=== PATIENT | female | born 1940 | race Caucasian/White ===

== ENCOUNTER 2018-05-18 08:51 | Observation (INO) | payer MEDICARE, BC ==
--- NOTE | 2018-05-17 07:40 | HP ---
CC: Dr. Torsten Modi * HISTORY AND PHYSICAL: DATE OF PLANNED ADMISSION AND SURGERY: 05/18/18 HISTORY OF PRESENT ILLNESS: Ms. Celeste is a 78-year-old white female who is admitted with a large bladder mass and right hydronephrosis, for cystoscopy, transurethral resection of bladder tumor and insertion of right ureteral stent. The patient's history started about 6 weeks ago when she noted several episodes of total gross painless hematuria. There was no associated flank pain and no voiding symptoms. There was no associated vaginal bleeding. She was evaluated by Dr. Modi who ordered a CT urogram. The study showed moderate right hydroureteronephrosis and a 4.5 cm mass in the right side of the bladder consistent with a bladder tumor. There were no parenchymal renal masses and no abnormal filling defects in either ureter or collecting system. There was no lymphadenopathy and no evidence of any metastatic disease. The tumor did not seem to be extending beyond the bladder wall. There was an incidental finding of a 1.5 cm cystic mass in the uncinate process of the pancreas, but no biliary dilatation or abnormalities. The patient was then evaluated in my office and I performed a cystoscopy which showed a large solid mass arising from the right bladder wall. The mass looked highly suspicious of high grade bladder tumor, was sessile, and bled easily to instrumentation. No other abnormalities were noted. Because of that finding, the patient admitted for the above procedure. PAST MEDICAL HISTORY AND SYSTEM REVIEW: The patient is a chronic smoker of 1 pack per day for about 46 years. She stopped 11 years ago. She denies any symptoms of COPD or shortness of breath. She does not use oxygen at night. She gives past history of coronary artery disease and had a coronary stent more than 10 years ago. She has done very well and seems to be stable cardiac-alberts without chest pain or shortness of breath. She has history of osteoporosis and was on treatment until 5 years ago. She had a tonsillectomy in childhood and open cholecystectomy in the early 80s and had bilateral cataract surgeries. She has type 2 diabetes with her H1c at 6 one year ago. She is on diet only for her diabetes. FULL TIME PARAMEDIC HISTORY: Negative for any vaginal bleeding. She is nulliparous. She has not had any pelvic surgeries. ALLERGIES: She reports being allergic to KEFLEX which apparently gives her rash , but has not used it in years. FAMILY HISTORY: Negative. PHYSICAL EXAMINATION GENERAL: Pleasant, moderately overweight white female, who looks her age. VITAL SIGNS: Blood pressure 120/70, pulse of 66, oxygen saturation 98% on room air. LUNGS: Clear. HEART: Regular and rhythmic. No murmurs. ABDOMEN: Soft. No masses, no tenderness, and no CVA tenderness. PELVIC EXAMINATION: Done at the time of the office cystoscopy showed no pelvic masses, however mass was felt in the Rt base of the bladder. IMPRESSION: A 5 cm tumor occupying the right base and lateral wall of the bladder, looks high grade by cystoscopy, causing right ureteral obstruction and moderate right hydroureteronephrosis. Past history of heavy smoking. Past history of coronory artery disease, stable. PLAN: Cystoscopy, transurethral resection of bladder tumor and placement of right ureteral stent. I discussed the above plans in detail with the patient and her . Some of the potential complications including excessive bleeding, bladder perforation , inability to place a ureteral stent possibly requiring right nephrostomy tube placement. I also discussed the fact that the patient will need additional treatment for her bladder tumor and that will depend on the grade and the stage of the tumor. All their questions were answered. [id number]/[facility] #: [id number] JUAN
[~2018-05-18 08:51] MED LIST: Buffered Lidocaine 1% SYRIN* 1 ML/SYRINGE INTRADERM ONE; Famotidine IV* 10 MG/ML 2 ML (20 mg) IV ONE; Lactated Ringers 1000 ML Bag* 1,000 ML IV SCH
[2018-05-18] MEDS ORDERED: Famotidine IV* 10 MG/ML 2 ML (20 mg) ONE (09:13)
[2018-05-18] MEDS ORDERED: Phenazopyridine TAB* 100 MG ONE (09:13)
[2018-05-18] MEDS ORDERED: Levofloxacin 750 MG IVPREMIX(* 750 MG/150 ML BAG ONE (09:13)
[2018-05-18] MEDS ORDERED: Midazolam* 1 MG/ML 5 ML VIAL (5 MG) ONE (10:56)
[2018-05-18] MEDS ORDERED: Ondansetron INJ* 2 MG/ML VIAL ONE (10:56)
[2018-05-18] MEDS ORDERED: Phenylephrine INJ* 10 MG/ML 1 ML VIAL (10 MG) ONE (10:56)
[2018-05-18] MEDS ORDERED: Lidocaine 2% PF * 5 ML VIAL ONE (10:56)
[2018-05-18] MEDS ORDERED: fentaNYL* 50 MCG/ML 2 ML VIAL (100 MCG VIAL) ONE ×3 (10:56→14:30)
[2018-05-18] MEDS ORDERED: Propofol* 10 MG/ML 20 ML BTL ONE (10:56)
[2018-05-18] MEDS ORDERED: Dexamethasone IV* 4 MG/ML 1 ML (4 MG) ONE (10:56)
[2018-05-18] MEDS ORDERED: Cisatracurium* 2 MG/ML MDV 5 ML ONE (11:28)
[2018-05-18] MEDS ORDERED: Fluorescein 10% INJ* 100 MG/ML AMP ONE (12:27)
[2018-05-18] MEDS ORDERED: Iohexol 180 (CONTRAST) 10 ML SDV IV ONE (13:00)
[2018-05-18] MEDS ORDERED: Neostigmine Methylsulfate* 1 MG/ML 10 ML VIAL (1 mg/ml) ONE (13:20)
[2018-05-18] MEDS ORDERED: Glycopyrrolate IV* 0.2 MG/ML 1 ML VIAL ONE (13:20)
[2018-05-18] MEDS ORDERED: Naloxone* 0.4 MG/ML 1 ML VIAL IV PRN (15:21)
[2018-05-18] MEDS ORDERED: Ondansetron INJ* 2 MG/ML VIAL IV PRN (15:21)
[2018-05-18] MEDS ORDERED: fentaNYL* 50 MCG/ML 2 ML VIAL (100 MCG VIAL) IV PRN (15:21)
[2018-05-18] MEDS ORDERED: Oxybutynin TAB* 5 MG PO PRN (16:24)
[2018-05-18] MEDS ORDERED: oxyCODONE/Acetamin 5/325 MG* TAB PO PRN (16:24)
[2018-05-18] MEDS ORDERED: Benzocaine/Menthol LOZ* 1 LOZENGE PO PRN (17:43)
[2018-05-18] MEDS ORDERED: Atorvastatin* 40 MG TAB PO SCH (18:00)
[2018-05-18] MEDS: [UNRECOGNIZED DRUG - OTHER] PO SCH (22:04)
[2018-05-18] MEDS: Calcium/Vitamin D TAB 250/125* TAB PO SCH (22:07)
[2018-05-18] MEDS: Lactated Ringers 1000 ML Bag* 1,000 ML IV SCH (23:22)
[2018-05-19] MEDS: Lactated Ringers 1000 ML Bag* 1,000 ML IV SCH (05:42)
[2018-05-19 05:45] LABS: INR 1.02 (0.77-1.02)
[2018-05-19 05:49] LABS: BUN/Creatinine Ratio 23.2 (8-20); Calcium 9.2 mg/dL (8.6-10.3); EGFR African American 50.3 (>60); EGFR Non-African American 41.6 (>60); Potassium 4.7 mmol/L (3.5-5.0)
[2018-05-19] MEDS: [UNRECOGNIZED DRUG - OTHER] PO SCH (08:32)
[2018-05-19] MEDS: Calcium/Vitamin D TAB 250/125* TAB PO SCH (08:37)
--- NOTE | 2018-05-19 08:49 | OP ---
CC: Dr. Torsten Modi * DATE OF OPERATION: 05/18/18 - ROOM #348 DATE OF : 42 SURGEON: Sigifredo Clifton MD ANESTHESIOLOGIST: Dr. Mp Aiken. ANESTHESIA: General. PRE-OP DIAGNOSES: 1. Large bladder tumor, right bladder wall. 2. Right hydronephrosis due to above. POST-OP DIAGNOSES: 1. Large bladder tumor, right bladder wall. 2. Right hydronephrosis due to above. OPERATIVE PROCEDURE: 1. Cystoscopy. 2. Transurethral resection of bladder tumor (5 cm). 3. Unsuccessful attempt at right ureteral catheterization. INDICATION FOR PROCEDURE: Mrs. Celeste is a 78-year-old white female who gives past history of chronic and heavy smoking and who 6 weeks ago started having episodes of gross painless hematuria. She was worked up by Dr. Modi, who obtained a CT urogram. The study showed a large solid mass occupying the whole right lateral wall and the right base of the bladder associated with mild-to- moderate right hydroureteronephrosis. Office cystoscopy confirmed the presence of a high-grade looking solid tumor occupying the right bladder wall. Because of the above history and finding, the patient was admitted for the above procedure. PATHOLOGY: At cystoscopy, the left ureteral orifice was normal. The right ureteral orifice could not be visualized. There was a large sessile solid tumor occupying the right base of the bladder and the whole right lateral wall extending just proximal to the level of the bladder neck. The tumor was vascular and bled easily on instrumentation. At resection, the tumor was solid and looked deeply invasive into the bladder wall. The right ureteral orifice could not be visualized even after resection of the right trigone. No efflux was seen in the area of the right ureteral orifice. DESCRIPTION OF PROCEDURE: After successful general anesthesia with muscle paralysis, the patient was placed in the lithotomy position and was prepped and draped for a cystoscopy. Cystoscopy was performed. The bladder was carefully inspected and the above findings were noted. The right ureteral orifice could not be visualized. The resectoscope was then introduced inside the bladder. The inflow and outflow of the irrigation fluid were adjusted to avoid over distention of the bladder. The bladder tumor was then resected starting at the level of the right trigone and proceeding anteriorly. The resection was carried deep into the bladder wall but there was no perforation. The tumor seems to be extending deep into the bladder wall and no attempt was made to fully resect it for fear of causing a large bladder perforation. The bleeders were electrocoagulated and controlled. The right ureteral orifice could still not be identified. The patient was given 0.5 cc of fluorescein. There was good efflux of fluorescein colored urine from the left ureteral orifice but none was noted from the area of the right orifice. In spite of prolonged attempt at identification of the Rt orifice, it was not successful. At the completion of the procedure, there was good hemostasis. There was no evidence of bladder perforation. There was residual tumor noted but it was not bleeding. The resectoscope was then removed and size 20-Yakut Ziegler catheter was passed inside the bladder and the balloon inflated with 10 cc of water. The patient tolerated the procedure well and left the operating room in good condition. The blood loss was estimated at about 50 cc. The specimen was bladder tumor. The plan is to watch the patient overnight for right flank pain, fever, and to check serum Creatinine, and obtain renal ultrasound in the morning. If the Cr is increased and the pre op hydronephrosis worse, the plan will be to place a right percutaneous nephrostomy tube. [id number]/[facility] #: [id number] [facility]ITALMike
[2018-05-19] MEDS ORDERED: Levofloxacin TAB* 500 MG PO ONE (09:00)
[2018-05-19] MEDS ORDERED: Ramipril CAP* 2.5 MG PO SCH (09:00)
[2018-05-19 12:07] VITALS: BP 126/51
--- NOTE | 2018-05-24 00:24 | DS ---
DISCHARGE SUMMARY: DATE OF ADMISSION: 05/18/18 DATE OF DISCHARGE: 05/19/18 FINAL DIAGNOSES: 1. 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 2. Moderate right hydronephrosis due to above. OPERATIONS: 1. Cystoscopy. 2. Transurethral resection of bladder tumor (right bladder wall). 3. Unsuccessful attempt at placement of a right ureteral stent. HISTORY: Mrs. Celeste is a 78-year-old white female who about 6 weeks prior to admission started havin g episodes of gross, painless hematuria. There was no associated flank pain and no voiding symptoms. She consulted Dr. Modi, her primary care physician, who ordered a CT urogram. The study showed moderate right hydroureteronephrosis and a 5 cm mass occupying the right wall of the bladder. The ap pearance on the CT was consistent with a high-grade invasive bladder tumor. The tumor did not seem t o be extending outside the bladder wall. There was no lymphadenopathy and no evidence of abdominal o r pelvic metastatic disease. There was, however, an incidental finding of 1.5 cm cystic mass in the uncinate process of the pancreas, but there was no biliary dilatation or abnormalities. The patient underwent a cystoscopy in my office, which confirmed the presence of a large solid mass i n the right bladder wall. PAST MEDICAL HISTORY AND SYSTEM REVIEW: The patient was a chronic smoker of 1 pack per day for 46 ye ars and she stopped 11 years ago. She denies any symptoms of COPD and denies any shortness of breath. She gives a history of coronary artery disease and had a coronary stent inserted about 10 years ago. She has done well and had no recurrent cardiac symptoms. She had no chest pain or shortness of nel th. The patient has history of osteoporosis. Surgical history relevant for tonsillectomy in childhood and an open cholecystectomy in her early 80s . She had bilateral cataract surgeries. She has type 2 diabetes, controlled on diet. Her A1c 1 year ago was 6. 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 She is nulliparous. She has not had any pelvic torre rgeries. ALLERGIES: She reports being allergic to KEFLEX, which gives her a rash. She has not used it in yea rs. FAMILY HISTORY: Negative. PHYSICAL EXAMINATION: Her physical examination on admission was normal with normal vital signs. Pel arvin examination done at the office during her cystoscopy showed a firm mass in the right base of the bladder, but there was no fixation. PREOPERATIVE LABORATORY WORK: Was within normal. COURSE IN HOSPITAL: The patient was admitted the morning of her surgery. Under general anesthesia, she underwent transurethral resection of the bladder tumor. The tumor was solid, non-papillary, sessi le, and seemed to be deeply invasive into the bladder wall. In spite of multiple attempts at identif acacia the right orifice and even after giving the patient IV fluorescein, the right orifice could not be visualized and a right ureteral stent could not be placed. Because of the concern about worsening right hydronephrosis, the patient was kept in the hospital for observation overnight. Her urine remained clear. She did not have any right flank pain or any feve r. Her serum creatinine the next morning was stable at 1.2. She also had a renal ultrasound, which showed stable moderate right hydronephrosis. The Ziegler catheter was removed and the patient was disc harged home on her preoperative medications. The final pathology confirmed a high-grade deeply muscle invasive transitional cell carcinoma. At the time of her discharge, the patient was pain-free, had normal vital signs, no flank pain. She was discharged home. The plan is to see the patient in the office next week and she will have a followup renal ultrasound to confirm that the hydronephrosis has not increased. She will also have a CT of the chest to rule o ut any pulmonary metastasis. After rechecking the pancreatic finding on the CT, the patient will be referred to [facility] for the treatment of her bladder tumor, which will most likely require a cystectomy with or with out neoadjuvant systemic chemotherapy. [id number]/[facility] #: [id number]
== END 2018-05-19 12:07 | disposition home or self-care (01) ==
LOC: OR 08:51 → SSU 15:41
PROVIDERS: ADMIT Urology; ATTEND Urology
DX: N32.9 Bladder disorder, unspecified (principal); N13.30 Unspecified hydronephrosis; F17.210 Nicotine dependence, cigarettes, uncomplicated; I25.10 Atherosclerotic heart disease of native coronary artery without angina pectoris; Z95.5 Presence of coronary angioplasty implant and graft; E11.9 Type 2 diabetes mellitus without complications
CPT/HCPCS: 36415; 74420; 76775; 80048; 85610; 85730; 88307; 96374; 96375; A9270-GY; G0378; J1100; J2250; J2405; J2704; J2710; J3010

== ENCOUNTER 2018-08-19 11:29 | Inpatient (IN) | payer MEDICARE, BC ==
--- NOTE | 2018-08-19 12:32 | ED ---
Adult Trauma - HPI Summary HPI Summary: This patient is a 78 year old F brought to ED via EMS with a chief complaint of mechanical fall at 1145 today. Patient also has low hemoglobin. Patient got up on walker and felt her knees buckle. She thought she hit her head on the cabinet. Per detention, she was at [facility] three weeks ago and received three transfusions. Patient had urostomy done on 07/26/18 and had black/ tarry stools after. The patient rates the pain 0/10 in severity. Symptoms aggravated by nothing. Symptoms alleviated by nothing. Patient reports weakness , pallor skin. Patient denies headache and fever. PMHx of DM, angina, CAD, bladder cancer. FHx of DM, cardiac disease, cancer. Patient drinks alcohol, does not use substances or drugs. - History of Current Complaint Chief Complaint: EDFall Stated Complaint: LOW HEMOGLOIN PER EMS ?: No Mechanism of Injury: Fall Onset/Duration: Started Hours Ago - 1145 today Current Severity: None Pain Intensity: 0 Pain Scale Used: 0-10 Numeric Aggravating Factor(s): Nothing Alleviating Factor(s): Nothing Associated Signs & Symptoms: Positive: Negative - Headache, Numbness/Weakness - Weakness. Negative: Fever - Additional Pertinent History Primary Care Physician: [id number] - Allergy/Home Medications Allergies/Adverse Reactions: Allergies Allergy/AdvReac Type Severity Reaction Status Date / Time cephalexin [From Keflex] Allergy Rash Verified 06/10/18 14:29 ciprofloxacin Allergy Swelling Verified 08/05/18 08:25 Home Medications: Home Medications Acetaminophen TAB* [Tylenol TAB*] 975 mg PO Q8HR PRN 08/19/18 [History Confirmed 08/19/18] Aspirin EC TAB* [Ecotrin EC Low Dose 81 MG*] 81 mg PO DAILY 08/19/18 [History Confirmed 08/19/18] Bisacodyl SUPP* [Dulcolax Supp*] [address] DAILY PRN 08/19/18 [History Confirmed 08/19/18] Docusate CAP* [Colace Cap*] 200 mg PO QAM 08/19/18 [History Confirmed 08/19/18] Enoxaparin(*) [Lovenox(*)] 40 mg SUBCUT DAILY 08/19/18 [History Confirmed ] Furosemide TAB* [Lasix TAB*] 60 mg PO DAILY 08/19/18 [History Confirmed 08/19/18 ] Glucosamine HCl 1,500 mg PO DAILY 08/19/18 [History Confirmed 08/19/18] Multivitamins/Minerals TAB* [Theragran/minerals TAB*] 1 tab PO DAILY 08/19/18 [ History Confirmed 08/19/18] Nitroglycerin TAB 0.4 MG* 0.4 mg SL Q5M PRN 08/19/18 [History Confirmed 08/19/18 ] Nystatin TOP POWDER* 1 applic TOPICAL DAILY PRN 08/19/18 [History Confirmed ] Phenyleph/Mineral Oil/Petrolat [Preparation H] [address] BID PRN 08/19/18 [ History Confirmed 08/19/18] Rosuvastatin (NF) [Crestor (NF)] 20 mg PO QPM 08/19/18 [History Confirmed ] Saccharomyces Boulardii [Probiotic] 250 mg PO BID 08/19/18 [History Confirmed ] Sodium Bicarbonate (ANTACID)* 650 mg PO TID 08/19/18 [History Confirmed 08/19/18 ] PMH/Surg Hx/FS Hx/Imm Hx Endocrine/Hematology History: Reports: Hx Diabetes - diet controlled Cardiovascular History: Reports: Hx Angina - history of, none recent, Hx Coronary Artery Disease - 1 cardiac stent 03/2007 Denies: Hx Hypertension, Hx Pacemaker/ICD, Other Cardiovascular Problems/ Disorders Respiratory History: Denies: Other Respiratory Problems/Disorders GI History: Reports: Other GI Disorders - Cholecystectomy 1979 History: Reports: Other Problems/Disorders - bladder tumor, right hydronephrosis Denies: Hx Dialysis, Hx Renal Disease - RIGHT URETER OBSTRUCTION ( DISTAL ) 2018 Musculoskeletal History: Reports: 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, Other Musculoskeletal History - Osteoporosis Sensory History: Reports: Hx Cataracts - Bilateral cataract extractions 2007, Hx Contacts or Glasses - Reading glasses Denies: Hx Hearing Aid Opthamlomology History: Reports: Hx Cataracts - Bilateral cataract extractions 2007, Hx Contacts or Glasses - Reading glasses Neurological History: Denies: Other Neuro Impairments/Disorders Psychiatric History: Denies: Hx Panic Disorder - Cancer History Cancer Type, Location and Year: BLADDER CA Hx Chemotherapy: No Hx Radiation Therapy: No - Surgical History Surgery Procedure, Year, and Place: 04/2018 CYSTOSCOPY W/ BIOPSY. CHOLECYSTECTOMY 1979. Tonsillectomy as a kid. Cardiac stent placement 2007. Bilateral Cataract Extractions 2007. Colonoscopy. Urostomy 07/26/18 Hx Anesthesia Reactions: No Infectious Disease History: No Infectious Disease History: Denies: Traveled Outside the [place] in Last 30 Days - Family History Known Family History: Positive: Cardiac Disease, Diabetes, Other - Alzheimers, cancer - Social History Alcohol Use: Weekly Alcohol Amount: 1 glass of beer or wine 4-5 times a week Hx Substance Use: No Substance Use Type: Reports: None Hx Tobacco Use: Yes Smoking Status (MU): Former Smoker Type: Cigarettes Amount Used/How Often: 1 PPD for 46 years Have You Smoked in the Last Year: No Review of Systems Negative: Fever Skin: Other - Pallor skin Positive: Weakness. 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 Dark stool, no gross blood. Triage Information Reviewed: Yes Vital Signs On Initial Exam: Initial Vitals Temp Pulse Resp BP Pulse Ox 98.4 F 87 20 98/46 92 08/19/18 11:43 08/19/18 11:43 08/19/18 11:43 08/19/18 11:43 08/19/18 11:43 Vital Signs Reviewed: Yes Diagnostics - Vital Signs Vital Signs Temp Pulse Resp BP Pulse Ox 08/19/18 11:43 98.4 F 87 20 98/46 92 - Laboratory Lab Statement: Any lab studies that have been ordered have been reviewed, and results considered in the medical decision making process. Re-Evaluation - Re-Evaluation First Eval Re-Evaluation Time: 12:33 Comment: Discussed results with patient. Patient will be admitted to [facility] with diagnosis of GI bleed, symptomatic anemia, and mechanical fall. Patient understands and agrees with this plan. Adult Trauma Course/Dx - Course Course Of Treatment: Patient with minor fall today due to chronic weakness. She had anemia resulting from recent surgery. Her hemoglobin on outpatient labs just prior to arrival is 5.6. She required blood transfusion. Stools are black and Hemoccult positive. GI consultation will be obtained. IV Protonix drip given. Patient stable through transfusion that occurred here in the ER. - Diagnoses Differential Diagnosis/HQI/PQRI: Positive: Other - GI bleed, head injury, abdominal injury, generalized weakness, Provider Diagnoses: Accident due to mechanical fall without injury, GI bleed, Symptomatic anemia - Physician Notifications Discussed Care Of Patient With: Carine Sanz Time Discussed With Above Provider: 13:35 Instructed by Provider To: Admit As Inpatient - Discussed patient case with Dr. Carine Sanz, hospitalist, who accepted the patient for admission. - Critical Care Time Critical Care Time: 30-74 min - 30 minutes. CCT is EXCLUSIVE of separately billable procedures. Discharge - Sign-Out/Discharge Documenting (check all that apply): Patient Departure - Admit Patient Received Moderate/Deep Sedation with Procedure: No - Discharge Plan Condition: Fair Disposition: ADMITTED TO [facility] - Billing Disposition and Condition Condition: FAIR Disposition: Admitted to [facility] - Attestation Statements Document Initiated by Scribe: Yes Documenting Scribe: Shaheen Snyder Provider For Whom Sarah is Documenting (Include Credential): Adeel Hopkins MD Scribe Attestation: Shaheen Rojas, scribed for Adeel Hopkins MD on 08/19/18 at 1855. Scribe Documentation Reviewed: Yes Provider Attestation: The documentation as recorded by the Shaheen gonzalez accurately reflects the service I personally performed and the decisions made by me, Adeel Hopkins MD Status of Scribe Document: Viewed
[2018-08-19 13:07] LABS: Activated Partial Thrombo Time 33.2 seconds (26.0-38.0); INR 1.29 (0.82-1.09)
[2018-08-19] MEDS ORDERED: Pantoprazole IV* 40 MG IV ONE (13:33)
[2018-08-19] MEDS ORDERED: Pantoprazole* 80 mg IN NS 80 MG/250 ML BAG IVPB ONE (13:33)
[2018-08-19] MEDS ORDERED: Acetaminophen TAB* 325 MG PO PRN (14:49)
[2018-08-19] MEDS ORDERED: NS 0.9% 500 ML* 500 ML IV ONE (16:53)
[2018-08-19] MEDS ORDERED: NS 0.9% 1000 ML** 1,000 ML IV ONE (16:54)
--- NOTE | 2018-08-19 17:29 | HP ---
HISTORY AND PHYSICAL: ADDENDUM: HISTORY OF PRESENT ILLNESS: We are currently obtaining records from [facility] [[email or web address] In interview with the patient, the patient reports that she has no recollection of upper endoscopy or lower endoscopy. Due to her profound anemia and weakness , we were asked to see and evaluate her for admission. PAST MEDICAL HISTORY: 1. History of coronary artery disease with stenting over 10 years ago. 2. History of diabetes. 3. Angina. 4. History of bladder cancer. 5. Osteoporosis. 6. Heart murmur. 7. Hypertension. 8. History of lower back pain. 9. Pancreatic cyst. 10. Chronic kidney disease. PAST SURGICAL HISTORY: 1. Cholecystectomy. 2. Tonsillectomy. 3. Urostomy and hysterectomy on 07/26/18. 4. Left nephrostomy tube placement in July of 2018. 5. Bladder removal due to cancer. HOME MEDICATIONS: Include: 1. Aspirin 81 mg p.o. daily. 2. Calcium carbonate 1 tab twice daily. 3. Colace 200 mg daily. 4. Lovenox 40 mg subcu daily. 5. Furosemide 60 mg p.o. daily. 6. Glucosamine 1 tablet b.i.d. 7. Multivitamin 1 tablet p.o. daily. 8. Rosuvastatin 20 mg p.o. daily. 9. Probiotic 1 tablet b.i.d. 10. Sodium bicarbonate 650 mg 2 tablets 3 times a day. 11. Acetaminophen 975 mg every 8 hours as needed for pain. 12. Nitroglycerin 0.4 mg sublingual as needed for chest pain. ALLERGIES: She has allergy to CIPRO and KEFLEX. FAMILY HISTORY: Father with history of an [place]. Mother with breast cancer, colon cancer. Sister with a brain tumor. Brother with Alzheimer's disease. SOCIAL HISTORY: The patient reports that she quit smoking approximately 11 years ago. Prior to that, she smoked up to a pack and a half a day for 46 years. She denies any drug use or alcohol use. She is . Surrogate decision maker in the event she is unable to make her own decisions is her . She is a DNR/DNI. REVIEW OF SYSTEMS: The patient denies any fever, unintended weight loss, chest pain, edema. Denies any cough, hemoptysis. She does report some exertional shortness of breath that has progressively become worse. Denies any nausea, vomiting, diarrhea. She does complain of some abdominal pressure. She denies any gross hematuria or dysuria. The patient has a urostomy and a left nephrostomy tube. She denies any focal weakness or sensory loss. Denies any visual complaints, dysphagia, arthralgias, or myalgias. She does report she has open lesions to her lower abdomen from recent surgery and an open sore on her coccyx. She does complain of generalized weakness. She denies any psychosis or anxiety. PHYSICAL EXAMINATION GENERAL: At this time, Ms. Celeste is a 78-year-old female. She is pale, appears weak, resting on the stretcher in the emergency room. VITAL SIGNS: Blood pressure 95/55, heart rate is 90, respirations are 20, O2 saturation 93%, temperature was 98.6. HEENT: Head is atraumatic, normocephalic. Eyes: EOMs are intact. Sclerae are pale. Oral mucosa is pale and dry. NECK: Supple. There is no C-spine tenderness. RESPIRATORY: Lung sounds are clear to auscultation bilaterally. No wheezes, rales, or rhonchi. CARDIAC: S1, S2. Regular rate and rhythm. ABDOMEN: Rounded. It is soft. She does have surgical colleen intact to her left lower abdomen with 2 open areas noted at the top and base of the surgical incision with packing in place with a small amount of drainage. She has a urostomy that is draining yellow urine to her left lower abdomen. She has a left nephrostomy tube that is also draining clear yellow urine into a gravity bag. EXTREMITIES: She is able to move all 4 extremities. She does have +1 to +2 pitting edema to bilateral lower legs. She has no calf tenderness. Pedal pulses are +2 bilaterally. There is no clubbing or cyanosis. Her nail beds are pale. NEUROLOGIC: She is awake, alert, oriented x3. Speech is clear. Thought process is intact. There are no gross focal deficits. SKIN: She has a surgical incision to her left lower abdomen that has packed dressing at the top and base of the incision with small to moderate amount of serious drainage. There is no surrounding redness at the surgical incision site. She also has a small open wound noted to her coccyx and left intergluteal fold that has a dressing intact. She has a dressing intact around her left nephrostomy tube that is clean and dry. DIAGNOSTIC STUDIES/LAB DATA: WBCs are 14.7, RBCs 2.09, hemoglobin 5.6, hematocrit is 18, platelet count is 303. INR is 1.29. Sodium 137, potassium is 3.3, chloride 97, carbon dioxide is 25, anion gap is 15, BUN was 49, creatinine 1.40, calcium is 7.6. ASTs are 92, ALTs are 112, alkaline phosphatase is 92. Total protein is 4.4, albumin is 2.0. Urine is currently pending. Chest x-ray is pending. ASSESSMENT AND PLAN: Ms. Celeste is a 78-year-old female who was recently diagnosed with bladder cancer, status post bladder removal with urostomy and total hysterectomy on 07/26/18 at [facility] [[email or web address]], who presented to the emergency room with profound anemia and heme-positive stools. She will be admitted inpatient for: 1. Profound anemia. I suspect her anemia could be related to gastrointestinal bleed. She does have black and tarry stools. She reports black and tarry stools since she had urostomy placed on 07/26/18. The patient does report progressively worsening weakness. She has been rehabbing at [facility] and today had a fall. I suspect her weakness is related to her profound anemia. Contributing to her anemia could also be the use of DVT prophylaxis Lovenox and aspirin 81 mg p.o. daily. I am going to hold her Lovenox and aspirin at this time. I will place her on SCDs. She will get 2 units of blood and we will repeat H and H q.6 hours and monitor for further signs of bleeding. She recently had an MRI of the abdomen that did not show any liver disease or liver lesions concerning for varices. I have consulted Dr. Mckenna from GI for further recommendations. We will continue her on a Protonix drip. She received 80 mg of Protonix in the emergency room and she will have a drip at 8 mg per hour. I will make her n.p.o. except for ice chips for now pending GI's consultation. 2. History of bladder cancer. The patient is status post bladder removal with urostomy and left nephrostomy tubes that are patent and draining clear light yellow urine. We will continue to monitor her urine output. 3. Chronic kidney disease. The patient does have an elevated BUN and creatinine. It appears to be improving from her previous admission. We will continue to monitor her BUN and creatinine, avoid nephrotoxic medications, and repeat a BMP tomorrow. 4. Hypokalemia. The patient does have a potassium level of 3.3. I will give her 40 mEq of potassium IV and repeat BMP in the AM. 5. Hypertension. The patient is not currently on any antihypertensive medications. 6. Hyperlipidemia. I will hold her rosuvastatin at this time due to her gastrointestinal bleed. 7. Diabetes. I will place her on lispro sliding scale with Accu-Cheks a.c. 8. Surgical wounds. She has healing surgical wounds noted to the top and base of the surgical incision. Colleen are intact, no surround erythema. small to moderate amount of serious drainage. We will continue dressings with saline wet -to-dry dressings to surgical wounds noted at the top and base of her surgical incision and continue to monitor for signs of infection. Patient is afebrile at this time and the wounds do not appear to be infected, I will hold off on antibiotics at this time. Should the patient develop a fever or changes in drainage, will start antibiotics. For her coccyx wound, I would place barrier cream daily and dressing changes as needed. 9. FEN: She will be n.p.o. except ice chips. 10. Code status: She is a DNR/DNI. 11. DVT prophylaxis: I will place her on SCDs. Chemical DVT prophylaxis is contraindicated at this time as the patient has a gastrointestinal bleed with an H and H of 5.6 and 16. TIME SPENT: Time spent on this admission was approximately 60 minutes, greater than half that time was spent at the bedside reviewing events leading thus far to her hospitalization, performing physical exam, and reviewing my plan of care. I have discussed this with my attending, Dr. Carine Sanz; she is in agreement with my plan. DAVID DARCI, EN[employer]EVEL [employer]URING ENGINEER [id number]/[facility] #: [id number] JUAN
--- NOTE | 2018-08-19 18:10 | HP ---
CONTINUATION ADDENDUM NOW INCLUDED ON THIS REPORT CC: Dr. Modi; Dr. Taylor, [facility] * HISTORY AND PHYSICAL: DATE OF ADMISSION: 08/19/18. PRIMARY CARE PROVIDER: Dr. Modi. PROVIDER: Brandi Shook NP. ATTENDING PROVIDER: Dr. Carine Sanz * (DICTATED BY BRANDI SHOOK NP) CHIEF COMPLAINT: 1. Weakness. 2. Fall. HISTORY OF PRESENT ILLNESS: Ms. Celeste is a 78-year-old female with past medical history significant for diabetes, angina, history of bladder cancer, status post bladder removal on 07/26/18 with total hysterectomy, who presented to the emergency room with complaints of weakness and fall this morning. The patient reports that she has been having black stools since she had her urostomy and nephrostomy tube placed on 07/26/18 at [facility]. The patient reports that she was in [facility] from 07/26/18 to 08/02/18, she was then discharged home. Approximately 3 days after her discharge home, she re- presented to the emergency room due to weakness and was found have pyelonephritis. She again was transferred to [facility], admitted, and recently discharged on 08/16/18 to [facility]. The patient reports that she has been at [facility]. She continues to feel weak and continued to have black stool. This morning, she felt weak in her knee buckled and she fell to the floor. She denied any injury. She had lab work done prior to her visit and she was found to have an H and H of 5.6 and 18. We are currently obtaining records from [facility]. In interview with the patient, the patient reports that she has no recollection of upper endoscopy or lower endoscopy. Due to her profound anemia and weakness, we were asked to see and evaluate her for admission. PAST MEDICAL HISTORY: 1. History of coronary artery disease with stenting over 10 years ago. 2. History of diabetes. 3. Angina. 4. History of bladder cancer. 5. Osteoporosis. 6. Heart murmur. 7. Hypertension. 8. History of lower back pain. 9. Pancreatic cyst. 10. Chronic kidney disease. PAST SURGICAL HISTORY: 1. Cholecystectomy. 2. Tonsillectomy. 3. Urostomy and hysterectomy on 07/26/18. 4. Left nephrostomy tube placement in July of 2018. 5. Bladder removal due to cancer. HOME MEDICATIONS: Include: 1. Aspirin 81 mg p.o. daily. 2. Calcium carbonate 1 tab twice daily. 3. Colace 200 mg daily. 4. Lovenox 40 mg subcu daily. 5. Furosemide 60 mg p.o. daily. 6. Glucosamine 1 tablet b.i.d. 7. Multivitamin 1 tablet p.o. daily. 8. Rosuvastatin 20 mg p.o. daily. 9. Probiotic 1 tablet b.i.d. 10. Sodium bicarbonate 650 mg 2 tablets 3 times a day. 11. Acetaminophen 975 mg every 8 hours as needed for pain. 12. Nitroglycerin 0.4 mg sublingual as needed for chest pain. ALLERGIES: She has allergy to CIPRO and KEFLEX. FAMILY HISTORY: Father with history of an [place]. Mother with breast cancer, colon cancer. Sister with a brain tumor. Brother with Alzheimer's disease. SOCIAL HISTORY: The patient reports that she quit smoking approximately 11 years ago. Prior to that, she smoked up to a pack and a half a day for 46 years. She denies any drug use or alcohol use. She is . Surrogate decision maker in the event she is unable to make her own decisions is her . She is a DNR/DNI. REVIEW OF SYSTEMS: The patient denies any fever, unintended weight loss, chest pain, edema. Denies any cough, hemoptysis. She does report some exertional shortness of breath that has progressively become worse. Denies any nausea, vomiting, diarrhea. She does complain of some abdominal pressure. She denies any gross hematuria or dysuria. The patient has a urostomy and a left nephrostomy tube. She denies any focal weakness or sensory loss. Denies any visual complaints, dysphagia, arthralgias, or myalgias. She does report she has open lesions to her lower abdomen from recent surgery and an open sore on her coccyx. She does complain of generalized weakness. She denies any psychosis or anxiety. PHYSICAL EXAMINATION GENERAL: At this time, Ms. Celeste is a 78-year-old female. She is pale, appears weak, resting on the stretcher in the emergency room. VITAL SIGNS: Blood pressure 95/55, heart rate is 90, respirations are 20, O2 saturation 93%, temperature was 98.6. HEENT: Head is atraumatic, normocephalic. Eyes: EOMs are intact. Sclerae are pale. Oral mucosa is pale and dry. NECK: Supple. There is no C-spine tenderness. RESPIRATORY: Lung sounds are clear to auscultation bilaterally. No wheezes, rales, or rhonchi. CARDIAC: S1, S2. Regular rate and rhythm. ABDOMEN: Rounded. It is soft. She does have surgical colleen intact to her left lower abdomen with 2 open areas noted at the top and base of the surgical incision with packing in place with a small amount of drainage. She has a urostomy that is draining yellow urine to her left lower abdomen. She has a left nephrostomy tube that is also draining clear yellow urine into a gravity bag. EXTREMITIES: She is able to move all 4 extremities. She does have +1 to +2 pitting edema to bilateral lower legs. She has no calf tenderness. Pedal pulses are +2 bilaterally. There is no clubbing or cyanosis. Her nail beds are pale. NEUROLOGIC: She is awake, alert, oriented x3. Speech is clear. Thought process is intact. There are no gross focal deficits. SKIN: She has a surgical incision to her left lower abdomen that has packed dressing at the top and base of the incision with small to moderate amount of serious drainage. There is no surrounding redness at the surgical incision site. She also has a small open wound noted to her coccyx and left intergluteal fold that has a dressing intact. She has a dressing intact around her left nephrostomy tube that is clean and dry. DIAGNOSTIC STUDIES/LAB DATA: WBCs are 14.7, RBCs 2.09, hemoglobin 5.6, hematocrit 18, platelet count 303. INR is 1.29. Sodium 137, potassium is 3.3, chloride 97, carbon dioxide is 25, anion gap is 15, BUN 49, creatinine 1.40, calcium is 7.6. ASTs are 92, ALTs are 112, alkaline phosphatase is 92. Total protein is 4.4, albumin is 2.0. Urine is currently pending. Chest x-ray is pending. ASSESSMENT AND PLAN: Ms. Celeste is a 78-year-old female who was recently diagnosed with bladder cancer, status post bladder removal with urostomy and total hysterectomy on 07/26/18 at [facility], who presented to the emergency room with profound anemia and heme-positive stools. She will be admitted inpatient for: 1. Profound anemia. I suspect her anemia could be related to gastrointestinal bleed. She does have black and tarry stools. She reports black and tarry stools since she had urostomy placed on 07/26/18. The patient does report progressively worsening weakness. She has been rehabbing at [facility] and today had a fall. I suspect her weakness is related to her profound anemia. Contributing to her anemia could also be the use of DVT prophylaxis Lovenox and aspirin 81 mg p.o. daily. I am going to hold her Lovenox and aspirin at this time. I will place her on SCDs. She will get 2 units of blood and we will repeat H and H q.6 hours and monitor for further signs of bleeding. She recently had an MRI of the abdomen that did not show any liver disease or liver lesions concerning for varices. I have consulted Dr. Mckenna from GI for further recommendations. We will continue her on a Protonix drip. She received 80 mg of Protonix in the emergency room and she will have a drip at 8 mg per hour. I will make her n.p.o. except for ice chips for now pending GI's consultation. 2. History of bladder cancer. The patient is status post bladder removal with urostomy and left nephrostomy tubes that are patent and draining clear light yellow urine. We will continue to monitor her urine output. 3. Chronic kidney disease. The patient does have an elevated BUN and creatinine. It appears to be improving from her previous admission. We will continue to monitor her BUN and creatinine, avoid nephrotoxic medications, and repeat a BMP tomorrow. 4. Hypokalemia. The patient does have a potassium level of 3.3. I will give her 40 mEq of potassium IV and repeat BMP in the AM. 5. Hypertension. The patient is not currently on any antihypertensive medications. her blood pressure is soft in the upper 90's.- suspect this is due to her anemia and give PRBC's. 6. Hyperlipidemia. I will hold her rosuvastatin at this time due to her gastrointestinal bleed. 7. Diabetes. I will place her on lispro sliding scale with Accu-Cheks a.c. 8. Surgical wounds. She has healing surgical wounds noted to the top and base of the surgical incision. Colleen are intact, no surround erythema. small to moderate amount of serious drainage. We will continue dressings with saline wet -to-dry dressings to surgical wounds noted at the top and base of her surgical incision and continue to monitor for signs of infection. Patient is afebrile at this time and the wounds do not appear to be infected, I will hold off on antibiotics at this time. Should the patient develop a fever or changes in drainage, will start antibiotics. For her coccyx wound, I would place barrier cream daily and dressing changes as needed. 9. FEN: She will be n.p.o. except ice chips. 10. Code status: She is a DNR/DNI. 11. DVT prophylaxis: I will place her on SCDs. Chemical DVT prophylaxis is contraindicated at this time as the patient has a gastrointestinal bleed with an H and H of 5.6 and 16. TIME SPENT: Time spent on this admission was approximately 60 minutes, greater than half that time was spent at the bedside reviewing events leading thus far to her hospitalization, performing physical exam, and reviewing my plan of care. I have discussed this with my attending, Dr. Carine Sanz; she is in agreement with my plan. BRANDI SHOOK, FREDDY [id number]/[facility] #: [id number]/[facility] #: [id number] JUAN
[2018-08-19 22:47] LABS: Hematocrit 23 % (35-47); Hemoglobin 7.3 g/dL (12.0-16.0)
[2018-08-19] MEDS: KCL 20 MEQ/100 ML IVPREMIX* 20 MEQ/100 ML BAG IV SCH (22:52)
--- NOTE | 2018-08-19 23:52 | CONS ---
GASTROENTEROLOGY CONSULT: DATE: CONSULTING PHYSICIAN: Carine Sanz / Brandi Shook NP REASON FOR CONSULTATION: Melena with presenting hemoglobin 5.6, BUN 49, creatinine 1.40 in a woman who has had extensive pelvic surgery, 07/26/18, at [facility] and spent 19 of the last 24 days there during two admissions. HISTORY: This 78-year-old woman presented in April with gross hematuria and was worked up here by Dr Clifton through May and eventually sent to [facility] where she elected to have extensive pelvic surgery, which included total cystectomy, hysterectomy, construction of an ileal conduit, and she went home after 7 days. After 3 days, she was seen back in the [facility] ER with leukocytosis and hyponatremia, was transferred back to [facility] for 11 more days. Per report, she received 2 or 3 pRBC transfusions, but had no formal GI workup while there. Her hemoglobin on 08/05/18, the day she was transferred back to [facility], was 7.0. She spent [address] [facility] the second time and was transferred to [facility]. She was there for 3 days when she became weak, fell, and was found to have a hemoglobin of 5.6. There have also been challenges treating left ureteral obstruction with a left nephrostomy tube placed, hyponatremia, balanced against poor p.o. intake and the need for furosemide and an enterococcal infection, which was treated with amoxicillin. She says her stools have been dark ever since the original surgery on 07/26/18. She has been receiving Lovenox and low-dose aspirin for surgical prophylaxis and also because she has a history of coronary stent placed in 2006. She has never had any overt GI bleeding and her family physician who has followed her for 25 or more years, has never had to treat her for any peptic condition or any chronic gastrointestinal condition to her knowledge. She has had colonoscopies on a screening basis in February 2007, which was normal and June 2013 showing mild sigmoid diverticulosis picking that interval because her mother had colon cancer and an ostomy. PAST MEDICAL HISTORY: 1. Morbid obesity. 2. Ex-smoker - quitting around 2006. 3. Cholecystectomy in 1979. 4. History of bladder cancer - see present illness. 5. Coronary artery disease - coronary stenting in 2006. 6. Diabetes. 7. Aortic stenosis. 8. Pancreatic cyst - seen on MRI here May 2018 during her original workup. She ended up having endoscopic ultrasound by Dr Ning Freedman, 07/15/18, with benign cyst fluid aspirated. SOCIAL HISTORY: She is and has lived in [place] all her life. 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 REVIEW OF SYSTEMS: No history of seizures, alcohol abuse, hepatitis, jaundice, hematologic problem, prior anemia, CVA, thromboembolic phenomena, pulmonary disease, fractures. She has never had an upper endoscopy per the records available to me. PHYSICAL EXAM: She is an elderly morbidly obese woman in bed with a left nephrostomy drainage system hooked up. That urine is clear. She is somewhat pale, sallow complected. She is anicteric. She has no adenopathy. Breath sounds are intact and symmetric, but she is weak. Heart sounds show a 2/6 somewhat harsh murmur. Her abdomen has multiple ecchymoses from apparent Lovenox shots and a midline scar that is open at one end about 3cm with a clean base and no drainage. It is thus difficult to palpate her abdomen without inducing some pain. She said she is hungry. Rectal is deferred. There is a right lower quadrant ileal conduit. Extremity showed 2+ edema and is symmetric. Neurologic is nonfocal. LABS: White count 14.7, hemoglobin 5.6 (pre-transfusion), platelets 303. Sodium 137, potassium 3.3, BUN 49, creatinine 1.40, albumin 2.0, alkaline phosphatase 192, ALT 112 (up from 62 two weeks ago and 42 four months ago). IMPRESSION: This 78-year-old woman, who has had a pelvic exenteration for bladder cancer now, also has a nephrostomy tube on the left. She presents with signs of gastrointestinal bleeding most likely above the level of the colon given the elevated BUN. She has never had gastrointestinal bleeding before. She certainly has risk factors with many years of cardioprotective baby aspirin. She has also had a recent small bowel anastomosis. The first step is to transfuse her to a stable level. She has not had overt hemodynamically threatening bleeding, but that is the necessary first step. After that upper endoscopy can be attempted as she is high risk for an ulcer. If that is not present bleeding may be coming from the ileal harvest site. It seems less likely there may be bleeding from the colon given minimal diverticulosis with 2 prior colonoscopies and the elevated BUN at this time. [id number]/[facility] #: [id number] JUAN
[2018-08-20] MEDS: KCL 20 MEQ/100 ML IVPREMIX* 20 MEQ/100 ML BAG IV SCH ×3 (01:34→13:17)
[2018-08-20] MEDS: NS 0.9% 1000 ML** 1,000 ML IV SCH ×3 (01:46→19:41)
[2018-08-20 03:16] LABS: ABS Basophils 0.1 10^3/ul (0-0.2); ABS Eosinophils 0.2 10^3/ul (0-0.6); ABS Monocytes 0.5 10^3/ul (0-0.8); ABS Neutrophils 7.1 10^3/ul (1.5-7.7); Eosinophil % 1.7 %; Hematocrit 23 % (35-47); Hemoglobin 7.3 g/dL (12.0-16.0); Lymphocyte % 11.6 %; Mean Corpuscular HGB Conc 32 g/dL (31-36); Mean Corpuscular Hemoglobin 28 pg (27-31); Mean Corpuscular Volume 88 fL (80-97); Mean Platelet Volume 7.9 fL (7.4-10.4); Platelet Count 161 10^3/uL (150-450); Red Cell Distribution Width 15 % (10.5-15); White Blood Count 8.9 10^3/uL (3.5-10.8)
[2018-08-20 05:58] LABS: Urine Appearance Cloudy; Urine Bacteria Absent (Absent); Urine Bilirubin Negative (Negative); Urine Blood 2+ (Negative); Urine Color Yellow; Urine Glucose Negative (Negative); Urine Ketones Negative (Negative); Urine Nitrite Negative (Negative); Urine Protein 1+(30 mg/dL) (Negative); Urine Red Blood Cell 2+(6-10/hpf) (Absent); Urine Specific Gravity 1.011 (1.010-1.030); Urine Squamous Epithelial Cell Present (Absent); Urine Urobilinogen Negative (Negative); Urine White Blood Cell 3+(>20/hpf) (Absent)
[2018-08-20 07:06] LABS: Hematocrit 23 % (35-47); Hemoglobin 7.4 g/dL (12.0-16.0)
[2018-08-20 07:23] LABS: Calcium 7.8 mg/dL (8.6-10.3); Potassium 3.2 mmol/L (3.5-5.0)
[2018-08-20] MEDS ORDERED: Aztreonam (*) 1 GM in NS 0.9% 50 ML* 50 ML IVPB SCH (08:30)
[2018-08-20 09:25] LABS: BUN/Creatinine Ratio 37.6 (8-20); EGFR African American 43.8 (>60); EGFR Non-African American 36.2 (>60)
[2018-08-20] MEDS ORDERED: Piperacillin/Tazobac ADVAN(*) 3.375 GM in NS 0.9% 100 ML* 100 ML IVPB ONE (09:38)
[2018-08-20] MEDS ORDERED: Zosyn per Pharmacy* NOTE FOLLOW UP SCH (10:00)
[2018-08-20] MEDS ORDERED: Midazolam* 1 MG/ML 10 ML VIAL (10 MG) ONE (11:15)
[2018-08-20] MEDS ORDERED: fentaNYL* 50 MCG/ML 2 ML VIAL (100 MCG VIAL) ONE (11:15)
[2018-08-20] MEDS ORDERED: Iron Sucrose* 200 MG in NS 0.9% 100 ML* 100 ML IVPB ONE (12:20)
--- NOTE | 2018-08-20 13:23 | PRO ---
DATE: 08/20/18 - ROOM #420 REFERRING PHYSICIAN: Torsten Modi MD * PROCEDURE: Upper gastrointestinal endoscopy through to distal duodenum and placement of 3 hemostatic clips on the edge of an ulcer with stigmata. INDICATION: This 78-year-old woman was admitted with hemoglobin in the 5 range and passing melena. See separate consultation. In brief, she has been hospitalized for most of the month of July after cystectomy and then left nephrostomy and had been 3 days at a rehab center when she fell and was found to have hemoglobin in the 5's and passing dark tarry stool. On admission, Lovenox and low-dose aspirin was discontinued. She has no history of prior acid dyspeptic disease or upper endoscopy, though she did have an endoscopic ultrasound at [facility] 07/14/18 investigating pancreatic cyst. Informed consent was obtained. ENDOSCOPIST: Dr. Mckenna. MEDICATIONS: Midazolam 1.5, fentanyl 25 in 2 doses. FINDINGS: She is a morbidly obese, pale, chronically ill-appearing woman, appearing tired, but in no acute distress. Her blood pressure has been 90 to 95 systolic. Throughout the 16 hours, she has been hospitalized. Overnight, her stool output was described as small and there was no evidence of GI bleeding in the bed at this time. Hemoglobin was 7.4 this morning. She was positioned left side down and moderate sedation induced. She tolerated these well. EGD: Larynx - tight cricopharyngeus. Esophagus - easily entered. The mucosa is normal in the upper and mid esophagus. In the lower esophagus, there is a question of some venous prominence 3 to 4 cm above the EG junction, which is slightly loose, but without any scars or erosions. Mucosa appears normal. Stomach - normal mucosa in the cardia, fundus, body, and antrum. Duodenum - the pylorus appears normal. The bulb has a swollen mildly erythematous change at the apex and there are 2 clean-base punched-out ulcers at the apex of the bulb and and then right at the sweep. Folds were thickened and appeared chronically inflamed. In the mid to distal second portion of the duodenum, there is an ulcer at 2 o' clock orientation with a red spot at its base. There is no active bleeding and no adherent clot, just a red spot. Peristalsis was very active. Placement of clips was done, though could not gather together opposing folds. There was no induced bleeding, though the therapeutic result is in question. As the procedure was terminated, there was no active bleeding. IMPRESSION: 1. Duodenal ulcers, apex of bulb and distal second portion with placement of clips. 2. Possible esophageal varices. [id number]/[facility] #: [id number] MTDD
[2018-08-20] MEDS: Pantoprazole* 80 mg IN NS 80 MG/250 ML BAG IVPB SCH (13:30)
[2018-08-20 14:17] LABS: Hematocrit 25 % (35-47); Hemoglobin 8.1 g/dL (12.0-16.0)
[2018-08-20] MEDS ORDERED: Phytonadione Oral Solution* 5 MG/25 ML UDC PO ONE (14:40)
[2018-08-20] MEDS ORDERED: Iodixanol* (CONTRAST) 320 MG/ML 100 ML SDV IV ONE (15:28)
[2018-08-20] MEDS: ZOSYN 3.375 GM Q8H per EXTENDED INFUSION IVPB SCH ×2 (17:57)
[2018-08-20 17:58] LABS: Rapid HIV 1 Nonreactive (Nonreactive)
[2018-08-20] MEDS ORDERED: Lactated Ringers 1000 ML Bag* 1,000 ML IV SCH (18:00)
--- NOTE | 2018-08-20 20:02 | PN ---
Subjective Date of Service: 08/20/18 Interval History: Patient is feeling well except for occasional dizziness on standing which passes quickly. Patient denies F/C, N/V, abdominal pain, diarrhea. Patient still had one melanotic stool last night. Family History: Unchanged from Admission Social History: Unchanged from Admission Past Medical History: Unchanged from Admission Objective Active Medications: Acetaminophen (Tylenol Tab*) 650 mg PO Q4H PRN PRN Reason: FEVER/PAIN Sodium Chloride (Ns 0.9% 1000 Ml) 1,000 mls @ 125 mls/hr IV PER RATE [facility] Last Admin: 08/20/18 19:41 Dose: 125 mls/hr Pantoprazole Sodium (Protonix Iv Bag*) 80 mg in 250 mls @ 25 mls/hr IVPB Q10H [facility] Last Admin: 08/20/18 13:30 Dose: 25 mls/hr Piperacillin Sod/Tazobactam (Sod 3.375 gm/ Sodium Chloride) 100 mls @ 25 mls/ hr IVPB Q8H [facility] Last Admin: 08/20/18 17:57 Dose: 25 mls/hr Lactated Ringer's (Lactated Ringers 1000 Ml Bag*) 1,000 mls @ 0 mls/hr IV WIDE OPEN [facility] Stop: 08/20/18 23:59 Pharmacy Consult (Zosyn Per Pharmacy*) 1 note FOLLOW UP .ZOSYN PER PHARMACY [facility] Vital Signs - 8 hr 08/20/18 08/20/18 08/20/18 13:10 17:06 17:07 Temperature 97.8 F 97.4 F Pulse Rate 74 79 Respiratory 15 20 Rate Blood Pressure 100/44 86/45 83/40 (mmHg) O2 Sat by Pulse 95 95 Oximetry 08/20/18 19:54 Temperature 97.9 F Pulse Rate 80 Respiratory 24 Rate Blood Pressure 108/44 (mmHg) O2 Sat by Pulse 92 Oximetry Oxygen Devices in Use Now: Nasal Cannula Appearance: Patient is a 78yo female who appears stated age and is sitting in the bed in NAD. Eyes: No Scleral Icterus, PERRLA Ears/Nose/Mouth/Throat: NL Teeth, Lips, Gums, Clear Oropharnyx, Mucous Membranes Moist Neck: NL Appearance and Movements; NL JVP, Trachea Midline, No Thyroid Enlargement, Masses Respiratory: Symmetrical Chest Expansion and Respiratory Effort, Clear to Auscultation Cardiovascular: NL Sounds; No Murmurs; No JVD, RRR, No Edema Abdominal: No Hepatosplenomegaly, - - Urostomy in place draining urine. Lymphatic: No Cervical Adenopathy Extremities: No Edema, No Clubbing, Cyanosis Skin: No Nodules or Sclerosis, - - Surgical incision with mariela and possible dehiscence on top and bottom. Neurological: Alert and Oriented x 3, NL Sensation, NL Muscle Strength and Tone , - - CN II-XII intact. Result Diagrams: 08/20/18 14:10 08/20/18 07:00 Microbiology and Other Data: Microbiology 08/20/18 10:35 Skin and Soft Tissue MRSA/MSSA (PCR - Final Abdomen Mrsa Negative S.aureus Negative Gram Stain - Final 08/19/18 20:58 Nasal Screen MRSA (PCR) - Final Nasal Mrsa Not Detected 08/19/18 12:20 Stool Occult Blood ([place]) - Final Stool Assess/Plan/Problems-Billing Assessment: Patient is a 78yo female with a PMH for DM II, Recent bladder cancer with Urostomy, CKD, here with GI bleed and symptomatic anemia for a duodenal ulcer which is no longer bleeding. - Patient Problems (1) GI bleed Current Visit: Yes Status: Acute Code(s): K92.2 - GASTROINTESTINAL HEMORRHAGE, UNSPECIFIED SNOMED Code(s): 76364430 Comment: - For several weeks now, hemoglobin on admission 5.8, now above 8.1 S/P 2u PRBC - Duodenal ulcer on EGD, appreciate GI Input - Continue protonix drip - Monitor H/H - Likely related to stress from surgery, no NSAIDs, Clotest pending. (2) History of urostomy Current Visit: Yes Status: Acute Code(s): Z98.890 - OTHER SPECIFIED POSTPROCEDURAL STATES SNOMED Code(s): 538429977 Comment: - Due to bladder cancer, Seems to be functioning appropriately. - Slight drainage from wound, Swab shows GPC, No MRSA, start zosyn for this and recent enterococcus UTI - No abscess or other signs of active infection. (3) CKD (chronic kidney disease) Current Visit: Yes Status: Acute Code(s): N18.9 - CHRONIC KIDNEY DISEASE, UNSPECIFIED SNOMED Code(s): 583359615 Comment: - At baseline, avoid nephrotoxins - Monitor with GI bleed and contrast (4) HTN (hypertension) Current Visit: Yes Status: Acute Code(s): I10 - ESSENTIAL (PRIMARY) HYPERTENSION SNOMED Code(s): 45338161 Comment: - Borderline Hypotensive, continue fluids - Hold Home meds (5) DM II (diabetes mellitus, type II), controlled Current Visit: Yes Status: Acute Code(s): E11.9 - TYPE 2 DIABETES MELLITUS WITHOUT COMPLICATIONS SNOMED Code(s): 84857796 Comment: - SSI, Well controllled with poor oral intake. (6) DVT prophylaxis Current Visit: Yes Status: Acute Code(s): Z29.9 - ENCOUNTER FOR PROPHYLACTIC MEASURES, UNSPECIFIED SNOMED Code(s): 294705521 Comment: - SCDs with active GI bleed. (7) DNR (do not resuscitate) Current Visit: Yes Status: Acute Status and Disposition: Inpatient for GI bleed.
[2018-08-20] MEDS ORDERED: Dextrose 50% Syringe 50 ML* 25 GM/50 ML SYRINGE IV PUSH PRN (20:05)
[2018-08-20] MEDS: Insulin LISPRO* 1 UNITS UNIT SUBCUT SCH (21:25)
[2018-08-21] MEDS: Pantoprazole* 80 mg IN NS 80 MG/250 ML BAG IVPB SCH ×2 (00:18→10:17)
[2018-08-21] MEDS: ZOSYN 3.375 GM Q8H per EXTENDED INFUSION IVPB SCH ×6 (01:40→18:02)
[2018-08-21] MEDS: NS 0.9% 1000 ML** 1,000 ML IV SCH ×3 (05:33→21:54)
[2018-08-21 06:30] LABS: ABS Basophils 0.1 10^3/ul (0-0.2); ABS Eosinophils 0.4 10^3/ul (0-0.6); ABS Lymphocytes 0.7 10^3/ul (1.0-4.8); ABS Monocytes 0.6 10^3/ul (0-0.8); ABS Neutrophils 10.8 10^3/ul (1.5-7.7); Eosinophil % 3.6 %; Hematocrit 23 % (35-47); Hemoglobin 7.4 g/dL (12.0-16.0); Lymphocyte % 5.9 %; Mean Corpuscular HGB Conc 33 g/dL (31-36); Mean Corpuscular Hemoglobin 29 pg (27-31); Mean Corpuscular Volume 88 fL (80-97); Platelet Count 226 10^3/uL (150-450); Red Blood Count 2.57 10^6 /uL (3.70-4.87); Red Cell Distribution Width 16 % (10.5-15); White Blood Count 12.6 10^3/uL (3.5-10.8)
[2018-08-21 06:36] LABS: INR 1.14 (0.82-1.09)
[2018-08-21 06:45] LABS: Albumin 2.1 g/dL (3.2-5.2); Albumin/Globulin Ratio 0.8 (1-3); BUN/Creatinine Ratio 32.8 (8-20); Calcium 7.7 mg/dL (8.6-10.3); EGFR African American 48.9 (>60); EGFR Non-African American 40.4 (>60); Globulin 2.7 g/dL (2-4); Magnesium 1.8 mg/dL (1.9-2.7); Potassium 2.9 mmol/L (3.5-5.0); Total Bilirubin 0.5 mg/dL (0.2-1.0); Total Protein 4.8 g/dL (6.4-8.9)
[2018-08-21] MEDS: Insulin LISPRO* 1 UNITS UNIT SUBCUT SCH ×4 (08:15→21:50)
[2018-08-21] MEDS ORDERED: Iron Sucrose* 200 MG in NS 0.9% 100 ML* 100 ML IVPB ONE (08:30)
[2018-08-21] MEDS: KCL 20 MEQ/100 ML IVPREMIX* 20 MEQ/100 ML BAG IV SCH ×3 (08:49→13:32)
[2018-08-21] MEDS: Docusate CAP* 100 MG PO SCH (08:55)
[2018-08-21] MEDS: Lactobacillus Acidophilus* 1 TAB PO SCH ×2 (08:55→21:58)
[2018-08-21] MEDS: Multivitamins/Minerals TAB PO SCH (08:55)
[2018-08-21 14:27] LABS: Hematocrit 22 % (35-47); Hemoglobin 7.3 g/dL (12.0-16.0)
--- NOTE | 2018-08-21 14:49 | PN ---
Subjective Date of Service: 08/21/18 Interval History: Patient is feeling tired but otherwise well today. Patient denies F/C, CP, abdominal pain, diarrhea. Patient has not had nay more BMs today. Patient denies any pain with eating. Patient states she only has pain at the incision site with movement. Patient denies dizziness on standing. Family History: Unchanged from Admission Social History: Unchanged from Admission Past Medical History: Unchanged from Admission Objective Active Medications: Acetaminophen (Tylenol Tab*) 650 mg PO Q4H PRN PRN Reason: FEVER/PAIN Atorvastatin Calcium (Lipitor*) 40 mg PO QPM [facility] Dextrose (D50w Syringe 50 Ml*) 12.5 gm IV PUSH .FOR FS < 60 - SS PRN PRN Reason: FS < 60 Docusate Sodium (Colace Cap*) 200 mg PO QAM [facility] Last Admin: 08/21/18 08:55 Dose: 200 mg Piperacillin Sod/Tazobactam (Sod 3.375 gm/ Sodium Chloride) 100 mls @ 25 mls/ hr IVPB Q8H [facility] Last Admin: 08/21/18 10:21 Dose: 25 mls/hr Sodium Chloride (Ns 0.9% 1000 Ml) 1,000 mls @ 50 mls/hr IV PER RATE [facility] Last Admin: 08/21/18 08:58 Dose: 50 mls/hr Insulin Human Lispro (Humalog*) 0 units SUBCUT ACHS [facility]; Protocol Last Admin: 08/21/18 13:28 Dose: Not Given Lactobacillus Rhamnosus (Lactobacillus Acidophilus*) 1 tab PO BID [facility] Last Admin: 08/21/18 08:55 Dose: 1 tab Multivitamins/Minerals (Theragran/Minerals Tab*) 1 tab PO DAILY [facility] Last Admin: 08/21/18 08:55 Dose: 1 tab Pantoprazole Sodium (Protonix Tab*) 40 mg PO BID [facility] Pharmacy Consult (Zosyn Per Pharmacy*) 1 note FOLLOW UP .ZOSYN PER PHARMACY [facility] Oxygen Devices in Use Now: Nasal Cannula Appearance: Patient is a 78yo female who appears stated age and is sitting in the bed in NAD. Eyes: No Scleral Icterus, PERRLA Ears/Nose/Mouth/Throat: NL Teeth, Lips, Gums, Clear Oropharnyx, Mucous Membranes Moist Neck: NL Appearance and Movements; NL JVP, Trachea Midline Respiratory: Symmetrical Chest Expansion and Respiratory Effort, Clear to Auscultation Cardiovascular: NL Sounds; No Murmurs; No JVD, RRR, No Edema Abdominal: NL Sounds; No Tenderness; No Distention, No Hepatosplenomegaly Lymphatic: No Cervical Adenopathy Extremities: No Clubbing, Cyanosis, - - 1+ B/L LE edema Skin: No Nodules or Sclerosis, - Neurological: Alert and Oriented x 3, NL Sensation, NL Muscle Strength and Tone , - - CN II-XII intact. Result Diagrams: 08/21/18 14:07 08/21/18 06:02 Microbiology and Other Data: Microbiology 08/20/18 10:35 Skin and Soft Tissue MRSA/MSSA (PCR - Final Abdomen Mrsa Negative S.aureus Negative Gram Stain - Final 08/19/18 20:58 Nasal Screen MRSA (PCR) - Final Nasal Mrsa Not Detected 08/19/18 12:20 Stool Occult Blood ([place]) - Final Stool Assess/Plan/Problems-Billing Assessment: Patient is a 78yo female with a PMH for DM II, Recent bladder cancer with Urostomy, CKD, here with GI bleed and symptomatic anemia for a duodenal ulcer which is no longer bleeding. - Patient Problems (1) GI bleed Current Visit: Yes Status: Acute Code(s): K92.2 - GASTROINTESTINAL HEMORRHAGE, UNSPECIFIED SNOMED Code(s): 51526398 Comment: - For several weeks now, hemoglobin on admission 5.8, now stable around 7.3 - Duodenal ulcer on EGD, appreciate GI Input - Transition to Oral PPI - Monitor H/H - Likely related to stress from surgery, no NSAIDs except ASA, Clotest pending. - Dose IV iron while inpatient per GI (2) History of urostomy Current Visit: Yes Status: Acute Code(s): Z98.890 - OTHER SPECIFIED POSTPROCEDURAL STATES SNOMED Code(s): 711877683 Comment: - Due to bladder cancer, Seems to be functioning appropriately. - Slight drainage from wound, Swab shows GPC, No MRSA, start zosyn for this and recent enterococcus UTI - No abscess or other signs of active infection. (3) UTI (urinary tract infection) Current Visit: Yes Status: Acute Comment: - Pseudomonas UTI in Urostomy, Awaiting Sensitivities, Continue Zosyn (4) CKD (chronic kidney disease) Current Visit: Yes Status: Acute Code(s): N18.9 - CHRONIC KIDNEY DISEASE, UNSPECIFIED SNOMED Code(s): 390429735 Comment: - At baseline, avoid nephrotoxins - Monitor with GI bleed and contrast (5) HTN (hypertension) Current Visit: Yes Status: Acute Code(s): I10 - ESSENTIAL (PRIMARY) HYPERTENSION SNOMED Code(s): 07922679 Comment: - Borderline Hypotensive, continue fluids - Hold Home meds (6) DM II (diabetes mellitus, type II), controlled Current Visit: Yes Status: Acute Code(s): E11.9 - TYPE 2 DIABETES MELLITUS WITHOUT COMPLICATIONS SNOMED Code(s): 96835457 Comment: - SSI, Well controllled with poor oral intake. (7) DVT prophylaxis Current Visit: Yes Status: Acute Code(s): Z29.9 - ENCOUNTER FOR PROPHYLACTIC MEASURES, UNSPECIFIED SNOMED Code(s): 022281249 Comment: - SCDs with active GI bleed. (8) DNR (do not resuscitate) Current Visit: Yes Status: Acute Status and Disposition: Inpatient for GI bleed.
[2018-08-21] MEDS: Pantoprazole TAB * 40 MG TAB PO SCH ×2 (15:29→21:58)
[2018-08-21] MEDS: Atorvastatin* 40 MG TAB PO SCH (18:02)
[2018-08-22] MEDS: ZOSYN 3.375 GM Q8H per EXTENDED INFUSION IVPB SCH ×4 (01:38→10:10)
--- NOTE | 2018-08-22 01:53 | PN ---
Progress Note - Progress Note Date of Service: 08/22/18 Note: Patient more confused this evening. Will check her AM labs now and include an ammonia level
[2018-08-22 02:20] LABS: ABS Basophils 0.1 10^3/ul (0-0.2); ABS Eosinophils 0.7 10^3/ul (0-0.6); ABS Lymphocytes 1.1 10^3/ul (1.0-4.8); ABS Monocytes 0.6 10^3/ul (0-0.8); ABS Neutrophils 11.5 10^3/ul (1.5-7.7); Eosinophil % 5.2 %; Hematocrit 24 % (35-47); Hemoglobin 7.6 g/dL (12.0-16.0); Lymphocyte % 8.1 %; Mean Corpuscular HGB Conc 33 g/dL (31-36); Mean Corpuscular Hemoglobin 28 pg (27-31); Mean Corpuscular Volume 87 fL (80-97); Mean Platelet Volume 7.9 fL (7.4-10.4); Nucleated Red Blood Cells % 0.1; Platelet Count 211 10^3/uL (150-450); Red Blood Count 2.71 10^6 /uL (3.70-4.87); Red Cell Distribution Width 16 % (10.5-15)
[2018-08-22 02:37] LABS: Albumin 2.1 g/dL (3.2-5.2); Albumin/Globulin Ratio 0.9 (1-3); BUN/Creatinine Ratio 28.1 (8-20); Calcium 7.4 mg/dL (8.6-10.3); EGFR African American 55.9 (>60); EGFR Non-African American 46.2 (>60); Globulin 2.4 g/dL (2-4); Magnesium 1.5 mg/dL (1.9-2.7); Potassium 3.3 mmol/L (3.5-5.0); Total Bilirubin 0.6 mg/dL (0.2-1.0); Total Protein 4.5 g/dL (6.4-8.9)
[2018-08-22] MEDS ORDERED: Lactulose* 15 ML UDC ONE (02:53)
[2018-08-22] MEDS: Lactulose* 15 ML UDC PO SCH ×2 (02:57→11:38)
[2018-08-22] MEDS ORDERED: Magnesium Sulfate IV* 3 GM in NS 0.9% 100 ML* 100 ML IVPB ONE (08:00)
[2018-08-22 08:04] LABS: BUN/Creatinine Ratio 26.3 (8-20); Calcium 7.6 mg/dL (8.6-10.3); EGFR African American 55.9 (>60); EGFR Non-African American 46.2 (>60); Potassium 3.1 mmol/L (3.5-5.0)
[2018-08-22] MEDS: Insulin LISPRO* 1 UNITS UNIT SUBCUT SCH ×4 (09:16→21:28)
[2018-08-22] MEDS: Docusate CAP* 100 MG PO SCH (10:28)
[2018-08-22] MEDS: Pantoprazole TAB * 40 MG TAB PO SCH ×2 (10:28→21:27)
[2018-08-22] MEDS: Lactobacillus Acidophilus* 1 TAB PO SCH ×2 (10:28→21:27)
[2018-08-22] MEDS: Multivitamins/Minerals TAB PO SCH (10:28)
[2018-08-22] MEDS: Sodium Bicarbonate (ANTACID)* 650 MG TAB PO SCH ×3 (10:28→21:27)
[2018-08-22 11:08] LABS: Hepatitis B Surface Antigen Nonreactive (Nonreactive)
[2018-08-22] MEDS: KCL 20 MEQ/100 ML IVPREMIX* 20 MEQ/100 ML BAG IV SCH ×3 (11:25→16:38)
[2018-08-22 11:34] LABS: Hepatitis C Antibody Nonreactive (Nonreactive)
[2018-08-22 11:47] LABS: Hepatitis B Surface Ab Not Immune (Immune)
[2018-08-22 12:20] LABS: Urine Creatinine Concentration 43.21 mg/dL
[2018-08-22 14:38] LABS: BUN/Creatinine Ratio 24.5 (8-20); Calcium 7.4 mg/dL (8.6-10.3); EGFR African American 58.3 (>60); EGFR Non-African American 48.2 (>60); Potassium 3.1 mmol/L (3.5-5.0)
--- NOTE | 2018-08-22 16:17 | PN ---
Subjective Date of Service: 08/22/18 Interval History: Patient is feeling like she has low energy today but denies CP, SOB, F/C, N/V, abdominal pain, diarrhea, palpitations, dizziness, or other pain. Family History: Unchanged from Admission Social History: Unchanged from Admission Past Medical History: Unchanged from Admission Objective Active Medications: Acetaminophen (Tylenol Tab*) 650 mg PO Q4H PRN PRN Reason: FEVER/PAIN Atorvastatin Calcium (Lipitor*) 40 mg PO QPM [facility] Last Admin: 08/21/18 18:02 Dose: 40 mg Dextrose (D50w Syringe 50 Ml*) 12.5 gm IV PUSH .FOR FS < 60 - SS PRN PRN Reason: FS < 60 Docusate Sodium (Colace Cap*) 200 mg PO QAM [facility] Last Admin: 08/22/18 10:28 Dose: 200 mg Piperacillin Sod/Tazobactam (Sod 3.375 gm/ Sodium Chloride) 100 mls @ 25 mls/ hr IVPB Q8H [facility] Last Admin: 08/22/18 10:10 Dose: 25 mls/hr Insulin Human Lispro (Humalog*) 0 units SUBCUT [facility]; Protocol Last Admin: 08/22/18 13:44 Dose: Not Given Lactobacillus Rhamnosus (Lactobacillus Acidophilus*) 1 tab PO BID [facility] Last Admin: 08/22/18 10:28 Dose: 1 tab Multivitamins/Minerals (Theragran/Minerals Tab*) 1 tab PO DAILY [facility] Last Admin: 08/22/18 10:28 Dose: 1 tab Pantoprazole Sodium (Protonix Tab*) 40 mg PO BID [facility] Last Admin: 08/22/18 10:28 Dose: 40 mg Pharmacy Consult (Zosyn Per Pharmacy*) 1 note FOLLOW UP .ZOSYN PER PHARMACY [facility] Sodium Bicarbonate (Sodium Bicarbonate (Antacid)*) 650 mg PO TID [facility] Last Admin: 08/22/18 14:24 Dose: 650 mg Vital Signs - 8 hr 08/22/18 08/22/18 08/22/18 11:10 13:10 13:35 Temperature 98 F 98.0 F 97.6 F Pulse Rate 79 73 72 Respiratory 20 20 20 Rate Blood Pressure 110/47 97/36 86/38 (mmHg) O2 Sat by Pulse 100 99 95 Oximetry Oxygen Devices in Use Now: None Appearance: Patient is a 78yo pale female who is sitting in the bed in [facility]. Eyes: No Scleral Icterus, PERRLA Ears/Nose/Mouth/Throat: NL Teeth, Lips, Gums, Clear Oropharnyx, Mucous Membranes Moist Neck: NL Appearance and Movements; NL JVP, Trachea Midline Respiratory: Symmetrical Chest Expansion and Respiratory Effort, Clear to Auscultation Cardiovascular: NL Sounds; No Murmurs; No JVD, RRR, - - 2+ B/L LE edema. Abdominal: NL Sounds; No Tenderness; No Distention, - - Midline abdominal incision with scant drainage and no outward signs of infection. Lymphatic: No Cervical Adenopathy Extremities: No Clubbing, Cyanosis Skin: No Nodules or Sclerosis Neurological: Alert and Oriented x 3, NL Sensation, NL Muscle Strength and Tone , - - CN II-XII intact. Result Diagrams: 08/22/18 02:05 08/22/18 14:07 Microbiology and Other Data: Microbiology 08/20/18 10:35 Skin and Soft Tissue MRSA/MSSA (PCR - Final Abdomen Mrsa Negative S.aureus Negative Gram Stain - Final 08/19/18 20:58 Nasal Screen MRSA (PCR) - Final Nasal Mrsa Not Detected 08/19/18 12:20 Stool Occult Blood ([place]) - Final Stool Assess/Plan/Problems-Billing Assessment: Patient is a 78yo female with a PMH for DM II, Recent bladder cancer with Urostomy, CKD, here with GI bleed and symptomatic anemia for a duodenal ulcer which is no longer bleeding. - Patient Problems (1) GI bleed Current Visit: Yes Status: Acute Code(s): K92.2 - GASTROINTESTINAL HEMORRHAGE, UNSPECIFIED SNOMED Code(s): 53295298 Comment: - For several weeks now, hemoglobin on admission 5.8, now stable around 7.3 - Duodenal ulcer on EGD, appreciate GI Input - Transition to Oral PPI - Monitor H/H, BP soft, Transfuse anotehr unit. - Likely related to stress from surgery, no NSAIDs except ASA, Clotest pending. - Dose IV iron while inpatient per GI (2) Hyponatremia Current Visit: Yes Status: Acute Code(s): E87.1 - HYPO-OSMOLALITY AND HYPONATREMIA SNOMED Code(s): 29272058 Comment: - Hyponatremia, urine studies consistent with SIADH - Drop of 15 points overnight, unclear why such a large drop. - Somewhat lethargic and altered overnight, improving - Hold fluids, treat BP, Restrict fluid intake and restart Bicarbonate - Recently treated similarly at [facility] for hyponatremia. - CT shows no signs of herniation. (3) History of urostomy Current Visit: Yes Status: Acute Code(s): Z98.890 - OTHER SPECIFIED POSTPROCEDURAL STATES SNOMED Code(s): 285299624 Comment: - Due to bladder cancer, Seems to be functioning appropriately based on CT scan. - Slight drainage from wound, culture shows Enterococcus and Pseudomonas, likely due to cross contamination from urine - No abscess or other signs of active infection. - Switch to Cefepime due to possible drug reaction causing elevated WBC count without other signs of obvious infection. (4) UTI (urinary tract infection) Current Visit: Yes Status: Acute Comment: - Pseudomonas UTI in Urostomy, Sensitive to usual antibiotics - Start Cefepime. (5) CKD (chronic kidney disease) Current Visit: Yes Status: Acute Code(s): N18.9 - CHRONIC KIDNEY DISEASE, UNSPECIFIED SNOMED Code(s): 875834843 Comment: - At baseline, avoid nephrotoxins - Monitor with GI bleed and contrast (6) HTN (hypertension) Current Visit: Yes Status: Acute Code(s): I10 - ESSENTIAL (PRIMARY) HYPERTENSION SNOMED Code(s): 74732656 Comment: - Hypotensive, Tranfuse - Hold Home meds (7) DM II (diabetes mellitus, type II), controlled Current Visit: Yes Status: Acute Code(s): E11.9 - TYPE 2 DIABETES MELLITUS WITHOUT COMPLICATIONS SNOMED Code(s): 90452117 Comment: - SSI, Well controllled with poor oral intake. (8) DVT prophylaxis Current Visit: Yes Status: Acute Code(s): Z29.9 - ENCOUNTER FOR PROPHYLACTIC MEASURES, UNSPECIFIED SNOMED Code(s): 690160820 Comment: - SCDs with active GI bleed. (9) DNR (do not resuscitate) Current Visit: Yes Status: Acute Status and Disposition: Inpatient for GI bleed.
[2018-08-22] MEDS: Atorvastatin* 40 MG TAB PO SCH (17:03)
[2018-08-22 18:34] LABS: Hematocrit 26 % (35-47); Hemoglobin 8.7 g/dL (12.0-16.0)
[2018-08-22] MEDS ORDERED: Cefepime 1 GM in Dextrose(*) 1 GM/50 ML BAG IV SCH (21:00)
--- NOTE | 2018-08-23 00:14 | PN ---
Hospitalist Progress Note Date of Service: 08/23/18 called for red rash to patient's torso and back and bilat upper arms. Rash is red flat, blanchable and ithcy. No hives or difficulty breathing. Suspect this could be related to antibiotics. patient received cefepime 3 hours prior to development of the rash. she was also noted to have WBC's that were trending up on zosyn. Will change back to zosyn, next dose at 9 am would recommend re evaluation of rash prior to next dose and consult to ID in needed.
[2018-08-23] MEDS ORDERED: Zosyn per Pharmacy* NOTE FOLLOW UP SCH (01:00)
[2018-08-23 01:15] LABS: Hematocrit 25 % (35-47); Hemoglobin 8.4 g/dL (12.0-16.0)
[2018-08-23 06:31] LABS: ABS Eosinophils 0.5 10^3/ul (0-0.6); ABS Lymphocytes 0.8 10^3/ul (1.0-4.8); ABS Monocytes 0.4 10^3/ul (0-0.8); ABS Neutrophils 9.3 10^3/ul (1.5-7.7); Eosinophil % 4.6 %; Hematocrit 28 % (35-47); Hemoglobin 9.1 g/dL (12.0-16.0); Lymphocyte % 7.6 %; Mean Corpuscular HGB Conc 33 g/dL (31-36); Mean Corpuscular Hemoglobin 29 pg (27-31); Mean Corpuscular Volume 87 fL (80-97); Nucleated Red Blood Cells % 0.1; Platelet Count 179 10^3/uL (150-450); Red Blood Count 3.18 10^6 /uL (3.70-4.87); Red Cell Distribution Width 16 % (10.5-15); White Blood Count 11.1 10^3/uL (3.5-10.8)
[2018-08-23 06:41] LABS: Albumin 2.1 g/dL (3.2-5.2); Albumin/Globulin Ratio 0.8 (1-3); BUN/Creatinine Ratio 21.7 (8-20); EGFR African American 55.4 (>60); EGFR Non-African American 45.8 (>60); Globulin 2.5 g/dL (2-4); Potassium 3.4 mmol/L (3.5-5.0); Total Bilirubin 0.6 mg/dL (0.2-1.0); Total Protein 4.6 g/dL (6.4-8.9)
[2018-08-23] MEDS: Insulin LISPRO* 1 UNITS UNIT SUBCUT SCH ×4 (07:42→21:05)
[2018-08-23] MEDS ORDERED: Piperacillin/Tazobac ADVAN(*) 3.375 GM in NS 0.9% 100 ML* 100 ML IVPB ONE (09:00)
[2018-08-23] MEDS: Docusate CAP* 100 MG PO SCH (09:07)
[2018-08-23] MEDS: KCL 20 MEQ/100 ML IVPREMIX* 20 MEQ/100 ML BAG IV SCH ×5 (09:30→20:33)
[2018-08-23] MEDS: Pantoprazole TAB * 40 MG TAB PO SCH ×2 (09:39→20:35)
[2018-08-23] MEDS: Lactobacillus Acidophilus* 1 TAB PO SCH ×2 (09:39→20:35)
[2018-08-23] MEDS: Sodium Bicarbonate (ANTACID)* 650 MG TAB PO SCH ×3 (09:39→20:35)
[2018-08-23] MEDS: Multivitamins/Minerals TAB PO SCH (09:39)
[2018-08-23] MEDS ORDERED: Furosemide IV* 10 MG/ML 2 ML VIAL (20 MG) IV SLOW PU ONE (09:59)
[2018-08-23] MEDS: Acetaminophen TAB* 325 MG PO PRN (11:06)
--- NOTE | 2018-08-23 13:21 | PN ---
Subjective Date of Service: 08/23/18 Interval History: Patient feels better today. Patient was able to walk to the bathroom without dizziness, patient had mild ANDRE. Patient denies F/C, N/V, abdominal pain, diarrhea, CP, or other pain. Patient had 3 melanotic stools overnight. Patient had a reaction to cefepime, but the rash she developed is greatly improved and is not bothering her very much at this point. Family History: Unchanged from Admission Social History: Unchanged from Admission Past Medical History: Unchanged from Admission Objective Active Medications: Acetaminophen (Tylenol Tab*) 975 mg PO Q8H PRN PRN Reason: FEVER/PAIN Last Admin: 08/23/18 11:06 Dose: 975 mg Atorvastatin Calcium (Lipitor*) 40 mg PO QPM [facility] Last Admin: 08/22/18 17:03 Dose: 40 mg Dextrose (D50w Syringe 50 Ml*) 12.5 gm IV PUSH .FOR FS < 60 - SS PRN PRN Reason: FS < 60 Docusate Sodium (Colace Cap*) 200 mg PO QAM [facility] Last Admin: 08/23/18 09:07 Dose: Not Given Heparin Sodium (Porcine) (Heparin Flush Picc/Ml/Cvc(*)) 1 - 3 ml FLUSH 0600, 1800 [facility]; Protocol Last Admin: 08/23/18 06:22 Dose: 3 ml Potassium Chloride (Potassium Chloride 20 Meq/100 Ml Ivpremix*) 20 meq in 100 mls @ 50 mls/hr IV Q2H [facility] Stop: 08/23/18 13:44 Last Admin: 08/23/18 12:27 Dose: 50 mls/hr Piperacillin Sod/Tazobactam (Sod 3.375 gm/ Sodium Chloride) 100 mls @ 25 mls/ hr IVPB Q8H [facility] Insulin Human Lispro (Humalog*) 0 units SUBCUT ACHS [facility]; Protocol Last Admin: 08/23/18 12:27 Dose: 1 units Lactobacillus Rhamnosus (Lactobacillus Acidophilus*) 1 tab PO BID [facility] Last Admin: 08/23/18 09:39 Dose: 1 tab Multivitamins/Minerals (Theragran/Minerals Tab*) 1 tab PO DAILY [facility] Last Admin: 08/23/18 09:39 Dose: 1 tab Pantoprazole Sodium (Protonix Tab*) 40 mg PO BID [facility] Last Admin: 08/23/18 09:39 Dose: 40 mg Pharmacy Consult (Zosyn Per Pharmacy*) 1 note FOLLOW UP .ZOSYN PER PHARMACY [facility] Sodium Bicarbonate (Sodium Bicarbonate (Antacid)*) 650 mg PO TID [facility] Last Admin: 08/23/18 09:39 Dose: 650 mg Oxygen Devices in Use Now: None Appearance: Patient is a 78yo female who appears stated age and is sitting in the bed in NAD. Improved Pallor. Eyes: No Scleral Icterus, PERRLA Ears/Nose/Mouth/Throat: NL Teeth, Lips, Gums, Clear Oropharnyx, Mucous Membranes Moist Neck: NL Appearance and Movements; NL JVP, Trachea Midline Respiratory: Symmetrical Chest Expansion and Respiratory Effort, Clear to Auscultation Cardiovascular: NL Sounds; No Murmurs; No JVD, RRR, - - 1+ Abdominal: NL Sounds; No Tenderness; No Distention, - - Midline incision, no signs of infection, small amount of drainage. Lymphatic: No Cervical Adenopathy Extremities: No Edema, No Clubbing, Cyanosis Skin: No Nodules or Sclerosis Neurological: Alert and Oriented x 3, NL Sensation, NL Muscle Strength and Tone , - - CN II-XII intact. Result Diagrams: 08/23/18 06:00 08/23/18 06:00 Microbiology and Other Data: Microbiology 08/20/18 10:35 Skin and Soft Tissue MRSA/MSSA (PCR - Final Abdomen Mrsa Negative S.aureus Negative Gram Stain - Final 08/19/18 20:58 Nasal Screen MRSA (PCR) - Final Nasal Mrsa Not Detected 08/19/18 12:20 Stool Occult Blood ([facility]) - Final Stool Assess/Plan/Problems-Billing Assessment: Patient is a 78yo female with a PMH for DM II, Recent bladder cancer with Urostomy, CKD, here with GI bleed and symptomatic anemia for a duodenal ulcer which is no longer bleeding. - Patient Problems (1) GI bleed Current Visit: Yes Status: Acute Code(s): K92.2 - GASTROINTESTINAL HEMORRHAGE, UNSPECIFIED SNOMED Code(s): 86815363 Comment: - For several weeks now patient has had melena, - hemoglobin on admission 5.8, now up to 9.1 after 3 units PRBC. - Duodenal ulcer on EGD, appreciate GI Input - Oral PPI BID - BP Improved after most recent transfusion. - Likely related to stress from surgery, no NSAIDs except ASA. - Given 2 doses of Iron, will not give more due to transfusions. (2) Hyponatremia Current Visit: Yes Status: Acute Code(s): E87.1 - HYPO-OSMOLALITY AND HYPONATREMIA SNOMED Code(s): 61833368 Comment: - Hyponatremia, urine studies consistent with SIADH - Drop of 15 points overnight, unclear why such a large drop. - Somewhat lethargic and altered overnight, improving - Hold fluids, treat BP, Restrict fluid intake and restart Bicarbonate - Recently treated similarly at [facility] for hyponatremia. - CT shows no signs of herniation. - Start Lasix as patient is fluid overloaded. (3) History of urostomy Current Visit: Yes Status: Acute Code(s): Z98.890 - OTHER SPECIFIED POSTPROCEDURAL STATES SNOMED Code(s): 191515178 Comment: - Due to bladder cancer, Seems to be functioning appropriately based on CT scan. - Slight drainage from wound, culture shows Enterococcus and Pseudomonas, likely due to cross contamination from urine - No abscess or other signs of active infection. - Resume Zosyn due to Cefepime Rash, Consult ID for duration and need for IV antibiotics due to Quinolone intolerance. (4) UTI (urinary tract infection) Current Visit: Yes Status: Acute Comment: - Pseudomonas UTI in Urostomy, Sensitive to usual antibiotics - Resume Zosyn due to rash - WBC count now declining. (5) CKD (chronic kidney disease) Current Visit: Yes Status: Acute Code(s): N18.9 - CHRONIC KIDNEY DISEASE, UNSPECIFIED SNOMED Code(s): 942485848 Comment: - At baseline, avoid nephrotoxins - Monitor with GI bleed and contrast (6) HTN (hypertension) Current Visit: Yes Status: Acute Code(s): I10 - ESSENTIAL (PRIMARY) HYPERTENSION SNOMED Code(s): 42403648 Comment: - Low BP - Resume low dose Lasix due to fluid overload. (7) DM II (diabetes mellitus, type II), controlled Current Visit: Yes Status: Acute Code(s): E11.9 - TYPE 2 DIABETES MELLITUS WITHOUT COMPLICATIONS SNOMED Code(s): 11887498 Comment: - SSI, Well controllled with poor oral intake. (8) DVT prophylaxis Current Visit: Yes Status: Acute Code(s): Z29.9 - ENCOUNTER FOR PROPHYLACTIC MEASURES, UNSPECIFIED SNOMED Code(s): 906446058 Comment: - SCDs with active GI bleed. (9) DNR (do not resuscitate) Current Visit: Yes Status: Acute Status and Disposition: Inpatient for GI bleed. Back to [facility] when medically stable.
--- NOTE | 2018-08-23 15:18 | CONS ---
CONSULTATION REPORT: DATE OF CONSULT: 08/23/18 REQUESTING PROVIDER: SANDIE Perez CONSULTING SERVICE: Infectious Disease. REASON FOR CONSULT: Urinary tract infection and wound infection. IMPRESSION: 1. Status post cystectomy in July 2018 at [facility] for bladder cancer, who has had an open wound at the upper and lower poles of the incision, which has been having wound packing. There is a slight cellulitis associated with it. When she came here, a wound culture grew Pseudomonas and Enterococcus that has been improving on Zosyn. 2. Diverting urostomy and a left nephrostomy tube. Urine culture is growing Pseudomonas and normal rebeca. Pseudomonas sensitive to Zosyn. 3. Bladder cancer, status post cystectomy. 4. Allergies to CIPROFLOXACIN, CEFEPIME, and CEPHALEXIN. 5. Coronary artery disease. 6. Diabetes. RECOMMENDATIONS: We will continue Zosyn while she is here. I think that will get her about 6 days of IV antibiotics, which is sufficient for both infections and then would need ongoing wound care for her surgical site open wound. HISTORY OF PRESENT ILLNESS: This is a 78-year-old woman, who had a cystectomy in early July at [facility]. The wound is open at the upper and lower poles of the incision, having wound packing at both spots. She has developed some redness around it. She had a diverting urostomy, which is in the right lower quadrant and seems to be working well draining urine. She also has a nephrostomy tube on the left. She has had no fevers, chills, or sweats. Her appetite is good. She came to the hospital because of weakness, found to have a hemoglobin of 7 and an EGD revealed a duodenal ulcer. PAST MEDICAL HISTORY: 1. Bladder cancer, treated with cystectomy, diverting urostomy and now with a left nephrostomy tube. 2. Coronary artery disease and PCI. 3. Diabetes. 4. Osteoporosis. 5. Hypertension. 6. Pancreatic cyst. 7. Chronic kidney disease. PAST SURGICAL HISTORY: 1. Status post tonsillectomy. 2. Status post cholecystectomy. MEDICATIONS: 1. Tylenol. 2. Lipitor. 3. Docusate. 4. Pantoprazole. 5. Zosyn 3.375 g IV every 8 hours. ALLERGIES: CIPRO, KEFLEX, and rash while on CEFEPIME here. FAMILY HISTORY: Mother had breast cancer and colon cancer. Father had MT. SOCIAL HISTORY: She is a past smoker and is . No travel. REVIEW OF SYSTEMS: All negative except as noted above to a 14-point review. PHYSICAL EXAM: Vital Signs: Temperature 36.6, heart rate 80, respiratory rate 20, blood pressure 99/48, oxygen saturation 100% on room air. In general, she is awake, not in distress. Neurologic: She is oriented x3. Follows all commands. HEENT: There is no conjunctival hemorrhage. Oropharynx without lesions. Neck is supple without mass. Heart is regular rate and rhythm without murmurs, rubs, or gallops. Lungs: Clear to auscultation bilaterally. Abdomen: Soft. There are bowel sounds present. There is a right lower quadrant ostomy with clear urine. There is a left nephrostomy tube, a Ziegler bag full of clear urine. Midline pelvic incision is intact in the middle aspect and then the proximal and distal poles are open with granulation tissue. No surrounding erythema. LABORATORY DATA: White blood cell count 11, hemoglobin 7, platelets 226,000. Creatinine 1.1. Urinalysis showed blood and leukocyte esterase. Please see impressions and recommendations outlined above, which I have discussed with SANDIE Perez. Thanks for asking me to see Ms. Celeste in consultation. [id number]/[facility] #: [id number] JUAN
[2018-08-23] MEDS: ZOSYN 3.375 GM Q8H per EXTENDED INFUSION IVPB SCH ×4 (15:27→21:32)
--- NOTE | 2018-08-23 16:58 | CONSULT ---
Subjective Date of Service: 08/23/18 Interval History: Ms. Celeste is a 78 yo male with PMH significant for bladder ca S/P cystectomy, diverting urostomy, and left nephrostomy; CAD; DM2; HTN; and CKD who presented to the ED for weakness and was found to have anemia. She presented to the hospital with multiple skin issues, including an open abdominal incision, excoriation surrounding the ostomy, and open area to the cleft. Patient seen and examined at bedside. Family History: Unchanged from Admission Social History: Unchanged from Admission Past Medical History: Unchanged from Admission Review of Systems - Measurements Intake and Output: Intake and Output Last 24 Hours 08/21/18 08/22/18 08/23/18 08/24/18 06:59 06:59 06:59 06:59 Intake Total 4337 5385 1600 Output Total 2050 2650 1999 Balance 2287 2735 -400 Weight 185 lb 185 lb Intake: IV Fluids 2739 895 NS (0.9%) 2739 780 Zosyn 115 IVPB 688 215 ABX - AZTREONAM 58 Iron 116 KCL 210 115 Zosyn 304 100 Medicated IV 380 195 GEN - Pantoprazole/ 380 195 Protonix Oral 530 4080 1600 Output: Ziegler 275 2000 Nephrostomy #1 1575 1600 Nephrostomy #2 625 Urostomy 200 300 Ileostomy 125 Other: Estimated Void Medium Date of Last Bowel 08/22/18 Movement # Bowel Movements 0 1 1 Estimated Stool Amount Medium # Voids 0 0 1 - Review of Systems Constitutional Symptoms: Negative: Fever, Other - Chills Dermatology: Positive: Other - Open ABD incision, irritation at the ostomy site , and open area to buttocks Objective Active Medications: Acetaminophen (Tylenol Tab*) 975 mg PO Q8H PRN Reason: FEVER/PAIN Atorvastatin Calcium (Lipitor*) 40 mg PO QPM [facility] Dextrose (D50w Syringe 50 Ml*) 12.5 gm IV PUSH .FOR FS < 60 - SS PRN Reason: FS < 60 Docusate Sodium (Colace Cap*) 200 mg PO QAM [facility] Heparin Sodium (Porcine) (Heparin Flush Picc/Ml/Cvc(*)) 1 - 3 ml FLUSH 0600, 1800 [facility]; Protocol Piperacillin Sod/Tazobactam (Sod 3.375 gm/ Sodium Chloride) 100 mls @ 25 mls/ hr IVPB Q8H [facility] Potassium Chloride (Potassium Chloride 20 Meq/100 Ml Ivpremix*) 20 meq in 100 mls @ 50 mls/hr IV Q2H [facility] Stop: 08/23/18 21:44 Insulin Human Lispro (Humalog*) 0 units SUBCUT ACHS [facility]; Protocol Lactobacillus Rhamnosus (Lactobacillus Acidophilus*) 1 tab PO BID [facility] Multivitamins/Minerals (Theragran/Minerals Tab*) 1 tab PO DAILY [facility] Pantoprazole Sodium (Protonix Tab*) 40 mg PO BID [facility] Pharmacy Consult (Zosyn Per Pharmacy*) 1 note FOLLOW UP .ZOSYN PER PHARMACY [facility] Sodium Bicarbonate (Sodium Bicarbonate (Antacid)*) 650 mg PO TID [facility] Oxygen Devices in Use Now: None Appearance: NAD, sitting up in bed Ears/Nose/Mouth/Throat: Mucous Membranes Moist Respiratory: Symmetrical Chest Expansion and Respiratory Effort Skin: - - See skin note below Neurological: Alert and Oriented x 3 Nutrition: Taking PO's Result Diagrams: 08/25/18 06:10 08/27/18 06:15 Microbiology and Other Data: Microbiology 08/20/18 10:35 Skin and Soft Tissue MRSA/MSSA (PCR - Final Abdomen Mrsa Negative S.aureus Negative Gram Stain - Final 08/19/18 20:58 Nasal Screen MRSA (PCR) - Final Nasal Mrsa Not Detected 08/19/18 12:20 Stool Occult Blood ([place]) - Final Stool Skin Deviation Note - Skin Deviation Findings Midline abdominal incision - There are open areas to the superior and inferior ends of the midline ABD incision. The superior opening, measures 3.5 cm x 2.6 cm x 1 cm. The wound base is pink granulation tissue. There is no drainage noted and the surrounding skin is intact. The inferior opening, measures 3 cm x 2.2 cm x 0.9 cm. The wound base is pink granulation tissue. There is no drainage noted, and the surrounding skin is intact. The mariela to the remaining midline incision are intact and the incision is well approximated. There is a small superficial open area to the left lower ABD, measuring 0.5mcm x 1.3 cm x 0.2 cm. The wound base is pink granulation tissue, no drainage noted , and the surrounding tissue is intact. Jacinda Cleft - There are 2 superficial open areas to the cleft. The upper area measures, 1.5 cm x 0.7 cm x 0.1 cm and the lower area measures, 0.5 cm x 0.5 cm x 0.1 cm. The wound bases are pink to red granulation tissue. The surrounding skin is intact. There is no drainage noted. There are also several small and superficial open areas near the anus. Assessment/Plan: Ms. Celeste is a 78 yo male with PMH significant for bladder ca S/P cystectomy, diverting urostomy, and left nephrostomy; CAD; DM2; HTN; and CKD who presented to the ED for weakness and was found to have anemia. 1. Open midline abdominal incision. Recommend applying a wet to dry dressing daily (wet to dry 2x2s, covered with dry gauze and tape) and change daily. 2. Small open area to the left lower abdomen. Recommend applying a dry dressing to the area and change daily. 3. Open areas to jacinda cleft and near anus. The proximal wound appears to be trauma from bathing, i.e. pulling on the skin. The distal wound appears to be a shearing injury. The area near the anus, appears to be from friction and stool incontinence. Recommend frequent incontinence care as the patient is having frequent loose stools in the setting of a GI bleed. Recommend applying barrier cream to the buttocks. Will add on a prealbumin level to evaluate nutritional status. 4. Urostomy. Change urostomy as needed. 5. Left nephrostomy. Recommend changing the dressing weekly (was being changed on Wednesdays at [facility]), apply a drain sponge followed by a tegaderm. 6. Diabetes Mellitus, type 2. No recent HgA1C seen in the EMR. Consider checking one. Maintain good glycemic control to allow for wound healing. 7. Diet. Consistent Carbohydrate. 8. Code Status. DNR. 9. Disposition. Inpatient, disposition per primary medicine team. TIME SPENT: Time spent on this wound consultation was 30 minutes with 20 minutes spent discussing past medical history; assessing, measuring, and photographing the wounds. Wound Problem/Plan Is Patient a Wound Clinic Patient: No Attending: Laurie Javier
[2018-08-23] MEDS: Atorvastatin* 40 MG TAB PO SCH (17:58)
[2018-08-23] MEDS: hydrOXYzine HCL TAB* 25 MG PO PRN (21:32)
[2018-08-24] MEDS: ZOSYN 3.375 GM Q8H per EXTENDED INFUSION IVPB SCH ×6 (05:57→21:45)
[2018-08-24 06:21] LABS: ABS Eosinophils 0.4 10^3/ul (0-0.6); ABS Lymphocytes 0.9 10^3/ul (1.0-4.8); ABS Monocytes 0.4 10^3/ul (0-0.8); ABS Neutrophils 7.2 10^3/ul (1.5-7.7); Eosinophil % 4.8 %; Hematocrit 25 % (35-47); Hemoglobin 8.3 g/dL (12.0-16.0); Mean Corpuscular HGB Conc 33 g/dL (31-36); Mean Corpuscular Hemoglobin 29 pg (27-31); Mean Corpuscular Volume 88 fL (80-97); Mean Platelet Volume 8.1 fL (7.4-10.4); Nucleated Red Blood Cells % 0.1; Platelet Count 183 10^3/uL (150-450); Red Blood Count 2.86 10^6 /uL (3.70-4.87); Red Cell Distribution Width 16 % (10.5-15); White Blood Count 8.9 10^3/uL (3.5-10.8)
[2018-08-24 06:32] LABS: BUN/Creatinine Ratio 19.5 (8-20); Calcium 8.1 mg/dL (8.6-10.3); EGFR African American 53.7 (>60); EGFR Non-African American 44.4 (>60); Potassium 3.8 mmol/L (3.5-5.0)
[2018-08-24] MEDS: Insulin LISPRO* 1 UNITS UNIT SUBCUT SCH ×4 (07:58→21:43)
[2018-08-24] MEDS: Docusate CAP* 100 MG PO SCH (09:18)
[2018-08-24] MEDS: Pantoprazole TAB * 40 MG TAB PO SCH ×2 (09:18→21:45)
[2018-08-24] MEDS: Lactobacillus Acidophilus* 1 TAB PO SCH ×2 (09:18→21:45)
[2018-08-24] MEDS: Sodium Bicarbonate (ANTACID)* 650 MG TAB PO SCH ×3 (09:18→21:45)
[2018-08-24] MEDS: Multivitamins/Minerals TAB PO SCH (09:19)
--- NOTE | 2018-08-24 11:18 | PN ---
Subjective Date of Service: 08/24/18 Interval History: Ms. Celeste is feeling poor this morning. She has had 4-5 loose, dark BMs this morning. This was confirmed by the hospital aide. She does have some cramping with BMs but no constant abdominal pain. Denies CP, SOB, N/V. She is discouraged that her health is so poor. No concerns from nursing except for aforementioned diarrhea. Tele: NSR in the 70s. Family History: Unchanged from Admission Social History: Unchanged from Admission Past Medical History: Unchanged from Admission Objective Active Medications: Acetaminophen (Tylenol Tab*) 975 mg PO Q8H PRN FEVER/PAIN Atorvastatin Calcium (Lipitor*) 40 mg PO QPM [facility] Dextrose (D50w Syringe 50 Ml*) 12.5 gm IV PUSH .FOR FS < 60 - SS PRN FS < 60 Heparin Sodium (Porcine) (Heparin Flush Picc/Ml/Cvc(*)) 1 - 3 ml FLUSH 0600, 1800 [facility]; Protocol Hydroxyzine HCl (Atarax Tab*) 25 mg PO Q6H PRN itch Piperacillin Sod/Tazobactam (Sod 3.375 gm/ Sodium Chloride) 100 mls @ 25 mls/ hr IVPB Q8H [facility] Insulin Human Lispro (Humalog*) 0 units SUBCUT ACHS [facility]; Protocol Lactobacillus Rhamnosus (Lactobacillus Acidophilus*) 1 tab PO BID [facility] Multivitamins/Minerals (Theragran/Minerals Tab*) 1 tab PO DAILY [facility] Pantoprazole Sodium (Protonix Tab*) 40 mg PO BID [facility] Sodium Bicarbonate (Sodium Bicarbonate (Antacid)*) 650 mg PO TID [facility] Oxygen Devices in Use Now: None Appearance: Elderly female sitting in bed in NAD Eyes: No Scleral Icterus Ears/Nose/Mouth/Throat: Mucous Membranes Moist Neck: NL Appearance and Movements; NL JVP, Trachea Midline Respiratory: Symmetrical Chest Expansion and Respiratory Effort, Clear to Auscultation Cardiovascular: NL Sounds; No Murmurs; No JVD, RRR Abdominal: NL Sounds; No Tenderness; No Distention Extremities: No Edema Neurological: Alert and Oriented x 3 Lines/Tubes/Other Access: Clean, Dry and Intact Peripheral IV, Clean, Dry and Intact Other Access - Urostomy, left nephrostomy Nutrition: Taking PO's Result Diagrams: 08/24/18 05:54 08/24/18 05:54 Assess/Plan/Problems-Billing Assessment: Ms. Celeste is a 78 yo F with PMH of DM II, recent bladder cancer with urostomy and left nephrostomy, CKD; who presented with GI bleed and symptomatic anemia for a duodenal ulcer which is no longer bleeding, complicated by multi-drug resistant UTI. - Patient Problems (1) UTI (urinary tract infection) Comment: - Urine culture growing Pseudomonas, sensitive to usual antibiotics - Developed rash with cefepime during this admission - Appreciate ID consult d/t multiple abx allergies; recommends total of 7 days of Zosyn; likely d/c on Wednesday after she has received a full 7 days of therapy - Continue Zosyn (day 08/26) (2) GI bleed Code(s): K92.2 - GASTROINTESTINAL HEMORRHAGE, UNSPECIFIED Comment: - Melena present for several weeks and continues at this time - Hemoglobin on admission 5.8, now up to 9.1 after 3 units PRBC - Appreciate GI consult; duodenal ulcer noted on EGD - Ulcer likely related to stress from surgery, no NSAIDs except ASA - Received 2 doses of iron, will not give more due to transfusions - Continue pantoprazole (3) History of urostomy Code(s): Z98.890 - OTHER SPECIFIED POSTPROCEDURAL STATES Comment: - Due to bladder cancer - Appears to be functioning appropriately based on CT scan - Slight drainage from wound, culture shows Enterococcus and Pseudomonas, likely due to cross contamination from urine; no abscess or other signs of active infection - Continue Zosyn (4) Hyponatremia Code(s): E87.1 - HYPO-OSMOLALITY AND HYPONATREMIA Comment: - Resolved (5) DM II (diabetes mellitus, type II), controlled Code(s): E11.9 - TYPE 2 DIABETES MELLITUS WITHOUT COMPLICATIONS Comment: - Moderately good control - Continue Lispro SS (6) CKD (chronic kidney disease) Code(s): N18.9 - CHRONIC KIDNEY DISEASE, UNSPECIFIED Comment: - Creatinine at baseline - Avoid nephrotoxins - Monitor with GI bleed and contrast (7) HTN (hypertension) Code(s): I10 - ESSENTIAL (PRIMARY) HYPERTENSION Comment: - Normotensive, SBP 100-120s - Hold furosemide (8) DVT prophylaxis Code(s): Z29.9 - ENCOUNTER FOR PROPHYLACTIC MEASURES, UNSPECIFIED Comment: - SCDs only (9) DNR (do not resuscitate) Comment: Status and Disposition: Inpatient for GI bleed and UTI. Back to [facility] when medically stable, likely Wednesday after completing course of abx. Attending: Sulma Palencia
[2018-08-24] MEDS: Atorvastatin* 40 MG TAB PO SCH (17:31)
[2018-08-24] MEDS ORDERED: NS 0.9% 100 ML* 100 ML ONE (21:25)
[2018-08-25] MEDS: ZOSYN 3.375 GM Q8H per EXTENDED INFUSION IVPB SCH ×6 (06:15→21:50)
[2018-08-25 06:55] LABS: ABS Eosinophils 0.6 10^3/ul (0-0.6); ABS Lymphocytes 1.2 10^3/ul (1.0-4.8); ABS Monocytes 0.4 10^3/ul (0-0.8); ABS Neutrophils 7.5 10^3/ul (1.5-7.7); Eosinophil % 6.2 %; Hematocrit 27 % (35-47); Hemoglobin 8.9 g/dL (12.0-16.0); Lymphocyte % 11.9 %; Mean Corpuscular HGB Conc 33 g/dL (31-36); Mean Corpuscular Hemoglobin 29 pg (27-31); Mean Corpuscular Volume 88 fL (80-97); Mean Platelet Volume 7.9 fL (7.4-10.4); Platelet Count 197 10^3/uL (150-450); Red Blood Count 3.06 10^6 /uL (3.70-4.87); Red Cell Distribution Width 17 % (10.5-15); White Blood Count 9.7 10^3/uL (3.5-10.8)
[2018-08-25 07:10] LABS: EGFR African American 57.7 (>60); EGFR Non-African American 47.7 (>60); Potassium 3.7 mmol/L (3.5-5.0)
[2018-08-25] MEDS: hydrOXYzine HCL TAB* 25 MG PO PRN (07:19)
[2018-08-25] MEDS: Insulin LISPRO* 1 UNITS UNIT SUBCUT SCH ×4 (08:08→21:45)
--- NOTE | 2018-08-25 09:13 | PN ---
Progress Note - Progress Note Date of Service: 08/25/18 SOAP: Subjective: CC: UTI and wound infection HPI: Ms. Celeste is a 78 yo male with PMH significant for bladder ca S/P cystectomy, diverting urostomy, and left nephrostomy; CAD; DM2; HTN; and CKD who presented to the ED for weakness and was found to have anemia. Denies fever, chills, shortness of breath. Her urostomy appliance has been staying in place since it was last changed on Wednesday. Has had a poor appetite, but that has improved this morning. Continues to have generalized weakness. Objective: Vital Signs - 8 hr 08/25/18 08/25/18 02:35 08:05 Temperature 98.3 F 98.1 F Pulse Rate 86 81 Respiratory 20 16 Rate Blood Pressure 109/51 110/70 (mmHg) O2 Sat by Pulse 98 100 Oximetry Physical Exam: General: NAD, sitting up in bed Neurological: Alert and Oriented HEENT: Moist MM, no thrush Cardiovascular: Heart rate regular Respiratory: Lung sounds clear bilateral Abdominal: Bowel sounds present; ABD soft, large and non tender. Urostomy to the right side of the abdomen. Skin: Diffuse flat erythemic rash to the torso. Excoriated groin. Proximal and distal ends of midline incision open with gauze dressing in place. There is no erythema surrounding the open incision. The remained or the midline abdominal incision is well approximated with mariela intact. Laboratory Results - last 24 hr 08/25/18 08/25/18 08/25/18 06:10 06:10 08:02 WBC 9.7 RBC 3.06 L Hgb 8.9 L Hct 27 L MCV 88 MCH 29 MCHC 33 RDW 17 H Plt Count 197 MPV 7.9 Neut % (Auto) 77.4 Lymph % (Auto) 11.9 [place] % (Auto) 4.0 Eos % (Auto) 6.2 Baso % (Auto) 0.5 Absolute Neuts (auto) 7.5 Absolute Lymphs (auto) 1.2 Absolute Monos (auto) 0.4 Absolute Eos (auto) 0.6 Absolute Basos (auto) 0.0 Absolute Nucleated RBC 0.0 Nucleated RBC % 0.0 Sodium 135 Potassium 3.7 Chloride 106 Carbon Dioxide 22 Anion Gap 7 BUN 20 Creatinine 1.11 H Est GFR ( Amer) 57.7 Est GFR (Non-Af Amer) 47.7 BUN/Creatinine Ratio 18.0 Glucose 96 POC Glucose (mg/dL) 107 H Calcium 8.0 L Microbiology 08/20/18 10:35 Skin and Soft Tissue MRSA/MSSA (PCR - Final Abdomen Mrsa Negative S.aureus Negative Gram Stain - Final Wound Culture - Final Pseudomonas Aeruginosa Enterococcus Faecalis Normal Rebeca 08/20/18 04:55 Urine Culture - Final Urine Pseudomonas Aeruginosa Normal Rebeca 08/19/18 20:58 Nasal Screen MRSA (PCR) - Final Nasal Mrsa Not Detected 08/19/18 12:20 Stool Occult Blood ([place]) - Final Stool Assessment: 1. Open wounds at the proximal and distal aspects of the midline incision with associated cellulitis. Wound culture with pseudomonas and enterococcus. 2. Diverting urostomy and left nephrostomy. Urine culture with pseudomonas and normal rebeca. 3. Ciprofloxacin, cefepime, and cephalexin allergies. Plan: Continue Zosyn while in the hospital and can discontinue at discharge, day 6.
[2018-08-25] MEDS: Multivitamins/Minerals TAB PO SCH (10:05)
[2018-08-25] MEDS: Pantoprazole TAB * 40 MG TAB PO SCH ×2 (10:05→21:35)
[2018-08-25] MEDS: Lactobacillus Acidophilus* 1 TAB PO SCH ×2 (10:05→21:35)
[2018-08-25] MEDS: Sodium Bicarbonate (ANTACID)* 650 MG TAB PO SCH ×3 (10:05→21:35)
[2018-08-25] MEDS: Acetaminophen TAB* 325 MG PO PRN (14:12)
--- NOTE | 2018-08-25 14:55 | PN ---
Subjective Date of Service: 08/25/18 Interval History: Pt is feeling tired today, she states she has been sleeping quite a bit mainly because she is bored and there is nothing else to do. She has no c/o pain. No c/ o SOB. She has had 2 BMs today. Family History: Unchanged from Admission Social History: Unchanged from Admission Past Medical History: Unchanged from Admission Objective Active Medications: Acetaminophen (Tylenol Tab*) 975 mg PO Q8H PRN PRN Reason: FEVER/PAIN Last Admin: 08/25/18 14:12 Dose: 975 mg Atorvastatin Calcium (Lipitor*) 40 mg PO QPM [facility] Last Admin: 08/24/18 17:31 Dose: 40 mg Dextrose (D50w Syringe 50 Ml*) 12.5 gm IV PUSH .FOR FS < 60 - SS PRN PRN Reason: FS < 60 Heparin Sodium (Porcine) (Heparin Flush Picc/Ml/Cvc(*)) 1 - 3 ml FLUSH 0600, 1800 [facility]; Protocol Last Admin: 08/25/18 06:12 Dose: 3 ml Hydroxyzine HCl (Atarax Tab*) 25 mg PO Q6H PRN PRN Reason: itch Last Admin: 08/25/18 07:19 Dose: 25 mg Piperacillin Sod/Tazobactam (Sod 3.375 gm/ Sodium Chloride) 100 mls @ 25 mls/ hr IVPB Q8H [facility] Last Admin: 08/25/18 14:07 Dose: 25 mls/hr Insulin Human Lispro (Humalog*) 0 units SUBCUT [facility]; Protocol Last Admin: 08/25/18 12:29 Dose: Not Given Lactobacillus Rhamnosus (Lactobacillus Acidophilus*) 1 tab PO BID [facility] Last Admin: 08/25/18 10:05 Dose: 1 tab Multivitamins/Minerals (Theragran/Minerals Tab*) 1 tab PO DAILY [facility] Last Admin: 08/25/18 10:05 Dose: 1 tab Pantoprazole Sodium (Protonix Tab*) 40 mg PO BID [facility] Last Admin: 08/25/18 10:05 Dose: 40 mg Pharmacy Consult (Zosyn Per Pharmacy*) 1 note FOLLOW UP .ZOSYN PER PHARMACY [facility] Sodium Bicarbonate (Sodium Bicarbonate (Antacid)*) 650 mg PO TID [facility] Last Admin: 08/25/18 14:07 Dose: 650 mg Vital Signs - 8 hr 08/25/18 08/25/18 08/25/18 08:00 08:05 11:30 Temperature 98.1 F 97.6 F Pulse Rate 81 80 Respiratory 14 16 16 Rate Blood Pressure 110/70 100/46 (mmHg) O2 Sat by Pulse 100 100 Oximetry Oxygen Devices in Use Now: None Appearance: Elderly female sitting up in bed, sleeping, awakens to voice, NAD Eyes: No Scleral Icterus Ears/Nose/Mouth/Throat: Mucous Membranes Moist Respiratory: Symmetrical Chest Expansion and Respiratory Effort, Clear to Auscultation - decreased breath sounds at the bases bilaterally Cardiovascular: NL Sounds; No Murmurs; No JVD, RRR, - - marked 3-4+ LE edema Abdominal: NL Sounds; No Tenderness; No Distention Extremities: No Clubbing, Cyanosis Skin: No Nodules or Sclerosis, - - diffuse erythematous mostly coalesced rash over trunk, upper thighs, arms; proximal and distal abdominal incision with ~ quarter sized wounds, packed with gauze Neurological: - - sleepy but once awake, A&Ox3 Result Diagrams: 08/25/18 06:10 08/25/18 06:10 Microbiology and Other Data: Microbiology 08/20/18 10:35 Skin and Soft Tissue MRSA/MSSA (PCR - Final Abdomen Mrsa Negative S.aureus Negative Gram Stain - Final 08/19/18 20:58 Nasal Screen MRSA (PCR) - Final Nasal Mrsa Not Detected 08/19/18 12:20 Stool Occult Blood ([place]) - Final Stool Assess/Plan/Problems-Billing Ms. Celeste is a 78 yo F with PMH of DM II, recent bladder cancer with urostomy and left nephrostomy, CKD; who presented with GI bleed and symptomatic anemia for a duodenal ulcer which is no longer bleeding, complicated by multi-drug resistant UTI. - Patient Problems (1) GI bleed Current Visit: Yes Status: Acute Code(s): K92.2 - GASTROINTESTINAL HEMORRHAGE, UNSPECIFIED SNOMED Code(s): 80160826 Comment: Pt with melena for several weeks. Found to have duodenal ulcer s/p EGD. Continue protonix She received 3 units PRBC. No NSAIDs but ASA ok. (2) UTI (urinary tract infection) Current Visit: Yes Status: Acute Comment: Urine culture growing pseudomonas , sensitive to usual antibiotics but pt with h/o allergy to cephalosporins and quinolones. Pt was on cefepime but developed drug rash which is still present. Changed to zosyn- last day of Abx therapy tomorrow. (3) History of urostomy Current Visit: Yes Status: Acute Code(s): Z98.890 - OTHER SPECIFIED POSTPROCEDURAL STATES SNOMED Code(s): 675591011 Comment: Placed secondary to bladder cancer. Pt has wounds at the proximal and distal ends of the incision. Culture shows enterococcus and pseudomonas likely related to contamination from urine. Continue zosyn- last day tomorrow. Will need to follow up with her surgeon in the near future. (4) DM II (diabetes mellitus, type II), controlled Current Visit: Yes Status: Acute Code(s): E11.9 - TYPE 2 DIABETES MELLITUS WITHOUT COMPLICATIONS SNOMED Code(s): 51805553 Comment: Sugars are under decent control on current regimen of sliding scale lispro. She is not on any hypoglycemics at baseline. (5) Hyponatremia Current Visit: Yes Status: Acute Code(s): E87.1 - HYPO-OSMOLALITY AND HYPONATREMIA SNOMED Code(s): 05087620 Comment: Resolved. Monitor Na while on lasix. (6) HTN (hypertension) Current Visit: Yes Status: Acute Code(s): I10 - ESSENTIAL (PRIMARY) HYPERTENSION SNOMED Code(s): 97605689 Comment: BP is normotensive to occasionally slightly low. Will be resuming lasix so will need to monitor BP closely. (7) CKD (chronic kidney disease) Current Visit: Yes Status: Acute Code(s): N18.9 - CHRONIC KIDNEY DISEASE, UNSPECIFIED SNOMED Code(s): 568532040 Comment: Creatinine is at baseline. Will conitnue to follow intermittently especially as I am going to give IV lasix due to marked anasarca. (8) DVT prophylaxis Current Visit: Yes Status: Acute Code(s): Z29.9 - ENCOUNTER FOR PROPHYLACTIC MEASURES, UNSPECIFIED SNOMED Code(s): 979020784 Comment: SCDs only secondary to GI bleed (9) DNR (do not resuscitate) Current Visit: Yes Status: Acute Comment: Status and Disposition: likely d/c tomorrow
[2018-08-25] MEDS ORDERED: Furosemide IV* 10 MG/ML VIAL (40 MG) IV ONE (15:09)
[2018-08-25] MEDS: Atorvastatin* 40 MG TAB PO SCH (18:08)
[2018-08-26] MEDS: ZOSYN 3.375 GM Q8H per EXTENDED INFUSION IVPB SCH ×6 (06:20→21:36)
[2018-08-26] MEDS: Insulin LISPRO* 1 UNITS UNIT SUBCUT SCH ×4 (07:49→20:50)
[2018-08-26] MEDS: Lactobacillus Acidophilus* 1 TAB PO SCH ×2 (08:10→20:24)
[2018-08-26] MEDS: Sodium Bicarbonate (ANTACID)* 650 MG TAB PO SCH ×3 (08:10→20:25)
[2018-08-26] MEDS: Multivitamins/Minerals TAB PO SCH (08:10)
[2018-08-26] MEDS: Pantoprazole TAB * 40 MG TAB PO SCH ×2 (08:10→20:25)
[2018-08-26] MEDS ORDERED: Furosemide IV* 100 MG in NS 0.9% 100 ML* 90 ML IV SCH (13:00)
--- NOTE | 2018-08-26 13:27 | PN ---
Subjective Date of Service: 08/26/18 Interval History: Pt is feeling ok. She denies any pain. She thinks the edema of the left arm is improved some but she otherwise remains markedly swollen all over. No SOB. Family History: Unchanged from Admission Social History: Unchanged from Admission Past Medical History: Unchanged from Admission Objective Active Medications: Acetaminophen (Tylenol Tab*) 975 mg PO Q8H PRN PRN Reason: FEVER/PAIN Last Admin: 08/25/18 14:12 Dose: 975 mg Atorvastatin Calcium (Lipitor*) 40 mg PO QPM [facility] Last Admin: 08/25/18 18:08 Dose: 40 mg Dextrose (D50w Syringe 50 Ml*) 12.5 gm IV PUSH .FOR FS < 60 - SS PRN PRN Reason: FS < 60 Heparin Sodium (Porcine) (Heparin Flush Picc/Ml/Cvc(*)) 1 - 3 ml FLUSH 0600, 1800 [facility]; Protocol Last Admin: 08/26/18 06:23 Dose: 2 ml Hydroxyzine HCl (Atarax Tab*) 25 mg PO Q6H PRN PRN Reason: itch Last Admin: 08/25/18 07:19 Dose: 25 mg Piperacillin Sod/Tazobactam (Sod 3.375 gm/ Sodium Chloride) 100 mls @ 25 mls/ hr IVPB Q8H [facility] Last Admin: 08/26/18 06:20 Dose: 25 mls/hr Furosemide 100 mg/ Sodium (Chloride) 100 mls @ 1 mls/hr IV Q24H [facility]; Protocol Insulin Human Lispro (Humalog*) 0 units SUBCUT ACHS [facility]; Protocol Last Admin: 08/26/18 12:29 Dose: 1 units Lactobacillus Rhamnosus (Lactobacillus Acidophilus*) 1 tab PO BID [facility] Last Admin: 08/26/18 08:10 Dose: 1 tab Multivitamins/Minerals (Theragran/Minerals Tab*) 1 tab PO DAILY [facility] Last Admin: 08/26/18 08:10 Dose: 1 tab Pantoprazole Sodium (Protonix Tab*) 40 mg PO BID [facility] Last Admin: 08/26/18 08:10 Dose: 40 mg Pharmacy Consult (Zosyn Per Pharmacy*) 1 note FOLLOW UP .ZOSYN PER PHARMACY [facility] Sodium Bicarbonate (Sodium Bicarbonate (Antacid)*) 650 mg PO TID [facility] Last Admin: 08/26/18 08:10 Dose: 650 mg Vital Signs - 8 hr 08/26/18 08/26/18 08/26/18 07:28 08:43 12:34 Temperature 98.9 F 98.7 F Pulse Rate 79 80 Respiratory 22 16 22 Rate Blood Pressure 109/53 104/49 (mmHg) O2 Sat by Pulse 99 100 Oximetry Oxygen Devices in Use Now: None Appearance: Elderly obese female sitting up in a recliner, NAD Eyes: No Scleral Icterus Ears/Nose/Mouth/Throat: Mucous Membranes Moist Respiratory: Symmetrical Chest Expansion and Respiratory Effort, Clear to Auscultation - decreased breath sounds on L compared to R Cardiovascular: NL Sounds; No Murmurs; No JVD, RRR, - - marked diffuse anasarca Abdominal: NL Sounds; No Tenderness; No Distention Extremities: No Clubbing, Cyanosis Skin: No Nodules or Sclerosis, - - abdominal wound not inspected today, continued erythematous rash Neurological: - - slepy but awakens to voice and then alert, oriented Result Diagrams: 08/25/18 06:10 08/25/18 06:10 Microbiology and Other Data: Microbiology 08/20/18 10:35 Skin and Soft Tissue MRSA/MSSA (PCR - Final Abdomen Mrsa Negative S.aureus Negative Gram Stain - Final 08/19/18 20:58 Nasal Screen MRSA (PCR) - Final Nasal Mrsa Not Detected 08/19/18 12:20 Stool Occult Blood ([place]) - Final Stool Assess/Plan/Problems-Billing Ms. Celeste is a 78 yo F with PMH of DM II, recent bladder cancer with urostomy and left nephrostomy, CKD; who presented with GI bleed and symptomatic anemia for a duodenal ulcer which is no longer bleeding, complicated by multi-drug resistant UTI. - Patient Problems (1) Anasarca Current Visit: Yes Status: Acute Code(s): R60.1 - GENERALIZED EDEMA SNOMED Code(s): 511875027 Comment: Likely secondary to fluid overload from fluid and blood recussitation this hospitalization. Will start lasix drip and monitor I/Os. Check echo. (2) GI bleed Current Visit: Yes Status: Acute Code(s): K92.2 - GASTROINTESTINAL HEMORRHAGE, UNSPECIFIED SNOMED Code(s): 24564425 Comment: Pt with melena for several weeks. Found to have duodenal ulcer s/p EGD. Continue protonix She received 3 units PRBC. No NSAIDs but ASA ok. Follow H /H intermittently. (3) UTI (urinary tract infection) Current Visit: Yes Status: Acute Comment: Urine culture growing pseudomonas - completed a full course of Abx therapy. (4) History of urostomy Current Visit: Yes Status: Acute Code(s): Z98.890 - OTHER SPECIFIED POSTPROCEDURAL STATES SNOMED Code(s): 827795460 Comment: Placed secondary to bladder cancer. Pt has wounds at the proximal and distal ends of the incision. Follow up with surgeon after d/c. (5) DM II (diabetes mellitus, type II), controlled Current Visit: Yes Status: Acute Code(s): E11.9 - TYPE 2 DIABETES MELLITUS WITHOUT COMPLICATIONS SNOMED Code(s): 62577250 Comment: Sugars are under decent control on current regimen of sliding scale lispro. She is not on any hypoglycemics at baseline. (6) Hyponatremia Current Visit: Yes Status: Acute Code(s): E87.1 - HYPO-OSMOLALITY AND HYPONATREMIA SNOMED Code(s): 26886062 Comment: Resolved. Monitor Na while on lasix. (7) HTN (hypertension) Current Visit: Yes Status: Acute Code(s): I10 - ESSENTIAL (PRIMARY) HYPERTENSION SNOMED Code(s): 38308683 Comment: BP is normotensive to occasionally slightly low. Continue to monitor while on lasix. (8) CKD (chronic kidney disease) Current Visit: Yes Status: Acute Code(s): N18.9 - CHRONIC KIDNEY DISEASE, UNSPECIFIED SNOMED Code(s): 445948249 Comment: Creatinine is at baseline. Will conitnue to follow intermittently while on lasix. (9) DVT prophylaxis Current Visit: Yes Status: Acute Code(s): Z29.9 - ENCOUNTER FOR PROPHYLACTIC MEASURES, UNSPECIFIED SNOMED Code(s): 685308699 Comment: SCDs only secondary to GI bleed (10) DNR (do not resuscitate) Current Visit: Yes Status: Acute Comment: Status and Disposition: likely d/c tomorrow
[2018-08-26] MEDS ORDERED: Furosemide IV* 10 MG/ML VIAL (40 MG) IV ONE (15:00)
[2018-08-26 15:52] LABS: BUN/Creatinine Ratio 17.7 (8-20); EGFR African American 56.5 (>60); EGFR Non-African American 46.7 (>60); Magnesium 1.9 mg/dL (1.9-2.7); Potassium 3.3 mmol/L (3.5-5.0)
[2018-08-26] MEDS ORDERED: Perflutren Lipid Microsphere* 3 ML VIAL ONE (15:54)
[2018-08-26] MEDS: Atorvastatin* 40 MG TAB PO SCH (17:22)
--- NOTE | 2018-08-26 18:07 | ECHO ---
*[facility]* [place] [address] Fax #: [phone] Transthoracic Echocardiogram Patient: Booker, Height: 62 in / Radha H 157.5 cm : 1940 Weight: 212.6 lb / Study Date: 08/26/2018 96.6 kg Age: 78 BP: 104 / 49 Gender: F BMI/BSA: 39 kg/m^2 / HR: 82 bpm 1.96 m^2 *[employer]: Laura Ely [facility] *Referring Physician: * Tory MaguireReading Physician: Finesse Nesbitt MD Indications: Congestive Heart Failure. History: Marco s/p bladder removal due to cancer (07/26/18). Coronary artery disease. Risk factors: Tobacco use in the past. Diabetes mellitus. Conclusions Summary: 1. Left ventricle: The cavity size is normal. Wall thickness is normal. Systolic function is vigorous. The estimated ejection fraction is 65-70%. Wall motion is normal; there are no regional wall motion abnormalities. 2. Right ventricle: The cavity size is normal. Wall thickness is normal. Systolic function is normal. 3. Left atrium: The atrium is normal in size. 4. Pulmonary arteries: Systolic pressure is within the normal range. 5. No significant valvular abnormalities noted. Recommendations: Compared to prior study from 05/2018, no clinically significant changes noted. Study data: Transthoracic echocardiogram. Procedure: Transthoracic echocardiography was performed. Image quality was adequate. The study was technically limited due to body habitus. Intravenous Definity , 3 mlswas administered. Complete 2D, spectral Doppler, and color flow Doppler. Patient status: Inpatient. Patient room number: 420-1. Rhythm: Normal sinus rhythm. Findings Left ventricle: The cavity size is normal. Wall thickness is normal. Systolic function is vigorous. The estimated ejection fraction is 65-70%. Wall motion is normal; there are no regional wall motion abnormalities. Left ventricular diastolic function parameters are normal for the patient's age. Right ventricle: Well visualized. The cavity size is normal. Wall thickness is normal. Systolic function is normal. Ventricular septum: Well visualized. Left atrium: Well visualized. The atrium is normal in size. Right atrium: Not well visualized. Atrial septum: Well visualized. Mitral valve: Well visualized. The annulus is mildly calcified. The leaflets are normal thickness. No echocardiographic evidence for prolapse. There is no evidence of stenosis. There is physiologic regurgitation. Aortic valve: Well visualized. The leaflets are mildly thickened and mildly calcified. There is no evidence of stenosis. There is no significant regurgitation. Tricuspid valve: Well visualized. The leaflets are normal thickness. There is no evidence of stenosis. There is mild regurgitation. Pulmonic valve: Poorly visualized. The leaflets are normal thickness. There is no evidence of stenosis. There is no significant regurgitation. Aorta: The aorta is not visualized. Pericardium: There is no pericardial effusion. No evidence of pleural fluid accumulation. Pulmonary arteries: Not well visualized. Systolic pressure is within the normal range. Systemic veins: Not well visualized. Pulmonary veins: Visualization of the pulmonary venous anatomy is incomplete, but a significant abnormality is unlikely. Measurements Left ventricle Value Ref Left atrium Value Ref HARSHAL, LAX (L) 3.6 cm 3.8 - ML dim, A4C 3.5 cm ------- 5.2 SI dim, A4C 4.6 cm ------- ESD, LAX (L) 1.9 cm 2.2 - Vol/bsa, ES, 1-p A4C 16 ml/m^2 11 - 40 3.5 Vol/bsa, ES, A/L 16 ml/m^2 16 - 34 FS, LAX (H) 48 % 27 - 45 PW, ED, LAX 0.7 cm 0.6 - Aortic valve Value Ref 0.9 Peak v, S 1.77 m/sec ------- FS (H) 48 % 27 - 45 VTI, S 32.8 cm ------- Mid-wall FS 19 % -------- Mean grad, S 5.0 mm Hg ------- PW, ED 0.7 cm 0.6 - Peak grad, S 13.0 mm Hg ------- 0.9 LVOT/AV, VTI ratio 0.76 ------- PW/ID, ED 0.19 -------- DAYSI, VTI 1.72 cm^2 ------- E', lat deepak, TDI (L) 9.7 cm/sec >=10.0 DAYSI, Vmax 1.35 cm^2 ------- E/e', lat deepak, TDI 9 -------- E', med deepak, TDI 8.3 cm/sec >=7.0 Mitral valve Value Ref E/e', med deepak, TDI 11 -------- Peak E 0.91 m/sec --- ---- E', avg, TDI 9.0 cm/sec -------- Peak A 1.23 m/sec --- ---- E/e', avg, TDI 10 <=14 Decel time 247 ms ------- Peak grad, D 3.3 mm Hg ------- LVOT Value Ref Peak E/A ratio 0.7 ------- Diam, S 1.70 cm -------- Area 2.3 cm^2 -------- Pulmonic valve Value Ref Peak consuelo, S 1.05 m/sec -------- Peak v, S 0.88 m/sec ------- VTI, S 24.9 cm -------- Peak grad, S 3.0 mm Hg ------- Mean grad, S 2 mm Hg -------- SV 57 ml -------- Tricuspid valve Value Ref SV/bsa 29 ml/m^2 -------- TR peak v 2.63 m/sec <=2.8 Peak RV-RA grad, S 28 mm Hg ------- Ventricular septum Value Ref Max TR consuelo 2.63 m/sec ------- IVS, ED 0.9 cm 0.6 - 0.9 Aortic root Value Ref Root diam 2.7 cm <4.1 Right ventricle Value Ref HARSHAL, LAX 2.4 cm -------- HARSHAL minor ax, A4C 3.1 cm 1.9 - mid 3.5 Legend: (L) and (H) jovan values outside specified reference range. Prepared and electronically signed by Finesse Keane MD 08/26/2018 18:07
[2018-08-26] MEDS: Acetaminophen TAB* 325 MG PO PRN (20:25)
[2018-08-27] MEDS: ZOSYN 3.375 GM Q8H per EXTENDED INFUSION IVPB SCH ×2 (05:51)
[2018-08-27 07:02] LABS: BUN/Creatinine Ratio 16.7 (8-20); Calcium 7.8 mg/dL (8.6-10.3); EGFR African American 55.9 (>60); EGFR Non-African American 46.2 (>60)
[2018-08-27] MEDS: Insulin LISPRO* 1 UNITS UNIT SUBCUT SCH ×2 (07:41→12:39)
[2018-08-27] MEDS: Multivitamins/Minerals TAB PO SCH (08:26)
[2018-08-27] MEDS: Pantoprazole TAB * 40 MG TAB PO SCH (08:26)
[2018-08-27] MEDS: Sodium Bicarbonate (ANTACID)* 650 MG TAB PO SCH (08:26)
[2018-08-27] MEDS: Lactobacillus Acidophilus* 1 TAB PO SCH (08:26)
--- NOTE | 2018-08-27 10:54 | PN ---
Progress Note - Progress Note Date of Service: 08/27/18 Note: Time spent on discharge including exam of patient, discussion with patient, nurse, CM, review of EMR and preparation of discharge docuements and attempt to telephone is 45 minutes.
--- NOTE | 2018-08-27 11:30 | PN ---
Progress Note - Progress Note Date of Service: 08/27/18 Note: Time spent on discharge including exam of pt, discussion with patient, sister, nurse, CM, review of EMR areli preparation of discharge documents is 40 minutes.
--- NOTE | 2018-08-27 12:15 | TRS ---
TRANSFER SUMMARY: DATE OF TRANSFER: 08/27/18 HISTORY: This 78-year-old woman presented with weakness and a fall. History is detailed in the admission note. She had profound anemia. She had black and tarry stools. Ever since the urostomy of 07/26/18, she had a wound infection as well. She was treated with piperacillin/tazobactam for wound infection. She had an ID consult. She has completed her antibiotic therapy and should do well with local wound care. She had three blood transfusions, packed cells here. She had endoscopy, which showed multiple duodenal ulcers. Due to her anasarca, I am stopping her sodium bicarbonate. She is on oral PPI twice a day, which she should be on for at least a month and then once a day, possibly indefinitely. I would recommend getting CBC and a BMP on 09/05/18, to make sure that she is thriving well. She will return to her usual dose of furosemide 60 mg daily for anasarca. She has 3+ edema in both legs and her right arm. All these findings appear to be chronic. Otherwise, she was quite stable. FINAL DIAGNOSES: 1. Gastrointestinal bleed due to duodenal ulcers. 2. Anasarca. 3. Urinary tract infections with pseudomonas. 4. Recent urostomy. 5. Diabetes. 6. Hyponatremia, resolved. 7. Hypertension. 8. Chronic kidney disease. DISCHARGE MEDICATIONS: 1. Pantoprazole 40 mg b.i.d. for 1 month and once daily. 2. Calcium carbonate and vitamin D3 one twice daily. 3. Nystatin topical powder daily p.r.n. 4. Nitroglycerin 0.4 mg sublingual every 5 minutes p.r.n. 5. Bisacodyl suppository 10 mg daily p.r.n. 6. Acetaminophen 975 mg every 8 hours p.r.n. 7. Probiotic 250 mg b.i.d. 8. Rosuvastatin 20 mg h.s. 9. Multivitamin with mineral daily. 10. Glucosamine 1500 mg daily. 11. Furosemide 60 mg daily. 12. Docusate 200 mg daily. 13. Aspirin 81 mg daily. 14. Preparation H ointment 1 b.i.d. I would recommend that the indication for her enoxaparin 40 mg daily be reviewed. If it is considered critical, it could probably be started in a few days to week depending on the urgency of need. DISPOSITION ON DISCHARGE: Discharged to [facility]. CONDITION ON DISCHARGE: Stable. [id number]/[facility] #: [id number] JUAN
[2018-08-27 12:28] VITALS: BP 107/48
== END 2018-08-27 13:15 | DRG 378 ==
LOC: ED 11:29 → MED 14:49
PROVIDERS: ADMIT Internal Medicine; ATTEND Internal Medicine
PROC: 0W3P8ZZ Control Bleeding in Gastrointestinal Tract, Via Natural or Artificial Opening Endoscopic (ICD-10-PCS; principal; 2018-08-19)
PROC: 30233N1 Transfusion of Nonautologous Red Blood Cells into Peripheral Vein, Percutaneous Approach (ICD-10-PCS; 2018-08-19)
DX: K26.4 Chronic or unspecified duodenal ulcer with hemorrhage (principal); N39.0 Urinary tract infection, site not specified; E22.2 Syndrome of inappropriate secretion of antidiuretic hormone; T81.49XA Infection following a procedure, other surgical site, initial encounter; Z68.41 Body mass index [BMI] 40.0-44.9, adult; D64.9 Anemia, unspecified; B96.5 Pseudomonas (aeruginosa) (mallei) (pseudomallei) as the cause of diseases classified elsewhere; Z66 Do not resuscitate; I12.9 Hypertensive chronic kidney disease with stage 1 through stage 4 chronic kidney disease, or unspecified chronic kidney disease; E11.22 Type 2 diabetes mellitus with diabetic chronic kidney disease; N18.9 Chronic kidney disease, unspecified; I25.10 Atherosclerotic heart disease of native coronary artery without angina pectoris; M81.0 Age-related osteoporosis without current pathological fracture; M17.0 Bilateral primary osteoarthritis of knee; E87.6 Hypokalemia; E78.5 Hyperlipidemia, unspecified; R41.0 Disorientation, unspecified; N99.521 Infection of incontinent external stoma of urinary tract; R21 Rash and other nonspecific skin eruption; B95.2 Enterococcus as the cause of diseases classified elsewhere; E87.70 Fluid overload, unspecified; E66.01 Morbid (severe) obesity due to excess calories; R13.10 Dysphagia, unspecified; Z96.0 Presence of urogenital implants; Z80.3 Family history of malignant neoplasm of breast; Z80.0 Family history of malignant neoplasm of digestive organs; Z82.0 Family history of epilepsy and other diseases of the nervous system; Z79.82 Long term (current) use of aspirin; Z84.89 Family history of other specified conditions; Y83.2 Surgical operation with anastomosis, bypass or graft as the cause of abnormal reaction of the patient, or of later complication, without mention of misadventure at the time of the procedure; Y92.9 Unspecified place or not applicable; Z85.51 Personal history of malignant neoplasm of bladder; Z83.3 Family history of diabetes mellitus; Z82.49 Family history of ischemic heart disease and other diseases of the circulatory system; Z72.89 Other problems related to lifestyle; Z88.1 Allergy status to other antibiotic agents; Z95.5 Presence of coronary angioplasty implant and graft; Z90.49 Acquired absence of other specified parts of digestive tract; Z98.42 Cataract extraction status, left eye; Z98.41 Cataract extraction status, right eye; Z87.891 Personal history of nicotine dependence; Z87.440 Personal history of urinary (tract) infections; Z90.710 Acquired absence of both cervix and uterus; Z90.6 Acquired absence of other parts of urinary tract
CPT/HCPCS: 36415; 70450; 71045; 71046; 74177; 80048; 80053; 81003; 81015; 82140; 82272; 82570; 83735; 83930; 83935; 84134; 84300; 85014; 85018; 85025; 85610; 85730; 86703; 86706; 86803; 86850; 86900; 86901; 86922; 87070; 87077; 87086; 87186; 87205; 87340; 87640; 87641; 93306; 99156; 99157; 99283; A9270-GY; C8929; J0692; J1756; J1940; J2250; J2543; J3010; J3475; J3480; P9040; Q9967

== ENCOUNTER 2018-09-14 16:23 | Inpatient (IN) | payer MEDICARE, BC ==
[2018-09-14 17:49] LABS: ABS Basophils 0.1 10^3/ul (0-0.2); ABS Eosinophils 1.2 10^3/ul (0-0.6); ABS Lymphocytes 1.3 10^3/ul (1.0-4.8); ABS Monocytes 0.5 10^3/ul (0-0.8); ABS Neutrophils 11.9 10^3/ul (1.5-7.7); Eosinophil % 7.7 %; Hematocrit 30 % (35-47); Hemoglobin 9.7 g/dL (12.0-16.0); Lymphocyte % 8.8 %; Mean Corpuscular HGB Conc 33 g/dL (31-36); Mean Corpuscular Hemoglobin 27 pg (27-31); Mean Corpuscular Volume 82 fL (80-97); Mean Platelet Volume 7.3 fL (7.4-10.4); Platelet Count 322 10^3/uL (150-450); Red Blood Count 3.63 10^6 /uL (3.70-4.87); Red Cell Distribution Width 19 % (10-15); White Blood Count 14.9 10^3/uL (3.5-10.8)
[2018-09-14 18:03] LABS: Albumin 2.9 g/dL (3.2-5.2); Albumin/Globulin Ratio 0.8 (1-3); BUN/Creatinine Ratio 23.8 (8-20); C Reactive Protein 150.33 mg/L (<8.01); EGFR African American 64.3 (>60); EGFR Non-African American 53.1 (>60); Globulin 3.8 g/dL (2-4); Total Bilirubin 0.4 mg/dL (0.2-1.0); Total Protein 6.7 g/dL (6.4-8.9)
[2018-09-14 18:10] LABS: Urine Appearance Cloudy; Urine Bacteria Absent (Absent); Urine Bilirubin Negative (Negative); Urine Blood 1+ (Negative); Urine Color Yellow; Urine Glucose Negative (Negative); Urine Ketones Negative (Negative); Urine Nitrite Negative (Negative); Urine Protein Negative (Negative); Urine Red Blood Cell 3+(>10/hpf) (Absent); Urine Specific Gravity 1.006 (1.010-1.030); Urine Squamous Epithelial Cell Present (Absent); Urine Urobilinogen Negative (Negative); Urine White Blood Cell 3+(>20/hpf) (Absent)
[2018-09-14] MEDS ORDERED: Piperacillin/Tazobac ADVAN(*) 3.375 GM in NS 0.9% 100 ML* 100 ML IVPB ONE (18:42)
[2018-09-14 18:47] LABS: Urine Appearance Turbid; Urine Bacteria 2+ (Absent); Urine Bilirubin Negative (Negative); Urine Blood 2+ (Negative); Urine Color Amber; Urine Glucose Negative (Negative); Urine Ketones Negative (Negative); Urine Nitrite Negative (Negative); Urine Protein 1+(30 mg/dL) (Negative); Urine Red Blood Cell 3+(>10/hpf) (Absent); Urine Specific Gravity 1.009 (1.010-1.030); Urine Squamous Epithelial Cell Present (Absent); Urine Urobilinogen Negative (Negative); Urine White Blood Cell 3+(>20/hpf) (Absent)
--- NOTE | 2018-09-14 18:58 | ED ---
GI/ HPI - HPI Summary HPI Summary: Pt is a 78 y/o F presenting to the ED brought in by EMS from [facility] for cloudy drainage of her left nephrostomy tube and a low grade temp (99.1, per [facility] staff). She states she had her bladder removed entirely on 07/26/18 d/t bladder CA, which is why she has the ileostomy bag to drain the urine in her RLQ. She then had an obstructed kidney of the left, and went to [facility], where a left nephrostomy was placed. She is at [facility] for rehab after this. The pt reports low back pain (not at nephrostomy site) and LE edema. She denies cough, nausea, vomiting, CP, and SOB. She has also had a cholecystectomy many years ago , and her R kidney is partially functional, and she has a L nephrostomy bag. She denies FHx kidney disease. Home Medications Medication Instructions Recorded Confirmed Type Calcium Carbonate/Vitamin D3 1 tab PO BID 05/17/18 09/14/18 History [Calcium 600 + Vit D Tablet] Acetaminophen TAB* [Tylenol TAB*] 975 mg PO Q8HR PRN 08/19/18 09/14/18 History Aspirin EC TAB* [Ecotrin EC Low 81 mg PO DAILY 08/19/18 09/14/18 History Dose 81 MG*] Bisacodyl SUPP* [Dulcolax Supp*] 10 mg IL DAILY PRN 08/19/18 09/14/18 History Docusate CAP* [Colace Cap*] 100 mg PO QAM 08/19/18 09/14/18 History Glucosamine HCl 1,500 mg PO DAILY 08/19/18 09/14/18 History Multivitamins/Minerals TAB* 1 tab PO DAILY 08/19/18 09/14/18 History [Theragran/minerals TAB*] Nitroglycerin TAB 0.4 MG* 0.4 mg SL Q5M PRN 08/19/18 09/14/18 History Nystatin TOP POWDER* 1 applic TOPICAL DAILY PRN 08/19/18 09/14/18 History Phenyleph/Mineral Oil/Petrolat 1 oin IL BID PRN 08/19/18 09/14/18 History [Preparation H Ointment] Rosuvastatin (NF) [Crestor (NF)] 20 mg PO QPM 08/19/18 09/14/18 History Torsemide TAB* [Demadex*] 20 mg PO DAILY 09/14/18 09/14/18 History - History of Current Complaint Chief Complaint: EDGeneral Time Seen by Provider: 09/14/18 17:06 Stated Complaint: BROWN/RED DRAINAGE FROM NEPHROSTOMY SITE PER EMS Hx Obtained From: Patient, Family/Horse Breaker - , EMS, Other: - [place] Onset/Duration: Started Hours Ago, Still Present Timing: Constant, Lasting Hours Severity: Mild Current Severity: Mild Pain Intensity: 0 Location of Pain: Other - low back pain (not at nephrostomy site) Pain Characteristics: Dull Associated Signs and Symptoms: Positive: Back Pain, Fever - "low grade", 99.1, Other: - LE edema. Negative: Nausea, Vomiting, Cough Aggravating Factor(s): Nothing Alleviating Factor(s): Nothing - Additional Pertinent History Primary Care Physician: [id number] - Allergy/Home Medications Allergies/Adverse Reactions: Allergies Allergy/AdvReac Type Severity Reaction Status Date / Time cefepime Allergy Rash Verified 09/14/18 16:28 cephalexin [From Keflex] Allergy Rash Verified 09/14/18 16:28 ciprofloxacin Allergy Swelling Verified 09/14/18 16:28 Home Medications: Home Medications Torsemide TAB* [Demadex*] 20 mg PO DAILY 09/14/18 [History Confirmed 09/14/18] PMH/Surg Hx/FS Hx/Imm Hx Previously Healthy: No Endocrine/Hematology History: Reports: Hx Diabetes - diet controlled Cardiovascular History: Reports: Hx Angina - history of, none recent, Hx Coronary Artery Disease - 1 cardiac stent 03/2007 Denies: Hx Hypertension, Hx Pacemaker/ICD, Other Cardiovascular Problems/ Disorders Respiratory History: Denies: Other Respiratory Problems/Disorders GI History: Reports: Other GI Disorders - Cholecystectomy 1979 History: Reports: Other Problems/Disorders - bladder tumor, s/p cystectomy , ileostomy, left nephrostomy Denies: Hx Dialysis, Hx Renal Disease - RIGHT URETER OBSTRUCTION ( DISTAL ) 2018 Musculoskeletal History: Reports: 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, Other Musculoskeletal History - Osteoporosis Sensory History: Reports: Hx Cataracts - Bilateral cataract extractions 2007, Hx Contacts or Glasses - Reading glasses Denies: Hx Hearing Aid Opthamlomology History: Reports: Hx Cataracts - Bilateral cataract extractions 2007, Hx Contacts or Glasses - Reading glasses Neurological History: Denies: Other Neuro Impairments/Disorders Psychiatric History: Denies: Hx Panic Disorder - Cancer History Cancer Type, Location and Year: BLADDER CA Hx Chemotherapy: No Hx Radiation Therapy: No - Surgical History Surgery Procedure, Year, and Place: cystectomy; 04/2018 CYSTOSCOPY W/ BIOPSY. CHOLECYSTECTOMY 1979. Tonsillectomy as a kid. Cardiac stent placement 2007. Bilateral Cataract Extractions 2007. Colonoscopy. Urostomy 07/26/18 Hx Anesthesia Reactions: No Infectious Disease History: No Infectious Disease History: Denies: Traveled Outside the [place] in Last 30 Days - Family History Known Family History: Positive: Cardiac Disease, Diabetes, Other - Alzheimer's, cancer Negative: Renal Disease - Social History Lives: At [facility] - [facility] for rehab; is with her in the ED Alcohol Use: None Alcohol Amount: 1 glass of beer or wine 4-5 times a week Hx Substance Use: No Substance Use Type: Reports: None Hx Tobacco Use: Yes Smoking Status (MU): Former Smoker Type: Cigarettes Amount Used/How Often: 1 PPD for 46 years Have You Smoked in the Last Year: No Review of Systems Positive: Fever - 99.1 Negative: Chest Pain Negative: Shortness Of Breath, Cough Negative: Vomiting, Nausea Positive: other - cloudy urine in nephrostomy, discolored urine in nephrostomy Positive: Myalgia - back pain, Edema - LE Skin: Negative Neurological: Negative Psychological: Normal All Other Systems Reviewed And Are Negative: Yes Physical Exam - Summary Physical Exam Summary: Appearance: Ill-appearing, no pain distress, well-nourished Skin: Warm, color reflects adequate perfusion, dry Head: Normal Head/Face inspection, atraumatic Eyes: Conjunctiva clear ENT: Normal inspection Neck: Supple, no nodes, no JVD Respiratory: Lungs clear, normal breath sounds, no respiratory distress Cardio: RRR, No murmur, pulses normal, brisk capillary refill Abdomen: Soft, nontender, ileostomy bag in RLQ with clear urine Bowel sounds: Present Musculoskeletal: Nephrostomy tube in L kidney with cloudy urine, nephrostomy site is dry with intact bandage, no rednees. +pitting edema in the bilateral LE Psychological: Normal Neuro: Alert, muscle tone normal, no focal deficit Triage Information Reviewed: Yes Vital Signs On Initial Exam: Initial Vitals Temp Pulse Resp BP Pulse Ox 98.7 F 83 16 117/56 97 09/14/18 16:26 09/14/18 16:26 09/14/18 16:26 09/14/18 16:26 09/14/18 16:26 Vital Signs Reviewed: Yes Diagnostics - Vital Signs Vital Signs Temp Pulse Resp BP Pulse Ox 09/14/18 18:41 83 103/65 96 09/14/18 18:11 81 110/50 97 09/14/18 18:00 82 98 09/14/18 17:41 83 113/55 98 09/14/18 17:12 88 117/67 96 09/14/18 17:00 86 97 09/14/18 16:41 86 101/52 98 09/14/18 16:36 86 96 09/14/18 16:26 98.7 F 83 16 117/56 97 - Laboratory Lab Results: Lab Results 09/14/18 09/14/18 09/14/18 Range/Units 17:39 17:39 17:39 WBC 14.9 H (3.5-10.8) 10^3/uL RBC 3.63 L (3.70-4.87) 10^6 /uL Hgb 9.7 L (12.0-16.0) g/dL Hct 30 L (35-47) % MCV 82 (80-97) fL MCH 27 (27-31) pg MCHC 33 (31-36) g/dL RDW 19 H (10-15) % Plt Count 322 (150-450) 10^3/uL MPV 7.3 L (7.4-10.4) fL Neut % (Auto) 79.7 % Lymph % (Auto) 8.8 % [place] % (Auto) 3.3 % Eos % (Auto) 7.7 % Baso % (Auto) 0.5 % Absolute Neuts (auto) 11.9 H (1.5-7.7) 10^3/ul Absolute Lymphs (auto) 1.3 (1.0-4.8) 10^3/ul Absolute Monos (auto) 0.5 (0-0.8) 10^3/ul Absolute Eos (auto) 1.2 H (0-0.6) 10^3/ul Absolute Basos (auto) 0.1 (0-0.2) 10^3/ul Absolute Nucleated RBC 0.0 10^3/ul Nucleated RBC % 0.0 Sodium 136 (135-145) mmol/L Potassium 3.0 L (3.5-5.0) mmol/L Chloride 97 L (101-111) mmol/L Carbon Dioxide 30 (22-32) mmol/L Anion Gap 9 (2-11) mmol/L BUN 24 (6-24) mg/dL Creatinine 1.01 H (0.51-0.95) mg/dL Est GFR ( Amer) 64.3 (>60) Est GFR (Non-Af Amer) 53.1 (>60) BUN/Creatinine Ratio 23.8 H (8-20) Glucose 151 H (70-100) mg/dL Lactic Acid 1.6 (0.5-2.0) mmol/L Calcium 9.0 (8.6-10.3) mg/dL Total Bilirubin 0.40 (0.2-1.0) mg/dL AST 32 (13-39) U/L ALT 35 (7-52) U/L Alkaline Phosphatase 178 H (34-104) U/L C-Reactive Protein 150.33 H (<8.01) mg/L Total Protein 6.7 (6.4-8.9) g/dL Albumin 2.9 L (3.2-5.2) g/dL Globulin 3.8 (2-4) g/dL Albumin/Globulin Ratio 0.8 L (1-3) Urine Color Urine Appearance Urine pH (5-9) Ur Specific [place] (1.010-1.030) Urine Protein (Negative) Urine Ketones (Negative) Urine Blood (Negative) Urine Nitrate (Negative) Urine Bilirubin (Negative) Urine Urobilinogen (Negative) Ur Leukocyte Esterase (Negative) Urine WBC (Auto) (Absent) Urine RBC (Auto) (Absent) Ur Squamous Epith Cells (Absent) Amorphous Crystals (Absent) Urine Bacteria (Absent) Hyaline Casts (Absent) Urine Glucose (Negative) 09/14/18 09/14/18 Range/Units 17:53 17:55 WBC (3.5-10.8) 10^3/uL RBC (3.70-4.87) 10^6 /uL Hgb (12.0-16.0) g/dL Hct (35-47) % MCV (80-97) fL MCH (27-31) pg MCHC (31-36) g/dL RDW (10-15) % Plt Count (150-450) 10^3/uL MPV (7.4-10.4) fL Neut % (Auto) % Lymph % (Auto) % [place] % (Auto) % Eos % (Auto) % Baso % (Auto) % Absolute Neuts (auto) (1.5-7.7) 10^3/ul Absolute Lymphs (auto) (1.0-4.8) 10^3/ul Absolute Monos (auto) (0-0.8) 10^3/ul Absolute Eos (auto) (0-0.6) 10^3/ul Absolute Basos (auto) (0-0.2) 10^3/ul Absolute Nucleated RBC 10^3/ul Nucleated RBC % Sodium (135-145) mmol/L Potassium (3.5-5.0) mmol/L Chloride (101-111) mmol/L Carbon Dioxide (22-32) mmol/L Anion Gap (2-11) mmol/L BUN (6-24) mg/dL Creatinine (0.51-0.95) mg/dL Est GFR ( Amer) (>60) Est GFR (Non-Af Amer) (>60) BUN/Creatinine Ratio (8-20) Glucose (70-100) mg/dL Lactic Acid (0.5-2.0) mmol/L Calcium (8.6-10.3) mg/dL Total Bilirubin (0.2-1.0) mg/dL AST (13-39) U/L ALT (7-52) U/L Alkaline Phosphatase (34-104) U/L C-Reactive Protein (<8.01) mg/L Total Protein (6.4-8.9) g/dL Albumin (3.2-5.2) g/dL Globulin (2-4) g/dL Albumin/Globulin Ratio (1-3) Urine Color Shellie Yellow Urine Appearance Turbid Cloudy Urine pH 8.0 7.0 (5-9) Ur Specific [place] 1.009 L 1.006 L (1.010-1.030) Urine Protein 1+(30 mg/dl) A Negative (Negative) Urine Ketones Negative Negative (Negative) Urine Blood 2+ A 1+ A (Negative) Urine Nitrate Negative Negative (Negative) Urine Bilirubin Negative Negative (Negative) Urine Urobilinogen Negative Negative (Negative) Ur Leukocyte Esterase 3+ A 3+ A (Negative) Urine WBC (Auto) 3+(>20/hpf) A 3+(>20/hpf) A (Absent) Urine RBC (Auto) 3+(>10/hpf) A 3+(>10/hpf) A (Absent) Ur Squamous Epith Cells Present A Present A (Absent) Amorphous Crystals Present A (Absent) Urine Bacteria 2+ A Absent (Absent) Hyaline Casts Present A (Absent) Urine Glucose Negative Negative (Negative) Result Diagrams: 09/14/18 17:39 09/14/18 17:39 Lab Statement: Any lab studies that have been ordered have been reviewed, and results considered in the medical decision making process. Re-Evaluation - Re-Evaluation 1st re-eval Re-Evaluation Time: 18:41 Change: Unchanged Comment: Verified allergies. cephalosporins were rash, long ago. Cipro was swelling of one hand. Pt denies allergy to penicillin. 2nd re-eval Re-Evaluation Time: 19:32 Change: Unchanged Comment: Nephrostomy drainage bag tubing has been changed, pt appears to be outputting urine. GIGU Course/Dx - Course Course Of Treatment: Pt is a 78 y/o F presenting to the ED brought in by EMS for a cloudy nephrostomy drainage and low grade fever. The pt reports back pain and LE edema. She denies cough, nausea, vomiting, CP, and SOB. She has also had a cholecystectomy many years ago, and her R kidney is partially functional and she has an ileostomy, and she has a L nephrostomy bag. She denies FHx kidney disease. 1846 - I spoke with Dr. Clifton about the pt's present condition who recommended the pt be admitted to [facility] under the hospitalist, as long as nephrostomy tube is in fact draining and functioning. Pts lab results show WBC of 14.9, RBC of 3.63, Hgb of 9.7, Hct of 30, RDW of 19. MPV of 7.3, absolute neuts of 11.9, and absolute eosinophils of 1.2. Her chemistry shows Potassium of 3.0, Chloride of 97, Creatinine of 1.01, BUN/Creatinine ratio of 23.8, Alkaline Phosphate of 178, CRP of 150.33, Albumin of 2.9, and Albumin/ Globulin ratio of 0.8. Her first urine shows 1+ protein, 2+ blood, 3+ leukocyte esterase, 3+ WBC, 3+ RBC, present squamous epithelial cells, present amorphous crystals, and 2+ urine bacteria. The second urine (nephrostomy sample) shows 1+ blood, 3+ leukocyte esterase, 3+ WBC, 3+ RBC, present squamous epithelial cells , and present hyaline casts. Pt was given zosyn 3.375gm IV. The pts dx include nephrostomy, ileostomy, bladder CA, and UTI. 2000: Dr. Newman accepts for admission. - Diagnoses Differential Diagnoses - Female: Cancer, Pyelonephritis, Urinary Tract Infection Provider Diagnoses: Ileostomy in place, Nephrostomy status, Bladder cancer, UTI (urinary tract infection) Discharge - Sign-Out/Discharge Documenting (check all that apply): Patient Departure - admit - Discharge Plan Condition: Stable Disposition: ADMITTED TO [facility] - Billing Disposition and Condition Condition: STABLE Disposition: Admitted to [facility] - Attestation Statements Document Initiated by Sarah: Yes Documenting Scribe: Sarah Reed Provider For Whom Sarah is Documenting (Include Credential): Dr. Ann Corrales MD. Scribe Attestation: ISarah, scribed for Dr. Ann Corrales MD. on 09/15/18 at 0049. Scribe Documentation Reviewed: Yes Provider Attestation: The documentation as recorded by the Sarah gonzalez accurately reflects the service I personally performed and the decisions made by me, Dr. Ann Corrales MD. Status of Scribe Document: Viewed Consult Consult: [id number] - I spoke with Dr. Clifton about the pt's present condition who recommended that the patient be admitted for further evaluation. As long as pt' s nephrostomy tube is functioning, pt does not need transfer.
[2018-09-14] MEDS: KCL 20 MEQ/100 ML IVPREMIX* 20 MEQ/100 ML BAG IV SCH (21:21)
[2018-09-14] MEDS ORDERED: Hemorrhoidal SUPP PR PRN (21:23)
[2018-09-14] MEDS ORDERED: Nystatin TOP POWDER* 15 GM BTL TOPICAL PRN (21:23)
[2018-09-14] MEDS ORDERED: Nitroglycerin TAB 0.4 MG* 0.4 MG TAB SL PRN (21:23)
[2018-09-14] MEDS ORDERED: Bisacodyl SUPP* 10 MG SUPP PR PRN (21:23)
[2018-09-14] MEDS ORDERED: Potassium Chlor TAB* 20 MEQ TAB.ER PO ONE (21:32)
[2018-09-14] MEDS ORDERED: Zosyn per Pharmacy* NOTE FOLLOW UP SCH (23:00)
[2018-09-15] MEDS: Enoxaparin(*) 40 MG/0.4 ML SYR SUBCUT SCH ×2 (00:01→20:46)
--- NOTE | 2018-09-15 00:07 | HP ---
CC: Dr. Torsten Modi; [facility] * HISTORY AND PHYSICAL: DATE OF ADMISSION: 09/14/18 PRIMARY CARE PROVIDER: Torsten Modi MD. UROLOGIST: [facility]. ATTENDING PHYSICIAN: Dr. Newman * (dictated by SANDIE Sosa). CHIEF COMPLAINT: The patient states "I don't know why I was sent here, [facility] sent me." Chief complaint per [facility] is fever 99.1, brown drainage with redness at nephrostomy site. HISTORY OF PRESENT ILLNESS: Ms. Celeste is a 78-year-old female with a past medical history of cystectomy with ileal conduit on 07/26/18 and left nephrostomy on 07/30/18 for bladder cancer at [facility], CKD, hyponatremia, hypertension, hyperlipidemia, who presented to the ER today from [facility] via [facility]. She states she is feeling well, although she is tired. She notes that her states her urine has been cloudy in her left nephrostomy bag. She also notes that she has had increased urine output despite fluid restriction. Other than that, she feels well. She denies fevers or chills. She denies abdominal pain, flank pain or back pain. She does note that her buttocks hurts, but attributes this to sitting/lying down for an extended period of time. She denies chest pain, shortness of breath, fever, chills or cough. She is positive for lower extremity edema, which is chronic and unchanged. She denies pain at the surgical incision site, the ileostomy site, and the nephrostomy site. In the ER, the patient received a full workup, which included vital signs revealing [id number] blood pressure, which is the patient's baseline. Temperature was within normal limits. Laboratory data reveals leukocytosis, chronic anemia, hypokalemia, elevated CRP. Urinalysis from ileostomy with 2+ blood, 3+ LE, 3+ wbc's, 3+ rbc's, 2+ urine bacteria. UA from nephrostomy with 1 + blood, 3+ LE, 3+ wbc's, 3+ rbc's and hyaline cast. Hospitalist team was asked to evaluate the patient for admission. PAST MEDICAL HISTORY: 1. Bladder cancer, post cystectomy with ileal conduit, left nephrostomy, July 2016. 2. Hypertension. 3. Hyperlipidemia. 4. Chronic kidney disease. 5. Coronary artery disease. 6. Diabetes mellitus, diet controlled. 7. Hyponatremia. 8. Obesity. PAST SURGICAL HISTORY: 1. Cystectomy with ileal conduit, 07/26/18. 2. Left nephrostomy, 07/30/18. 3. Bilateral cataracts. 4. Cholecystectomy. 5. Stent. 6. Cystoscopy. 7. Eye surgery. 8. Hysterectomy. 9. Tonsillectomy. HOME MEDICATIONS: 1. Acetaminophen 975 p.o. q.8 hours p.r.n. pain. 2. Aspirin 81 mg p.o. daily. 3. Dulcolax suppository 10 mg per rectum daily p.r.n. constipation. 4. Calcium carbonate/vitamin D3 one tab p.o. b.i.d. 5. Docusate cap 100 mg p.o. q.a.m. 6. Glucosamine HCl 1500 mg p.o. daily. 7. Multivitamin/minerals 1 tab p.o. daily. 8. Nitroglycerin tab 0.4 mg sublingual q.5 hours p.r.n. chest pain. 9. Nystatin topical powder 1 application topically daily p.r.n. 10. Preparation H ointment 1 application per rectum b.i.d. p.r.n. pain/ inflammation. 11. Rosuvastatin 20 mg p.o. q.p.m. 12. Torsemide tablet 20 mg p.o. daily. DRUG ALLERGIES: CEFEPIME, rash; CEPHALEXIN, rash; CIPROFLOXACIN, swelling. FAMILY HISTORY: Positive for diabetes mellitus, heart disease, cancer of colon and breast, Alzheimer's. Negative for CVA. SOCIAL HISTORY: The patient is a former smoker. She quit in 2007. Prior to that, she had a [id number] smoking history. She typically drinks 4 to 5 drinks per week, but has had none recently as she has been at a rehab in [facility]. 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 She is currently in subacute rehab at [facility], but lives in a home with her . In the event that she is unable to make her own decision, she has appointed her Jose Celeste to be her surrogate decision maker. REVIEW OF SYSTEMS: A 10-point review of systems was performed and all the pertinent positives and negatives are in the HPI, all other systems are negative. PHYSICAL EXAMINATION GENERAL: Ms. Celeste is a well-developed, well-nourished, obese, older white woman who is lying in bed with the head of bed and lower extremities elevated. She is slightly turned to her right. She is sleeping, but wakes easily. She is in no acute distress. She appears her stated age. VITAL SIGNS: Temperature 98.2, temporal; heart rate 82; respiratory rate 16; oxygen saturation 95% on room air; blood pressure 93/49. HEENT: PERRL. Extraocular movements intact. Hearing grossly intact. Oral mucous membranes are dry. Her pharynx is clear. There are no lesions. RESPIRATORY: Symmetrical chest expansion without the use of accessory muscles. Lungs are clear to auscultation without rhonchi, wheezes or rubs. CARDIOVASCULAR: Regular rate and rhythm with S1, S2 present. No murmurs, rubs , clicks, or gallops. There is no JVD. ABDOMEN: Bowel sounds noted in all quadrants. The abdomen is soft without tenderness to palpation. There is no hepatosplenomegaly. There is no CVA tenderness. There is a right anterior ileostomy that is intact and producing. Anterior surgical site just medial to the ileostomy is pink without erythema. There is a small amount of serosanguineous drainage on the dressing. Dressing is replaced. Left nephrostomy tube is in place. Site is nonerythematous without drainage. There is a clean, dry, intact dressing over the site. EXTREMITIES: Skin is warm and smooth bilaterally without clubbing or cyanosis. The patient has 2+ pitting edema to bilateral lower extremities. Radial and pedal pulses are palpable. NEURO: The patient is awake. She is alert and oriented x3. She is able to move all of her extremities. DIAGNOSTIC STUDIES AND LABORATORY DATA: Laboratory data: WBC 14.9, RBC 3.63, HGB 9.7, HCT 30, RDW 19, MCV 7.3, absolute neutrophils 11.9. Sodium 136, potassium 3.6, chloride 97, creatinine 1.01, BUN/creatinine 23.8, glucose 151, alkaline phosphatase 178. CRP 150.33. Albumin 2.9. Ileostomy UA: Specific gravity 1.001, 1+ protein, 2+ blood, 3+ LE, 3+ urine wbc's, 3+ rbc's, positive for amorphous crystals, 2+ urine bacteria. Nephrostomy: Specific gravity 1.006 , 1+ blood, 3+ LE, 3+ wbc's, 3+rbc's, hyaline cast present. ASSESSMENT AND PLAN: Ms. Celeste is a 78-year-old female with a past medical history of bladder cancer, status post cystectomy with ileal conduit, left nephrostomy, as well as other comorbidities, who presents to the ER today with sediment in nephrostomy bag and was found to have an elevated CRP, leukocytosis and likely urinary tract infection. The patient will be admitted observation for: 1. Urinary tract infection. The patient has elevated CRP, leukocytosis, urinalysis was abnormal as above. The patient was given 1 dose of Zosyn in the ER. This will be continued due to allergies to cephalosporins and Cipro. The patient has no signs of sepsis. 2. Hypokalemia. The patient's potassium was 3.0. 20 potassium IV x3 bags plus 20 potassium p.o. x1 has been ordered. 3. Hyponatremia. The patient has been on 1.5 L of fluid restriction. This will continue while she is in the hospital as this has improved her chronic hyponatremia. Continue to monitor need to add fluids or diuretics. 4. Hypertension. Continue torsemide. 5. Chronic kidney disease. Creatinine is within normal limits. We will continue to monitor. 6. Coronary artery disease. Continue rosuvastatin and aspirin. 7. Hyperlipidemia. Continue rosuvastatin. 8. Diabetes. The patient is placed on a heart-healthy ADA diet as she has diet - controlled diabetes. 9. DVT prophylaxis. According to the DVT Risk Assessment, the patient scores 3 and is high risk. She will be placed on Lovenox 40. TIME SPENT: Approximately 60 minutes was spent on this admission, greater than half that time was spent with the patient obtaining history, performing physical , and reviewing the plan of care. The case has been reviewed with my attending, Dr. Newman, who is in agreement with the plan of care. SANDIE PLASCENCIA [id number]/[facility] #: [id number] [facility] MEDICAL CENTERMike
[2018-09-15] MEDS: Potassium Chlor TAB* 20 MEQ TAB.ER PO SCH ×2 (01:43→06:17)
[2018-09-15] MEDS: Piperacillin/Tazobac ADVAN(*) 3.375 GM in NS 0.9% 100 ML* 100 ML IVPB SCH ×3 (01:46→16:28)
[2018-09-15] MEDS: KCL 20 MEQ/100 ML IVPREMIX* 20 MEQ/100 ML BAG IV SCH ×2 (01:56→02:12)
[2018-09-15] MEDS: diPHENhydraMINE PO* 50 MG PO PRN (04:08)
[2018-09-15 07:09] LABS: ABS Basophils 0.1 10^3/ul (0-0.2); ABS Eosinophils 1.4 10^3/ul (0-0.6); ABS Lymphocytes 1.1 10^3/ul (1.0-4.8); ABS Monocytes 0.4 10^3/ul (0-0.8); ABS Neutrophils 8.3 10^3/ul (1.5-7.7); Eosinophil % 12.7 %; Hematocrit 28 % (35-47); Hemoglobin 9.4 g/dL (12.0-16.0); Lymphocyte % 10.1 %; Mean Corpuscular HGB Conc 33 g/dL (31-36); Mean Corpuscular Hemoglobin 27 pg (27-31); Mean Corpuscular Volume 82 fL (80-97); Mean Platelet Volume 7.7 fL (7.4-10.4); Platelet Count 288 10^3/uL (150-450); Red Blood Count 3.48 10^6 /uL (3.70-4.87); Red Cell Distribution Width 18 % (10-15); White Blood Count 11.3 10^3/uL (3.5-10.8)
[2018-09-15 07:19] LABS: Anion Gap 8 mmol/L (2-11); BUN/Creatinine Ratio 23.1 (8-20); Blood Urea Nitrogen 21 mg/dL (6-24); CO2 Carbon Dioxide 29 mmol/L (22-32); Calcium 8.9 mg/dL (8.6-10.3); Chloride 102 mmol/L (101-111); EGFR African American 72.5 (>60); EGFR Non-African American 59.9 (>60); Glucose 107 mg/dL (70-100); Potassium 3.7 mmol/L (3.5-5.0); Sodium 139 mmol/L (135-145)
[2018-09-15] MEDS: NS 0.9% 1000 ML** 1,000 ML IV SCH ×2 (09:45→22:12)
[2018-09-15] MEDS: GLUCOSAMINE HCL 1500 MG PO SCH (09:46)
[2018-09-15] MEDS: Torsemide TAB 10 MG PO SCH (11:03)
[2018-09-15] MEDS: Aspirin EC TAB* 81 MG TAB.EC PO SCH (11:03)
[2018-09-15] MEDS: Docusate CAP* 100 MG PO SCH (11:04)
[2018-09-15] MEDS: Multivitamins/Minerals TAB PO SCH (11:04)
[2018-09-15] MEDS: Calcium/Vitamin D TAB 250/125* TAB PO SCH ×2 (11:04→20:45)
--- NOTE | 2018-09-15 15:25 | PN ---
Subjective Date of Service: 09/15/18 Interval History: Resting in bed with at bedside. Report she is "tired". Denies fever, chills, sob, cp, palpitations, nausea, vomiting, diarrhea. Objective Active Medications: Acetaminophen (Tylenol Tab*) 975 mg PO Q8HR PRN PRN Reason: PAIN - BACK Aspirin (Aspirin Ec Tab*) 81 mg PO DAILY [facility] Last Admin: 09/15/18 11:03 Dose: 81 mg Atorvastatin Calcium (Lipitor*) 40 mg PO QPM [facility] Bisacodyl (Dulcolax Supp*) 10 mg KS DAILY PRN PRN Reason: CONSTIPATION Calcium/Vitamin D (Oscal D Tab 250/125*) 1 tab PO BID [facility] Last Admin: 09/15/18 11:04 Dose: 1 tab Diphenhydramine HCl (Benadryl Po*) 50 mg PO Q6H PRN PRN Reason: PRURITIS Last Admin: 09/15/18 04:08 Dose: 50 mg Docusate Sodium (Colace Cap*) 100 mg PO QAM [facility] Last Admin: 09/15/18 11:04 Dose: 100 mg Enoxaparin Sodium (Lovenox(*)) 40 mg SUBCUT BEDTIME [facility] Last Admin: 09/15/18 00:01 Dose: 40 mg Hard Fat/Phenylephrine (Preparation H Supp*) 1 supp KS BID PRN PRN Reason: PAIN/INFLAMMATION Piperacillin Sod/Tazobactam (Sod 3.375 gm/ Sodium Chloride) 100 mls @ 25 mls/ hr IVPB Q8H [facility] Last Admin: 09/15/18 11:02 Dose: 25 mls/hr Sodium Chloride (Ns 0.9% 1000 Ml) 1,000 mls @ 100 mls/hr IV PER RATE [facility] Last Admin: 09/15/18 09:45 Dose: 100 mls/hr Multivitamins/Minerals (Theragran/Minerals Tab*) 1 tab PO DAILY [facility] Last Admin: 09/15/18 11:04 Dose: 1 tab Nitroglycerin (Nitroglycerin Tab 0.4 Mg*) 0.4 mg SL Q5M PRN PRN Reason: PAIN - CHEST Nf * (Glucosamine Hcl [Glucosamine Hcl ] 1,500 Mg) 1,500 mg PO DAILY [facility] Last Admin: 09/15/18 09:46 Dose: Not Given Nystatin (Nystatin Top Powder*) 1 applic TOPICAL DAILY PRN PRN Reason: PER PROTOCOL Pharmacy Consult (Zosyn Per Pharmacy*) 1 note FOLLOW UP .ZOSYN PER PHARMACY [facility] Torsemide (Torsemide) 20 mg PO DAILY [facility] Last Admin: 09/15/18 11:03 Dose: 20 mg Vital Signs - 8 hr 09/15/18 09/15/18 09/15/18 07:33 08:00 10:29 Temperature 98.3 F Pulse Rate 74 Respiratory 16 16 Rate Blood Pressure 89/45 88/48 (mmHg) O2 Sat by Pulse 97 Oximetry 09/15/18 09/15/18 09/15/18 11:22 11:56 11:57 Temperature 97.9 F Pulse Rate 80 Respiratory 26 20 Rate Blood Pressure 92/42 98/45 (mmHg) O2 Sat by Pulse 100 Oximetry Oxygen Devices in Use Now: None Appearance: Comfortable, NAD Eyes: No Scleral Icterus Ears/Nose/Mouth/Throat: Clear Oropharnyx, Mucous Membranes Moist Neck: NL Appearance and Movements; NL JVP Respiratory: Symmetrical Chest Expansion and Respiratory Effort, Clear to Auscultation Cardiovascular: NL Sounds; No Murmurs; No JVD, RRR, - - + 1 pitting edema bilateral LE Abdominal: NL Sounds; No Tenderness; No Distention Lymphatic: No Cervical Adenopathy Extremities: No Clubbing, Cyanosis Skin: - - Small quarter sized wound to below umbilicus above mariela that has granulated tissue, no drainage, and now surrounding redness. Scant redness and scant gillette thick discharge from nephrostomy site. Neurological: Alert and Oriented x 3, NL Muscle Strength and Tone Nutrition: Taking PO's Result Diagrams: 09/15/18 06:38 09/15/18 06:38 Additional Lab and Data: Laboratory Results - last 24 hr 09/14/18 09/14/18 09/14/18 17:39 17:39 17:39 WBC 14.9 H RBC 3.63 L Hgb 9.7 L Hct 30 L MCV 82 MCH 27 MCHC 33 RDW 19 H Plt Count 322 MPV 7.3 L Neut % (Auto) 79.7 Lymph % (Auto) 8.8 Webster % (Auto) 3.3 Eos % (Auto) 7.7 Baso % (Auto) 0.5 Absolute Neuts (auto) 11.9 H Absolute Lymphs (auto) 1.3 Absolute Monos (auto) 0.5 Absolute Eos (auto) 1.2 H Absolute Basos (auto) 0.1 Absolute Nucleated RBC 0.0 Nucleated RBC % 0.0 Sodium 136 Potassium 3.0 L Chloride 97 L Carbon Dioxide 30 Anion Gap 9 BUN 24 Creatinine 1.01 H Est GFR ( Amer) 64.3 Est GFR (Non-Af Amer) 53.1 BUN/Creatinine Ratio 23.8 H Glucose 151 H Lactic Acid 1.6 Calcium 9.0 Magnesium Total Bilirubin 0.40 AST 32 ALT 35 Alkaline Phosphatase 178 H C-Reactive Protein 150.33 H Total Protein 6.7 Albumin 2.9 L Globulin 3.8 Albumin/Globulin Ratio 0.8 L Urine Color Urine Appearance Urine pH Ur Specific [place] Urine Protein Urine Ketones Urine Blood Urine Nitrate Urine Bilirubin Urine Urobilinogen Ur Leukocyte Esterase Urine WBC (Auto) Urine RBC (Auto) Ur Squamous Epith Cells Amorphous Crystals Urine Bacteria Hyaline Casts Urine Glucose 09/14/18 09/14/18 09/15/18 17:53 17:55 06:38 WBC RBC Hgb Hct MCV MCH MCHC RDW Plt Count MPV Neut % (Auto) Lymph % (Auto) Webster % (Auto) Eos % (Auto) Baso % (Auto) Absolute Neuts (auto) Absolute Lymphs (auto) Absolute Monos (auto) Absolute Eos (auto) Absolute Basos (auto) Absolute Nucleated RBC Nucleated RBC % Sodium 139 Potassium 3.7 Chloride 102 Carbon Dioxide 29 Anion Gap 8 BUN 21 Creatinine 0.91 Est GFR ( Amer) 72.5 Est GFR (Non-Af Amer) 59.9 BUN/Creatinine Ratio 23.1 H Glucose 107 H Lactic Acid Calcium 8.9 Magnesium 2.0 Total Bilirubin AST ALT Alkaline Phosphatase C-Reactive Protein Total Protein Albumin Globulin Albumin/Globulin Ratio Urine Color Shellie Yellow Urine Appearance Turbid Cloudy Urine pH 8.0 7.0 Ur Specific [place] 1.009 L 1.006 L Urine Protein 1+(30 mg/dl) A Negative Urine Ketones Negative Negative Urine Blood 2+ A 1+ A Urine Nitrate Negative Negative Urine Bilirubin Negative Negative Urine Urobilinogen Negative Negative Ur Leukocyte Esterase 3+ A 3+ A Urine WBC (Auto) 3+(>20/hpf) A 3+(>20/hpf) A Urine RBC (Auto) 3+(>10/hpf) A 3+(>10/hpf) A Ur Squamous Epith Cells Present A Present A Amorphous Crystals Present A Urine Bacteria 2+ A Absent Hyaline Casts Present A Urine Glucose Negative Negative 09/15/18 06:38 WBC 11.3 H RBC 3.48 L Hgb 9.4 L Hct 28 L MCV 82 MCH 27 MCHC 33 RDW 18 H Plt Count 288 MPV 7.7 Neut % (Auto) 73.3 Lymph % (Auto) 10.1 Webster % (Auto) 3.2 Eos % (Auto) 12.7 Baso % (Auto) 0.7 Absolute Neuts (auto) 8.3 H Absolute Lymphs (auto) 1.1 Absolute Monos (auto) 0.4 Absolute Eos (auto) 1.4 H Absolute Basos (auto) 0.1 Absolute Nucleated RBC 0.0 Nucleated RBC % 0.0 Sodium Potassium Chloride Carbon Dioxide Anion Gap BUN Creatinine Est GFR ( Amer) Est GFR (Non-Af Amer) BUN/Creatinine Ratio Glucose Lactic Acid Calcium Magnesium Total Bilirubin AST ALT Alkaline Phosphatase C-Reactive Protein Total Protein Albumin Globulin Albumin/Globulin Ratio Urine Color Urine Appearance Urine pH Ur Specific [place] Urine Protein Urine Ketones Urine Blood Urine Nitrate Urine Bilirubin Urine Urobilinogen Ur Leukocyte Esterase Urine WBC (Auto) Urine RBC (Auto) Ur Squamous Epith Cells Amorphous Crystals Urine Bacteria Hyaline Casts Urine Glucose Microbiology and Other Data: . Assess/Plan/Problems-Billing Assessment: 78 yr old patient with pmh bladder cancer, htn, hld, ckd, cad, dm, hyponatremia who presented to the ED from [facility] with concerns of low grade fever and brown drainage and redness from nephrostomy site - Patient Problems (1) UTI (urinary tract infection) Comment: - Awaiting urine cultures. - Cont Zosyn - Leukocytosis improving. - Afebrile since admission (2) Nephrostomy complication Comment: - Gillette drainage and slight redness from nephrosomty site - RN to call [facility] regarding dressing changes - Cont Zosyn (3) Hypokalemia Comment: - 3.0 on admission. Received supplementation and now 3.7 (4) Hypotension Comment: - RN notified that patient was hypotensive this morning. Patient does run low, but she wa slower than normal. Therefore, IVF ordered. - Patient asymptomatic (5) Leukocytosis Comment: - Improving - Cont IVF and abx (6) Anemia Comment: - Chronic since July 2018. - Iron studies ordered - Asymptomatic. - Monitor H&H (7) CAD (coronary artery disease) Comment: - Cont lipitor, asa, toresmide (8) CKD (chronic kidney disease) Comment: - Creatinine wnl (9) DM II (diabetes mellitus, type II), controlled Comment: - Diet controlled at home. - Cont CC diet - Cont to monitor (10) DVT prophylaxis Comment: - Lovenox Attending: Cierra Irby
[2018-09-15] MEDS: Acetaminophen TAB* 325 MG PO PRN (15:57)
[2018-09-15 16:09] LABS: % Iron Saturation 11 % (15-55); Iron 26 ug/dL (50-212); Total Iron Binding Capacity 231 mcg/dL (250-450); Transferrin 165 mg/dL (203-362)
[2018-09-15] MEDS: Atorvastatin* 40 MG TAB PO SCH (16:28)
[2018-09-15 16:29] LABS: Ferritin 238.8 ng/mL (11-307)
[2018-09-15 16:33] LABS: Folate 13.76 ng/mL (>3.99)
[2018-09-15] MEDS ORDERED: oxyCODONE/Acetamin 5/325 MG* TAB PO ONE (19:50)
[2018-09-16] MEDS: Piperacillin/Tazobac ADVAN(*) 3.375 GM in NS 0.9% 100 ML* 100 ML IVPB SCH ×2 (00:34→09:33)
[2018-09-16 07:14] LABS: BUN/Creatinine Ratio 17.8 (8-20); Calcium 8.7 mg/dL (8.6-10.3); EGFR African American 53.7 (>60); EGFR Non-African American 44.4 (>60); Potassium 3.8 mmol/L (3.5-5.0)
[2018-09-16 08:37] LABS: Hematocrit 29 % (35-47); Hemoglobin 9.3 g/dL (12.0-16.0); Mean Corpuscular HGB Conc 32 g/dL (31-36); Mean Corpuscular Hemoglobin 27 pg (27-31); Mean Corpuscular Volume 83 fL (80-97); Mean Platelet Volume 7.6 fL (7.4-10.4); Platelet Count 298 10^3/uL (150-450); Red Blood Count 3.46 10^6 /uL (3.70-4.87); Red Cell Distribution Width 19 % (10-15); White Blood Count 13.5 10^3/uL (3.5-10.8)
[2018-09-16] MEDS: GLUCOSAMINE HCL 1500 MG PO SCH (08:40)
[2018-09-16 08:41] LABS: ABS Basophils 0.1 10^3/ul (0-0.2); ABS Eosinophils 2.6 10^3/ul (0-0.6); ABS Monocytes 0.4 10^3/ul (0-0.8); ABS Neutrophils 9.4 10^3/ul (1.5-7.7); Eosinophil % 19.2 %; Lymphocyte % 7.3 %
[2018-09-16] MEDS: Docusate CAP* 100 MG PO SCH (08:41)
[2018-09-16] MEDS: Multivitamins/Minerals TAB PO SCH (08:42)
[2018-09-16] MEDS: Aspirin EC TAB* 81 MG TAB.EC PO SCH (08:42)
[2018-09-16] MEDS: Calcium/Vitamin D TAB 250/125* TAB PO SCH ×2 (08:42→20:53)
[2018-09-16] MEDS: Torsemide TAB 10 MG PO SCH (08:59)
[2018-09-16] MEDS: NS 0.9% 1000 ML** 1,000 ML IV SCH (10:19)
[2018-09-16] MEDS: CHONDROITIN PO SCH (10:19)
[2018-09-16] MEDS: GLUCOSAMINE PO SCH (10:19)
[2018-09-16] MEDS: METHYLSULFONYLMETHANE PO SCH (10:19)
--- NOTE | 2018-09-16 16:11 | PN ---
Subjective Date of Service: 09/16/18 Interval History: Patient resting in bed on assessment. Reports she continues to feel tired, but this is baseline for her. She is happy that she was able to walk around the unit today with assistance. Denies fever, chills, abd pain, flank pain, cp, sob. Discussed nephrostomy tube changes and she reports she believes it was last changed before she left [facility] around August 16. She reports she has a follow up with her travel administrator at [facility] the first week of September. Patient was assessed while lying in bed on assessment. RN present for assessment of dressings and skin. Objective Active Medications: Acetaminophen (Tylenol Tab*) 975 mg PO Q8HR PRN PRN Reason: PAIN - BACK Last Admin: 09/15/18 15:57 Dose: 975 mg Aspirin (Aspirin Ec Tab*) 81 mg PO DAILY [facility] Last Admin: 09/16/18 08:42 Dose: 81 mg Atorvastatin Calcium (Lipitor*) 40 mg PO QPM [facility] Last Admin: 09/15/18 16:28 Dose: 40 mg Bisacodyl (Dulcolax Supp*) 10 mg OR DAILY PRN PRN Reason: CONSTIPATION Calcium/Vitamin D (Oscal D Tab 250/125*) 1 tab PO BID [facility] Last Admin: 09/16/18 08:42 Dose: 1 tab Diphenhydramine HCl (Benadryl Po*) 50 mg PO Q6H PRN PRN Reason: PRURITIS Last Admin: 09/15/18 04:08 Dose: 50 mg Docusate Sodium (Colace Cap*) 100 mg PO QAM [facility] Last Admin: 09/16/18 08:41 Dose: 100 mg Enoxaparin Sodium (Lovenox(*)) 40 mg SUBCUT BEDTIME [facility] Last Admin: 09/15/18 20:46 Dose: 40 mg Hard Fat/Phenylephrine (Preparation H Supp*) 1 supp OR BID PRN PRN Reason: PAIN/INFLAMMATION Piperacillin Sod/Tazobactam (Sod 3.375 gm/ Sodium Chloride) 100 mls @ 25 mls/ hr IVPB Q8H [facility] Last Admin: 09/16/18 09:33 Dose: 25 mls/hr Multivitamins/Minerals (Theragran/Minerals Tab*) 1 tab PO DAILY [facility] Last Admin: 09/16/18 08:42 Dose: 1 tab Nitroglycerin (Nitroglycerin Tab 0.4 Mg*) 0.4 mg SL Q5M PRN PRN Reason: PAIN - CHEST Pto:Glucosamine/Chondroitin/Msm 1, 500 Mg/1200mg/900mg 1 dose PO DAILY [facility] Last Admin: 09/16/18 10:19 Dose: 1 dose Nystatin (Nystatin Top Powder*) 1 applic TOPICAL DAILY PRN PRN Reason: PER PROTOCOL Pharmacy Consult (Zosyn Per Pharmacy*) 1 note FOLLOW UP .ZOSYN PER PHARMACY [facility] Torsemide (Torsemide) 20 mg PO DAILY [facility] Last Admin: 09/16/18 08:59 Dose: 20 mg Vital Signs - 8 hr 09/16/18 09/16/18 08:20 15:23 Temperature 98.0 F Pulse Rate 81 Respiratory 20 Rate Blood Pressure 94/50 100/58 (mmHg) O2 Sat by Pulse 98 Oximetry Oxygen Devices in Use Now: None Appearance: Comfortable, NAD Eyes: No Scleral Icterus Ears/Nose/Mouth/Throat: Clear Oropharnyx, Mucous Membranes Moist Neck: NL Appearance and Movements; NL JVP Respiratory: Symmetrical Chest Expansion and Respiratory Effort, Clear to Auscultation Cardiovascular: NL Sounds; No Murmurs; No JVD, RRR, - - Trace pitting edema Abdominal: NL Sounds; No Tenderness; No Distention, - - Urostomy leaking therefore will be changed Lymphatic: No Cervical Adenopathy Extremities: No Clubbing, Cyanosis Skin: - - Dressing to left flank around nephrostomy has scant drainage near nephrostomy insertion otherwise CDI. Dressing to lower abd has scant bloody drainage. Patient has reddened rash to torso. No hives, vesicles, or itching Neurological: Alert and Oriented x 3 Nutrition: Taking PO's Result Diagrams: 09/16/18 08:15 09/16/18 06:34 Additional Lab and Data: Laboratory Results - last 24 hr 09/15/18 09/16/18 09/16/18 06:38 06:34 08:15 WBC 13.5 H RBC 3.46 L Hgb 9.3 L Hct 29 L MCV 83 MCH 27 MCHC 32 RDW 19 H Plt Count 298 MPV 7.6 Neut % (Auto) 69.9 Lymph % (Auto) 7.3 Mower % (Auto) 3.1 Eos % (Auto) 19.2 Baso % (Auto) 0.5 Absolute Neuts (auto) 9.4 H Absolute Lymphs (auto) 1.0 Absolute Monos (auto) 0.4 Absolute Eos (auto) 2.6 H Absolute Basos (auto) 0.1 Absolute Nucleated RBC 0.0 Nucleated RBC % 0.0 Sodium 140 Potassium 3.8 Chloride 104 Carbon Dioxide 28 Anion Gap 8 BUN 21 Creatinine 1.18 H Est GFR ( Amer) 53.7 Est GFR (Non-Af Amer) 44.4 BUN/Creatinine Ratio 17.8 Glucose 129 H Calcium 8.7 Ferritin 238.8 Vitamin B12 706 Folate 13.76 Microbiology and Other Data: . Microbiology 09/14/18 17:55 Urine Culture - Final Urine Klebsiella Oxytoca Klebsiella Pneumoniae 09/15/18 16:00 Skin and Soft Tissue MRSA/MSSA (PCR - Final Back Mrsa Negative S.aureus Negative Gram Stain - Final 09/14/18 17:38 Aerobic Blood Culture - Preliminary Blood Venous No Growth Day 1 09/14/18 17:39 Blood Culture - Preliminary Blood Venous No Growth Day 1 Assess/Plan/Problems-Billing Assessment: 78 yr old patient with pmh bladder cancer, htn, hld, ckd, cad, dm, hyponatremia who presented to the ED from [facility] with concerns of low grade fever and brown drainage and redness from nephrostomy site - Patient Problems (1) UTI (urinary tract infection) Comment: - Urine cultures revealed Klebsiella Pneumoniae - Dr Odell consulting and given new developement of rash on torso he will be changing patient's antibiotics. He is also recommending IR change neph tube. Call placed to IR and Dr Blakely will be in Wednesday, therefore, change ordered for Wednesday. Finally, patient and reports they are not satisfied with [facility], therefore, will place call to local Urologist Wednesday for follow up. - Leukocytosis. - Afebrile since admission (2) Nephrostomy complication Comment: - Gillette drainage and slight redness from nephrosomty site - Tube to be changed Wednesday (3) Hypokalemia Comment: - Resolved (4) Hypotension Comment: - Patient asymptomatic - Per patient and she "runs low". - Continue to monitor (5) Leukocytosis Comment: - Stable. - Cont abx - Cont to monitor - No fever or tachycardia (6) Anemia Comment: - Chronic since July 2018. - Iron studies consistent with anemia of chronic disease - Asymptomatic. - Monitor H&H (7) CAD (coronary artery disease) Comment: - Cont lipitor, asa, toresmide (8) CKD (chronic kidney disease) Comment: - Hx of CKD - Creatinine at baseline - Normal creatinine value yesterday probably secondary to IVF hydration (9) DM II (diabetes mellitus, type II), controlled Comment: - Diet controlled at home. - Cont CC diet - Cont to monitor (10) DVT prophylaxis Comment: - Loveservand[facility] Attending: Cierra Irby
--- NOTE | 2018-09-16 16:57 | CONS ---
CONSULTATION REPORT: DATE OF CONSULT: 09/16/18 REQUESTING PHYSICIAN: Roseann Acosta NP CONSULTING SERVICE: Infectious Disease. REASON FOR CONSULTATION: Fever. IMPRESSION: 1. A few days of fever in the setting of a left-sided nephrostomy tube, which has had some surrounding erythema at the insertion site as well as some brownish discharge. Urine culture from the nephrostomy tube is growing Klebsiella oxytoca and pneumoniae. I suspect that explains her fever. She has an anterior abdominal wound from her cystectomy site which is healing up, not totally closed, but no cellulitis or purulent drainage. 2. Diffuse erythematous rash probably due to Zosyn. 3. History of allergy to KEFLEX, CEFEPIME, and CIPROFLOXACIN. 4. Recent cystectomy for bladder tumor as well as an ileal conduit and then left- sided nephrostomy tube while at [facility]. RECOMMENDATIONS: 1. Stop Zosyn, start aztreonam 1 g twice a day. The rash should improve after 3 to 4 days. 2[address] Clifton see her for help with guidance on how long she is going to need nephrostomy tubes and if she will have ongoing need for it, she should have that left when changed out here. HISTORY OF PRESENT ILLNESS: This is a 78-year-old woman with a left-sided nephrostomy tube, has been at [facility] and was sent here from there with fever , malaise and some discharge around the left-sided nephrostomy tube. Urine culture was taken with the results as above. She was started on Zosyn. Yesterday, she developed a rash on most of her trunk with some redness. Blood cultures taken on admission were negative. She has had an anterior lower abdominal wound, which has been getting smaller, which was the site of her surgery. It has not been draining or giving her much trouble. She has had no cough or trouble breathing. No abdominal pain or diarrhea. She does have some drainage of the urostomy. She initially had some redness around the nephrostomy and that is resolved apparently and then still having some brownish discharge around it. PAST MEDICAL HISTORY: 1. Bladder cancer, status post cystectomy and ileal conduit in July 2016 with subsequent left nephrostomy tube. 2. Hypertension. 3. Hyperlipidemia. 4. Chronic kidney disease. 5. Coronary artery disease. 6. Diabetes mellitus, diet controlled. 7. Hyponatremia. 8. Obesity. 9. Status post cholecystectomy. 10. Status post cataract repair bilateral. 11. Status post hysterectomy. 12. Status post tonsillectomy and adenoidectomy. MEDICATIONS: 1. Tylenol. 2. Aspirin. 3. Lipitor. 4. Calcium. 5. Zosyn. 6. Enoxaparin. 7. Nystatin topical powder. 8. Oxycodone. 9. Torsemide. ALLERGIES: CEFEPIME, CEPHALEXIN, and CIPRO all caused rash. FAMILY HISTORY: Diabetes and heart disease. SOCIAL HISTORY: She has been living at [facility]. She is . Nonsmoker. REVIEW OF SYSTEMS: All negative to a 12-point review except as noted above in the history of present illness. PHYSICAL EXAM: Vital Signs: Temperature 37, heart rate 80, respiratory rate 20 , blood pressure 100/58, oxygen saturation 98% on room air. In general, she is awake, tearful, not in distress. Neurologic: She is oriented x3, follows all commands. HEENT: There is no conjunctival hemorrhage. Oropharynx without lesions. Neck: Supple without masses. Heart is regular rate and rhythm without murmurs, rubs, or gallops. Lungs are clear to auscultation bilaterally. Abdomen: Soft, nontender, nondistended. There are bowel sounds present. There is a right- sided ostomy bag with clear urine. There is an anterior midline incision which is healed. There are mariela present. There is about 0.5 cm open area without any drainage or fluctuance. There is a left flank nephrostomy tube with surrounding small amount of purulent drainage and there is no erythema. Skin: There is diffuse blanching erythema on the trunk and arms and proximal legs. Musculoskeletal: There is no spine tenderness to palpation or joint synovitis. DIAGNOSTIC STUDIES/LAB DATA: White blood cell count 13, hemoglobin 9, platelets 298. Creatinine 1.1. Please see impressions and recommendations outlined above, which I discussed with Roseann Acosta NP. Thanks for asking me to see Ms. Celeste in consultation. [id number]/[facility] #: [id number] MTDD
[2018-09-16] MEDS: Aztreonam (*) 1 GM in NS 0.9% 50 ML* 50 ML IVPB SCH (18:13)
[2018-09-16] MEDS: Atorvastatin* 40 MG TAB PO SCH (18:13)
[2018-09-16] MEDS: Acetaminophen TAB* 325 MG PO PRN (18:21)
[2018-09-16] MEDS ORDERED: NS 0.9% 1000 ML** 1,000 ML IV ONE (19:39)
[2018-09-16] MEDS: Enoxaparin(*) 40 MG/0.4 ML SYR SUBCUT SCH (20:54)
[2018-09-17] MEDS ORDERED: NS 0.9% 1000 ML** 1,000 ML IV ONE (00:32)
[2018-09-17] MEDS ORDERED: NS 0.9% 1000 ML** 1,000 ML IV SCH (05:00)
[2018-09-17] MEDS: Aztreonam (*) 1 GM in NS 0.9% 50 ML* 50 ML IVPB SCH ×2 (06:26→17:48)
[2018-09-17 07:37] LABS: BUN/Creatinine Ratio 19.6 (8-20); Calcium 7.9 mg/dL (8.6-10.3); EGFR African American 67.4 (>60); EGFR Non-African American 55.7 (>60); Potassium 3.6 mmol/L (3.5-5.0)
[2018-09-17 07:39] LABS: Hematocrit 26 % (35-47); Hemoglobin 8.5 g/dL (12.0-16.0); Mean Corpuscular HGB Conc 33 g/dL (31-36); Mean Corpuscular Hemoglobin 27 pg (27-31); Mean Corpuscular Volume 83 fL (80-97); Mean Platelet Volume 7.5 fL (7.4-10.4); Platelet Count 298 10^3/uL (150-450); Red Blood Count 3.16 10^6 /uL (3.70-4.87); Red Cell Distribution Width 19 % (10-15); White Blood Count 12.1 10^3/uL (3.5-10.8)
[2018-09-17 07:41] LABS: ABS Basophils 0.1 10^3/ul (0-0.2); ABS Eosinophils 2.5 10^3/ul (0-0.6); ABS Lymphocytes 0.9 10^3/ul (1.0-4.8); ABS Monocytes 0.4 10^3/ul (0-0.8); ABS Neutrophils 8.2 10^3/ul (1.5-7.7); Eosinophil % 20.8 %; Lymphocyte % 7.7 %; Nucleated Red Blood Cells % 0.1
[2018-09-17] MEDS: Calcium/Vitamin D TAB 250/125* TAB PO SCH ×2 (07:50→20:14)
[2018-09-17] MEDS: Aspirin EC TAB* 81 MG TAB.EC PO SCH (07:50)
[2018-09-17] MEDS: Docusate CAP* 100 MG PO SCH (07:50)
[2018-09-17] MEDS: Multivitamins/Minerals TAB PO SCH (07:50)
[2018-09-17] MEDS: GLUCOSAMINE PO SCH (08:24)
[2018-09-17] MEDS: CHONDROITIN PO SCH (08:24)
[2018-09-17] MEDS: METHYLSULFONYLMETHANE PO SCH (08:24)
--- NOTE | 2018-09-17 15:04 | PN ---
Subjective Date of Service: 09/17/18 Interval History: Patient seen in ICU room 5 on 2 occasions. Reports she does not feel well as she is fatigued. at beside and expressed concern about patient being depressed due to recent medical problems. During this discussion patient became tearful and reported depression. Patient denies flank pain, abd pain, dizziness , lightheadedness, cp, sob, fever, chills. She reports pain in buttocks and attributes this to the bed. Objective Active Medications: Acetaminophen (Tylenol Tab*) 975 mg PO Q8HR PRN PRN Reason: PAIN - BACK Last Admin: 09/16/18 18:21 Dose: 975 mg Aspirin (Aspirin Ec Tab*) 81 mg PO DAILY [facility] Last Admin: 09/17/18 07:50 Dose: 81 mg Atorvastatin Calcium (Lipitor*) 40 mg PO QPM [facility] Last Admin: 09/16/18 18:13 Dose: 40 mg Bisacodyl (Dulcolax Supp*) 10 mg [place] DAILY PRN PRN Reason: CONSTIPATION Calcium/Vitamin D (Oscal D Tab 250/125*) 1 tab PO BID [facility] Last Admin: 09/17/18 07:50 Dose: 1 tab Diphenhydramine HCl (Benadryl Po*) 50 mg PO Q6H PRN PRN Reason: PRURITIS Last Admin: 09/15/18 04:08 Dose: 50 mg Docusate Sodium (Colace Cap*) 100 mg PO QAM [facility] Last Admin: 09/17/18 07:50 Dose: 100 mg Enoxaparin Sodium (Lovenox(*)) 40 mg SUBCUT BEDTIME [facility] Last Admin: 09/16/18 20:54 Dose: 40 mg Hard Fat/Phenylephrine (Preparation H Supp*) 1 supp RI BID PRN PRN Reason: PAIN/INFLAMMATION Aztreonam 1 gm/ Sodium (Chloride) 50 mls @ 100 mls/hr IVPB Q12H [facility] Last Admin: 09/17/18 06:26 Dose: 100 mls/hr Sodium Chloride (Ns 0.9% 1000 Ml) 1,000 mls @ 150 mls/hr IV PER RATE [facility] Multivitamins/Minerals (Theragran/Minerals Tab*) 1 tab PO DAILY [facility] Last Admin: 09/17/18 07:50 Dose: 1 tab Nitroglycerin (Nitroglycerin Tab 0.4 Mg*) 0.4 mg SL Q5M PRN PRN Reason: PAIN - CHEST Pto:Glucosamine/Chondroitin/Msm 1, 500 Mg/1200mg/900mg 1 dose PO DAILY [facility] Last Admin: 09/17/18 08:24 Dose: Not Given Nystatin (Nystatin Top Powder*) 1 applic TOPICAL DAILY PRN PRN Reason: PER PROTOCOL Vital Signs - 8 hr 09/17/18 09/17/18 09/17/18 07:10 07:16 07:30 Temperature Pulse Rate 76 75 Respiratory 28 19 22 Rate Blood Pressure 98/53 90/55 (mmHg) O2 Sat by Pulse 98 97 Oximetry 09/17/18 09/17/18 09/17/18 07:45 08:00 08:02 Temperature Pulse Rate 74 71 71 Respiratory 19 22 19 Rate Blood Pressure 95/66 88/47 (mmHg) O2 Sat by Pulse 97 98 100 Oximetry 09/17/18 09/17/18 09/17/18 08:09 08:12 08:15 Temperature 98.2 F Pulse Rate 73 Respiratory 21 21 Rate Blood Pressure 111/52 (mmHg) O2 Sat by Pulse 100 Oximetry 09/17/18 09/17/18 09/17/18 08:30 08:45 09:00 Temperature Pulse Rate 73 68 69 Respiratory 19 23 23 Rate Blood Pressure 105/51 89/42 81/49 (mmHg) O2 Sat by Pulse 100 100 99 Oximetry 09/17/18 09/17/18 09/17/18 09:30 10:00 10:47 Temperature Pulse Rate 70 77 Respiratory 22 26 20 Rate Blood Pressure 108/50 114/60 (mmHg) O2 Sat by Pulse 99 96 Oximetry 09/17/18 09/17/18 09/17/18 11:00 11:06 11:07 Temperature 98.5 F Pulse Rate 81 Respiratory 26 22 Rate Blood Pressure (mmHg) O2 Sat by Pulse 98 Oximetry 09/17/18 09/17/18 09/17/18 11:08 11:31 12:00 Temperature 97.6 F Pulse Rate 77 78 Respiratory 19 18 20 Rate Blood Pressure 99/46 90/49 (mmHg) O2 Sat by Pulse 99 100 Oximetry 09/17/18 09/17/18 09/17/18 12:05 12:30 13:00 Temperature Pulse Rate 74 68 74 Respiratory 22 26 18 Rate Blood Pressure 109/49 111/55 (mmHg) O2 Sat by Pulse 100 98 96 Oximetry 09/17/18 09/17/18 09/17/18 13:12 13:31 13:42 Temperature Pulse Rate 73 Respiratory 20 18 20 Rate Blood Pressure 103/51 (mmHg) O2 Sat by Pulse 93 Oximetry 09/17/18 09/17/18 09/17/18 13:50 14:00 14:31 Temperature Pulse Rate 72 78 72 Respiratory 20 23 23 Rate Blood Pressure 115/48 111/56 103/59 (mmHg) O2 Sat by Pulse 100 96 100 Oximetry Oxygen Devices in Use Now: None Appearance: Comfortable, NAD Eyes: No Scleral Icterus Ears/Nose/Mouth/Throat: Clear Oropharnyx, Mucous Membranes Moist Neck: NL Appearance and Movements; NL JVP Respiratory: Symmetrical Chest Expansion and Respiratory Effort, Clear to Auscultation Cardiovascular: NL Sounds; No Murmurs; No JVD, RRR, - - Bilateral +1 to +2 pitting edema. Abdominal: NL Sounds; No Tenderness; No Distention, - - Wound to mid abd approx juliane sized with granulated tissue. Colleen to mid abd at well approx previous incision. Lymphatic: No Cervical Adenopathy Extremities: No Clubbing, Cyanosis Skin: - - Erythematous rash to torso and bilateral LE Neurological: Alert and Oriented x 3 Nutrition: Taking PO's Result Diagrams: 09/17/18 07:14 09/17/18 07:14 Additional Lab and Data: Laboratory Results - last 24 hr 09/17/18 09/17/18 09/17/18 07:14 07:14 10:26 WBC 12.1 H RBC 3.16 L Hgb 8.5 L Hct 26 L MCV 83 MCH 27 MCHC 33 RDW 19 H Plt Count 298 MPV 7.5 Neut % (Auto) 67.6 Lymph % (Auto) 7.7 [place] % (Auto) 3.3 Eos % (Auto) 20.8 Baso % (Auto) 0.6 Absolute Neuts (auto) 8.2 H Absolute Lymphs (auto) 0.9 L Absolute Monos (auto) 0.4 Absolute Eos (auto) 2.5 H Absolute Basos (auto) 0.1 Absolute Nucleated RBC 0.0 Nucleated RBC % 0.1 Sodium 140 Potassium 3.6 Chloride 109 Carbon Dioxide 27 Anion Gap 4 BUN 19 Creatinine 0.97 H Est GFR ( Amer) 67.4 Est GFR (Non-Af Amer) 55.7 BUN/Creatinine Ratio 19.6 Glucose 115 H Lactic Acid 1.2 Calcium 7.9 L Magnesium 2.0 Microbiology and Other Data: Microbiology 09/17/18 11:00 Stool Stool Occult Blood ([place]) - Final 09/15/18 16:00 Back Skin and Soft Tissue MRSA/MSSA (PCR - Final Mrsa Negative S.aureus Negative 09/15/18 16:00 Back Gram Stain - Final 09/15/18 16:00 Back Wound Culture - Final Normal [place] 09/17/18 04:25 Nasal Nasal Screen MRSA (PCR) - Final Mrsa Not Detected 09/14/18 17:38 Blood Venous Aerobic Blood Culture - Preliminary No Growth Day 2 09/14/18 17:39 Blood Venous Blood Culture - Preliminary No Growth Day 2 09/14/18 17:55 Urine Urine Culture - Final Klebsiella Oxytoca Klebsiella Pneumoniae Assess/Plan/Problems-Billing Assessment: 78 yr old patient with pmh bladder cancer, htn, hld, ckd, cad, dm, hyponatremia who presented to the ED from [facility], [place] with concerns of low grade fever and brown drainage and redness from nephrostomy site - Patient Problems (1) UTI (urinary tract infection) Comment: - Cont Aztreonam - Urine cultures revealed Klebsiella Pneumoniae - Previously on Zosyn but stopped due to erythematous rash. - Dr Odell consulting - Leukocytosis. - Afebrile since admission (2) Nephrostomy complication Comment: - Discussed case with Dr Clifton who is familiar with patient. He reports some drainage and mild redness at site is common for nephrostomy. He reports he does not know how long patient will need to have nephrostomy as he did not do the surgery and he was informed about possible stricture from ureter to ileal conduit, therefore, may need to keep nephrostomy. Patient should follow up with Art[facility] Alejandro regarding this. - Dr Clifton reports tubes should be changed every 6 to 8 weeks and agrees with plan to change with IR on Wednesday. (3) Hypokalemia Comment: - Resolved (4) Hypotension Comment: - Due to hypotension overnight and low MAPs patient was transferred to ICU. - Patient asymptomatic. - Patient's reports she has low BP as baseline and often "fluctuates" - Received IVF hydration - BP normalizing - Resume Torsemide - Continue to monitor (5) Leukocytosis Comment: - Stable. - Cont abx - Cont to monitor - No fever or tachycardia (6) Depression Comment: - Discussed outpatient therapy - Discussed medical therapy and patient and are interested in starting SSRI - Consult placed for chaplian (7) H/O lymph node biopsy Comment: - Mention of suspicious lymph nodes and lymph node biopsy during surgery on July 26, but no mention of pathology results. - Records requested from pathology results. (8) Anemia Comment: - Chronic since July 2018. - Iron studies consistent with anemia of chronic disease - Asymptomatic. - Monitor H&H - Stool negative for blood (9) CAD (coronary artery disease) Comment: - Cont lipitor and asa - Holding toresmide given low BP (10) CKD (chronic kidney disease) Comment: - Hx of CKD - Creatinine at baseline (11) DM II (diabetes mellitus, type II), controlled Comment: - Diet controlled at home. - Cont CC diet - Cont to monitor (12) DVT prophylaxis Comment: - Lisa Attending: Cierra Irby
[2018-09-17] MEDS: Acetaminophen TAB* 325 MG PO PRN (15:21)
[2018-09-17] MEDS: Atorvastatin* 40 MG TAB PO SCH (17:47)
[2018-09-17] MEDS: Enoxaparin(*) 40 MG/0.4 ML SYR SUBCUT SCH (20:14)
[2018-09-18] MEDS: Aztreonam (*) 1 GM in NS 0.9% 50 ML* 50 ML IVPB SCH ×2 (05:26→18:00)
[2018-09-18 07:27] LABS: Hematocrit 27 % (35-47); Hemoglobin 8.9 g/dL (12.0-16.0); Mean Corpuscular HGB Conc 33 g/dL (31-36); Mean Corpuscular Hemoglobin 27 pg (27-31); Mean Corpuscular Volume 82 fL (80-97); Mean Platelet Volume 7.6 fL (7.4-10.4); Platelet Count 296 10^3/uL (150-450); Red Blood Count 3.24 10^6 /uL (3.70-4.87); Red Cell Distribution Width 19 % (10-15); White Blood Count 10.8 10^3/uL (3.5-10.8)
[2018-09-18 07:33] LABS: ABS Basophils 0.1 10^3/ul (0-0.2); ABS Eosinophils 2.3 10^3/ul (0-0.6); ABS Lymphocytes 1.1 10^3/ul (1.0-4.8); ABS Monocytes 0.3 10^3/ul (0-0.8); Eosinophil % 21.4 %; Lymphocyte % 9.8 %
[2018-09-18 07:49] LABS: BUN/Creatinine Ratio 23.9 (8-20); Calcium 8.1 mg/dL (8.6-10.3); EGFR African American 96.6 (>60); EGFR Non-African American 79.8 (>60); Potassium 3.5 mmol/L (3.5-5.0)
[2018-09-18] MEDS: Calcium/Vitamin D TAB 250/125* TAB PO SCH ×2 (08:45→22:19)
[2018-09-18] MEDS: Sertraline* 25 MG TAB PO SCH (08:45)
[2018-09-18] MEDS: Docusate CAP* 100 MG PO SCH (08:46)
[2018-09-18] MEDS: Multivitamins/Minerals TAB PO SCH (08:46)
[2018-09-18] MEDS: Torsemide TAB 10 MG PO SCH (08:46)
[2018-09-18] MEDS: Aspirin EC TAB* 81 MG TAB.EC PO SCH (08:46)
[2018-09-18] MEDS: GLUCOSAMINE PO SCH (08:47)
[2018-09-18] MEDS: CHONDROITIN PO SCH (08:47)
[2018-09-18] MEDS: METHYLSULFONYLMETHANE PO SCH (08:47)
--- NOTE | 2018-09-18 13:16 | PN ---
Subjective Date of Service: 09/18/18 Interval History: Patient is resting in bed on assessment. Reports she feels mildly improved today as she is less fatigued. Denies abd pain, sob, cp, fever, chills. Objective Active Medications: Acetaminophen (Tylenol Tab*) 975 mg PO Q8HR PRN PRN Reason: PAIN - BACK Last Admin: 09/17/18 15:21 Dose: 975 mg Aspirin (Aspirin Ec Tab*) 81 mg PO DAILY [facility] Last Admin: 09/18/18 08:46 Dose: 81 mg Atorvastatin Calcium (Lipitor*) 40 mg PO QPM [facility] Last Admin: 09/17/18 17:47 Dose: 40 mg Bisacodyl (Dulcolax Supp*) 10 mg [place] DAILY PRN PRN Reason: CONSTIPATION Calcium/Vitamin D (Oscal D Tab 250/125*) 1 tab PO BID [facility] Last Admin: 09/18/18 08:45 Dose: 1 tab Diphenhydramine HCl (Benadryl Po*) 50 mg PO Q6H PRN PRN Reason: PRURITIS Last Admin: 09/15/18 04:08 Dose: 50 mg Docusate Sodium (Colace Cap*) 100 mg PO QAM [facility] Last Admin: 09/18/18 08:46 Dose: 100 mg Enoxaparin Sodium (Lovenox(*)) 40 mg SUBCUT BEDTIME [facility] Last Admin: 09/17/18 20:14 Dose: 40 mg Hard Fat/Phenylephrine (Preparation H Supp*) 1 supp [place] BID PRN PRN Reason: PAIN/INFLAMMATION Aztreonam 1 gm/ Sodium (Chloride) 50 mls @ 100 mls/hr IVPB Q12H [facility] Last Admin: 09/18/18 05:26 Dose: 100 mls/hr Multivitamins/Minerals (Theragran/Minerals Tab*) 1 tab PO DAILY [facility] Last Admin: 09/18/18 08:46 Dose: 1 tab Nitroglycerin (Nitroglycerin Tab 0.4 Mg*) 0.4 mg SL Q5M PRN PRN Reason: PAIN - CHEST Pto:Glucosamine/Chondroitin/Msm 1, 500 Mg/1200mg/900mg 1 dose PO DAILY [facility] Last Admin: 09/18/18 08:47 Dose: Not Given Nystatin (Nystatin Top Powder*) 1 applic TOPICAL DAILY PRN PRN Reason: PER PROTOCOL Sertraline HCl (Zoloft*) 25 mg PO DAILY [facility] Last Admin: 09/18/18 08:45 Dose: 25 mg Torsemide (Torsemide) 20 mg PO DAILY [facility] Last Admin: 09/18/18 08:46 Dose: 20 mg Vital Signs - 8 hr 09/18/18 09/18/18 07:00 08:00 Temperature 97.9 F Pulse Rate 80 Respiratory 24 24 Rate Blood Pressure 102/50 (mmHg) O2 Sat by Pulse 100 Oximetry Oxygen Devices in Use Now: None Appearance: Comfortable, NAD Eyes: No Scleral Icterus Ears/Nose/Mouth/Throat: Clear Oropharnyx, Mucous Membranes Moist Neck: NL Appearance and Movements; NL JVP Respiratory: Symmetrical Chest Expansion and Respiratory Effort, - - Slight crackles at bases otherwise clear Cardiovascular: NL Sounds; No Murmurs; No JVD, - - Bilateral LE edema +2 pitting Abdominal: NL Sounds; No Tenderness; No Distention Lymphatic: No Cervical Adenopathy Extremities: No Clubbing, Cyanosis Skin: - - Abd wound above colleen is scabbed with no surrounging erythema. Colleen in place over well approx and healed abd incision. Dressing to left flank at neph tube site has scant drainage. Neurological: Alert and Oriented x 3, NL Muscle Strength and Tone Nutrition: Taking PO's Result Diagrams: 09/18/18 07:08 09/18/18 07:07 Additional Lab and Data: Laboratory Results - last 24 hr 09/18/18 09/18/18 07:07 07:08 WBC 10.8 RBC 3.24 L Hgb 8.9 L Hct 27 L MCV 82 MCH 27 MCHC 33 RDW 19 H Plt Count 296 MPV 7.6 Neut % (Auto) 65.2 Lymph % (Auto) 9.8 [place] % (Auto) 3.1 Eos % (Auto) 21.4 Baso % (Auto) 0.5 Absolute Neuts (auto) 7.0 Absolute Lymphs (auto) 1.1 Absolute Monos (auto) 0.3 Absolute Eos (auto) 2.3 H Absolute Basos (auto) 0.1 Absolute Nucleated RBC 0.0 Nucleated RBC % 0.0 Sodium 136 Potassium 3.5 Chloride 107 Carbon Dioxide 22 Anion Gap 7 BUN 17 Creatinine 0.71 Est GFR ( Amer) 96.6 Est GFR (Non-Af Amer) 79.8 BUN/Creatinine Ratio 23.9 H Glucose 117 H Calcium 8.1 L Microbiology and Other Data: Microbiology 09/17/18 11:00 Stool Stool Occult Blood ([facility]) - Final 09/15/18 16:00 Back Skin and Soft Tissue MRSA/MSSA (PCR - Final Mrsa Negative S.aureus Negative 09/15/18 16:00 Back Gram Stain - Final 09/15/18 16:00 Back Wound Culture - Final Normal [place] 09/17/18 04:25 Nasal Nasal Screen MRSA (PCR) - Final Mrsa Not Detected 09/14/18 17:38 Blood Venous Aerobic Blood Culture - Preliminary No Growth Day 2 09/14/18 17:39 Blood Venous Blood Culture - Preliminary No Growth Day 2 09/14/18 17:55 Urine Urine Culture - Final Klebsiella Oxytoca Klebsiella Pneumoniae Assess/Plan/Problems-Billing Assessment: 78 yr old patient with pmh bladder cancer, htn, hld, ckd, cad, dm, hyponatremia who presented to the ED from [facility] with concerns of low grade fever and brown drainage and redness from nephrostomy site - Patient Problems (1) Edema Comment: - Patient has +2 pitting edema to bilateral LE, slight crackles in lung bases, increase in weight, lower creatinine than her baseline; Concern for volume overload - In reviewing patient's hx she has required Lasix drips in the past due to volume overload - IV Lasix ordered. - Continue to monitor. (2) UTI (urinary tract infection) Comment: - Previously on Zosyn but stopped due to erythematous rash on torso and bilateral legs. Rash has improved on torso, but is still on bilateral LE - Dr Odell consulting and ordered Aztreonam - Urine cultures revealed Klebsiella Pneumoniae - Leukocytosis improving - Afebrile (3) Nephrostomy complication Comment: - Continue with plan for nephrostomy tube change Wednesday with IR - Discussed case with Dr Clifton who is familiar with patient. He reports some drainage and mild redness at site is common for nephrostomy. He reports he does not know how long patient will need to have nephrostomy as he did not do the surgery and he was informed about possible stricture from ureter to ileal conduit, therefore, may need to keep nephrostomy. Patient should follow up with [facility] Alej[facility] regarding this. - Dr Clifton reports tubes should be changed every 6 to 8 weeks and agrees with plan to change with IR on Wednesday. (4) Hypokalemia Comment: - Resolved (5) Hypotension Comment: - Resolved after night in ICU and received IVF - Patient's reports she has low BP as baseline and often "fluctuates" - Continue to monitor (6) Leukocytosis Comment: - Resolved. (7) Depression Comment: - Zoloft 25 mg started today. Plan for one week of Zoloft 25 mg than increase to 50 mg - Requested consult for chaplian (8) H/O lymph node biopsy Comment: - Awaiting records - Patient and were aware of biopsy completed, but report they were never updated regarding results - Records from [facility] mention suspicious lymph nodes and lymph node biopsy during surgery on July 26, but no mention of pathology results. - Records requested from pathology results. (9) Anemia Comment: - Slightly lower than baseline the past 2 days, but possible secondary to fluid volume overload - Chronic since July 2018. - Iron studies consistent with anemia of chronic disease - Asymptomatic. - Monitor H&H - Stool negative for blood (10) CAD (coronary artery disease) Comment: - Cont lipitor and asa - Continue toresmide (11) CKD (chronic kidney disease) Comment: - Hx of CKD - Creatinine at baseline (12) DM II (diabetes mellitus, type II), controlled Comment: - Diet controlled at home. - Cont CC diet - Cont to monitor (13) DVT prophylaxis Comment: - Lovenox Attending: Amee Casas
[2018-09-18] MEDS ORDERED: Furosemide IV* 10 MG/ML 2 ML VIAL (20 MG) IV ONE (13:20)
[2018-09-18] MEDS: Atorvastatin* 40 MG TAB PO SCH (18:01)
[2018-09-18] MEDS: Acetaminophen TAB* 325 MG PO PRN (22:18)
[2018-09-18] MEDS: Enoxaparin(*) 40 MG/0.4 ML SYR SUBCUT SCH (22:19)
[2018-09-19] MEDS: Aztreonam (*) 1 GM in NS 0.9% 50 ML* 50 ML IVPB SCH ×2 (05:53→18:21)
[2018-09-19] MEDS: Aspirin EC TAB* 81 MG TAB.EC PO SCH (11:31)
[2018-09-19] MEDS: Torsemide TAB 10 MG PO SCH (11:31)
[2018-09-19] MEDS: Calcium/Vitamin D TAB 250/125* TAB PO SCH ×2 (11:31→21:34)
[2018-09-19] MEDS: Multivitamins/Minerals TAB PO SCH (11:31)
[2018-09-19] MEDS: GLUCOSAMINE PO SCH (11:32)
[2018-09-19] MEDS: CHONDROITIN PO SCH (11:32)
[2018-09-19] MEDS: Sertraline* 25 MG TAB PO SCH (11:32)
[2018-09-19] MEDS: METHYLSULFONYLMETHANE PO SCH (11:32)
[2018-09-19] MEDS: Docusate CAP* 100 MG PO SCH (11:34)
[2018-09-19 12:32] LABS: Mean Platelet Volume 7.4 fL (7.4-10.4); Platelet Count 337 10^3/uL (150-450)
[2018-09-19 12:40] LABS: INR 1.05 (0.82-1.09)
[2018-09-19] MEDS ORDERED: fentaNYL* 50 MCG/ML 2 ML VIAL (100 MCG VIAL) ONE (13:30)
[2018-09-19] MEDS ORDERED: Naloxone* 0.4 MG/ML 1 ML VIAL ONE (13:31)
--- NOTE | 2018-09-19 16:19 | PN ---
Subjective Date of Service: 09/19/18 Interval History: Patient seen and examined. Pending nephrostomy tube change today. Denies fevers or chills. No abdominal or back pain, no SOB, no chest pain. No further complaints. Objective Active Medications: Acetaminophen (Tylenol Tab*) 975 mg PO Q8HR PRN PRN Reason: PAIN - BACK Last Admin: 09/18/18 22:18 Dose: 975 mg Aspirin (Aspirin Ec Tab*) 81 mg PO DAILY [facility] Last Admin: 09/19/18 11:31 Dose: 81 mg Atorvastatin Calcium (Lipitor*) 40 mg PO QPM [facility] Last Admin: 09/18/18 18:01 Dose: 40 mg Bisacodyl (Dulcolax Supp*) 10 mg [place] DAILY PRN PRN Reason: CONSTIPATION Calcium/Vitamin D (Oscal D Tab 250/125*) 1 tab PO BID [facility] Last Admin: 09/19/18 11:31 Dose: 1 tab Diphenhydramine HCl (Benadryl Po*) 50 mg PO Q6H PRN PRN Reason: PRURITIS Last Admin: 09/15/18 04:08 Dose: 50 mg Docusate Sodium (Colace Cap*) 100 mg PO QAM [facility] Last Admin: 09/19/18 11:34 Dose: 100 mg Enoxaparin Sodium (Lovenox(*)) 40 mg SUBCUT BEDTIME [facility] Last Admin: 09/18/18 22:19 Dose: 40 mg Hard Fat/Phenylephrine (Preparation H Supp*) 1 supp [place] BID PRN PRN Reason: PAIN/INFLAMMATION Aztreonam 1 gm/ Sodium (Chloride) 50 mls @ 100 mls/hr IVPB Q12H [facility] Last Admin: 09/19/18 05:53 Dose: 100 mls/hr Multivitamins/Minerals (Theragran/Minerals Tab*) 1 tab PO DAILY [facility] Last Admin: 09/19/18 11:31 Dose: 1 tab Nitroglycerin (Nitroglycerin Tab 0.4 Mg*) 0.4 mg SL Q5M PRN PRN Reason: PAIN - CHEST Pto:Glucosamine/Chondroitin/Msm 1, 500 Mg/1200mg/900mg 1 dose PO DAILY [facility] Last Admin: 09/19/18 11:32 Dose: Not Given Nystatin (Nystatin Top Powder*) 1 applic TOPICAL DAILY PRN PRN Reason: PER PROTOCOL Sertraline HCl (Zoloft*) 25 mg PO DAILY [facility] Last Admin: 09/19/18 11:32 Dose: 25 mg Torsemide (Torsemide) 20 mg PO DAILY [facility] Last Admin: 09/19/18 11:31 Dose: 20 mg Vital Signs - 8 hr 09/19/18 09/19/18 14:09 15:23 Temperature 98.1 F Pulse Rate 72 77 Respiratory 18 20 Rate Blood Pressure 105/51 112/51 (mmHg) O2 Sat by Pulse 100 98 Oximetry Oxygen Devices in Use Now: None Appearance: alert, NAD Eyes: No Scleral Icterus, PERRLA Ears/Nose/Mouth/Throat: NL Teeth, Lips, Gums, Mucous Membranes Moist Neck: NL Appearance and Movements; NL JVP, Trachea Midline Respiratory: Symmetrical Chest Expansion and Respiratory Effort, Clear to Auscultation Cardiovascular: NL Sounds; No Murmurs; No JVD, RRR Abdominal: NL Sounds; No Tenderness; No Distention Extremities: No Edema, No Clubbing, Cyanosis Skin: No Rash or Ulcers Neurological: Alert and Oriented x 3, NL Sensation Lines/Tubes/Other Access: Clean, Dry and Intact Other Access - left nephrostomy tube, brown drainage on dressing from insertion site Nutrition: Taking PO's Result Diagrams: 09/19/18 12:19 09/18/18 07:07 Additional Lab and Data: Laboratory Results - last 24 hr 09/18/18 09/18/18 07:07 07:08 WBC 10.8 RBC 3.24 L Hgb 8.9 L Hct 27 L MCV 82 MCH 27 MCHC 33 RDW 19 H Plt Count 296 MPV 7.6 Neut % (Auto) 65.2 Lymph % (Auto) 9.8 [place] % (Auto) 3.1 Eos % (Auto) 21.4 Baso % (Auto) 0.5 Absolute Neuts (auto) 7.0 Absolute Lymphs (auto) 1.1 Absolute Monos (auto) 0.3 Absolute Eos (auto) 2.3 H Absolute Basos (auto) 0.1 Absolute Nucleated RBC 0.0 Nucleated RBC % 0.0 Sodium 136 Potassium 3.5 Chloride 107 Carbon Dioxide 22 Anion Gap 7 BUN 17 Creatinine 0.71 Est GFR ( Amer) 96.6 Est GFR (Non-Af Amer) 79.8 BUN/Creatinine Ratio 23.9 H Glucose 117 H Calcium 8.1 L Microbiology and Other Data: Microbiology 09/17/18 11:00 Stool Stool Occult Blood ([place]) - Final 09/15/18 16:00 Back Skin and Soft Tissue MRSA/MSSA (PCR - Final Mrsa Negative S.aureus Negative 09/15/18 16:00 Back Gram Stain - Final 09/15/18 16:00 Back Wound Culture - Final Normal [place] 09/17/18 04:25 Nasal Nasal Screen MRSA (PCR) - Final Mrsa Not Detected 09/14/18 17:38 Blood Venous Aerobic Blood Culture - Preliminary No Growth Day 2 09/14/18 17:39 Blood Venous Blood Culture - Preliminary No Growth Day 2 09/14/18 17:55 Urine Urine Culture - Final Klebsiella Oxytoca Klebsiella Pneumoniae Assess/Plan/Problems-Billing Assessment: 78 yr old patient with pmh bladder cancer, htn, hld, ckd, cad, dm, hyponatremia who presented to the ED from [facility] with concerns of low grade fever and brown drainage and redness from nephrostomy site. - Patient Problems (1) UTI (urinary tract infection) Comment: - Previously on Zosyn but stopped due to erythematous rash on torso and bilateral legs. Rash has improved on torso, but is still on bilateral LE - Dr Odell consulting and ordered Aztreonam given multiple antibiotic allergies - Urine cultures revealed Klebsiella Pneumoniae - Leukocytosis resolved, no temps (2) Nephrostomy complication Code(s): N99.528 - OTHER COMP OF INCONTINENT EXTERNAL STOMA OF URINARY TRACT SNOMED Code(s): 15198094 Comment: - Nephrostomy tube change today with IR - Dr. Clifton familiar with this patient's case. He reports he does not know how long patient will need to have nephrostomy as he did not do the surgery and he was informed about possible stricture from ureter to ileal conduit, therefore , may need to keep nephrostomy. Patient should follow up with [facility] Dr Alejandro regarding this. - Dr Clifton reports tubes should be changed every 6 to 8 weeks (3) CAD (coronary artery disease) Code(s): I25.10 - ATHSCL HEART DISEASE OF [place] CORONARY ARTERY W/O ANG PCTRS SNOMED Code(s): 59270805 Comment: - Cont lipitor and asa - Continue toresmide (4) Depression Code(s): F32.9 - MAJOR DEPRESSIVE DISORDER, SINGLE EPISODE, UNSPECIFIED SNOMED Code(s): 19873538 Comment: - Zoloft 25 mg started 09/18, increase to 50 mg in 7 days - Requested consult for Conduit Installer (5) Hypotension Comment: - Resolved with IVF - Per , patient has labile hypotension, continue to monitor (6) CKD (chronic kidney disease) Code(s): N18.9 - CHRONIC KIDNEY DISEASE, UNSPECIFIED SNOMED Code(s): 912946813 Comment: - Hx of CKD - Creatinine at baseline (7) DVT prophylaxis Code(s): Z29.9 - ENCOUNTER FOR PROPHYLACTIC MEASURES, UNSPECIFIED SNOMED Code( s): 864628242 Comment: - Lovenox (8) DNR (do not resuscitate) Comment: Status and Disposition: Inpatient, discharge when medically optimized.
[2018-09-19] MEDS: Atorvastatin* 40 MG TAB PO SCH (18:21)
[2018-09-19] MEDS: diPHENhydraMINE PO* 50 MG PO PRN (21:34)
[2018-09-19] MEDS: Enoxaparin(*) 40 MG/0.4 ML SYR SUBCUT SCH (21:35)
[2018-09-20] MEDS: Aztreonam (*) 1 GM in NS 0.9% 50 ML* 50 ML IVPB SCH ×2 (07:01→17:54)
[2018-09-20] MEDS: Calamine LOTION* 120 ML TOPICAL SCH ×3 (07:52→14:57)
[2018-09-20] MEDS: Torsemide TAB 10 MG PO SCH (09:36)
[2018-09-20] MEDS: Sertraline* 25 MG TAB PO SCH (09:36)
[2018-09-20] MEDS: Calcium/Vitamin D TAB 250/125* TAB PO SCH ×2 (09:36→23:04)
[2018-09-20] MEDS: Aspirin EC TAB* 81 MG TAB.EC PO SCH (09:36)
[2018-09-20] MEDS: Docusate CAP* 100 MG PO SCH (09:36)
[2018-09-20] MEDS: Multivitamins/Minerals TAB PO SCH (09:36)
[2018-09-20] MEDS: GLUCOSAMINE PO SCH (09:37)
[2018-09-20] MEDS: METHYLSULFONYLMETHANE PO SCH (09:37)
[2018-09-20] MEDS: CHONDROITIN PO SCH (09:37)
[2018-09-20] MEDS: diPHENhydraMINE PO* 50 MG PO PRN (10:45)
--- NOTE | 2018-09-20 17:03 | PN ---
Subjective Date of Service: 09/20/18 Interval History: Patient seen and examined. Feeling well, OOB to chair, denies pain, no fevers or chills. Noted some pink tinged urine in soto bag today. Denies SOB, no chest pain. Complaint of itchy rash to upper extremities since rx to zosyn. Objective Active Medications: Acetaminophen (Tylenol Tab*) 975 mg PO Q8HR PRN PRN Reason: PAIN - BACK Last Admin: 09/18/18 22:18 Dose: 975 mg Aspirin (Aspirin Ec Tab*) 81 mg PO DAILY [facility] Last Admin: 09/20/18 09:36 Dose: 81 mg Atorvastatin Calcium (Lipitor*) 40 mg PO QPM [facility] Last Admin: 09/19/18 18:21 Dose: 40 mg Bisacodyl (Dulcolax Supp*) 10 mg [place] DAILY PRN PRN Reason: CONSTIPATION Calamine (Calamine Lotion*) 1 applic TOPICAL TID [facility] Last Admin: 09/20/18 14:57 Dose: 1 applic Calcium/Vitamin D (Oscal D Tab 250/125*) 1 tab PO BID [facility] Last Admin: 09/20/18 09:36 Dose: 1 tab Diphenhydramine HCl (Benadryl Po*) 50 mg PO Q6H PRN PRN Reason: PRURITIS Last Admin: 09/20/18 10:45 Dose: 50 mg Docusate Sodium (Colace Cap*) 100 mg PO QAM [facility] Last Admin: 09/20/18 09:36 Dose: 100 mg Enoxaparin Sodium (Lovenox(*)) 40 mg SUBCUT BEDTIME [facility] Last Admin: 09/19/18 21:35 Dose: 40 mg Hard Fat/Phenylephrine (Preparation H Supp*) 1 supp [place] BID PRN PRN Reason: PAIN/INFLAMMATION Aztreonam 1 gm/ Sodium (Chloride) 50 mls @ 100 mls/hr IVPB Q12H [facility] Last Admin: 09/20/18 07:01 Dose: 100 mls/hr Multivitamins/Minerals (Theragran/Minerals Tab*) 1 tab PO DAILY [facility] Last Admin: 09/20/18 09:36 Dose: 1 tab Nitroglycerin (Nitroglycerin Tab 0.4 Mg*) 0.4 mg SL Q5M PRN PRN Reason: PAIN - CHEST Pto:Glucosamine/Chondroitin/Msm 1, 500 Mg/1200mg/900mg 1 dose PO DAILY [facility] Last Admin: 09/20/18 09:37 Dose: 1 dose Nystatin (Nystatin Top Powder*) 1 applic TOPICAL DAILY PRN PRN Reason: PER PROTOCOL Sertraline HCl (Zoloft*) 25 mg PO DAILY [facility] Last Admin: 09/20/18 09:36 Dose: 25 mg Torsemide (Torsemide) 20 mg PO DAILY [facility] Last Admin: 09/20/18 09:36 Dose: 20 mg Vital Signs - 8 hr 09/20/18 09/20/18 09/20/18 10:45 11:00 13:30 Temperature 97.5 F Pulse Rate 76 Respiratory 18 16 18 Rate Blood Pressure 101/48 (mmHg) O2 Sat by Pulse 100 Oximetry 09/20/18 16:30 Temperature 98.0 F Pulse Rate 77 Respiratory 14 Rate Blood Pressure 102/48 (mmHg) O2 Sat by Pulse 99 Oximetry Oxygen Devices in Use Now: None Appearance: alert, NAD Eyes: PERRLA Ears/Nose/Mouth/Throat: Mucous Membranes Moist Neck: NL Appearance and Movements; NL JVP, Trachea Midline Respiratory: Symmetrical Chest Expansion and Respiratory Effort, Clear to Auscultation Cardiovascular: NL Sounds; No Murmurs; No JVD, RRR Abdominal: NL Sounds; No Tenderness; No Distention Extremities: No Edema, No Clubbing, Cyanosis Skin: - - rash bilat UE, erythema, pruritic Neurological: Alert and Oriented x 3, NL Sensation Nutrition: Taking PO's Result Diagrams: 09/19/18 12:19 09/18/18 07:07 Additional Lab and Data: Laboratory Results - last 24 hr 09/18/18 09/18/18 07:07 07:08 WBC 10.8 RBC 3.24 L Hgb 8.9 L Hct 27 L MCV 82 MCH 27 MCHC 33 RDW 19 H Plt Count 296 MPV 7.6 Neut % (Auto) 65.2 Lymph % (Auto) 9.8 [place] % (Auto) 3.1 Eos % (Auto) 21.4 Baso % (Auto) 0.5 Absolute Neuts (auto) 7.0 Absolute Lymphs (auto) 1.1 Absolute Monos (auto) 0.3 Absolute Eos (auto) 2.3 H Absolute Basos (auto) 0.1 Absolute Nucleated RBC 0.0 Nucleated RBC % 0.0 Sodium 136 Potassium 3.5 Chloride 107 Carbon Dioxide 22 Anion Gap 7 BUN 17 Creatinine 0.71 Est GFR ( Amer) 96.6 Est GFR (Non-Af Amer) 79.8 BUN/Creatinine Ratio 23.9 H Glucose 117 H Calcium 8.1 L Microbiology and Other Data: Microbiology 09/17/18 11:00 Stool Stool Occult Blood ([place]) - Final 09/15/18 16:00 Back Skin and Soft Tissue MRSA/MSSA (PCR - Final Mrsa Negative S.aureus Negative 09/15/18 16:00 Back Gram Stain - Final 09/15/18 16:00 Back Wound Culture - Final Normal [place] 09/17/18 04:25 Nasal Nasal Screen MRSA (PCR) - Final Mrsa Not Detected 09/14/18 17:38 Blood Venous Aerobic Blood Culture - Preliminary No Growth Day 2 09/14/18 17:39 Blood Venous Blood Culture - Preliminary No Growth Day 2 09/14/18 17:55 Urine Urine Culture - Final Klebsiella Oxytoca Klebsiella Pneumoniae Diagnostic Imaging: Patient Name: KARLI SANTANA Medical Record#: [id number] Ordering Physician: Roseann Acosta NP Acct.#: [id number] : 1940 Age: 78 Sex: F Location[facility] Exam Date: 09/17/18730 ADM Status: ADM IN Order Information: CT ABD/PEL W/O Accession Number: [id number] CPT: 07765 Indication: Infection, cystectomy. CT of the abdomen and pelvis was performed without oral or IV contrast administration. Comparison is made with previous exam dated August 20, 2018. Lung bases demonstrates left lower lobe atelectasis and moderate bilateral pleural effusions. Heart demonstrates no pericardial effusion. Liver is normal in size. No focal lesions are noted. Small amount of ascites is noted. Pancreas demonstrates no mass or pancreatic duct dilatation. The common duct is not dilated. The spleen demonstrates old granulomatous disease. Patient is status post cholecystectomy. Bilateral adrenal hyperplasia is noted. Left ureteral stent and left nephrostomy catheter is in place. The stent extends into the ileal conduit. The urinary bladder has been resected with a small focus of air at the base of the urinary bladder site. Fluid previously identified is decreased in size when compared to previous exam now measuring 5.3 x 1.7 cm. No hernias are noted. The colon is filled with stool. IMPRESSION: Moderate-sized bilateral pleural effusions. Left lower lobe atelectasis. Fluid collection in the pelvis appears to be smaller. Left nephrostomy tube and left ureteral stent appears in place. Small amount of free fluid is noted in the abdomen. Assess/Plan/Problems-Billing Assessment: 78 yr old patient with pmh bladder cancer, htn, hld, ckd, cad, dm, hyponatremia who presented to the ED from [facility] with concerns of low grade fever and brown drainage and redness from nephrostomy site. - Patient Problems (1) UTI (urinary tract infection) Comment: - Previously on Zosyn but stopped due to erythematous rash, continue calamine and benadryl PRN - Dr Odell consulting and ordered Aztreonam given multiple antibiotic allergies - Urine cultures revealed Klebsiella Pneumoniae - Afebrile - Topher transition to docxycycline for 10 days at discharge as per ID (2) Nephrostomy complication Code(s): N99.528 - OTHER COMP OF INCONTINENT EXTERNAL STOMA OF URINARY TRACT SNOMED Code(s): 10223850 Comment: - Nephrostomy tube change 09/19/18 with IR - Dr. Clifton familiar with this patient's case. He reports he does not know how long patient will need to have nephrostomy as he did not do the surgery and he was informed about possible stricture from ureter to ileal conduit, therefore , may need to keep nephrostomy. Patient should follow up with [facility] Dr Alejandro regarding this. - Dr Clifton reports tubes should be changed every 6 to 8 weeks (3) CAD (coronary artery disease) Code(s): I25.10 - ATHSCL HEART DISEASE OF [place] CORONARY ARTERY W/O ANG PCTRS SNOMED Code(s): 65694901 Comment: - Cont lipitor and asa - Continue toresmide (4) Depression Code(s): F32.9 - MAJOR DEPRESSIVE DISORDER, SINGLE EPISODE, UNSPECIFIED SNOMED Code(s): 32853202 Comment: - Zoloft 25 mg started 09/18, increase to 50 mg in 7 days - Requested consult for [employer] (5) Hypotension Comment: - Resolved with IVF - Per , patient has labile hypotension, continue to monitor (6) CKD (chronic kidney disease) Code(s): N18.9 - CHRONIC KIDNEY DISEASE, UNSPECIFIED SNOMED Code(s): 096654915 Comment: - Hx of CKD - Creatinine at baseline (7) DVT prophylaxis Code(s): Z29.9 - ENCOUNTER FOR PROPHYLACTIC MEASURES, UNSPECIFIED SNOMED Code( s): 071160652 Comment: - Lovenox (8) DNR (do not resuscitate) Comment: Status and Disposition: Inpatient, discharge when medically optimized, likely tomorrow.
[2018-09-20] MEDS: Atorvastatin* 40 MG TAB PO SCH (17:57)
[2018-09-20] MEDS: Enoxaparin(*) 40 MG/0.4 ML SYR SUBCUT SCH (23:04)
[2018-09-21] MEDS: Aztreonam (*) 1 GM in NS 0.9% 50 ML* 50 ML IVPB SCH ×2 (05:19→18:38)
[2018-09-21] MEDS: Calamine LOTION* 120 ML TOPICAL SCH ×5 (09:11→22:27)
[2018-09-21] MEDS: Calcium/Vitamin D TAB 250/125* TAB PO SCH ×2 (09:12→22:05)
[2018-09-21] MEDS: Torsemide TAB 10 MG PO SCH (09:13)
[2018-09-21] MEDS: Multivitamins/Minerals TAB PO SCH (09:13)
[2018-09-21] MEDS: Sertraline* 25 MG TAB PO SCH (09:13)
[2018-09-21] MEDS: Docusate CAP* 100 MG PO SCH (09:13)
[2018-09-21] MEDS: Aspirin EC TAB* 81 MG TAB.EC PO SCH (09:13)
[2018-09-21] MEDS: GLUCOSAMINE PO SCH (09:14)
[2018-09-21] MEDS: CHONDROITIN PO SCH (09:14)
[2018-09-21] MEDS: METHYLSULFONYLMETHANE PO SCH (09:14)
--- NOTE | 2018-09-21 09:47 | PN ---
Progress Note - Progress Note Date of Service: 09/21/18 SOAP: Subjective: CC: Fever HPI: Ms. Celeste is a 78 yo female with PMH significant for bladder cancer s/p cystectomy and ileal conduit, left nephrostomy tube placement, HTN, HLD, DM2, hyponatremia, and obesity; who presented to the hospital with complaints of fever. Denies fever, chills, shortness of breath, nausea, vomiting, diarrhea, or constipation. Denies any issues with her urostomy. She is requesting to have the mariela removed from her midline ABD incision, they have been in place since surgery on 07/26/18. Objective: Vital Signs - 8 hr 09/21/18 03:00 Temperature 98.0 F Pulse Rate 77 Respiratory 16 Rate Blood Pressure 96/42 (mmHg) O2 Sat by Pulse 99 Oximetry Physical Exam: General: NAD, sitting up on a chair Neurological: Alert and Oriented x4 HEENT: No thrush Cardiovascular: Heart rate regular Respiratory: Lung sounds clear Abdominal: Bowel sounds present; ABD soft, non tender and large Skin: Urostomy to the right side of the ABD. Nephrostomy to left flank. Fading erythematous rash to bilateral arms. Laboratory Last Values WBC 10.8 10^3/uL (3.5-10.8) 09/18/18 07:08 RBC 3.24 10^6 /uL (3.70-4.87) L 09/18/18 07:08 Hgb 8.9 g/dL (12.0-16.0) L 09/18/18 07:08 Hct 27 % (35-47) L 09/18/18 07:08 MCV 82 fL (80-97) 09/18/18 07:08 MCH 27 pg (27-31) 09/18/18 07:08 MCHC 33 g/dL (31-36) 09/18/18 07:08 RDW 19 % (10-15) H 09/18/18 07:08 Plt Count 337 10^3/uL (150-450) 09/19/18 12:19 MPV 7.4 fL (7.4-10.4) 09/19/18 12:19 Neut % (Auto) 65.2 % 09/18/18 07:08 Lymph % (Auto) 9.8 % 09/18/18 07:08 [place] % (Auto) 3.1 % 09/18/18 07:08 Eos % (Auto) 21.4 % 09/18/18 07:08 Baso % (Auto) 0.5 % 09/18/18 07:08 Absolute Neuts (auto) 7.0 10^3/ul (1.5-7.7) 09/18/18 07:08 Absolute Lymphs (auto) 1.1 10^3/ul (1.0-4.8) 09/18/18 07:08 Absolute Monos (auto) 0.3 10^3/ul (0-0.8) 09/18/18 07:08 Absolute Eos (auto) 2.3 10^3/ul (0-0.6) H 09/18/18 07:08 Absolute Basos (auto) 0.1 10^3/ul (0-0.2) 09/18/18 07:08 Absolute Nucleated RBC 0.0 10^3/ul 09/18/18 07:08 Nucleated RBC % 0.0 09/18/18 07:08 INR (Anticoag Therapy) 1.05 (0.82-1.09) 09/19/18 12:19 Sodium 136 mmol/L (135-145) 09/18/18 07:07 Potassium 3.5 mmol/L (3.5-5.0) 09/18/18 07:07 Chloride 107 mmol/L (101-111) 09/18/18 07:07 Carbon Dioxide 22 mmol/L (22-32) 09/18/18 07:07 Anion Gap 7 mmol/L (2-11) 09/18/18 07:07 BUN 17 mg/dL (6-24) 09/18/18 07:07 Creatinine 0.71 mg/dL (0.51-0.95) 09/18/18 07:07 Est GFR ( Amer) 96.6 (>60) 09/18/18 07:07 Est GFR (Non-Af Amer) 79.8 (>60) 09/18/18 07:07 BUN/Creatinine Ratio 23.9 (8-20) H 09/18/18 07:07 Glucose 117 mg/dL (70-100) H 09/18/18 07:07 Lactic Acid 1.2 mmol/L (0.5-2.0) 09/17/18 10:26 Calcium 8.1 mg/dL (8.6-10.3) L 09/18/18 07:07 Magnesium 2.0 mg/dL (1.9-2.7) 09/17/18 07:14 Iron 26 ug/dL (50-212) L 09/15/18 06:38 TIBC 231 mcg/dL (250-450) L 09/15/18 06:38 % Saturation 11 % (15-55) L 09/15/18 06:38 Unsat Iron Binding < 216 ug/dL 09/15/18 06:38 Transferrin 165 mg/dL (203-362) L 09/15/18 06:38 Ferritin 238.8 ng/mL (11-307) 09/15/18 06:38 Total Bilirubin 0.40 mg/dL (0.2-1.0) 09/14/18 17:39 AST 32 U/L (13-39) 09/14/18 17:39 ALT 35 U/L (7-52) 09/14/18 17:39 Alkaline Phosphatase 178 U/L (34-104) H 09/14/18 17:39 C-Reactive Protein 150.33 mg/L (<8.01) H 09/14/18 17:39 Total Protein 6.7 g/dL (6.4-8.9) 09/14/18 17:39 Albumin 2.9 g/dL (3.2-5.2) L 09/14/18 17:39 Globulin 3.8 g/dL (2-4) 09/14/18 17:39 Albumin/Globulin Ratio 0.8 (1-3) L 09/14/18 17:39 Vitamin B12 706 pg/mL (180-914) 09/15/18 06:38 Folate 13.76 ng/mL (>3.99) 09/15/18 06:38 Urine Color Yellow 09/14/18 17:55 Urine Appearance Cloudy 09/14/18 17:55 Urine pH 7.0 (5-9) 09/14/18 17:55 Ur Specific [place] 1.006 (1.010-1.030) L 09/14/18 17:55 Urine Protein Negative (Negative) 09/14/18 17:55 Urine Ketones Negative (Negative) 09/14/18 17:55 Urine Blood 1+ (Negative) A 09/14/18 17:55 Urine Nitrate Negative (Negative) 09/14/18 17:55 Urine Bilirubin Negative (Negative) 09/14/18 17:55 Urine Urobilinogen Negative (Negative) 09/14/18 17:55 Ur Leukocyte Esterase 3+ (Negative) A 09/14/18 17:55 Urine WBC (Auto) 3+(>20/hpf) (Absent) A 09/14/18 17:55 Urine RBC (Auto) 3+(>10/hpf) (Absent) A 09/14/18 17:55 Ur Squamous Epith Cells Present (Absent) A 09/14/18 17:55 Amorphous Crystals Present (Absent) A 09/14/18 17:53 Urine Bacteria Absent (Absent) 09/14/18 17:55 Hyaline Casts Present (Absent) A 09/14/18 17:55 Urine Glucose Negative (Negative) 09/14/18 17:55 Microbiology 09/14/18 17:38 Aerobic Blood Culture - Final Blood Venous No Growth Day 5 09/14/18 17:39 Blood Culture - Final Blood Venous No Growth Day 5 09/17/18 11:00 Stool Occult Blood ([place]) - Final Stool 09/15/18 16:00 Skin and Soft Tissue MRSA/MSSA (PCR - Final Back Mrsa Negative S.aureus Negative Gram Stain - Final Wound Culture - Final Normal [place] 09/17/18 04:25 Nasal Screen MRSA (PCR) - Final Nasal Mrsa Not Detected 09/14/18 17:55 Urine Culture - Final Urine Klebsiella Oxytoca Klebsiella Pneumoniae Assessment: 1. UTI. Urine culture with klebsiella oxytoca and klebsiella pneumoniae. Afebrile and no leukocytosis. Blood cultures with no growth on day 5. 2. Diffuse erythematous rash. Suspect secondary to Zosyn 3. KEFLEX, CEFEPIME, and CIPRO allergy 4. DM2. Plan: Continue Aztreonam 1 g IV BID while in the hospital. At discharge she can be transitioned to oral ABX, Bactrim DS for 10 days. She should followup with her Urologist in [place] after discharge.
--- NOTE | 2018-09-21 11:22 | PN ---
Subjective Date of Service: 09/21/18 Interval History: Pt c/o generalized weakness and poor appetite. and daughter present by the bedside and agree that this is not new. since her surgery in July pt had been back and forth between [facility] and [facility] Objective Active Medications: Acetaminophen (Tylenol Tab*) 975 mg PO Q8HR PRN PRN Reason: PAIN - BACK Last Admin: 09/18/18 22:18 Dose: 975 mg Aspirin (Aspirin Ec Tab*) 81 mg PO DAILY [facility] Last Admin: 09/21/18 09:13 Dose: 81 mg Atorvastatin Calcium (Lipitor*) 40 mg PO QPM [facility] Last Admin: 09/20/18 17:57 Dose: 40 mg Bisacodyl (Dulcolax Supp*) 10 mg [place] DAILY PRN PRN Reason: CONSTIPATION Calamine (Calamine Lotion*) 1 applic TOPICAL TID [facility] Last Admin: 09/21/18 09:24 Dose: Not Given Calcium/Vitamin D (Oscal D Tab 250/125*) 1 tab PO BID [facility] Last Admin: 09/21/18 09:12 Dose: 1 tab Diphenhydramine HCl (Benadryl Po*) 50 mg PO Q6H PRN PRN Reason: PRURITIS Last Admin: 09/20/18 10:45 Dose: 50 mg Docusate Sodium (Colace Cap*) 100 mg PO QAM [facility] Last Admin: 09/21/18 09:13 Dose: Not Given Enoxaparin Sodium (Lovenox(*)) 40 mg SUBCUT BEDTIME [facility] Last Admin: 09/20/18 23:04 Dose: 40 mg Hard Fat/Phenylephrine (Preparation H Supp*) 1 supp [place] BID PRN PRN Reason: PAIN/INFLAMMATION Aztreonam 1 gm/ Sodium (Chloride) 50 mls @ 100 mls/hr IVPB Q12H [facility] Last Admin: 09/21/18 05:19 Dose: 100 mls/hr Multivitamins/Minerals (Theragran/Minerals Tab*) 1 tab PO DAILY [facility] Last Admin: 09/21/18 09:13 Dose: 1 tab Nitroglycerin (Nitroglycerin Tab 0.4 Mg*) 0.4 mg SL Q5M PRN PRN Reason: PAIN - CHEST Pto:Glucosamine/Chondroitin/Msm 1, 500 Mg/1200mg/900mg 1 dose PO DAILY [facility] Last Admin: 09/21/18 09:14 Dose: 1 dose Nystatin (Nystatin Top Powder*) 1 applic TOPICAL DAILY PRN PRN Reason: PER PROTOCOL Sertraline HCl (Zoloft*) 25 mg PO DAILY [facility] Last Admin: 09/21/18 09:13 Dose: 25 mg Torsemide (Torsemide) 20 mg PO DAILY [facility] Last Admin: 09/21/18 09:13 Dose: 20 mg Oxygen Devices in Use Now: None Appearance: 78 yo f in NAD, AAOx3, poor historian Eyes: No Scleral Icterus, PERRLA Ears/Nose/Mouth/Throat: NL Teeth, Lips, Gums, Mucous Membranes Moist Neck: NL Appearance and Movements; NL JVP, Trachea Midline Respiratory: Symmetrical Chest Expansion and Respiratory Effort, Clear to Auscultation Cardiovascular: NL Sounds; No Murmurs; No JVD Abdominal: - - left nephrostomy tube with minimal skin drainage noted, no cellultitis.Urostomy on abd with macerated whte skin edges, no skin necrosis, no cellultis noted Lymphatic: No Cervical Adenopathy Extremities: No Clubbing, Cyanosis, - - +1 b/l LE's pitting edema Skin: No Nodules or Sclerosis, - - difffuse rash/raised erythema on b/l LE's - resolving Neurological: Alert and Oriented x 3, NL Muscle Strength and Tone Result Diagrams: 09/21/18 14:17 09/21/18 14:17 Additional Lab and Data: Laboratory Results - last 24 hr 09/18/18 09/18/18 07:07 07:08 WBC 10.8 RBC 3.24 L Hgb 8.9 L Hct 27 L MCV 82 MCH 27 MCHC 33 RDW 19 H Plt Count 296 MPV 7.6 Neut % (Auto) 65.2 Lymph % (Auto) 9.8 [place] % (Auto) 3.1 Eos % (Auto) 21.4 Baso % (Auto) 0.5 Absolute Neuts (auto) 7.0 Absolute Lymphs (auto) 1.1 Absolute Monos (auto) 0.3 Absolute Eos (auto) 2.3 H Absolute Basos (auto) 0.1 Absolute Nucleated RBC 0.0 Nucleated RBC % 0.0 Sodium 136 Potassium 3.5 Chloride 107 Carbon Dioxide 22 Anion Gap 7 BUN 17 Creatinine 0.71 Est GFR ( Amer) 96.6 Est GFR (Non-Af Amer) 79.8 BUN/Creatinine Ratio 23.9 H Glucose 117 H Calcium 8.1 L Microbiology and Other Data: Microbiology 09/17/18 11:00 Stool Stool Occult Blood ([place]) - Final 09/15/18 16:00 Back Skin and Soft Tissue MRSA/MSSA (PCR - Final Mrsa Negative S.aureus Negative 09/15/18 16:00 Back Gram Stain - Final 09/15/18 16:00 Back Wound Culture - Final Normal [place] 09/17/18 04:25 Nasal Nasal Screen MRSA (PCR) - Final Mrsa Not Detected 09/14/18 17:38 Blood Venous Aerobic Blood Culture - Preliminary No Growth Day 2 09/14/18 17:39 Blood Venous Blood Culture - Preliminary No Growth Day 2 09/14/18 17:55 Urine Urine Culture - Final Klebsiella Oxytoca Klebsiella Pneumoniae Diagnostic Imaging: Patient Name: KARLI SANTANA Medical Record#: [id number] Ordering Physician: Roseann Acosta CELLAR PUMPER Acct.#: [id number] : 1940 Age: 78 Sex: F Location[facility] Exam Date: 09/17/18730 ADM Status: ADM IN Order Information: CT ABD/PEL W/O Accession Number: [id number] CPT: 70678 Indication: Infection, cystectomy. CT of the abdomen and pelvis was performed without oral or IV contrast administration. Comparison is made with previous exam dated August 20, 2018. Lung bases demonstrates left lower lobe atelectasis and moderate bilateral pleural effusions. Heart demonstrates no pericardial effusion. Liver is normal in size. No focal lesions are noted. Small amount of ascites is noted. Pancreas demonstrates no mass or pancreatic duct dilatation. The common duct is not dilated. The spleen demonstrates old granulomatous disease. Patient is status post cholecystectomy. Bilateral adrenal hyperplasia is noted. Left ureteral stent and left nephrostomy catheter is in place. The stent extends into the ileal conduit. The urinary bladder has been resected with a small focus of air at the base of the urinary bladder site. Fluid previously identified is decreased in size when compared to previous exam now measuring 5.3 x 1.7 cm. No hernias are noted. The colon is filled with stool. IMPRESSION: Moderate-sized bilateral pleural effusions. Left lower lobe atelectasis. Fluid collection in the pelvis appears to be smaller. Left nephrostomy tube and left ureteral stent appears in place. Small amount of free fluid is noted in the abdomen. Assess/Plan/Problems-Billing Assessment: 78 yr old patient with pmh bladder cancer, htn, hld, ckd, cad, dm, hyponatremia who presented to the ED from [facility] with concerns of low grade fever and brown drainage and redness from nephrostomy site. - Patient Problems (1) UTI (urinary tract infection) Comment: - Previously on Zosyn but stopped due to erythematous rash, continue calamine and benadryl PRN - Dr Odell consulted and ordered Aztreonam given multiple antibiotic allergies - Urine cultures revealed Klebsiella Pneumoniae - Afebrile - Topher transition to docxycycline for 10 days at discharge as per ID (2) Nephrostomy complication Comment: - Nephrostomy tube changed 09/19/18 with IR - Dr. Clifton familiar with this patient's case. He reports he does not know how long patient will need to have nephrostomy as he did not do the surgery and he was informed about possible stricture from ureter to ileal conduit, therefore , may need to keep nephrostomy. Patient should follow up with [facility] Dr Alejandro regarding this. - Dr Clifton reports tubes should be changed every 6 to 8 weeks (3) CAD (coronary artery disease) Comment: - Cont lipitor and asa - Continue torsemide (4) Depression Comment: - Zoloft 25 mg started 09/18, increase to 50 mg in 7 days (5) CKD (chronic kidney disease) Comment: - Hx of CKD - Creatinine at baseline (6) History of urostomy Comment: Placed secondary to bladder cancer. stoma edges macerated and white. will change stoma appliance and may need to consult urology if needed (7) DVT prophylaxis Comment: - Lovenox Status and Disposition: Inpatient, discharge when medically optimized, likely tomorrow.
[2018-09-21 14:26] LABS: ABS Basophils 0.1 10^3/ul (0-0.2); ABS Eosinophils 1.2 10^3/ul (0-0.6); ABS Lymphocytes 1.6 10^3/ul (1.0-4.8); ABS Monocytes 0.4 10^3/ul (0-0.8); ABS Neutrophils 5.4 10^3/ul (1.5-7.7); Eosinophil % 14.1 %; Hematocrit 27 % (35-47); Hemoglobin 8.9 g/dL (12.0-16.0); Lymphocyte % 18.3 %; Mean Corpuscular HGB Conc 32 g/dL (31-36); Mean Corpuscular Hemoglobin 27 pg (27-31); Mean Corpuscular Volume 82 fL (80-97); Mean Platelet Volume 7.2 fL (7.4-10.4); Platelet Count 292 10^3/uL (150-450); Red Blood Count 3.32 10^6 /uL (3.70-4.87); Red Cell Distribution Width 19 % (10-15); White Blood Count 8.8 10^3/uL (3.5-10.8)
[2018-09-21 14:57] LABS: BUN/Creatinine Ratio 22.1 (8-20); Calcium 8.4 mg/dL (8.6-10.3); EGFR African American 77.4 (>60); Potassium 2.9 mmol/L (3.5-5.0)
[2018-09-21] MEDS: Atorvastatin* 40 MG TAB PO SCH (18:38)
[2018-09-21] MEDS: Enoxaparin(*) 40 MG/0.4 ML SYR SUBCUT SCH (22:27)
[2018-09-22 05:09] LABS: BUN/Creatinine Ratio 22.2 (8-20); Calcium 8.4 mg/dL (8.6-10.3); EGFR Non-African American 68.6 (>60); Potassium 2.9 mmol/L (3.5-5.0)
[2018-09-22] MEDS: Aztreonam (*) 1 GM in NS 0.9% 50 ML* 50 ML IVPB SCH (05:53)
[2018-09-22] MEDS ORDERED: Potassium Chlor TAB* 20 MEQ TAB.ER PO SCH (06:00)
[2018-09-22] MEDS: Multivitamins/Minerals TAB PO SCH (09:43)
[2018-09-22] MEDS: Calcium/Vitamin D TAB 250/125* TAB PO SCH (09:43)
[2018-09-22] MEDS: Aspirin EC TAB* 81 MG TAB.EC PO SCH (09:43)
[2018-09-22] MEDS: Sertraline* 25 MG TAB PO SCH (09:43)
[2018-09-22] MEDS: Docusate CAP* 100 MG PO SCH (09:44)
[2018-09-22] MEDS: GLUCOSAMINE PO SCH (09:44)
[2018-09-22] MEDS: CHONDROITIN PO SCH (09:44)
[2018-09-22] MEDS: Torsemide TAB 10 MG PO SCH (09:44)
[2018-09-22] MEDS: METHYLSULFONYLMETHANE PO SCH (09:44)
[2018-09-22] MEDS: Calamine LOTION* 120 ML TOPICAL SCH ×2 (09:46→13:56)
[2018-09-22 10:37] VITALS: BP 122/52
[2018-09-22] MEDS ORDERED: KCL 10 MEQ/50 ML IVPREMIX* 10 MEQ/50 ML BAG IV ONE (12:16)
[2018-09-22] MEDS ORDERED: Potassium Chlor TAB* 20 MEQ TAB.ER PO ONE (12:17)
[2018-09-22] MEDS ORDERED: DOXYcycline CAP(*) 100 MG PO SCH (13:00)
--- NOTE | 2018-09-22 14:06 | DS ---
CC: Dr. Modi; Dr. Titi Mcclure; Dr. Sigifredo Clifton; Dr. Blakely * DISCHARGE SUMMARY: DATE OF ADMISSION: 09/15/18 DATE OF DISCHARGE: 09/22/18 PRIMARY CARE PROVIDER: Dr. Modi. MY ATTENDING FOR TODAY: Dr. Amee Casas.* (DICTATED BY CHRISTOPHER HICKMAN NP) HOSPITAL COURSE: Please refer to admitting H and P on 09/15/18, but in short, Ms. Celeste is a 78-year-old female patient with a history of bladder cancer, hypertension, hyperlipidemia, CKD, coronary artery disease, diabetes mellitus, and hyponatremia, who presented to the emergency department from [facility] with a low-grade fever and some drainage and redness from her nephrostomy site. The patient was admitted for urinary tract infection and complications to her chronic nephrostomy. She was empirically started on Zosyn ; however, she does have a complicated allergy profile and she ultimately did have a rash reaction to Zosyn. The patient did not appear septic at admission. She did have some hypokalemia and hyponatremia, which were repleted. She was also noted to be quite depressed during this admission and was started on an SSRI. She was seen by Dr. Titi Mcclure of Infectious Disease given her allergy profile and new reaction to Zosyn. Her urine culture grew out Klebsiella oxytoca and Klebsiella pneumoniae. The patient was taken off Zosyn after her reaction, and she was placed instead on aztreonam 1 g q.12 hours. Ultrasound of the left kidney was performed on 09/16/18 and did not exhibit any hydronephrosis, although the tube did appear to have some drainage around the site and cloudy urine. She did not have hydronephrosis. She did have abdomen and pelvis CT on 09/17/18 which showed moderate size bilateral pleural effusions and also some bilateral adrenal hyperplasia. Her left ureteral stent and left nephrostomy catheter were in place. The stent was noted to extend into the ileal conduit. The urinary bladder shown as a postoperative state with a small focus of air at the base of the urinary bladder site. There was also fluid collection in the pelvis which noted to appear to be smaller and then a small amount of free fluid in the abdomen was also noted. Ultimately, Dr. Mcclure did reach out to Dr. Clifton, who is familiar with the patient's case and recommended that the patient's nephrostomy tube be changed every 6 to 8 weeks, so she was scheduled for tube change which she underwent on 09/19/[address] Blakely. She had an uncomplicated procedure and successful tube change. On postprocedure day 1, she did have some pink-tinged urine but ultimately cleared within a few hours and had no further complications. The patient continued to have a favorable response to aztreonam. Dr. Mcclure recommended that the patient be continued on doxycycline by mouth after discharge. According to her susceptibility report, she would have good coverage with doxycycline for the bacteria noted in her urine. On 09/22/18, the patient has been stable with no further events and she is medically cleared for discharge. REVIEW OF SYSTEMS: Upon review of systems today, she denies any fever, fatigue , or chills. No chest pains. No abdominal pains. No nausea, no vomiting. She has some baseline leg pains but no further constitutional complaints. PHYSICAL EXAM: Her physical exam reveals an elderly female in no acute distress. Her vital signs are blood pressure 122/52, heart rate 71, O2 saturation 96% on room air, respiratory rate of 20, temperature 97.9. HEENT: Atraumatic, normocephalic. PERRLA. Nonicteric sclerae. Oral mucosa is moist. Tongue is midline. Neck: Supple, nontender. No JVD noted. No carotid bruit auscultated. Cardiovascular: S1, S2 present. No murmurs, gallops, or rubs noted. Abdomen is soft, nontender, nondistended. Positive bowel sounds in all 4 quadrants. In her nephrostomy site, the tube dressing is clean, dry, and intact. Surrounding area with no erythema. Her urostomy site on her abdomen is clean. The dressing around the skin is also clean with no drainage and no erythema noted. Musculoskeletal: She has some bilateral edema of the lower extremities. +1 pitting. Skin: She has had ongoing rash since her reaction to Zosyn which is erythematous and mildly pruritic. Skin is otherwise warm, dry , and intact. The rash is localized primarily to the bilateral upper extremities. Neurologic: She is alert and oriented x3 with no focal deficits. Psychiatric: She is cooperative and appropriate. IMAGING/LAB DATA: WBCs 8.8, RBCs 3.32, hemoglobin 8.9, hematocrit 27, platelets 292. Sodium 139. Potassium 2.9, repleted. CO2 27, BUN 18, creatinine 0.81, GFR is 83. Glucose 103, calcium 8.4. Imaging: Renal ultrasound as noted above. No hydro. Abdomen and pelvis CT: As noted in hospital course above. DISCHARGE DIAGNOSES: 1. Urinary tract infection with Klebsiella oxytoca and Klebsiella pneumoniae. 2. Nephrostomy tube complication, now resolved. 3. History of coronary artery disease. 4. Depression. 5. Chronic kidney disease. 6. History of urostomy secondary to bladder cancer. 7. Hyponatremia. DISCHARGE MEDICATIONS: Include: 1. Dulcolax 10 mg p.o. daily as needed. 2. Preparation H Ointment daily as needed. 3. Nystatin topical daily as needed. 4. Nitro 0.4 mg sublingual as needed. 5. Tylenol 975 p.o. q.8 hours as needed. 6. Torsemide 20 mg p.o. daily. 7. Colace 100 mg in the morning as needed. 8. Calcium and vitamin D tablet supplement 1 tab p.o. b.i.d. 9. Crestor 20 mg in the evening. 10. Multivitamin with mineral 1 tab p.o. daily. 11. Glucosamine 1500 mg p.o. daily. 12. Aspirin 81 mg daily. New medications: 1. Sertraline 25 mg p.o. daily. 2. Potassium chloride 20 mEq p.o. daily. 3. Doxycycline 100 mg p.o. b.i.d. for 10 days. 4. Calamine lotion apply topical 3 times a day as needed. ACTIVITY: Progress activity as tolerated. DIET: Heart healthy as tolerated. FOLLOWUPS: The patient should follow up with Dr. Torsten Modi, her primary care provider, as needed or with [facility]'s attending physician as needed; Dr. Sigifredo Clifton of Urology within 1 month; either with Dr. Clifton or her previous surgical urologist for her nephrostomy tube changes every 6 to 8 weeks. Also she should follow up in 4 days to have her electrolytes rechecked and have her potassium level rechecked as her potassium has been repleted while here in the hospital, and she is on supplementation. This should be rechecked as an outpatient. DISPOSITION: The patient was discharged to [facility] in stable condition. All questions were answered. The patient and her state their understanding of their discharge instructions, medications, and followups. TIME SPENT: 40 minutes on discharge planning. CHRISTOPHER HICKMAN NP [id number]/CPS #: [id number] JUAN
[2018-09-22] MEDS ORDERED: Calcium/Vitamin D TAB 250/125* TAB PO SCH (18:00)
== END 2018-09-22 15:15 | DRG 699 ==
LOC: ED 16:23 → MED 21:19 → OBSVTOIN 09-15 10:21 → ICU 09-17 03:46 → MED 09-17 15:30
PROVIDERS: ADMIT Internal Medicine; ATTEND Internal Medicine
PROC: 0T25X0Z Change Drainage Device in Kidney, External Approach (ICD-10-PCS; principal; 2018-09-19)
DX: T83.512A Infection and inflammatory reaction due to nephrostomy catheter, initial encounter (principal); N39.0 Urinary tract infection, site not specified; E87.1 Hypo-osmolality and hyponatremia; J90 Pleural effusion, not elsewhere classified; E11.22 Type 2 diabetes mellitus with diabetic chronic kidney disease; I95.9 Hypotension, unspecified; E87.79 Other fluid overload; B96.1 Klebsiella pneumoniae [K. pneumoniae] as the cause of diseases classified elsewhere; E87.6 Hypokalemia; I12.9 Hypertensive chronic kidney disease with stage 1 through stage 4 chronic kidney disease, or unspecified chronic kidney disease; I25.10 Atherosclerotic heart disease of native coronary artery without angina pectoris; F32.9 Major depressive disorder, single episode, unspecified; N18.9 Chronic kidney disease, unspecified; Z66 Do not resuscitate; E66.9 Obesity, unspecified; D63.1 Anemia in chronic kidney disease; X58.XXXA Exposure to other specified factors, initial encounter; Z85.51 Personal history of malignant neoplasm of bladder; Y92.129 Unspecified place in nursing home as the place of occurrence of the external cause; Z93.2 Ileostomy status; Z93.6 Other artificial openings of urinary tract status; Z68.39 Body mass index [BMI] 39.0-39.9, adult; Z79.1 Long term (current) use of non-steroidal anti-inflammatories (NSAID); Z79.82 Long term (current) use of aspirin; Z79.899 Other long term (current) drug therapy; Z88.8 Allergy status to other drugs, medicaments and biological substances; Z83.3 Family history of diabetes mellitus; Z82.49 Family history of ischemic heart disease and other diseases of the circulatory system; Z80.52 Family history of malignant neoplasm of bladder; Z80.0 Family history of malignant neoplasm of digestive organs; Z87.891 Personal history of nicotine dependence
CPT/HCPCS: 36415; 50435; 74176; 76775; 80048; 80053; 81003; 81015; 82270; 82607; 82728; 82746; 83540; 83550; 83605; 83735; 85025; 85049; 85610; 86140; 87040; 87070; 87077; 87086; 87186; 87205; 87640; 87641; 93005; 99285; A9270-GY; C1769; C1874; G8978-GP-CK; G8979-GP-CI; G8987-GO-CJ; G8988-GO-CI; J1650; J1940; J2310; J2543; J3010; J3480; Q9967

== ENCOUNTER 2018-09-29 11:55 | Emergency (ER) | payer MEDICARE, BC ==
--- OUTSIDE RECORDS SUMMARY | 2018-09-29 12:23 | XMS REPORT | Continuity of Care Document ---
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 Onset: 05/31/2018 Coronary arteriosclerosis after percutaneous Joselyn Scales M.D. Onset: 2018 coronary angioplasty Aortic valve disorder Joselyn Scales M.D. Onset: 07/01/2018 Mitral valve disorder Joselyn Scales M.D. Onset: 07/01/2018 Family History Date Family Member(s) Observation Comments Father Cardiomyopathy Father due to Heart Disease () - 56 Years old Mother Colon Cancer Mother due to Cancer () Siblings 2 both Social History Type Date Description Comments Sex Unknown Marital Status Lives With Occupation Retired Tobacco Use Start: Unknown End: Former Cigarette Smoker Unknown Smoking Status Reviewed: 07/01/18 Former Cigarette Smoker ETOH Use Drinks Alcoholic Beverages Rarely Tobacco Use Start: Unknown End: Patient is a former 1 ppd for 46 years, Unknown smoker quit in 2007 Recreational Drug Use Never Used Drugs Exercise Type/Frequency Does not exercise Allergies, Adverse Reactions, Alerts Active Allergies Reaction Severity Comments Date Keflex 05/27/2018 Medications Active Medications SIG Qnty Indications Ordering Provider Date Nitroglycerin 1 sl q5mins x3 25tabs Joselyn Scales, 03/28/2007 0.4mg Tablets as needed for M.D. Sub chest pain Ramipril 1 by mouth Unknown 5mg Capsules every day Rosuvastatin Calcium 1 by mouth Unknown 20mg every day, pm Tablets Aspir-Low 1 by mouth Unknown 81mg Tablets DR every day ( on hold for now) Glucosamine 1500 1 by mouth Unknown Complex every day 1500Com Capsules Calcium + D3 2 by mouth a Unknown 600-200 day Tablets One Daily one tablet Unknown Multivitamin/Iron daily Tablets Medications Administered in Office Medication SIG Qnty Indications Ordering Provider Date Technetium TC 99M Rafael Sharp M.D., 06/28/2018 Tetrofosmin, Per Unit Dose FACC, FASNC Up To 40 Millicuries Injection Vital Signs Date Vital Result Comment 07/01/2018 8:43am Height 62 inches 5'2" Weight 190.00 lb with shoes Heart Rate 68 /min BP Systolic Sitting 110 mmHg Lue, regular cuff BP Diastolic Sitting 62 mmHg Lue, regular cuff BP Systolic Standing 105 mmHg Lue, regular cuff BP Diastolic Standing 58 mmHg Lue, regular cuff Respiratory Rate 16 /min BMI (Body Mass Index) 34.7 kg/m2 05/31/2018 8:38am Height 62 inches 5'2" Weight 190.12 lb Heart Rate 80 /min BP Systolic 132 mmHg Lue reg cuff BP Diastolic 62 mmHg Lue reg cuff BP Systolic Sitting 120 mmHg Rue reg cuff BP Diastolic Sitting 70 mmHg Rue reg cuff BP Systolic Standing 122 mmHg Lue reg cuff BP Diastolic Standing 60 mmHg Lue reg cuff Respiratory Rate 17 /min BMI (Body Mass Index) 34.8 kg/m2 Procedures Date Code Description Status 08/26/2018 86236 ECHO Transthorasic Realtime 2D W Doppler & Color Flow Completed Hosp 08/20/2018 17514 Endoscopy Upper GI Control Hemorrhage Completed 06/28/2018 89639 Stress Test Completed 06/28/2018 65840 Myocardial Perfusion Imaging Tomographic (Spect) Completed Multiple Studies 06/14/2018 81063 ECHO Transthoracic, Real-Time 2D With Doppler And Completed Color Flow 06/14/2018 61430 ECHO Transthoracic, Real-Time 2D With Doppler And Completed Color Flow 05/31/2018 43972 EKG Tracing & Interpretation Completed 02/17/2017 [id number] Diabetic Retinal Eye Exam Completed 02/05/2016 [id number] Bone Mineral Density Test Completed Encounters Type Date Location Provider Dx Diagnosis Office Visit 08/27/2018 [facility] Tomasz Hardy, K26.4 Chronic or 11:47a pnio Alves M.D. unspecified Hospitalists duodenal ulcer with hemorrhage R60.1 Generalized edema N39.0 Urinary tract infection, site not specified B96.5 Pseudomonas (mallei) causing diseases classd elswhr E87.1 Hypo-osmolality and hyponatremia I12.9 Hypertensive chronic kidney disease w stg 1-4/unsp chr kdny N18.9 Chronic kidney disease, unspecified E11.9 Type 2 diabetes mellitus without complications Office Visit 08/26/2018 [facility] K92.2 Gastrointestinal 11:47a pino Alves D.O. 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 K92.2 Gastrointestinal 11:46a Assocpino D.O. 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 hemorrhage, Hospitalists unspecified N39.0 Urinary tract infection, site not specified B96.5 Pseudomonas (mallei) causing diseases classd elswhr I12.9 Hypertensive chronic kidney disease w stg 1-4/unsp chr kdny N18.9 Chronic kidney disease, unspecified E11.9 Type 2 diabetes mellitus without complications Office Visit 08/23/2018 [facility] Titi Short T81.31xA Disruption of 12:30p For Infectious Sg Odell external Diseases operation (surgical) wound, NEC, init T81.41xA Infct fol a proc, superfic incisional surgical site, init L03.311 Cellulitis of abdominal wall N39.0 Urinary tract infection, site not specified B96.5 Pseudomonas (mallei) causing diseases classd elswhr E11.9 Type 2 diabetes mellitus without complications Office Visit 08/23/2018 [facility] Jose K92.2 Gastrointestinal 11:46a Assoc,pino [place], [place] hemorrhage, Hospitalists unspecified E87.1 Hypo-osmolality and hyponatremia N39.0 Urinary tract infection, site not specified B96.5 Pseudomonas (mallei) causing diseases classd elswhr I12.9 Hypertensive chronic kidney disease w stg 1-4/unsp chr kdny N18.9 Chronic kidney disease, unspecified E11.9 Type 2 diabetes mellitus without complications Office Visit 08/23/2018 [facility] [place] S31.000A Unsp opn wnd low 8:45a Center AT [facility], 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 back and pelv w/o [facility] penet retroperiton, init R23.8 Other skin changes E11.8 Type 2 diabetes mellitus with unspecified complications Z66 Do not resuscitate Office Visit 08/22/2018 [facility] Jose K92.2 Gastrointestinal 11:44a Assoc,pino Wood [place] hemorrhage, Hospitalists unspecified E87.1 Hypo-osmolality and hyponatremia B96.5 Pseudomonas (mallei) causing diseases classd elswhr N39.0 Urinary tract infection, site not specified I12.9 Hypertensive chronic kidney disease w stg 1-4/unsp chr kdny N18.9 Chronic kidney disease, unspecified E11.9 Type 2 diabetes mellitus without complications Office Visit 08/21/2018 [facility] Jose K92.2 Gastrointestinal 11:44a Assoc,pino Wood [place] hemorrhage, Hospitalists unspecified N39.0 Urinary tract infection, site not specified I12.9 Hypertensive chronic kidney disease w stg 1-4/unsp chr kdny N18.9 Chronic kidney disease, unspecified E11.9 Type 2 diabetes mellitus without complications Office Visit 08/20/2018 [facility] Jose K92.2 Gastrointestinal 11:43a Assocpino PA hemorrhage, Hospitalists unspecified N18.9 Chronic kidney disease, unspecified I12.9 Hypertensive chronic kidney disease w stg 1-4/unsp chr kdny E11.9 Type 2 diabetes mellitus without complications Office Visit 08/19/2018 [facility] Brandi D64.9 Anemia, 11:43a Assoc,pino Shook, FREDDY unspecified Hospitalists K92.1 Melena E87.6 Hypokalemia R53.1 Weakness W19.xxxA Unspecified fall, initial encounter Office 08/19/2018 [facility]astroenterology Ilan Hannah K92.2 Gastrointestinal Visit 7:00a MD Bala hemorrhage, unspecified Office 07/01/2018 [facility] Ca Alves Z01.810 Encounter for Visit 8:40a Supervisor Composing Room AT [facility] Loyda preprocedural Sg cardiovascular examination I25.10 Athscl heart disease of [place] coronary artery w/o ang pctrs I35.0 Nonrheumatic aortic (valve) stenosis R06.02 Shortness of breath I34.2 Nonrheumatic mitral (valve) stenosis R01.1 Cardiac murmur, unspecified C67.9 Malignant neoplasm of bladder, unspecified Office Visit 05/31/2018 [place] Joselyn Scales Z01.810 Encounter for 8:45a Cardiology Ca [place] preprocedural [facility] cardiovascular examination I25.10 Athscl heart disease of [place] coronary artery w/o ang pctrs E78.00 Pure hypercholesterolemia, unspecified E11.8 Type 2 diabetes mellitus with unspecified complications R01.1 Cardiac murmur, unspecified R94.30 Abnormal result of cardiovascular function study, [facility] Plan of Treatment 07/01/2018 - Joselyn Scales M.D.Z01.810 Encounter for preprocedural cardiovascular examinationComments:You are in good cardiac shape for your surgery based on your stress test and echo.I25.10 Atherosclerotic heart disease of [place] coronary artery withComments:Your stress test showed normal heart strength and no evidence of significant blockages.Follow up:3-6 months (post op if needed, if not then 6 months with ECG).I35.0 Nonrheumatic aortic (valve) stenosisComments:Your echo showed some aging of the aortic valve, it doesn't open fully.R06.02 Shortness of ixduqqZ58.2 Nonrheumatic mitral (valve) stenosisComments:Your echo shows the valve is not opening fully.This is mild, we will follow.R01.1 Cardiac murmur, unspecifiedComments:The sound you hear in your ears is I think from the carotid artery, I heard a possible blockage ( vs.tortuosity) in the vessel.We will get your study for this scheduled and send the results to your surgical MD's.Follow up:Please schedule carotid doppler ordered earlier ASAPC67.9 Malignant neoplasm of bladder, unspecified
[2018-09-29 13:20] LABS: ABS Basophils 0.1 10^3/ul (0-0.2); ABS Eosinophils 0.6 10^3/ul (0-0.6); ABS Lymphocytes 1.2 10^3/ul (1.0-4.8); ABS Monocytes 0.6 10^3/ul (0-0.8); ABS Neutrophils 7.3 10^3/ul (1.5-7.7); Eosinophil % 6.4 %; Hematocrit 28 % (35-47); Hemoglobin 9.3 g/dL (12.0-16.0); Lymphocyte % 12.7 %; Mean Corpuscular HGB Conc 33 g/dL (31-36); Mean Corpuscular Hemoglobin 27 pg (27-31); Mean Corpuscular Volume 82 fL (80-97); Mean Platelet Volume 7.5 fL (7.4-10.4); Platelet Count 235 10^3/uL (150-450); Red Blood Count 3.48 10^6 /uL (3.70-4.87); Red Cell Distribution Width 20 % (10-15); White Blood Count 9.8 10^3/uL (3.5-10.8)
[2018-09-29 13:34] LABS: Urine Appearance Cloudy; Urine Bacteria Absent (Absent); Urine Bilirubin Negative (Negative); Urine Blood 3+ (Negative); Urine Color Straw; Urine Glucose Negative (Negative); Urine Ketones Negative (Negative); Urine Nitrite Negative (Negative); Urine Protein Negative (Negative); Urine Red Blood Cell 3+(>10/hpf) (Absent); Urine Specific Gravity 1.005 (1.010-1.030); Urine Squamous Epithelial Cell Present (Absent); Urine Urobilinogen Negative (Negative); Urine White Blood Cell 3+(>20/hpf) (Absent)
[2018-09-29 13:37] LABS: Albumin 2.8 g/dL (3.2-5.2); Albumin/Globulin Ratio 0.8 (1-3); BUN/Creatinine Ratio 26.7 (8-20); C Reactive Protein 59.4 mg/L (<8.01); Calcium 9.6 mg/dL (8.6-10.3); EGFR African American 77.4 (>60); Globulin 3.4 g/dL (2-4); Magnesium 1.8 mg/dL (1.9-2.7); Potassium 3.7 mmol/L (3.5-5.0); Total Bilirubin 0.4 mg/dL (0.2-1.0); Total Protein 6.2 g/dL (6.4-8.9)
--- NOTE | 2018-09-29 14:21 | ED ---
Syncope/Near Syncope - HPI Summary HPI Summary: Pt. is a 78 y.o female who presents to the ER from [facility] for a syncopal episode that occurred yesterday. Pt. is at [facility] for rehab. Pt. with a history of bladder cancer with cystectomy with ileal conduit done at [facility]. Pt. has seen Dr. Clifton in the passed. Pt. states yesterday at PT she had a syncopal episode. Pt. denies any CP, SOB, abd. pain, V/D. Sxs are moderate in severity. Pt. admitted a few weeks ago for UTI. No current modifying factors. - History Of Current Complaint Chief Complaint: EDGeneral Time Seen by Provider: 09/29/18 12:57 Hx Obtained From: Patient - Allergies/Home Medications Allergies/Adverse Reactions: Allergies Allergy/AdvReac Type Severity Reaction Status Date / Time cefepime Allergy Rash Verified 09/29/18 12:07 cephalexin [From Keflex] Allergy Rash Verified 09/29/18 12:07 ciprofloxacin Allergy Swelling Verified 09/29/18 12:07 piperacillin [From Zosyn] Allergy Rash And Verified 09/29/18 12:07 Itching tazobactam [From Zosyn] Allergy Rash And Verified 09/29/18 12:07 Itching Home Medications: Home Medications Aspirin 81 mg CHEW TAB* [Aspirin Low Dose TAB*] 81 mg PO DAILY 09/29/18 [ History Confirmed 09/29/18] Calamine LOTION* 1 applic TOPICAL TID PRN 09/29/18 [History Confirmed 09/29/18] PMH/Surg Hx/FS Hx/Imm Hx Previously Healthy: Yes Endocrine/Hematology History: Reports: Hx Diabetes - diet controlled Cardiovascular History: Reports: Hx Angina - history of, none recent, Hx Coronary Artery Disease - 1 cardiac stent 03/2007 Denies: Hx Hypertension, Hx Pacemaker/ICD, Other Cardiovascular Problems/ Disorders Respiratory History: Denies: Other Respiratory Problems/Disorders GI History: Reports: Hx Gastrointestinal Bleed, Other GI Disorders - Cholecystectomy 1979 History: Reports: Other Problems/Disorders - bladder tumor, s/p cystectomy , ileostomy, left nephrostomy Denies: Hx Dialysis, Hx Renal Disease - RIGHT URETER OBSTRUCTION ( DISTAL ) 2018 Musculoskeletal History: Reports: 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, Other Musculoskeletal History - Osteoporosis Sensory History: Reports: Hx Cataracts - Bilateral cataract extractions 2007, Hx Contacts or Glasses - Reading glasses, Hx Hearing Problem - [place] Denies: Hx Hearing Aid Opthamlomology History: Reports: Hx Cataracts - Bilateral cataract extractions 2007, Hx Contacts or Glasses - Reading glasses Neurological History: Denies: Other Neuro Impairments/Disorders Psychiatric History: Denies: Hx Panic Disorder - Cancer History Cancer Type, Location and Year: BLADDER CA Hx Chemotherapy: No Hx Radiation Therapy: No - Surgical History Surgery Procedure, Year, and Place: cystectomy; 04/2018 CYSTOSCOPY W/ BIOPSY. CHOLECYSTECTOMY 1979. Tonsillectomy as a kid. Cardiac stent placement 2007. Bilateral Cataract Extractions 2007. Colonoscopy. Urostomy 07/26/18 Hx Anesthesia Reactions: No Infectious Disease History: No Infectious Disease History: Denies: Traveled Outside the [place] in Last 30 Days - Family History Known Family History: Positive: Cardiac Disease, Diabetes, Other - Alzheimer's, cancer Negative: Renal Disease - Social History Occupation: Retired Lives: Assisted Living Alcohol Use: None Alcohol Amount: 1 glass of beer or wine 4-5 times a week Hx Substance Use: No Substance Use Type: Reports: None Hx Tobacco Use: Yes Smoking Status (MU): Former Smoker Type: Cigarettes Amount Used/How Often: 1 PPD for 46 years Have You Smoked in the Last Year: No Review of Systems Constitutional: Negative Negative: Fever, Chills Eyes: Negative ENT: Negative Cardiovascular: Negative Negative: Palpitations, Chest Pain Respiratory: Negative Negative: Shortness Of Breath, Cough Gastrointestinal: Negative Negative: Abdominal Pain, Vomiting, Diarrhea Genitourinary: Negative Neurological: Negative All Other Systems Reviewed And Are Negative: Yes Physical Exam Triage Information Reviewed: Yes Vital Signs On Initial Exam: Initial Vitals Temp Pulse Resp BP Pulse Ox 98.8 F 73 22 104/57 97 09/29/18 11:59 09/29/18 11:59 09/29/18 11:59 09/29/18 11:59 09/29/18 11:59 Vital Signs Reviewed: Yes Appearance: Positive: Well-Appearing - Pt. lying in bed in NAD. Answers questions appropriately. Skin: Positive: Warm, Dry Head/Face: Positive: Normal Head/Face Inspection Eyes: Positive: Normal, EOMI, NATE Neck: Positive: Supple Respiratory/Lung Sounds: Positive: Clear to Auscultation, Breath Sounds Present Cardiovascular: Positive: Normal, RRR Abdomen Description: Positive: Nontender, Soft, Other: - ileostomy draining clear urine. Neurological: Positive: Normal, CN Intact II-III Psychiatric: Positive: Affect/Mood Appropriate Diagnostics - Vital Signs Vital Signs Temp Pulse Resp BP Pulse Ox 09/29/18 13:22 69 115/49 97 09/29/18 13:00 73 98 09/29/18 12:52 71 116/50 96 09/29/18 12:22 70 122/62 99 09/29/18 11:59 98.8 F 73 22 104/57 97 - Laboratory Lab Results: Lab Results 09/29/18 09/29/18 09/29/18 Range/Units 13:09 13:09 13:09 WBC 9.8 (3.5-10.8) 10^3/uL RBC 3.48 L (3.70-4.87) 10^6 /uL Hgb 9.3 L (12.0-16.0) g/dL Hct 28 L (35-47) % MCV 82 (80-97) fL MCH 27 (27-31) pg MCHC 33 (31-36) g/dL RDW 20 H (10-15) % Plt Count 235 (150-450) 10^3/uL MPV 7.5 (7.4-10.4) fL Neut % (Auto) 74.3 % Lymph % (Auto) 12.7 % [place] % (Auto) 5.8 % Eos % (Auto) 6.4 % Baso % (Auto) 0.8 % Absolute Neuts (auto) 7.3 (1.5-7.7) 10^3/ul Absolute Lymphs (auto) 1.2 (1.0-4.8) 10^3/ul Absolute Monos (auto) 0.6 (0-0.8) 10^3/ul Absolute Eos (auto) 0.6 (0-0.6) 10^3/ul Absolute Basos (auto) 0.1 (0-0.2) 10^3/ul Absolute Nucleated RBC 0.0 10^3/ul Nucleated RBC % 0.0 Sodium 137 (135-145) mmol/L Potassium 3.7 (3.5-5.0) mmol/L Chloride 102 (101-111) mmol/L Carbon Dioxide 28 (22-32) mmol/L Anion Gap 7 (2-11) mmol/L BUN 23 (6-24) mg/dL Creatinine 0.86 (0.51-0.95) mg/dL Est GFR ( Amer) 77.4 (>60) Est GFR (Non-Af Amer) 64.0 (>60) BUN/Creatinine Ratio 26.7 H (8-20) Glucose 109 H (70-100) mg/dL Lactic Acid 1.5 (0.5-2.0) mmol/L Calcium 9.6 (8.6-10.3) mg/dL Magnesium 1.8 L (1.9-2.7) mg/dL Total Bilirubin 0.40 (0.2-1.0) mg/dL AST 48 H (13-39) U/L ALT 38 (7-52) U/L Alkaline Phosphatase 147 H (34-104) U/L Troponin I 0.00 (<0.04) ng/mL C-Reactive Protein 59.40 H (<8.01) mg/L Total Protein 6.2 L (6.4-8.9) g/dL Albumin 2.8 L (3.2-5.2) g/dL Globulin 3.4 (2-4) g/dL Albumin/Globulin Ratio 0.8 L (1-3) Lipase 29 (11.0-82.0) U/L Urine Color Urine Appearance Urine pH (5-9) Ur Specific [place] (1.010-1.030) Urine Protein (Negative) Urine Ketones (Negative) Urine Blood (Negative) Urine Nitrate (Negative) Urine Bilirubin (Negative) Urine Urobilinogen (Negative) Ur Leukocyte Esterase (Negative) Urine WBC (Auto) (Absent) Urine RBC (Auto) (Absent) Ur Squamous Epith Cells (Absent) Urine Bacteria (Absent) Urine Glucose (Negative) 09/29/18 Range/Units 13:16 WBC (3.5-10.8) 10^3/uL RBC (3.70-4.87) 10^6 /uL Hgb (12.0-16.0) g/dL Hct (35-47) % MCV (80-97) fL MCH (27-31) pg MCHC (31-36) g/dL RDW (10-15) % Plt Count (150-450) 10^3/uL MPV (7.4-10.4) fL Neut % (Auto) % Lymph % (Auto) % [place] % (Auto) % Eos % (Auto) % Baso % (Auto) % Absolute Neuts (auto) (1.5-7.7) 10^3/ul Absolute Lymphs (auto) (1.0-4.8) 10^3/ul Absolute Monos (auto) (0-0.8) 10^3/ul Absolute Eos (auto) (0-0.6) 10^3/ul Absolute Basos (auto) (0-0.2) 10^3/ul Absolute Nucleated RBC 10^3/ul Nucleated RBC % Sodium (135-145) mmol/L Potassium (3.5-5.0) mmol/L Chloride (101-111) mmol/L Carbon Dioxide (22-32) mmol/L Anion Gap (2-11) mmol/L BUN (6-24) mg/dL Creatinine (0.51-0.95) mg/dL Est GFR ( Amer) (>60) Est GFR (Non-Af Amer) (>60) BUN/Creatinine Ratio (8-20) Glucose (70-100) mg/dL Lactic Acid (0.5-2.0) mmol/L Calcium (8.6-10.3) mg/dL Magnesium (1.9-2.7) mg/dL Total Bilirubin (0.2-1.0) mg/dL AST (13-39) U/L ALT (7-52) U/L Alkaline Phosphatase (34-104) U/L Troponin I (<0.04) ng/mL C-Reactive Protein (<8.01) mg/L Total Protein (6.4-8.9) g/dL Albumin (3.2-5.2) g/dL Globulin (2-4) g/dL Albumin/Globulin Ratio (1-3) Lipase (11.0-82.0) U/L Urine Color Straw Urine Appearance Cloudy Urine pH 8.0 (5-9) Ur Specific [place] 1.005 L (1.010-1.030) Urine Protein Negative (Negative) Urine Ketones Negative (Negative) Urine Blood 3+ A (Negative) Urine Nitrate Negative (Negative) Urine Bilirubin Negative (Negative) Urine Urobilinogen Negative (Negative) Ur Leukocyte Esterase 3+ A (Negative) Urine WBC (Auto) 3+(>20/hpf) A (Absent) Urine RBC (Auto) 3+(>10/hpf) A (Absent) Ur Squamous Epith Cells Present A (Absent) Urine Bacteria Absent (Absent) Urine Glucose Negative (Negative) Result Diagrams: 09/29/18 13:09 09/29/18 13:09 Lab Statement: Any lab studies that have been ordered have been reviewed, and results considered in the medical decision making process. Course/Dx Course Of Treatment: Pt. presenting for evaluation of syncopal episode that occurred yesterday. Pt. has no complaints today. BP mildly low, VS otherwise stable. ECG done at 1312 shows a sinus rhythm of 69 bpm, normal axis, no st elevation or depression. After I examined pt. nurse informed me that pt.'s nephrostomy tube has become dislodged. Small about of bleeding. Labs shows chronic anemia. Normal renal function. Normal WBC. CRP elevated. U/A is contaminated but does show WBC and bacteria, will send for culture. CXR shows chronic change per radiology. Orthostatic VS positive with a lying bp 112/54 to standing 70/47. Pt.'s bp similar during recent admission. Pt. give 500cc bolus. Case discussed with Dr. Blakely, IR, and he is able to replace nephrostomy tube tonight. Case and disposition discussed with Dr. Bailon who agrees with dc back to detention after IR. - Diagnoses Differential Diagnosis/HQI/PQRI: Positive: Hypoglycemia, Hypovolemia, Seizure, Vasovagal Episode Provider Diagnoses: Orthostatic hypertension, Syncope, Nephrostomy tube displaced Discharge - Sign-Out/Discharge Documenting (check all that apply): Patient Departure Patient Received Moderate/Deep Sedation with Procedure: No - Discharge Plan Condition: Improved Disposition: HOME Patient Education Materials: Syncope (ED) Referrals: Torsten Modi MD [Primary Care Provider] - Additional Instructions: Follow up with PCP in 1-2 days Increase fluids Change positions slowly Return to ER if symptoms change or worsen - Billing Disposition and Condition Condition: IMPROVED Disposition: Home
[2018-09-29] MEDS ORDERED: NS 0.9% 500 ML* 500 ML IV ONE (17:10)
[2018-09-29] MEDS ORDERED: AZTREONAM IVPB ONE ×2 (17:30)
[2018-09-29 18:37] LABS: Activated Partial Thrombo Time 32.5 seconds (26.0-38.0); INR 1.09 (0.82-1.09)
[2018-09-29] MEDS ORDERED: fentaNYL* 50 MCG/ML 2 ML VIAL (100 MCG VIAL) ONE (18:42)
[2018-09-29 20:06] VITALS: BP 115/55
--- NOTE | 2018-10-03 16:36 | PN ---
Progress Note - Progress Note Date of Service: 09/29/18 Note: Patient signed out to me by Javier HOOPER pending replacement of nephrostomy tube. Nephrostomy tube successfully replaced by Dr. Elaina WRIGHT. Patient observed for 1 hour post procedure . Patient stable during entire time and per family is back to baseline mental status. Patient discharged in stable condition back to [facility].
== END 2018-09-29 18:01 | disposition home or self-care (01) ==
LOC: ED 11:55
DX: R55 Syncope and collapse (principal); I10 Essential (primary) hypertension; T83.022A Displacement of nephrostomy catheter, initial encounter; E11.9 Type 2 diabetes mellitus without complications; I25.10 Atherosclerotic heart disease of native coronary artery without angina pectoris; Z88.1 Allergy status to other antibiotic agents; Z79.82 Long term (current) use of aspirin; Z87.891 Personal history of nicotine dependence
CPT/HCPCS: 36415; 50432; 71045; 80053; 81003; 81015; 83605; 83690; 83735; 84484; 85025; 85610; 85730; 86140; 87086; 93005; 96365; 96375; 99156; 99157; 99284; C1725; C1729; C1769; C1887; J3010; Q9967

== ENCOUNTER → 2018-10-19 | Emergency (ER) | payer MEDICARE ==
[~2018-10-19] MED LIST changes: -Buffered Lidocaine 1% SYRIN* 1 ML/SYRINGE INTRADERM ONE; -Famotidine IV* 10 MG/ML 2 ML (20 mg) IV ONE; +Iodixanol* (CONTRAST) 320 MG/ML 100 ML SDV IV ONE; -Lactated Ringers 1000 ML Bag* 1,000 ML IV SCH
[2018-10-19] MEDS: NS 0.9% 1000 ML** 2,000 ML IV ONE ×2 (11:52→11:53)
[2018-10-19 11:54] LABS: ABS Eosinophils 0.5 10^3/ul (0-0.6); ABS Lymphocytes 0.6 10^3/ul (1.0-4.8); ABS Monocytes 0.6 10^3/ul (0-0.8); ABS Neutrophils 7.6 10^3/ul (1.5-7.7); Eosinophil % 5.4 %; Hematocrit 30 % (35-47); Hemoglobin 9.9 g/dL (12.0-16.0); Lymphocyte % 6.8 %; Mean Corpuscular HGB Conc 33 g/dL (31-36); Mean Corpuscular Hemoglobin 26 pg (27-31); Mean Corpuscular Volume 78 fL (80-97); Platelet Count 248 10^3/uL (150-450); Red Blood Count 3.88 10^6 /uL (3.70-4.87); Red Cell Distribution Width 19 % (10-15); White Blood Count 9.3 10^3/uL (3.5-10.8)
[2018-10-19 12:06] LABS: INR 1.08 (0.82-1.09)
[2018-10-19 12:16] LABS: Albumin 3.1 g/dL (3.2-5.2); Albumin/Globulin Ratio 0.8 (1-3); BUN/Creatinine Ratio 19.6 (8-20); Calcium 9.2 mg/dL (8.6-10.3); EGFR African American 57.1 (>60); EGFR Non-African American 47.2 (>60); Globulin 3.7 g/dL (2-4); Total Bilirubin 0.5 mg/dL (0.2-1.0); Total Protein 6.8 g/dL (6.4-8.9)
--- NOTE | 2018-10-19 13:07 | ED ---
GI/ HPI - HPI Summary HPI Summary: The pt is a 78 yr old female arriving by ambulance to [facility] c/o hematuria and blood w/stool beginning 1 hour [employer]. She has had and ileostomy and nephrostomy and mentions that there is blood in both bags with leakage. She states that she feels so-so and is in no pain. She denies SOB, CP, nausea, vomiting, or abd pain. She states that she had consulted with Dr. Clifton, urology, but her surgery was performed at [facility] in July 2018. - History of Current Complaint Chief Complaint: EDUrogenitalProblems Stated Complaint: POSSIBLE GI BLEED Hx Obtained From: Patient Onset/Duration: Started Hours Ago, Still Present Timing: Constant, Lasting Hours Severity: Moderate Current Severity: Moderate Pain Intensity: 0 Associated Signs and Symptoms: Positive: Blood w/Stool, Hematuria, Other: - Negative - SOB, CP. Negative: Nausea, Vomiting, Abdominal Pain Aggravating Factor(s): Nothing Alleviating Factor(s): Nothing - Additional Pertinent History Primary Care Physician: CARMEN - Allergy/Home Medications Allergies/Adverse Reactions: Allergies Allergy/AdvReac Type Severity Reaction Status Date / Time cefepime Allergy Rash Verified 10/20/18 21:21 cephalexin [From Keflex] Allergy Rash Verified 10/20/18 21:21 ciprofloxacin Allergy Swelling Verified 10/20/18 21:21 piperacillin [From Zosyn] Allergy Rash And Verified 10/20/18 21:21 Itching tazobactam [From Zosyn] Allergy Rash And Verified 10/20/18 21:21 Itching PMH/Surg Hx/FS Hx/Imm Hx Endocrine/Hematology History: Reports: Hx Diabetes - diet controlled Cardiovascular History: Reports: Hx Angina - history of, none recent, Hx Coronary Artery Disease - 1 cardiac stent 03/2007 Denies: Hx Hypertension, Hx Pacemaker/ICD, Other Cardiovascular Problems/ Disorders Respiratory History: Denies: Other Respiratory Problems/Disorders GI History: Reports: Hx Gastrointestinal Bleed, Other GI Disorders - Cholecystectomy 1979 History: Reports: Other Problems/Disorders - bladder tumor, s/p cystectomy , ileostomy, left nephrostomy Denies: Hx Dialysis, Hx Renal Disease - RIGHT URETER OBSTRUCTION ( DISTAL ) 2018 Musculoskeletal History: Reports: 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, Other Musculoskeletal History - Osteoporosis Sensory History: Reports: Hx Cataracts - Bilateral cataract extractions 2007, Hx Contacts or Glasses - Reading glasses, Hx Hearing Problem - [place] Denies: Hx Hearing Aid Opthamlomology History: Reports: Hx Cataracts - Bilateral cataract extractions 2007, Hx Contacts or Glasses - Reading glasses Neurological History: Denies: Other Neuro Impairments/Disorders Psychiatric History: Denies: Hx Panic Disorder - Cancer History Cancer Type, Location and Year: BLADDER CA Hx Chemotherapy: No Hx Radiation Therapy: No - Surgical History Surgery Procedure, Year, and Place: cystectomy; 04/2018 CYSTOSCOPY W/ BIOPSY. CHOLECYSTECTOMY 1979. Tonsillectomy as a kid. Cardiac stent placement 2007. Bilateral Cataract Extractions 2007. Colonoscopy. Urostomy 07/26/18 Hx Anesthesia Reactions: No Infectious Disease History: No Infectious Disease History: Denies: Traveled Outside the [place] in Last 30 Days - Family History Known Family History: Positive: Cardiac Disease, Diabetes, Other - Alzheimer's, cancer Negative: Renal Disease - Social History Alcohol Use: None Alcohol Amount: 1 glass of beer or wine 4-5 times a week Hx Substance Use: No Substance Use Type: Reports: None Hx Tobacco Use: Yes Smoking Status (MU): Former Smoker Type: Cigarettes Amount Used/How Often: 1 PPD for 46 years Have You Smoked in the Last Year: No Review of Systems Negative: Chest Pain Negative: Shortness Of Breath Positive: Other - blood with stool. Negative: Abdominal Pain, Vomiting, Nausea Positive: hematuria All Other Systems Reviewed And Are Negative: Yes Physical Exam - Summary Physical Exam Summary: Appearance: elderly female, Well-appearing, Well-nourished, lying in bed comfortably Skin: Warm, dry, no obvious rash Eyes: sclera anicteric, no conjunctival pallor ENT: mucous membranes moist, pharynx appears normal Neck: Supple, nontender Respiratory: Clear to auscultation, no signs of respiratory distress Cardiovascular: Normal S1, S2. No murmurs. Normal distal pulses in tibial and radial bilaterally. Abdomen: Soft, nontender, normal active bowel sounds present, ileostomy draining urine from ileal conduit that is bloody with clots, nephrostomy tube draining blood and clots into the urine. Musculoskeletal: Normal, Strength/ROM Intact Neurological: A&Ox3, awake and alert, mentation is normal, speech is fluent and appropriate Psychiatric: affect is normal, does not appear anxious or depressed Triage Information Reviewed: Yes Vital Signs On Initial Exam: Initial Vitals Temp Pulse Resp BP Pulse Ox 98.3 F 75 18 120/55 100 10/19/18 11:28 10/19/18 11:28 10/19/18 11:28 10/19/18 11:28 10/19/18 11:28 Vital Signs Reviewed: Yes Diagnostics - Vital Signs Vital Signs Temp Pulse Resp BP Pulse Ox 10/19/18 11:28 98.3 F 75 18 120/55 100 - Laboratory Lab Results: Lab Results 10/19/18 10/19/18 10/19/18 Range/Units 11:40 11:40 11:40 WBC 9.3 (3.5-10.8) 10^3/uL RBC 3.88 (3.70-4.87) 10^6 /uL Hgb 9.9 L (12.0-16.0) g/dL Hct 30 L (35-47) % MCV 78 L (80-97) fL MCH 26 L (27-31) pg MCHC 33 (31-36) g/dL RDW 19 H (10-15) % Plt Count 248 (150-450) 10^3/uL MPV 8.0 (7.4-10.4) fL Neut % (Auto) 81.1 % Lymph % (Auto) 6.8 % [place] % (Auto) 6.3 % Eos % (Auto) 5.4 % Baso % (Auto) 0.4 % Absolute Neuts (auto) 7.6 (1.5-7.7) 10^3/ul Absolute Lymphs (auto) 0.6 L (1.0-4.8) 10^3/ul Absolute Monos (auto) 0.6 (0-0.8) 10^3/ul Absolute Eos (auto) 0.5 (0-0.6) 10^3/ul Absolute Basos (auto) 0.0 (0-0.2) 10^3/ul Absolute Nucleated RBC 0.0 10^3/ul Nucleated RBC % 0.0 INR (Anticoag Therapy) 1.08 (0.82-1.09) Sodium 135 (135-145) mmol/L Potassium 4.0 (3.5-5.0) mmol/L Chloride 103 (101-111) mmol/L Carbon Dioxide 25 (22-32) mmol/L Anion Gap 7 (2-11) mmol/L BUN 22 (6-24) mg/dL Creatinine 1.12 H (0.51-0.95) mg/dL Est GFR ( Amer) 57.1 (>60) Est GFR (Non-Af Amer) 47.2 (>60) BUN/Creatinine Ratio 19.6 (8-20) Glucose 244 H (70-100) mg/dL Calcium 9.2 (8.6-10.3) mg/dL Total Bilirubin 0.50 (0.2-1.0) mg/dL AST 51 H (13-39) U/L ALT 41 (7-52) U/L Alkaline Phosphatase 161 H (34-104) U/L Total Protein 6.8 (6.4-8.9) g/dL Albumin 3.1 L (3.2-5.2) g/dL Globulin 3.7 (2-4) g/dL Albumin/Globulin Ratio 0.8 L (1-3) Blood Type Antibody Screen 10/19/18 Range/Units 11:40 WBC (3.5-10.8) 10^3/uL RBC (3.70-4.87) 10^6 /uL Hgb (12.0-16.0) g/dL Hct (35-47) % MCV (80-97) fL MCH (27-31) pg MCHC (31-36) g/dL RDW (10-15) % Plt Count (150-450) 10^3/uL MPV (7.4-10.4) fL Neut % (Auto) % Lymph % (Auto) % [place] % (Auto) % Eos % (Auto) % Baso % (Auto) % Absolute Neuts (auto) (1.5-7.7) 10^3/ul Absolute Lymphs (auto) (1.0-4.8) 10^3/ul Absolute Monos (auto) (0-0.8) 10^3/ul Absolute Eos (auto) (0-0.6) 10^3/ul Absolute Basos (auto) (0-0.2) 10^3/ul Absolute Nucleated RBC 10^3/ul Nucleated RBC % INR (Anticoag Therapy) (0.82-1.09) Sodium (135-145) mmol/L Potassium (3.5-5.0) mmol/L Chloride (101-111) mmol/L Carbon Dioxide (22-32) mmol/L Anion Gap (2-11) mmol/L BUN (6-24) mg/dL Creatinine (0.51-0.95) mg/dL Est GFR ( Amer) (>60) Est GFR (Non-Af Amer) (>60) BUN/Creatinine Ratio (8-20) Glucose (70-100) mg/dL Calcium (8.6-10.3) mg/dL Total Bilirubin (0.2-1.0) mg/dL AST (13-39) U/L ALT (7-52) U/L Alkaline Phosphatase (34-104) U/L Total Protein (6.4-8.9) g/dL Albumin (3.2-5.2) g/dL Globulin (2-4) g/dL Albumin/Globulin Ratio (1-3) Blood Type O Positive Antibody Screen Negative Result Diagrams: 10/19/18 11:40 10/19/18 11:40 Lab Statement: Any lab studies that have been ordered have been reviewed, and results considered in the medical decision making process. - EKG 1138 Cardiac Rate: NL - 75 bpm EKG Rhythm: Sinus Rhythm Summary of EKG Findings: NSR at 75 BPM, P waves, QRS complex, and T waves are within normal limits, T waves and intervals are normal, no ischemic changes. This is a normal EKG. GIGU Course/Dx - Course Course Of Treatment: The pt is a 78 yr old female arriving by ambulance to [facility] c/o hematuria and blood w/stool beginning 1 hour [employer]. She has had and ileostomy and nephrostomy and mentions that there is blood in both bags with leakage. She states that she feels so-so and is in no pain. She denies SOB, CP , nausea, vomiting, or abd pain. She states that she had consulted with Dr. Clifton, urology, but her surgery was performed at [facility] in July 2018. Physical exam is only notable for ileostomy draining urine from ileal conduit that is bloody with clots, nephrostomy tube draining blood and clots into the urine. Test results normal except for Hgb @ 9.9, Hct @ 30, MCV @ 78, MCH @ 26, Absolute lymphs @ 0.6, Creatinine @ 1.12, Glucose @ 244, AST @ 51, Alkaline Phosphatase @ 161, Albumin @ 3.1, Albumin/Globulin @ 0.8, Ur Specific [place] @ 1.006, 2+ Urine Protein, Urine Nitrate Positive, 2+ Ur Leukocyte, 3+ Ur WBC, and 3+ Ur RBC. An EKG reveals NSR at 75 BPM, P waves, QRS complex, and T waves are within normal limits, T waves and intervals are normal, no ischemic changes. This is a normal EKG. In the ED course the pt was given 100 ml visipaque IV and 2000 mls fluids IV. I spoke with Dr. Clifton concerning the patient. He suggests speaking with the physician who performed the patient's surgery at [facility]. I spoke with Dr. Taylor, urology at [facility], at 1445, and he recommends that the patient be discharged as her symptoms are not urgent at this time. The pt was diagnosed with hematuria, discharged home, and instructed to follow up with PCP within 3 days. The pt is stable and agreeable with this plan. - Diagnoses Provider Diagnoses: Hematuria - Physician Notifications Discussed Care Of Patient With: Sigifredo Clifton - urology Time Discussed With Above Provider: 12:40 Instructed by Provider To: Other - I spoke with Dr. Clifton concerning the patient. He suggests speaking with the physician who performed the patient's surgery at [facility]. I spoke with Dr. Taylor, urology at [facility], at 1445, and he recommends that the patient be discharged as her symptoms are not urgent at this time. Discharge - Sign-Out/Discharge Documenting (check all that apply): Patient Departure - discharge Patient Received Moderate/Deep Sedation with Procedure: No - Discharge Plan Condition: Good Disposition: HOME Patient Education Materials: Hematuria (ED) Referrals: Torsten Modi MD [Medical Doctor] - 2 Days Additional Instructions: The hgb level is stable and the patient clinically is not showing signs of serious blood loss, and the urine is still flowing from both areas. I spoke with Dr. Taylor, the urologist in [place]. He did not think we need to admit Mrs. Celeste at this time, or transfer her there, but he will check with his clinic staff and arrange for her to have an outpatient appointment with him. In the interim I would recommend getting a repeat hgb level on Wednesday to make sure it is not dropping precipitously. - Billing Disposition and Condition Condition: GOOD Disposition: Home - Attestation Statements Document Initiated by Sarah: Yes Documenting Scribe: Red Tarango Provider For Whom Sarah is Documenting (Include Credential): Leonel Galvan MD Scribe Attestation: IRed, scribed for Leonel Galvan MD on 10/21/18 at 0437. Scribe Documentation Reviewed: Yes Provider Attestation: The documentation as recorded by the Red gonzalez accurately reflects the service I personally performed and the decisions made by me, Leonel Galvan MD Status of Scribe Document: Viewed
[2018-10-19 13:43] LABS: Urine Appearance Cloudy; Urine Bacteria Absent (Absent); Urine Bilirubin Negative (Negative); Urine Blood 2+ (Negative); Urine Glucose Negative (Negative); Urine Ketones Negative (Negative); Urine Nitrite Positive (Negative); Urine Protein 2+(100 mg/dL) (Negative); Urine Red Blood Cell 3+(>10/hpf) (Absent); Urine Specific Gravity 1.006 (1.010-1.030); Urine Urobilinogen Negative (Negative); Urine White Blood Cell 3+(>20/hpf) (Absent)
[2018-10-19 15:37] VITALS: BP 119/68
== END | disposition home or self-care (01) ==
LOC: ED 11:21
DX: R31.9 Hematuria, unspecified (principal); Z88.1 Allergy status to other antibiotic agents; Z88.8 Allergy status to other drugs, medicaments and biological substances; Z79.899 Other long term (current) drug therapy; E11.9 Type 2 diabetes mellitus without complications; I25.119 Atherosclerotic heart disease of native coronary artery with unspecified angina pectoris; K21.9 Gastro-esophageal reflux disease without esophagitis; Z87.891 Personal history of nicotine dependence; Z90.6 Acquired absence of other parts of urinary tract
CPT/HCPCS: 36415; 74178; 76377; 80053; 81003; 81015; 85025; 85610; 86850; 86900; 86901; 87077; 87086; 87186; 93005; 96360; 96361; 99284; Q9967

== ENCOUNTER 2018-10-20 20:59 | Inpatient (IN) | payer MEDICARE, BC ==
[2018-10-20] MEDS ORDERED: NS 0.9% 1000 ML** 2,000 ML IV ONE (21:16)
[2018-10-20] MEDS ORDERED: NS 0.9% 1000 ML** 1,000 ML IV.FLUID IV ONE (21:17)
[2018-10-20] MEDS ORDERED: Aztreonam (*) 2 GM in NS 0.9% 100 ML* 100 ML IVPB ONE (21:25)
[2018-10-20] MEDS ORDERED: Vancomycin(*) 1,500 MG in NS 0.9% 250 ML* 250 ML IVPB ONE (21:25)
--- NOTE | 2018-10-20 21:25 | ED ---
GI/ HPI - HPI Summary HPI Summary: This pt is a 78 y/o female presenting to [facility] via EMS from [facility] for blood in ileostomy and nephrostomy bags for a couple of weeks now. Pt was seen in the ED for the same and was discharged home after consulting with a urologist from [facility]. Today she presents for persistent bleeding. Denies chest pain , SOB, abd pain. Pt had Urostomy done at [facility] in July 2018. - History of Current Complaint Chief Complaint: EDBleedingDisorder Time Seen by Provider: 10/20/18 21:14 Stated Complaint: BLEEDING PER EMS Hx Obtained From: Patient Onset/Duration: Started Weeks Ago, Still Present Timing: Lasting Weeks Current Severity: Moderate Pain Intensity: 0 - denies pain Associated Signs and Symptoms: Positive: UTI Symptoms - Hematuria. Negative: Fever, Chest Pain Aggravating Factor(s): Nothing Alleviating Factor(s): Nothing - Additional Pertinent History Primary Care Physician: CARMEN - Allergy/Home Medications Allergies/Adverse Reactions: Allergies Allergy/AdvReac Type Severity Reaction Status Date / Time cefepime Allergy Rash Verified 10/20/18 21:21 cephalexin [From Keflex] Allergy Rash Verified 10/20/18 21:21 ciprofloxacin Allergy Swelling Verified 10/20/18 21:21 piperacillin [From Zosyn] Allergy Rash And Verified 10/20/18 21:21 Itching tazobactam [From Zosyn] Allergy Rash And Verified 10/20/18 21:21 Itching Home Medications: Home Medications Acetaminophen [Acetaminophen Extra Strength] 1,000 mg PO TID 10/20/18 [History Confirmed 10/20/18] Simvastatin 20 mg PO DAILY 10/20/18 [History Confirmed 10/20/18] traMADol TAB* [Ultram*] 50 mg PO Q12H PRN 10/20/18 [History Confirmed 10/20/18] PMH/Surg Hx/FS Hx/Imm Hx Endocrine/Hematology History: Reports: Hx Diabetes - diet controlled Cardiovascular History: Reports: Hx Angina - history of, none recent, Hx Coronary Artery Disease - 1 cardiac stent 03/2007 Denies: Hx Hypertension, Hx Pacemaker/ICD, Other Cardiovascular Problems/ Disorders Respiratory History: Denies: Other Respiratory Problems/Disorders GI History: Reports: Hx Gastrointestinal Bleed, Other GI Disorders - Cholecystectomy 1979 History: Reports: Other Problems/Disorders - bladder tumor, s/p cystectomy , ileostomy, left nephrostomy Denies: Hx Dialysis, Hx Renal Disease - RIGHT URETER OBSTRUCTION ( DISTAL ) 2018 Musculoskeletal History: Reports: 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, Other Musculoskeletal History - Osteoporosis Sensory History: Reports: Hx Cataracts - Bilateral cataract extractions 2007, Hx Contacts or Glasses - Reading glasses, Hx Hearing Problem - HUGHES Denies: Hx Hearing Aid Opthamlomology History: Reports: Hx Cataracts - Bilateral cataract extractions 2007, Hx Contacts or Glasses - Reading glasses Neurological History: Denies: Other Neuro Impairments/Disorders Psychiatric History: Denies: Hx Panic Disorder - Cancer History Cancer Type, Location and Year: BLADDER CA Hx Chemotherapy: No Hx Radiation Therapy: No - Surgical History Surgery Procedure, Year, and Place: cystectomy; 04/2018 CYSTOSCOPY W/ BIOPSY. CHOLECYSTECTOMY 1979. Tonsillectomy as a kid. Cardiac stent placement 2007. Bilateral Cataract Extractions 2007. Colonoscopy. Urostomy 07/26/18 Hx Anesthesia Reactions: No Infectious Disease History: Unable to Obtain/Confirm Infectious Disease History: Denies: Traveled Outside the [place] in Last 30 Days - Family History Known Family History: Positive: Cardiac Disease, Diabetes, Other - Alzheimer's, cancer Negative: Renal Disease - Social History Alcohol Use: None Alcohol Amount: 1 glass of beer or wine 4-5 times a week Hx Substance Use: No Substance Use Type: Reports: None Hx Tobacco Use: Yes Smoking Status (MU): Former Smoker Type: Cigarettes Amount Used/How Often: 1 PPD for 46 years Have You Smoked in the Last Year: No Review of Systems Negative: Fever Negative: Chest Pain Negative: Shortness Of Breath Negative: Abdominal Pain Positive: hematuria All Other Systems Reviewed And Are Negative: Yes Physical Exam - Summary Physical Exam Summary: Appearance: elderly female, Well-appearing, Well-nourished, lying in bed comfortably Skin: Warm, dry, no obvious rash Eyes: sclera anicteric, no conjunctival pallor ENT: mucous membranes moist, pharynx appears normal Neck: Supple, nontender Respiratory: Clear to auscultation, no signs of respiratory distress Cardiovascular: Normal S1, S2. No murmurs. Normal distal pulses in tibial and radial bilaterally. Abdomen: Soft, nontender, normal active bowel sounds present, ileostomy draining urine from ileal conduit that is bloody with clots, nephrostomy tube draining blood and clots into the urine. Musculoskeletal: Normal, Strength/ROM Intact Neurological: A&Ox3, awake and alert, mentation is normal, speech is fluent and appropriate Psychiatric: affect is normal, does not appear anxious or depressed Triage Information Reviewed: Yes Vital Signs On Initial Exam: Initial Vitals Temp Pulse Resp BP Pulse Ox 98.1 F 84 18 83/41 98 10/20/18 21:04 10/20/18 21:04 10/20/18 21:04 10/20/18 21:04 10/20/18 21:04 Vital Signs Reviewed: Yes Diagnostics - Vital Signs Vital Signs Temp Pulse Resp BP Pulse Ox 10/20/18 21:10 88 17 87/44 96 10/20/18 21:08 87 16 83/41 99 10/20/18 21:07 87 100 10/20/18 21:04 98.1 F 84 18 83/41 98 - Laboratory Result Diagrams: 10/22/18 04:58 10/22/18 04:58 Lab Statement: Any lab studies that have been ordered have been reviewed, and results considered in the medical decision making process. - Ultrasound No standard instances Ultrasound Interpretation Completed By: Radiologist Summary of Ultrasound Findings: Renal US IMPRESSION: There is a left-sided percutaneous nephrostomy tube visible in the left renal pelvis and there is mild left hydronephrosis but no visible left renal calculi. Dr. Galvan has reviewed this report. - EKG 21:22 Cardiac Rate: NL - at 83 bpm EKG Rhythm: Sinus Rhythm Summary of EKG Findings: NSR at 83 BPM, P waves, QRS complex, and T waves are within normal limits, T waves and intervals are normal, no ischemic changes. This is a normal EKG. GIGU Course/Dx - Course Assessment/Plan: Pt is a 78 y/o female presenting to [facility] via EMS from [facility] for blood in ileostomy and nephrostomy bags for a couple of weeks now. Lab results show WBC of 15.2, hemoglobin of 8.4, hematocrit of 27, BUN of 33, creatinine of 1.92, CRP of 175.71. Urine culture from yesterday grew pseudomonas and enterococcus. Pt was started on the sepsis protocol. In the ED course the pt was given Vancomycin, Aztreonam. Discussed the case with Dr. Maguire, hospitalist, who accepted the pt for admission. - Diagnoses Provider Diagnoses: UTI (urinary tract infection), Sepsis - Physician Notifications Discussed Care Of Patient With: Tory Maguire - hospitalist Time Discussed With Above Provider: 21:23 Instructed by Provider To: Admit As Inpatient Discharge - Sign-Out/Discharge Documenting (check all that apply): Patient Departure - Admit to [facility] All imaging exams completed and their final reports reviewed: Yes Patient Received Moderate/Deep Sedation with Procedure: No - Discharge Plan Condition: Stable Disposition: ADMITTED TO [facility] - Billing Disposition and Condition Condition: STABLE Disposition: Admitted to [facility] - Attestation Statements Document Initiated by Sarah: Yes Documenting Scribe: Cierra Lance Provider For Whom Sarah is Documenting (Include Credential): Leonel Galvan MD Scribe Attestation: Cierra Rojas scribed for Leonel Galvan MD on 10/22/18 at 0604. Scribe Documentation Reviewed: Yes Provider Attestation: The documentation as recorded by the Cierra gonzalez accurately reflects the service I personally performed and the decisions made by Leonel sampson MD Status of Scribe Document: Viewed
[2018-10-20 21:48] LABS: ABS Eosinophils 1.5 10^3/ul (0-0.6); ABS Lymphocytes 0.5 10^3/ul (1.0-4.8); ABS Monocytes 0.5 10^3/ul (0-0.8); ABS Neutrophils 12.8 10^3/ul (1.5-7.7); Eosinophil % 9.5 %; Hematocrit 27 % (35-47); Hemoglobin 8.4 g/dL (12.0-16.0); Mean Corpuscular HGB Conc 32 g/dL (31-36); Mean Corpuscular Hemoglobin 25 pg (27-31); Mean Corpuscular Volume 78 fL (80-97); Mean Platelet Volume 7.6 fL (7.4-10.4); Platelet Count 272 10^3/uL (150-450); Red Blood Count 3.43 10^6 /uL (3.70-4.87); Red Cell Distribution Width 20 % (10-15); White Blood Count 15.2 10^3/uL (3.5-10.8)
[2018-10-20 21:58] LABS: INR 1.14 (0.82-1.09)
[2018-10-20 22:05] LABS: BUN/Creatinine Ratio 17.2 (8-20); C Reactive Protein 175.71 mg/L (<8.01); EGFR African American 30.6 (>60); EGFR Non-African American 25.3 (>60)
[2018-10-20 22:07] LABS: Troponin I 0.01 ng/mL (<0.04)
[2018-10-20] MEDS ORDERED: NS 0.9% 1000 ML** 1,000 ML IV SCH (22:45)
[2018-10-20] MEDS ORDERED: Vancomycin per Pharmacy* NOTE FOLLOW UP SCH (23:00)
[2018-10-20] MEDS ORDERED: NS 0.9% 1000 ML** 1,000 ML IV ONE (23:00)
--- NOTE | 2018-10-21 00:39 | PN ---
Sepsis Event Evaluation Date of Evaluation: 10/21/18 Time of Evaluation: 00:38 Current Stage of Sepsis: Septic Shock Vital Signs - Last 12 Hours: Vital Signs - 12 hr Temp Pulse Resp BP Pulse Ox 10/20/18 22:44 81 23 91/44 100 10/20/18 22:28 80 24 101/46 100 10/20/18 22:13 82 25 100/44 99 10/20/18 22:00 81 27 100 10/20/18 21:58 82 21 91/50 100 10/20/18 21:10 88 17 87/44 96 10/20/18 21:08 87 16 83/41 99 10/20/18 21:07 87 100 10/20/18 21:04 98.1 F 84 18 83/41 98 Lactic Acid: 10/20/18 21:40 Lactic Acid 2.3 H* - Cardiopulmonary Exam Capillary Refill: < or = to 5 seconds Respiratory: Symmetrical Chest Expansion and Respiratory Effort, Clear to Auscultation Cardiovascular: NL Sounds; No Murmurs; No JVD, RRR, - - trace edema B/L - Peripheral Pulse Exam Radial Pulses: Bilateral Normal - Skin Exam Skin Exam: Normal Turgor, [place] Coma Scale Best Eye Response: 4 - Spontaneous Best Motor Response: 6 - Obeys Commands Best Verbal Response: 5 - Oriented Coma Scale Total: 15 Assess/Plan/Problems-Billing Assessment:
--- NOTE | 2018-10-21 01:52 | HP ---
CC: Jose Fermin at [facility] * HISTORY AND PHYSICAL: DATE OF ADMISSION: 10/20/18 PRIMARY CARE PROVIDER: Jose Fermin at [facility]. CHIEF COMPLAINT: Hematuria and weakness. HISTORY OF PRESENT ILLNESS: Ms. Celeste is a 78-year-old female who has a history of bladder cancer, status post cystectomy with ileal conduit on followed by nephrostomy tube placement on 07/30/18 due to left-sided hydronephrosis at [facility] who had been at [facility] for subacute rehab when it was noted that the patient developed gross hematuria in both the ileal conduit and the nephrostomy. This was noticed perhaps on the weekend as reported by the patient's ; however, on 10/19/18, the patient was sent to the emergency room for evaluation of the hematuria. At that time, she was told to be stable and after the ER provider spoke with the patient's urologist at [facility] it was felt that the hematuria was likely not a reason to be admitted at that time and she was discharged back to [facility]. On 10/20/18, the patient continued to have significant hematuria. The patient was also noted to be weak. Because of this, she was sent to the emergency room for repeat evaluation. In reviewing the urine culture from 10/19/18, it was found that the patient's urine is growing Pseudomonas aeruginosa and Enterococcus faecalis. It is unclear which bag this urine specimen came from. Today, the patient states that she feels somewhat weak. She did not do PT today. Her states that the patient reported mild left flank pain on the afternoon of admission. The patient otherwise is feeling essentially at her baseline. PAST MEDICAL HISTORY: 1. Bladder cancer, status post cystectomy with ileal conduit and left nephrostomy. 2. Hypertension. 3. Hyperlipidemia. 4. Stage 3 chronic kidney disease. 5. Coronary artery disease. 6. Type 2 diabetes - diet controlled. 7. Obesity. PAST SURGICAL HISTORY: 1. Cystectomy with ileal conduit. 2. Left nephrostomy. 3. Bilateral cataract extraction. 4. Cholecystectomy. 5. Cystoscopy. 6. Hysterectomy. 7. Tonsillectomy. 8. Eye surgery. MEDICATIONS: 1. Tramadol 50 mg p.o. q.12 hours p.r.n. pain. 2. Tylenol Extra Strength 1000 mg p.o. t.i.d. 3. Simvastatin 20 mg p.o. daily. 4. Zoloft 25 mg p.o. daily. 5. Potassium chloride 20 mEq p.o. daily. 6. Glucosamine 1500 mg p.o. daily. 7. Aspirin 81 mg p.o. daily. 8. Torsemide 20 mg p.o. daily. ALLERGIES: CEFEPIME, CEPHALEXIN, CIPROFLOXACIN, and ZOSYN. FAMILY HISTORY: Mom had a history of breast and colon cancer. Dad had coronary artery disease and of an ND. The patient had a brother who of Alzheimer's and a sister who of Alzheimer's and cancer. SOCIAL HISTORY: The patient is a former smoker. She quit in 2007. She has a 46 pack year history of smoking. She has not been drinking since she has been at rehab, but typically would drink 4 to 5 drinks per week prior to her stay at [facility]. 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 She is . Her is her surrogate decision maker. REVIEW OF SYSTEMS: The patient denies any fevers or shaking chills. Her appetite has been mediocre; however, that is unchanged from the last couple of months. No chest pain. She does have chronic lower extremity edema. She has had an intermittent cough and is occasionally bringing up some sputum. No shortness of breath. She vomited once on the day prior to admission. No abdominal pain. No diarrhea. She has gross hematuria as noted above. She has generalized weakness. No dysphagia. No joint pains or muscle pains although ordinary. No rashes. No anxiety or depression. The rest of the review of systems is negative. PHYSICAL EXAMINATION GENERAL: The patient is a well-developed, elderly, obese female seen lying in the stretcher in no acute distress. VITAL SIGNS: Blood pressure 91/44, pulse 81, respirations 23, temp 98.1, O2 sat 100% on room air. HEENT: Pupils are equal and round. Extraocular muscles are intact. Oropharynx is clear. Oral mucosa is moist. NECK: There is no submandibular, cervical or supraclavicular adenopathy. Thyroid is not enlarged. No thyroid nodules noted. PULMONARY: Lungs are clear to auscultation bilaterally. CARDIAC: Normal S1, S2. Regular regular and rhythm. I do not appreciate any murmurs. There is trace to 1+ bilateral lower extremity pitting edema. ABDOMEN: Bowel sounds are present. Abdomen is soft and nontender. There is an ileal conduit in the right lower quadrant. There is froilan blood in the bag as well as a large blood clot. There is a left nephrostomy exiting the left flank. The tube and bag are filled with dark blood. It is also noted that when the patient sat forward, the pad underneath her were soaked with blood. MUSCULOSKELETAL: The patient moves all 4 extremities symmetrically. SKIN: Warm and dry. There are no rashes. There is mild diffuse erythema. The patient feels warm to touch. I do not have a recent temperature. NEUROLOGIC: Cranial nerves II through XII are grossly intact. Sensation is intact to light touch throughout. Strength is 5/5 and symmetric in both upper and lower extremities bilaterally. PSYCH: The patient is alert. She is oriented x3. Affect appears appropriate. DIAGNOSTIC STUDIES/LAB DATA: WBC 15.2, hemoglobin 8.4, hematocrit 27, platelets 272. INR 1.14. Sodium 135, potassium 4.0, chloride 104, CO2 22, BUN 33, creatinine 1.92, glucose 239, lactic acid 2.3, calcium 9.0. Troponin 0.01, CRP 175.71. EKG reveals normal sinus rhythm without any acute ST-T wave abnormalities. ASSESSMENT AND PLAN: Ms. Celeste is a 78-year-old female with a complicated urologic history consisting of bladder cancer requiring cystectomy followed by ileal conduit creation, followed by left nephrostomy insertion, who had a nephrostomy reinsertion on 09/29/18 and now presents to the emergency room with gross hematuria in both the nephrostomy and the ileal conduit and is found to have septic shock secondary to a complicated urinary tract infection. 1. Septic shock secondary to complicated urinary tract infection. At this point, the patient's blood pressure has improved slightly from when she presented to the emergency room; however, she remains low with a MAP less than 65. The patient has already received her sodium per kilogram bolus. I am going to bolus 1 more liter of fluid at this time as I do believe, she is likely still volume deplete if after the 1 L bolus her blood pressure has not improved with a MAP greater than 65, I will initiate Levophed. I spoke with Dr. Bright who recommended if the patient appeared to be nontoxic and have an improving/stable blood pressure, we could consider admitting the patient to the hospital, placing her in the ICU, hydrating her, continuing the IV antibiotics and obtaining a nephrostogram in the morning to determine if the nephrostomy tube is in the correct position. Given the cultures results from 10/19/18, the patient will be continued on vancomycin and aztreonam to cover both the Enterococcus faecalis and the pseudomonas. Her lactic acid was mildly elevated at 2.3. This will be followed up at approximately 1:15 a.m. on 10/21/18. The patient does have evidence of end organ dysfunction with an elevated creatinine of 1.92 today. It was 1.12 yesterday and 0.86 on 09/29/18. Her white blood cell count will be followed. 2. Hematuria. The patient has significant very dark hematuria. Her hemoglobin was 9.9 on 10/19/18. It has since trended down to 8.4 today. As noted above, there is a blood clot in the ileal conduit bag. I will check a followup hemoglobin at 01:15 when the lactic acid is drawn as it is likely she is volume deplete from her septic shock, I suspect the hemoglobin will be trending down after all the IV fluid hydration. She may need blood transfusion. I am going to hold her aspirin. 3. Hypertension. At this point, the patient is hypotensive. I am holding her torsemide. 4. Depression. We will continue her sertraline. 5. Hyperlipidemia. We are going to hold her statin while acutely ill. 6. Type 2 diabetes - diet controlled. At this point, the patient is hyperglycemic. I am going to start Lispro sliding scale q.4 hours as the patient will be n.p.o. for any potential procedures needed tomorrow morning. 7. DVT prophylaxis. According to the Adult Thrombosis Prophylaxis Risk Factor Assessment Guide, the patient has a total risk factor score of 8, making her the highest risk. SCDs alone will be utilized for DVT prophylaxis given the significant hematuria. 5. Code status is DNR. TIME SPENT: Seventy minutes was spent of critical care time admitting this patient. [id number]/[facility] #: [id number] JUAN
[2018-10-21] MEDS ORDERED: Norepinephrine 16MCG/ML IVPRE* 4,000 MCG/250 ML BAG IV SCH (02:00)
[2018-10-21 02:12] LABS: Hematocrit 14 % (35-47); Hemoglobin 3.9 g/dL (12.0-16.0)
[2018-10-21] MEDS: NS 0.9% 1000 ML** 1,000 ML IV SCH ×3 (02:41→15:32)
[2018-10-21] MEDS ORDERED: Lidocaine 1% INJ* 10 MG/ML 30 ML SDV ONE ×2 (02:43→03:09)
[2018-10-21 03:19] LABS: ABS Basophils 0.1 10^3/ul (0-0.2); ABS Eosinophils 1.7 10^3/ul (0-0.6); ABS Lymphocytes 0.7 10^3/ul (1.0-4.8); ABS Monocytes 0.6 10^3/ul (0-0.8); ABS Neutrophils 11.5 10^3/ul (1.5-7.7); Hematocrit 27 % (35-47); Hemoglobin 8.4 g/dL (12.0-16.0); Lymphocyte % 4.9 %; Mean Corpuscular HGB Conc 31 g/dL (31-36); Mean Corpuscular Hemoglobin 24 pg (27-31); Mean Corpuscular Volume 78 fL (80-97); Mean Platelet Volume 7.5 fL (7.4-10.4); Platelet Count 258 10^3/uL (150-450); Red Blood Count 3.46 10^6 /uL (3.70-4.87); Red Cell Distribution Width 20 % (10-15); White Blood Count 14.6 10^3/uL (3.5-10.8)
[2018-10-21 03:36] LABS: Calcium 8.1 mg/dL (8.6-10.3); EGFR African American 34.8 (>60); EGFR Non-African American 28.8 (>60); Potassium 3.9 mmol/L (3.5-5.0)
[2018-10-21] MEDS: Sertraline* 25 MG TAB PO SCH (09:30)
[2018-10-21] MEDS: Atorvastatin* 10 MG TAB PO SCH (09:30)
[2018-10-21] MEDS: Aztreonam (*) 1 GM in NS 0.9% 50 ML* 50 ML IVPB SCH ×2 (09:30→17:59)
[2018-10-21] MEDS: Acetaminophen TAB* 325 MG PO PRN (12:40)
--- NOTE | 2018-10-21 14:13 | PN ---
Subjective Date of Service: 10/21/18 Interval History: Patient seen and examined. Feeling well, no dizziness, no palpitations, no weakness. Denies fevers or chills. BP was somewhat low but no tachycardia per RN. Objective Active Medications: Acetaminophen (Tylenol Tab*) 650 mg PO Q4H PRN PRN Reason: PAIN - MILD Last Admin: 10/21/18 12:40 Dose: 650 mg Atorvastatin Calcium (Lipitor*) 10 mg PO DAILY [facility] Last Admin: 10/21/18 09:30 Dose: Not Given Aztreonam 1 gm/ Sodium (Chloride) 50 mls @ 200 mls/hr IVPB Q8H [facility] Last Admin: 10/21/18 09:30 Dose: 200 mls/hr Sodium Chloride (Ns 0.9% 1000 Ml) 1,000 mls @ 150 mls/hr IV PER RATE [facility] Last Admin: 10/21/18 05:37 Dose: 150 mls/hr Vancomycin HCl 1,250 mg/ (Sodium Chloride) 250 mls @ 166.667 mls/hr IVPB Q24H [facility] Pharmacy Consult (Vancomycin Per Pharmacy*) 1 note FOLLOW UP .VANC PER PHARMACY [facility]; Protocol Pharmacy Profile Note (Vancomycin Trough Check) 1 note FOLLOW UP 1430 ONE Stop: 10/23/18 14:31 Sertraline HCl (Zoloft*) 25 mg PO DAILY [facility] Last Admin: 10/21/18 09:30 Dose: Not Given Vital Signs - 8 hr 10/21/18 10/21/18 10/21/18 06:00 06:01 06:15 Temperature Pulse Rate 87 87 87 Respiratory 24 25 17 Rate Blood Pressure 100/49 102/49 (mmHg) O2 Sat by Pulse 100 100 99 Oximetry 10/21/18 10/21/18 10/21/18 06:30 06:45 07:00 Temperature Pulse Rate 87 89 88 Respiratory 21 26 26 Rate Blood Pressure 113/45 101/43 (mmHg) O2 Sat by Pulse 100 100 100 Oximetry 10/21/18 10/21/18 10/21/18 07:01 07:15 07:30 Temperature Pulse Rate 93 90 90 Respiratory 18 29 26 Rate Blood Pressure 96/51 105/50 113/47 (mmHg) O2 Sat by Pulse 99 99 98 Oximetry 10/21/18 10/21/18 10/21/18 07:45 08:00 08:15 Temperature 100 F Pulse Rate 91 93 92 Respiratory 27 19 28 Rate Blood Pressure 100/49 109/43 106/51 (mmHg) O2 Sat by Pulse 98 97 99 Oximetry 10/21/18 10/21/18 10/21/18 08:30 08:45 09:00 Temperature Pulse Rate 93 94 95 Respiratory 28 29 23 Rate Blood Pressure 91/68 95/49 95/46 (mmHg) O2 Sat by Pulse 99 98 98 Oximetry 10/21/18 10/21/18 10/21/18 09:07 09:15 09:30 Temperature Pulse Rate 96 93 94 Respiratory 28 28 22 Rate Blood Pressure 102/46 102/46 91/54 (mmHg) O2 Sat by Pulse 98 98 98 Oximetry 10/21/18 10/21/18 10/21/18 11:00 11:02 11:50 Temperature 99.8 F Pulse Rate 89 Respiratory 24 25 Rate Blood Pressure (mmHg) O2 Sat by Pulse 96 Oximetry Oxygen Devices in Use Now: None Appearance: alert, NAD Eyes: No Scleral Icterus, PERRLA Ears/Nose/Mouth/Throat: Mucous Membranes Moist Neck: NL Appearance and Movements; NL JVP, Trachea Midline Respiratory: Symmetrical Chest Expansion and Respiratory Effort, Clear to Auscultation Cardiovascular: NL Sounds; No Murmurs; No JVD, RRR, No Edema Abdominal: NL Sounds; No Tenderness; No Distention Extremities: No Edema, No Clubbing, Cyanosis Skin: No Rash or Ulcers, No Nodules or Sclerosis Neurological: Alert and Oriented x 3 Lines/Tubes/Other Access: Clean, Dry and Intact Other Access - nephrostomy and ileal conduit with gross hematuria and clots Result Diagrams: 10/21/18 03:11 10/21/18 03:11 Diagnostic Imaging: Patient Name: KARLI SANTANA Medical Record#: [id number] Ordering Physician: Tory Maguire DO Acct.#: [id number] : 1940 Age: 78 Sex: F Location: [facility] Exam Date: 10/21/18 06 ADM Status: ADM IN Order Information: NEPHROSTOGRAM ANTEGRADE Accession Number: [id number] CPT: 08489 INDICATION: Hematuria. COMPARISON: October 19, [address] TECHNIQUE: The benefits and risks of the procedure were explained to the patient. The patient consented to the exam. A timeout was performed before beginning the procedure. A spike machine feeder fluoroscopic image of the left kidney was obtained. Surgical clips are seen in the lower abdomen and right pelvis. A 50-50 mixture of saline and Omnipaque 320 was then administered through the previously placed left nephroureteral tube. A total of 10 mL was administered. Contrast easily filled the stent and opacified the left renal pelvis and right ileal conduit. There was no abnormal extravasation of contrast. The patient tolerated the procedure well without incident. IMPRESSION: 1. Left nephroureteral tube check with expected results. Contrast easily opacified the tube and filled the left collecting system and right ileal conduit. No extravasated contrast was observed. Assess/Plan/Problems-Billing Assessment: This is a78 year old female patient with hx of bladder CA, s/p cestectomy with nephrostomy tube and ileal conduit that presented from [facility] with complaints of gross hematuria, weakness and septic shock. - Patient Problems (1) Hematuria Code(s): R31.9 - HEMATURIA, UNSPECIFIED SNOMED Code(s): 17163870 Comment: - With hx of bladder CA and ileal conduit/nephrostomy - Dr. Clifton following - Nephrostogram as above, no extravasation noted on imaging. Dr. Clifton has consulted with Dr. Blakely to see if the bleeding is erosion of the nephrostomy tube causing bleeding at both sites and see if changing tube will help, pending further recs - H&H stable 8.07/16 (2) Septic shock Code(s): A41.9 - SEPSIS, UNSPECIFIED ORGANISM; R65.21 - SEVERE SEPSIS WITH SEPTIC SHOCK SNOMED Code(s): 28448354 Comment: - s/p bolus, continue azactam and vanco - cultures of urine on 10/19 with pseudomonas aeroginosa and enterococcus faecalis - BP stable, no tachycardia, patient did not require pressors overnight - sepsis resolved - Blood cultures NTD, continue to follow (3) CKD (chronic kidney disease) Code(s): N18.9 - CHRONIC KIDNEY DISEASE, UNSPECIFIED SNOMED Code(s): 498100041 Comment: - Hx of CKD with creatinine at baseline today 1.72 (4) DM II (diabetes mellitus, type II), controlled Code(s): E11.9 - TYPE 2 DIABETES MELLITUS WITHOUT COMPLICATIONS SNOMED Code(s) : 42919069 Comment: - accucheck ACHS with HH/CC diet (5) Depression Code(s): F32.9 - MAJOR DEPRESSIVE DISORDER, SINGLE EPISODE, UNSPECIFIED SNOMED Code(s): 17927493 Comment: - Continue Zoloft 25 mg daily (6) DVT prophylaxis Code(s): Z29.9 - ENCOUNTER FOR PROPHYLACTIC MEASURES, UNSPECIFIED SNOMED Code( s): 222074005 Comment: - SCDs given hematuria (7) DNR (do not resuscitate) Comment: Status and Disposition: Inpatient, downgrade from ICU to surgical short stay.
[2018-10-21] MEDS ORDERED: Dextrose 50% Syringe 50 ML* 25 GM/50 ML SYRINGE IV PUSH PRN (14:19)
[2018-10-21] MEDS ORDERED: Dextrose 50% VIAL 50 ml IV PUSH PRN (14:22)
[2018-10-21] MEDS: Vancomycin(*) 1,250 MG in NS 0.9% 250 ML* 250 ML IVPB SCH (15:34)
[2018-10-21] MEDS: Insulin LISPRO* 1 UNITS UNIT SUBCUT SCH ×2 (17:08→22:02)
--- NOTE | 2018-10-21 19:41 | CONS ---
CONSULTATION NOTE: DATE OF CONSULT: 10/21/18 HISTORY OF PRESENT ILLNESS: Mrs. 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 It was associated with right ureteral obstruction. The patient was referred to [facility] where she was found not to be a candidate for systemic chemotherapy and underwent a radical cystectomy with creation of ileal conduit. The pathology showed invasive disease and she had positive lymph nodes. Her right kidney was poorly functioning and most of her function was from the left kidney. 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 This has been replaced periodically. The patient has been followed by the Oncology Service and was started on chemotherapy. For the last week, the patient has been having recurrent episodes of gross hematuria with the blood noted both in the nephrostomy tube and in the ileal conduit. Her renal function was adequate with a creatinine of about 1.2. Two days ago, she underwent a CT urogram, which showed no hydronephrosis and there was good drainage of the urine and the contrast from her left kidney into the ileal conduit. The patient was readmitted last night with what sounded like persistent hematuria and sepsis. Her hematuria had persisted; however, her hemoglobin has been stable about 8.4. consultation was obtained regarding the gross hematuria. The patient had a nephrostogram today, which showed patency of the nephrostomy tube and no radiological explanation for the gross hematuria. Her blood culture turned out to be positive today for gram-negative bacilli. The Hospitalist Service will be adjusting the antibiotic to cover the organism. The differential diagnosis of the gross hematuria includes pyelitis secondary to the infection, erosion of the nephrostomy tube into the renal parenchyma, or transitional cell carcinoma of the ureter or the renal pelvis that is not visualized on the study because of the presence of the stent. I discussed the possibility of the nephrostomy tube erosion with Dr. Blakely, the interventional radiologist, who recently replaced her nephrostomy tube. He will be seeing the patient and giving his opinion regarding that condition. Considering that the hematocrit has been stable and has not required any transfusion, I think it will be reasonable at this time to treat the infection and sepsis. If the gross hematuria persists, then additional imaging might be needed including ruling out the bleeding from the renal parenchyma. [id number]/[facility] #: [id number] MTDD
[2018-10-22] MEDS: Aztreonam (*) 1 GM in NS 0.9% 50 ML* 50 ML IVPB SCH ×4 (00:45→23:49)
[2018-10-22] MEDS: NS 0.9% 1000 ML** 1,000 ML IV SCH ×3 (01:47→14:59)
[2018-10-22 05:40] LABS: ABS Eosinophils 1.1 10^3/ul (0-0.6); ABS Lymphocytes 0.6 10^3/ul (1.0-4.8); ABS Monocytes 0.6 10^3/ul (0-0.8); ABS Neutrophils 10.9 10^3/ul (1.5-7.7); Eosinophil % 8.1 %; Hematocrit 23 % (35-47); Hemoglobin 7.3 g/dL (12.0-16.0); Lymphocyte % 4.3 %; Mean Corpuscular HGB Conc 32 g/dL (31-36); Mean Corpuscular Hemoglobin 25 pg (27-31); Mean Corpuscular Volume 78 fL (80-97); Mean Platelet Volume 7.8 fL (7.4-10.4); Platelet Count 245 10^3/uL (150-450); Red Cell Distribution Width 20 % (10-15); White Blood Count 13.2 10^3/uL (3.5-10.8)
[2018-10-22 06:00] LABS: Albumin 2.5 g/dL (3.2-5.2); Albumin/Globulin Ratio 0.9 (1-3); BUN/Creatinine Ratio 21.2 (8-20); Calcium 8.3 mg/dL (8.6-10.3); EGFR African American 40.4 (>60); EGFR Non-African American 33.4 (>60); Globulin 2.9 g/dL (2-4); Total Bilirubin 0.3 mg/dL (0.2-1.0); Total Protein 5.4 g/dL (6.4-8.9)
[2018-10-22] MEDS: Insulin LISPRO* 1 UNITS UNIT SUBCUT SCH ×4 (08:17→21:43)
[2018-10-22] MEDS: Atorvastatin* 10 MG TAB PO SCH (08:36)
[2018-10-22] MEDS: Sertraline* 25 MG TAB PO SCH (08:36)
[2018-10-22] MEDS: oxyCODONE/Acetamin 5/325 MG* TAB PO PRN ×2 (10:04→16:57)
[2018-10-22] MEDS: Vancomycin(*) 1,250 MG in NS 0.9% 250 ML* 250 ML IVPB SCH (15:04)
--- NOTE | 2018-10-22 16:53 | PN ---
Subjective Date of Service: 10/22/18 Interval History: Ms. Celeste is feeling fine this morning. She c/o mid back pain which she rates 7/ 10. Had a good night. No other complaints. Denies CP, SOB, N/V, dizziness. Nursing reports bloody output from nephrostomy and urostomy. Family History: Unchanged from Admission Social History: Unchanged from Admission Past Medical History: Unchanged from Admission Objective Active Medications: Acetaminophen (Tylenol Tab*) 650 mg PO Q4H PRN PAIN - MILD Atorvastatin Calcium (Lipitor*) 10 mg PO DAILY [facility] Dextrose (Dextrose 50% Vial 50 Ml*) 25 ml IV PUSH .FOR FS < 60 - SS PRN FS < 60 Aztreonam 1 gm/ Sodium (Chloride) 50 mls @ 200 mls/hr IVPB Q8H [facility] Sodium Chloride (Ns 0.9% 1000 Ml) 1,000 mls @ 150 mls/hr IV PER RATE [facility] Vancomycin HCl 1,250 mg/ (Sodium Chloride) 250 mls @ 166.667 mls/hr IVPB Q24H [facility] Insulin Human Lispro (Humalog*) 0 units SUBCUT ACHS [facility]; Protocol Oxycodone/Acetaminophen (Percocet 5/325 Tab*) 1 tab PO Q6H PRN PAIN - SEVERE Sertraline HCl (Zoloft*) 25 mg PO DAILY [facility] Vital Signs - 8 hr 10/22/18 10/22/18 10/22/18 10:04 11:07 12:29 Temperature 97.6 F Pulse Rate 71 Respiratory 18 18 18 Rate Blood Pressure 98/46 (mmHg) O2 Sat by Pulse 99 Oximetry 10/22/18 10/22/18 15:27 15:37 Temperature 97.8 F Pulse Rate 77 Respiratory 24 18 Rate Blood Pressure 120/48 (mmHg) O2 Sat by Pulse 100 Oximetry Oxygen Devices in Use Now: None Appearance: Elderly female laying in bed in NAD Eyes: No Scleral Icterus Ears/Nose/Mouth/Throat: Mucous Membranes Moist Neck: NL Appearance and Movements; NL JVP, Trachea Midline Respiratory: Symmetrical Chest Expansion and Respiratory Effort, Clear to Auscultation Cardiovascular: NL Sounds; No Murmurs; No JVD, RRR Abdominal: NL Sounds; No Tenderness; No Distention Neurological: Alert and Oriented x 3 Lines/Tubes/Other Access: Clean, Dry and Intact Peripheral IV Nutrition: Taking PO's Result Diagrams: 10/22/18 04:58 10/22/18 04:58 Assess/Plan/Problems-Billing Assessment: Ms. Celeste is a 78 yo F with PMH of bladder CA, s/p cestectomy with nephrostomy tube and ileal conduit that presented from [facility] with complaints of gross hematuria and weakness, found to be septic. - Patient Problems (1) UTI (urinary tract infection) Comment: - Urine culture from 10/19 growing >100k colonies Pseudomonas and Enterococcus - Continue aztreonam, vanco (2) Hematuria Code(s): R31.9 - HEMATURIA, UNSPECIFIED Comment: - With hx of bladder CA and ileal conduit/nephrostomy - H&H stable - Dr. Clifton following - Nephrostogram shows extravasation; Dr. Clifton has consulted with Dr. Blakely to see if the bleeding is erosion of the nephrostomy tube causing bleeding at both sites and see if changing tube will help; pending further recs (3) Septic shock Code(s): A41.9 - SEPSIS, UNSPECIFIED ORGANISM; R65.21 - SEVERE SEPSIS WITH SEPTIC SHOCK Comment: - Resolved - Required Levophed - Urinary source; one bottle BC now growing pseudomonas - ID consult Wednesday - Continue vanco, aztreonam (4) DM II (diabetes mellitus, type II), controlled Code(s): E11.9 - TYPE 2 DIABETES MELLITUS WITHOUT COMPLICATIONS Comment: - Continue Lispro SS (5) CKD (chronic kidney disease) Code(s): N18.9 - CHRONIC KIDNEY DISEASE, UNSPECIFIED Comment: - Stage 3 - Baseline creatinine hard to decipher, though appears around baseline (6) Depression Code(s): F32.9 - MAJOR DEPRESSIVE DISORDER, SINGLE EPISODE, UNSPECIFIED Comment: - Continue sertraline (7) DVT prophylaxis Code(s): Z29.9 - ENCOUNTER FOR PROPHYLACTIC MEASURES, UNSPECIFIED Comment: - SCDs only in the setting of hematuria (8) DNR (do not resuscitate) Comment: Status and Disposition: Inpatient. Anticipate d/c back to [facility] when medically stable. Attending: Era Lucas
[2018-10-22] MEDS ORDERED: NS 0.9% 1000 ML** 1,000 ML IV SCH (18:43)
[2018-10-22] MEDS ORDERED: Albuterol 2.5 MG/3 ML NEB.SOL* (0.083%) INH PRN (21:25)
[2018-10-23] MEDS: Aztreonam (*) 1 GM in NS 0.9% 50 ML* 50 ML IVPB SCH ×3 (08:37→23:58)
[2018-10-23] MEDS: Atorvastatin* 10 MG TAB PO SCH (08:37)
[2018-10-23] MEDS: Sertraline* 25 MG TAB PO SCH (08:37)
[2018-10-23 09:03] LABS: Albumin 2.5 g/dL (3.2-5.2); Albumin/Globulin Ratio 0.8 (1-3); BUN/Creatinine Ratio 26.8 (8-20); Calcium 8.6 mg/dL (8.6-10.3); EGFR African American 41.1 (>60); EGFR Non-African American 33.9 (>60); Total Bilirubin 0.2 mg/dL (0.2-1.0); Total Protein 5.5 g/dL (6.4-8.9)
[2018-10-23] MEDS: Insulin LISPRO* 1 UNITS UNIT SUBCUT SCH ×4 (09:04→21:52)
[2018-10-23 10:17] LABS: ABS Basophils 0.1 10^3/ul (0-0.2); ABS Eosinophils 1.3 10^3/ul (0-0.6); ABS Lymphocytes 0.7 10^3/ul (1.0-4.8); ABS Monocytes 0.6 10^3/ul (0-0.8); ABS Neutrophils 12.3 10^3/ul (1.5-7.7); Eosinophil % 8.6 %; Hematocrit 24 % (35-47); Hemoglobin 7.5 g/dL (12.0-16.0); Mean Corpuscular HGB Conc 31 g/dL (31-36); Mean Corpuscular Hemoglobin 25 pg (27-31); Mean Corpuscular Volume 79 fL (80-97); Mean Platelet Volume 7.5 fL (7.4-10.4); Platelet Count 303 10^3/uL (150-450); Red Blood Count 3.07 10^6 /uL (3.70-4.87); Red Cell Distribution Width 20 % (10-15); White Blood Count 15.1 10^3/uL (3.5-10.8)
[2018-10-23] MEDS: Sodium Bicarbonate (ANTACID)* 650 MG TAB PO SCH ×2 (13:49→21:53)
[2018-10-23] MEDS ORDERED: Vancomycin Trough Check NOTE FOLLOW UP ONE (14:30)
[2018-10-23] MEDS: oxyCODONE/Acetamin 5/325 MG* TAB PO PRN (15:18)
[2018-10-23] MEDS: Vancomycin(*) 1,250 MG in NS 0.9% 250 ML* 250 ML IVPB SCH (15:20)
--- NOTE | 2018-10-23 15:29 | PN ---
Subjective Date of Service: 10/23/18 Interval History: Ms. Celeste is feeling okay this morning. She offers no complaints. Slept well overnight. Does admit to abdominal/back pain. Similar to yesterday, but improving. She is unable to further describe the pain. Denies CP, SOB, N/V. No concerns from nursing. Family History: Unchanged from Admission Social History: Unchanged from Admission Past Medical History: Unchanged from Admission Objective Active Medications: Acetaminophen (Tylenol Tab*) 650 mg PO Q4H PRN PAIN - MILD Albuterol (Ventolin 2.5 Mg/3 Ml Neb.Hoda*) 2.5 mg INH Q4H PRN SOB/WHEEZING Atorvastatin Calcium (Lipitor*) 10 mg PO DAILY [facility] Dextrose (Dextrose 50% Vial 50 Ml*) 25 ml IV PUSH .FOR FS < 60 - SS PRN FS < 60 Aztreonam 1 gm/ Sodium (Chloride) 50 mls @ 200 mls/hr IVPB Q8H [facility] Vancomycin HCl 1,250 mg/ (Sodium Chloride) 250 mls @ 166.667 mls/hr IVPB Q24H [facility] Insulin Human Lispro (Humalog*) 0 units SUBCUT ACHS [facility]; Protocol Oxycodone/Acetaminophen (Percocet 5/325 Tab*) 1 tab PO Q6H PRN PAIN - SEVERE Sertraline HCl (Zoloft*) 25 mg PO DAILY [facility] Sodium Bicarbonate (Sodium Bicarbonate (Antacid)*) 650 mg PO TID [facility] Vital Signs - 8 hr 10/23/18 10/23/18 10/23/18 08:00 09:51 10:45 Temperature 97.3 F Pulse Rate 84 74 103 Respiratory 20 20 28 Rate Blood Pressure 122/47 (mmHg) O2 Sat by Pulse 99 95 94 Oximetry 10/23/18 10/23/18 10/23/18 11:12 11:14 15:08 Temperature 97.5 F 97.7 F Pulse Rate 96 89 Respiratory 20 22 Rate Blood Pressure 99/39 108/58 111/44 (mmHg) O2 Sat by Pulse 96 99 Oximetry Oxygen Devices in Use Now: None Appearance: Elderly female laying in bed in NAD Eyes: No Scleral Icterus Ears/Nose/Mouth/Throat: Mucous Membranes Moist Neck: NL Appearance and Movements; NL JVP, Trachea Midline Respiratory: Symmetrical Chest Expansion and Respiratory Effort, Clear to Auscultation Cardiovascular: NL Sounds; No Murmurs; No JVD, RRR Abdominal: NL Sounds; No Tenderness; No Distention Neurological: - - Oriented to self and place; [place] Lines/Tubes/Other Access: Clean, Dry and Intact Peripheral IV Nutrition: Taking PO's Result Diagrams: 10/23/18 10:00 10/23/18 08:03 Assess/Plan/Problems-Billing Assessment: Ms. Celeste is a 78 yo F with PMH of bladder CA, s/p cestectomy with nephrostomy tube and ileal conduit that presented from [facility] with complaints of gross hematuria and weakness, found to be septic. - Patient Problems (1) UTI (urinary tract infection) Comment: - Recurrent UTIs - Urine culture from 10/19 growing >100k colonies Pseudomonas and Enterococcus - ID consult Wednesday - Continue aztreonam, vanco (2) Hematuria Code(s): R31.9 - HEMATURIA, UNSPECIFIED Comment: - With history of bladder cancer and ileal conduit/nephrostomy - Gross hematuria and clots noted in urostomy and nephrostomy bags - H&H stable - Dr. Clifton following - Nephrostogram shows extravasation; Dr. Clifton has consulted with Dr. Blakely to see if the bleeding is erosion of the nephrostomy tube causing bleeding at both sites and see if changing tube will help; pending further recs (3) Septic shock Code(s): A41.9 - SEPSIS, UNSPECIFIED ORGANISM; R65.21 - SEVERE SEPSIS WITH SEPTIC SHOCK Comment: - Resolved - Required Levophed - Urinary source; one bottle BC now growing pseudomonas - ID consult Wednesday - Continue vanco, aztreonam (4) DM II (diabetes mellitus, type II), controlled Code(s): E11.9 - TYPE 2 DIABETES MELLITUS WITHOUT COMPLICATIONS Comment: - Continue Lispro SS (5) CKD (chronic kidney disease) Code(s): N18.9 - CHRONIC KIDNEY DISEASE, UNSPECIFIED Comment: - Stage 3 - Baseline creatinine hard to decipher, possibly around 1.1 (6) Depression Code(s): F32.9 - MAJOR DEPRESSIVE DISORDER, SINGLE EPISODE, UNSPECIFIED Comment: - Continue sertraline (7) DVT prophylaxis Code(s): Z29.9 - ENCOUNTER FOR PROPHYLACTIC MEASURES, UNSPECIFIED Comment: - SCDs only in the setting of hematuria (8) DNR (do not resuscitate) Comment: Status and Disposition: Inpatient. Anticipate d/c back to [facility] when medically stable. Attending: Era Lucas
[2018-10-23] MEDS ORDERED: fentaNYL* 50 MCG/ML 2 ML VIAL (100 MCG VIAL) IV SLOW PU PRN (17:50)
[2018-10-23] MEDS ORDERED: fentaNYL* 50 MCG/ML 2 ML VIAL (100 MCG VIAL) ONE (17:56)
--- NOTE | 2018-10-23 19:49 | OP ---
Amended report to correct date of operation. DATE OF OPERATION: 10/23/18 - ROOM #[id number] DATE OF : 42 SURGEON: Bertin Oates MD PRE-OP DIAGNOSIS: Spontaneous left pneumothorax. POST-OP DIAGNOSIS: Spontaneous left pneumothorax. OPERATIVE PROCEDURE: Placement of left chest tube, 12-Tamazight. INDICATIONS FOR PROCEDURE: A 78-year-old female I was asked to place a left chest tube for spontaneous pneumothorax noted on workup for shortness of breath on chest x-ray. Risks of bleeding, infection, injury to chest contents explained. Consent was signed. All questions were answered. DESCRIPTION OF PROCEDURE: In the hospital bed with the left arm extended behind the head, the left chest was prepped and draped in sterile fashion. Consent was signed. Time-out was performed indicating correct patient and correct procedure. The skin was anesthetized with plain lidocaine. An incision was made and a 12- Tamazight chest tube was advanced up and over rib at approximately the nipple level and the mid axillary line into the chest cavity. This was advanced anteriorly and superiorly toward the apex. This was sutured in place with a 0 silk suture and connected to Pleur-evac suction. The patient's breathing improved. Chest x-ray is pending. A Vaseline gauze and occlusive dressing were applied. She tolerated the procedure well. [id number]/[facility] #: [id number] [facility] MEDICAL CENTERMike
[2018-10-24] MEDS: traMADol TAB* 50 MG PO PRN (04:54)
--- NOTE | 2018-10-24 07:30 | PN ---
Progress Note - Progress Note Date of Service: 10/24/18 Note: S: Examined patient with SANDIE Smith. This is a 78 y/o female s/p chest tube placement yesterday 23OCT2018 due to spontaneous pneumothorax. Was very short of breath with elevated respiratory rate. Patient now states she has sharp pain on the left side when she inhales. Her states she is breathing much more regularly today and does not appear to be in as much distress. Denies chest pain, worsening shortness of breath, fever, chills, nausea, vomiting. Active medications are as follows: Acetaminophen (Tylenol Tab*) 650 mg PO Q4H PRN PRN Reason: PAIN - MILD Last Admin: 10/21/18 12:40 Dose: 650 mg Albuterol (Ventolin 2.5 Mg/3 Ml Neb.Hoda*) 2.5 mg INH Q4H PRN PRN Reason: SOB/WHEEZING Last Admin: 10/23/18 09:48 Dose: 2.5 mg Atorvastatin Calcium (Lipitor*) 10 mg PO DAILY [facility] Last Admin: 10/23/18 08:37 Dose: 10 mg Dextrose (Dextrose 50% Vial 50 Ml*) 25 ml IV PUSH .FOR FS < 60 - SS PRN PRN Reason: FS < 60 Fentanyl Citrate (Fentanyl*) 25 mcg IV SLOW PU Q4H PRN PRN Reason: PAIN - SEVERE Aztreonam 1 gm/ Sodium (Chloride) 50 mls @ 200 mls/hr IVPB Q8H [facility] Last Admin: 10/23/18 23:58 Dose: 200 mls/hr Vancomycin HCl 1,250 mg/ (Sodium Chloride) 250 mls @ 166.667 mls/hr IVPB Q24H [facility] Last Admin: 10/23/18 15:20 Dose: 166.667 mls/hr Insulin Human Lispro (Humalog*) 0 units SUBCUT ACHS [facility]; Protocol Last Admin: 10/23/18 21:52 Dose: 2 unit Pharmacy Consult (Vancomycin Per Pharmacy*) 1 note FOLLOW UP .VANC PER PHARMACY [facility]; Protocol Sertraline HCl (Zoloft*) 25 mg PO DAILY [facility] Last Admin: 10/23/18 08:37 Dose: 25 mg Sodium Bicarbonate (Sodium Bicarbonate (Antacid)*) 650 mg PO TID [facility] Last Admin: 10/23/18 21:53 Dose: 650 mg Tramadol HCl (Ultram*) 50 mg PO Q12H PRN PRN Reason: PAIN - MODERATE Last Admin: 10/24/18 04:54 Dose: 50 mg O: Vital Signs Temp 97.6 F 10/24/18 07:20 Pulse 79 10/24/18 07:20 Resp 20 10/24/18 07:20 BP 94/44 10/24/18 07:20 Pulse Ox 100 10/24/18 07:20 Intake & Output 10/23/18 10/24/18 10/24/18 18:59 06:59 18:59 Intake Total 855 1125 Output Total 350 1375 Balance 505 -250 Intake: IV Fluids 40 5 normal saline 40 5 IVPB 55 160 ABX - AZTREONAM 105 normal saline 55 55 Oral 760 960 Output: Chest Tube #1 400 Nephrostomy #1 150 400 Urostomy 200 575 Other: # Bowel Movements 1 Estimated Stool Amount Small General: patient lying supine comfortably in bed in no acute distress. A&O x 3. Cardio: regular rate and rhythm Respiratory: was too painful for patient to sit up and listen to the lungs posteriorly. Was able to listen to upper anterior lung taylor and they were clear to auscultation bilaterally with a few expiratory wheezes bilaterally. No rapid or shallow respirations. Patient does not appear to be in any sort of respiratory distress. Is on 2L of oxygen through nasal cannula. Abdomen: Urostomy on left side, nephrostomy on right side. In place. No leakage. Chest tube: in place. No surrounding leakage. PLUR-EVAC functioning properly with 410 cc of clear, slightly akira fluid. Slight intermittent air leak. A: POD #1 s/p chest tube placement, improving. P: chest tube remains, monitor for air leak as well as amount and color of fluid monitor patient for persistent or worsening shortness of breath
[2018-10-24 09:35] LABS: ABS Basophils 0.1 10^3/ul (0-0.2); ABS Eosinophils 1.2 10^3/ul (0-0.6); ABS Lymphocytes 0.9 10^3/ul (1.0-4.8); ABS Monocytes 0.6 10^3/ul (0-0.8); ABS Neutrophils 9.4 10^3/ul (1.5-7.7); Eosinophil % 9.7 %; Hematocrit 17 % (35-47); Hemoglobin 5.5 g/dL (12.0-16.0); Lymphocyte % 7.4 %; Mean Corpuscular HGB Conc 33 g/dL (31-36); Mean Corpuscular Hemoglobin 25 pg (27-31); Mean Corpuscular Volume 78 fL (80-97); Mean Platelet Volume 7.2 fL (7.4-10.4); Nucleated Red Blood Cells % 0.1; Platelet Count 261 10^3/uL (150-450); Red Blood Count 2.16 10^6 /uL (3.70-4.87); Red Cell Distribution Width 20 % (10-15); White Blood Count 12.1 10^3/uL (3.5-10.8)
[2018-10-24 09:48] LABS: BUN/Creatinine Ratio 23.3 (8-20); Calcium 8.4 mg/dL (8.6-10.3); EGFR African American 33.9 (>60); Potassium 4.1 mmol/L (3.5-5.0)
[2018-10-24] MEDS: Sertraline* 25 MG TAB PO SCH (10:55)
[2018-10-24] MEDS: Acetaminophen TAB* 325 MG PO PRN (10:55)
[2018-10-24] MEDS: Atorvastatin* 10 MG TAB PO SCH (10:55)
[2018-10-24] MEDS: Sodium Bicarbonate (ANTACID)* 650 MG TAB PO SCH ×3 (10:55→21:19)
[2018-10-24] MEDS: Insulin LISPRO* 1 UNITS UNIT SUBCUT SCH ×4 (10:55→21:19)
[2018-10-24] MEDS: Aztreonam (*) 1 GM in NS 0.9% 50 ML* 50 ML IVPB SCH ×2 (10:56→15:41)
--- NOTE | 2018-10-24 13:53 | CONSULT ---
Palliative / Hospice Consult Ordering Provider: Radha Thomson - PCP-Jose Fermin Referal Reason: Goals of care decision - Subjective Code Status: DNR Advance Directives Location: In Chart MOLST Part A Completed: Yes - on chart MOLST Part E Completed:: Yes - on chart - History or Present Illness History or Present Illness: 78yo female resident of [facility] with stage 4 bladder cancer diagnosed 05/2018 presents to ER with hematuria. 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 Pt is an ex smoker, social drinker, no drug use, is her HCP and she is DNR/DNI. Studies showed Ekg-nsr, renal u/s-L nephrostomy tube, mild hydronephrosis no calculi, CXR #1-neg, CXR#2 large L pneumothorax, H/H 9.5/17, BUN/Cr 41/1.76, egfr 28, Ca 8.4, tprot 5.5, alb 2.5 blood culture showed P. aerginosa and urine cult showed E. fecalis. All history is from family and medical record pt is very hard of hearing and couldn't contribute. Pt has had several ER visits 08/05/18, 09/29/18 & 10/19/18 and several hospitalizations 08/19- and 09/15-09/22/2018. Pt has been at [facility] for rehab since her July hospitalization. Pt was admitted to the ICU with septic shock secondary to UTI, hematuria with low H/H, and peumothorax. Pt is currently out of the ICU. Lab Values: Abnormal Lab Results 10/23/18 10/23/18 10/23/18 13:53 17:25 17:28 WBC RBC Hgb Hct MCV MCH MCHC RDW Plt Count MPV Neut % (Auto) Lymph % (Auto) [place] % (Auto) Eos % (Auto) Baso % (Auto) Absolute Neuts (auto) Absolute Lymphs (auto) Absolute Monos (auto) Absolute Eos (auto) Absolute Basos (auto) Absolute Nucleated RBC Nucleated RBC % Patient Temperature Not Reportable ABG pH 7.30 L ABG pH (Temp Correct) Not Reportable ABG pCO2 24 L ABG pCO2 (Temp Corrct Not Reportable ABG pO2 78 L ABG pO2 (Temp Correct Not Reportable ABG HCO3 15.0 L ABG O2 Saturation 97.2 ABG Base Excess -12.7 L Respiration Rate Not Reportable Ventilator Type Not Reportable Vent Mode Not Reportable FiO2 3 Inspiratory Time Not Reportable PEEP Not Reportable Pressure Support Not Reportable Pressure Control Not Reportable EPAP Not Reportable IPAP Not Reportable BiPAP Not Reportable Sodium Potassium Chloride Carbon Dioxide Anion Gap BUN Creatinine Est GFR ( Amer) Est GFR (Non-Af Amer) BUN/Creatinine Ratio Glucose POC Glucose (mg/dL) 192 H Calcium Vancomycin Trough 18.0 Blood Type Antibody Screen Crossmatch 10/23/18 10/24/18 10/24/18 20:45 08:13 09:08 WBC 12.1 H RBC 2.16 L Hgb 5.5 L* Hct 17 L MCV 78 L MCH 25 L MCHC 33 RDW 20 H Plt Count 261 MPV 7.2 L Neut % (Auto) 77.2 Lymph % (Auto) 7.4 [place] % (Auto) 5.2 Eos % (Auto) 9.7 Baso % (Auto) 0.5 Absolute Neuts (auto) 9.4 H Absolute Lymphs (auto) 0.9 L Absolute Monos (auto) 0.6 Absolute Eos (auto) 1.2 H Absolute Basos (auto) 0.1 Absolute Nucleated RBC 0.0 Nucleated RBC % 0.1 Patient Temperature ABG pH ABG pH (Temp Correct) ABG pCO2 ABG pCO2 (Temp Corrct ABG pO2 ABG pO2 (Temp Correct ABG HCO3 ABG O2 Saturation ABG Base Excess Respiration Rate Ventilator Type Vent Mode FiO2 Inspiratory Time PEEP Pressure Support Pressure Control EPAP IPAP BiPAP Sodium Potassium Chloride Carbon Dioxide Anion Gap BUN Creatinine Est GFR ( Amer) Est GFR (Non-Af Amer) BUN/Creatinine Ratio Glucose POC Glucose (mg/dL) 195 H 137 H Calcium Vancomycin Trough Blood Type Antibody Screen Crossmatch 10/24/18 10/24/18 10/24/18 09:08 09:08 12:38 WBC RBC Hgb Hct MCV MCH MCHC RDW Plt Count MPV Neut % (Auto) Lymph % (Auto) [place] % (Auto) Eos % (Auto) Baso % (Auto) Absolute Neuts (auto) Absolute Lymphs (auto) Absolute Monos (auto) Absolute Eos (auto) Absolute Basos (auto) Absolute Nucleated RBC Nucleated RBC % Patient Temperature ABG pH ABG pH (Temp Correct) ABG pCO2 ABG pCO2 (Temp Corrct ABG pO2 ABG pO2 (Temp Correct ABG HCO3 ABG O2 Saturation ABG Base Excess Respiration Rate Ventilator Type Vent Mode FiO2 Inspiratory Time PEEP Pressure Support Pressure Control EPAP IPAP BiPAP Sodium 134 L Potassium 4.1 Chloride 112 H Carbon Dioxide 16 L Anion Gap 6 BUN 41 H Creatinine 1.76 H Est GFR ( Amer) 33.9 Est GFR (Non-Af Amer) 28.0 BUN/Creatinine Ratio 23.3 H Glucose 129 H POC Glucose (mg/dL) 172 H Calcium 8.4 L Vancomycin Trough Blood Type O Positive Antibody Screen Negative Crossmatch See Detail Laboratory Last Values WBC 12.1 10^3/uL (3.5-10.8) H 10/24/18 09:08 RBC 2.16 10^6 /uL (3.70-4.87) L 10/24/18 09:08 Hgb 5.5 g/dL (12.0-16.0) L* 10/24/18 09:08 Hct 17 % (35-47) L 10/24/18 09:08 MCV 78 fL (80-97) L 10/24/18 09:08 MCH 25 pg (27-31) L 10/24/18 09:08 MCHC 33 g/dL (31-36) 10/24/18 09:08 RDW 20 % (10-15) H 10/24/18 09:08 Plt Count 261 10^3/uL (150-450) 10/24/18 09:08 MPV 7.2 fL (7.4-10.4) L 10/24/18 09:08 Neut % (Auto) 77.2 % 10/24/18 09:08 Lymph % (Auto) 7.4 % 10/24/18 09:08 [place] % (Auto) 5.2 % 10/24/18 09:08 Eos % (Auto) 9.7 % 10/24/18 09:08 Baso % (Auto) 0.5 % 08/05/19 09:08 Absolute Neuts (auto) 9.4 10^3/ul (1.5-7.7) H 10/24/18 09:08 Absolute Lymphs (auto) 0.9 10^3/ul (1.0-4.8) L 10/24/18 09:08 Absolute Monos (auto) 0.6 10^3/ul (0-0.8) 10/24/18 09:08 Absolute Eos (auto) 1.2 10^3/ul (0-0.6) H 10/24/18 09:08 Absolute Basos (auto) 0.1 10^3/ul (0-0.2) 10/24/18 09:08 Absolute Nucleated RBC 0.0 10^3/ul 10/24/18 09:08 Nucleated RBC % 0.1 10/24/18 09:08 INR (Anticoag Therapy) 1.14 (0.82-1.09) H 10/20/18 21:40 Patient Temperature Not Reportable 10/23/18 17:25 ABG pH 7.30 (7.35-7.45) L 10/23/18 17:25 ABG pH (Temp Correct) Not Reportable 10/23/18 17:25 ABG pCO2 24 mmHg (35-45) L 10/23/18 17:25 ABG pCO2 (Temp Corrct Not Reportable 10/23/18 17:25 ABG pO2 78 mmHg (80-100) L 10/23/18 17:25 ABG pO2 (Temp Correct Not Reportable 10/23/18 17:25 ABG HCO3 15.0 mmol/L (19-31) L 10/23/18 17:25 ABG O2 Saturation 97.2 % (94.0-98.0) 10/23/18 17:25 ABG Base Excess -12.7 mmol/L (-2.0-2.0) L 10/23/18 17:25 VBG pH 7.28 (7.32-7.43) L 10/23/18 09:59 VBG pCO2 33 mmHg (41-51) L 10/23/18 09:59 VBG pO2 < 38.0 mmHg (35-45) 10/23/18 09:59 VBG HCO3 15.0 mmol/L (24-28) L 10/23/18 09:59 VBG O2 Saturation 26.3 % (70-80) L 10/23/18 09:59 VBG Base Excess -10.2 mmol/L (0.0-4.0) L 10/23/18 09:59 Respiration Rate Not Reportable 10/23/18 17:25 Ventilator Type Not Reportable 10/23/18 17:25 Vent Mode Not Reportable 10/23/18 17:25 FiO2 3 10/23/18 17:25 Inspiratory Time Not Reportable 10/23/18 17:25 PEEP Not Reportable 10/23/18 17:25 Pressure Support Not Reportable 10/23/18 17:25 Pressure Control Not Reportable 10/23/18 17:25 EPAP Not Reportable 10/23/18 17:25 IPAP Not Reportable 10/23/18 17:25 BiPAP Not Reportable 10/23/18 17:25 Sodium 134 mmol/L (135-145) L 10/24/18 09:08 Potassium 4.1 mmol/L (3.5-5.0) 10/24/18 09:08 Chloride 112 mmol/L (101-111) H 10/24/18 09:08 Carbon Dioxide 16 mmol/L (22-32) L 10/24/18 09:08 Anion Gap 6 mmol/L (2-11) 10/24/18 09:08 BUN 41 mg/dL (6-24) H 10/24/18 09:08 Creatinine 1.76 mg/dL (0.51-0.95) H 10/24/18 09:08 Est GFR ( Amer) 33.9 (>60) 10/24/18 09:08 Est GFR (Non-Af Amer) 28.0 (>60) 10/24/18 09:08 BUN/Creatinine Ratio 23.3 (8-20) H 10/24/18 09:08 Glucose 129 mg/dL (70-100) H 10/24/18 09:08 POC Glucose (mg/dL) 172 mg/dL (70-100) H 10/24/18 12:38 Lactic Acid 1.2 mmol/L (0.5-2.0) 10/21/18 03:11 Calcium 8.4 mg/dL (8.6-10.3) L 10/24/18 09:08 Total Bilirubin 0.20 mg/dL (0.2-1.0) 10/23/18 08:03 AST 27 U/L (13-39) 10/23/18 08:03 ALT 30 U/L (7-52) 10/23/18 08:03 Alkaline Phosphatase 157 U/L (34-104) H 10/23/18 08:03 Troponin I 0.01 ng/mL (<0.04) 10/20/18 21:40 C-Reactive Protein 175.71 mg/L (<8.01) H 10/20/18 21:40 Total Protein 5.5 g/dL (6.4-8.9) L 10/23/18 08:03 Albumin 2.5 g/dL (3.2-5.2) L 10/23/18 08:03 Globulin 3.0 g/dL (2-4) 10/23/18 08:03 Albumin/Globulin Ratio 0.8 (1-3) L 10/23/18 08:03 Vancomycin Trough 18.0 mcg/mL 10/23/18 13:53 Blood Type O Positive 10/24/18 09:08 Antibody Screen Negative 10/24/18 09:08 Crossmatch See Detail 10/24/18 09:08 - Objective Active Medications: Acetaminophen (Tylenol Tab*) 650 mg PO Q4H PRN PRN Reason: PAIN - MILD Last Admin: 10/24/18 10:55 Dose: 650 mg Albuterol (Ventolin 2.5 Mg/3 Ml Neb.Hoda*) 2.5 mg INH Q4H PRN PRN Reason: SOB/WHEEZING Last Admin: 10/23/18 09:48 Dose: 2.5 mg Atorvastatin Calcium (Lipitor*) 10 mg PO DAILY [facility] Last Admin: 10/24/18 10:55 Dose: 10 mg Dextrose (Dextrose 50% Vial 50 Ml*) 25 ml IV PUSH .FOR FS < 60 - SS PRN PRN Reason: FS < 60 Fentanyl Citrate (Fentanyl*) 25 mcg IV SLOW PU Q4H PRN PRN Reason: PAIN - SEVERE Aztreonam 1 gm/ Sodium (Chloride) 50 mls @ 200 mls/hr IVPB Q8H [facility] Last Admin: 10/24/18 10:56 Dose: 200 mls/hr Vancomycin HCl 1,250 mg/ (Sodium Chloride) 250 mls @ 166.667 mls/hr IVPB Q24H [facility] Last Admin: 10/23/18 15:20 Dose: 166.667 mls/hr Insulin Human Lispro (Humalog*) 0 units SUBCUT ACHS [facility]; Protocol Last Admin: 10/24/18 12:46 Dose: 2 unit Pharmacy Consult (Vancomycin Per Pharmacy*) 1 note FOLLOW UP .VANC PER PHARMACY [facility]; Protocol Pharmacy Profile Note (Vancomycin Trough Check) 1 note FOLLOW UP ONCE ONE Stop: 10/25/18 14:31 Sertraline HCl (Zoloft*) 25 mg PO DAILY [facility] Last Admin: 10/24/18 10:55 Dose: 25 mg Sodium Bicarbonate (Sodium Bicarbonate (Antacid)*) 650 mg PO TID [facility] Last Admin: 10/24/18 10:55 Dose: 650 mg Tramadol HCl (Ultram*) 50 mg PO Q12H PRN PRN Reason: PAIN - MODERATE Last Admin: 10/24/18 04:54 Dose: 50 mg Vital Signs: Vital Signs: Temp Pulse Resp BP Pulse Ox 97.5 F 78 20 86/39 100 10/24/18 13:30 10/24/18 13:30 10/24/18 13:30 10/24/18 13:30 10/24/18 13:30 Patient Weight: Weight 78.81 kg Intake and Output: Intake & Output 10/22/18 10/23/18 10/24/18 10/25/18 06:59 06:59 06:59 06:59 Intake Total 1671 2883 1980 300 Output Total 1580 1025 1725 Balance 91 1858 255 300 Intake: IV Fluids 983 1483 45 normal saline 983 1483 45 IVPB 118 55 215 ABX - AZTREONAM 55 105 normal saline 118 110 Medicated IV 55 Azactam 55 Oral 570 1290 1720 300 Output: Chest Tube #1 400 Nephrostomy #1 1055 400 550 Nephrostomy #2 100 Urostomy 525 525 775 Other: Date of Last Bowel 10/22/18 Movement # Bowel Movements 1 1 1 Estimated Stool Amount Small Medium Small ADLs: Meal Record Start: 10/21/18 00: 22 Freq: ,,18 Status: Inactive Protocol: Created 10/21/18 00:22 System (Rec: 10/21/18 00:22 System ICU-C16) Document 10/21/18 09:00 [id number] (Rec: 10/21/18 11:20 [id number] ICU-C12) ADLs: Meal Record Start: 10/21/18 14: 40 Freq: 09,13,18 Status: Active Protocol: Created 10/21/18 14:40 [id number] (Rec: 10/21/18 14:40 [id number] [facility]-M07) Document 10/21/18 19:14 [id number] (Rec: 10/21/18 19:15 [id number] [facility]-M13) Document 10/22/18 09:29 [id number] (Rec: 10/22/18 09:30 [id number] [facility]-C08) Document 10/22/18 14:27 [id number] (Rec: 10/22/18 14:27 [id number] [facility]-C09) Document 10/22/18 18:00 [id number] (Rec: 10/22/18 19:52 [id number] [facility]-M18) Document 10/23/18 09:23 [id number] (Rec: 10/23/18 09:23 [id number] [facility]-C09) Document 10/23/18 14:26 [id number] (Rec: 10/23/18 14:27 [id number] [facility]-C09) Document 10/23/18 19:59 [id number] (Rec: 10/23/18 20:01 [id number] [facility]-M18) Document 10/24/18 09:00 [id number] (Rec: 10/24/18 12:26 [id number] [facility]-M13) Document 10/24/18 13:00 [id number] (Rec: 10/24/18 13:45 [id number] [facility]-C09) Intake and Output Start: 10/20/18 21: 09 Freq: Status: Active Protocol: Created 10/20/18 21:09 System (Rec: 10/20/18 21:09 System [id number]-C05) Intake and Output Start: 10/21/18 00: 22 Freq: Q1HR Status: Complete Protocol: Created 10/21/18 00:22 System (Rec: 10/21/18 00:22 System ICU-C16) Document 10/21/18 01:00 [id number] (Rec: 10/21/18 01:00 [id number] ISDEMO-M03 ) Document 10/21/18 04:00 [id number] (Rec: 10/21/18 04:03 [id number] ICU-C10) Document 10/21/18 06:00 [id number] (Rec: 10/21/18 06:29 [id number] ICU-C10) Document 10/21/18 08:00 [id number] (Rec: 10/21/18 08:56 VDS1516 ICU-C12) Intake and Output Start: 10/21/18 14: 40 Freq: DAILY@0600,1400,2200 Status: Active Protocol: Created 10/21/18 14:40 [id number] (Rec: 10/21/18 14:40 [id number] [facility]-M07) Document 10/21/18 18:48 [id number] (Rec: 10/21/18 18:49 [id number] [facility]-C11) Document 10/21/18 21:15 [id number] (Rec: 10/21/18 23:17 [id number] S[facility]-C12) Document 10/21/18 22:36 [id number] (Rec: 10/21/18 22:36 [id number] [facility]-M17) Document 10/22/18 05:37 [id number] (Rec: 10/22/18 05:38 [id number] [facility]-M17) Document 10/22/18 06:28 [id number] (Rec: 10/22/18 06:28 JNX0562 [facility]-M13) Document 10/22/18 06:39 [id number] (Rec: 10/22/18 06:40 [id number] [facility]-C03) Document 10/22/18 09:29 [id number] (Rec: 10/22/18 09:30 [id number] [facility]-C08) Document 10/22/18 10:07 [id number] (Rec: 10/22/18 10:08 [id number] [facility]-C08) Document 10/22/18 14:47 [id number] (Rec: 10/22/18 14:47 [id number] [facility]-C09) Document 10/22/18 22:06 [id number] (Rec: 10/22/18 22:07 [id number] [facility]-M18) Document 10/22/18 22:07 [id number] (Rec: 10/22/18 22:07 [id number] U-M18) Document 10/23/18 05:08 [id number] (Rec: 10/23/18 05:08 [id number] [facility]-M17) Document 10/23/18 09:23 [id number] (Rec: 10/23/18 09:23 [id number] [facility]-C09) Document 10/23/18 14:33 [id number] (Rec: 10/23/18 14:34 [id number] [facility]-C09) Document 10/23/18 22:21 [id number] (Rec: 10/23/18 22:22 [id number] U-C05) Document 10/24/18 06:33 [id number] (Rec: 10/24/18 06:41 [id number] [facility]-M06) Eyes: No Scleral Icterus Ears/Nose/Mouth/Throat: Mucous Membranes Moist - bilaterally ears are clear of wax Neck: NL Appearance and Movements; NL JVP, Trachea Midline Cardiovascular: NL Sounds; No Murmurs; No JVD, RRR Abdominal: NL Sounds; No Tenderness; No Distention Extremities: No Edema, No Clubbing, Cyanosis Neurological: - - Oriented to self and place; [facility] - Assessment Assessment: 78 yo female with stage 4 bladder cancer admitted with sepsis, hematuria and pneumothorax - Plan Consult Plan (MU): Palliative Plan: Spoke with daughter Kat([phone]) and pt's Jose ([phone]) who are pt's HCP. Pt has expressed at times that she wants it all over with but then at other times she is okay with treatment. Pt is very hard of hearing. Family wishes her to be comfortable and not suffering. Information/brochure about hospice given. Family is aware of hospice and have had a positive experience with it in the past. They are interested in hospice coming to [facility] since it's very close to their home. I checked pt's ears per family request and there is no wax. Pt has expressed that she doesn't want further chemotherapy. Family are undecided about hospice currently. They know when she returns they can self refer to hospice. The plan is for pt to return to [facility] once stable or return to [place] to pursue comfort care with hospice if the bleeding can't be controlled. Pt is eligible for hospice with the diagnosis of Stage 4 bladder cancer not pursing curative treatment. KPS 50% , PPS 50% - Time On Unit Date of Evaluation: 10/24/18 Hospice Consult Time in: 13:30 Hospice Consult Time Out: 15:00 Hospice Consult Time Total: 90 > 50% of Time Spend In Counseling or Coordinating Care: Yes
--- NOTE | 2018-10-24 14:19 | PN ---
Progress Note - Progress Note Date of Service: 10/24/18 Note: Pt tired today have arranged for meeting with pt's and pt for tomorrow at 10am.
[2018-10-24] MEDS ORDERED: NS 0.9% 1000 ML** 1,000 ML IV SCH (14:45)
--- NOTE | 2018-10-24 15:05 | PN ---
Subjective Date of Service: 10/24/18 Interval History: Ms. Celeste is feeling better this morning. SOB resolved yesterday after placement of chest tube and she does not have any further respiratory complaints. Overall feels fine. Denies CP, N/V, dizziness. No concerns from nursing. Family History: Unchanged from Admission Social History: Unchanged from Admission Past Medical History: Unchanged from Admission Objective Active Medications: Acetaminophen (Tylenol Tab*) 650 mg PO Q4H PRN PAIN - MILD Albuterol (Ventolin 2.5 Mg/3 Ml Neb.Hoda*) 2.5 mg INH Q4H PRN SOB/WHEEZING Atorvastatin Calcium (Lipitor*) 10 mg PO DAILY [facility] Dextrose (Dextrose 50% Vial 50 Ml*) 25 ml IV PUSH .FOR FS < 60 - SS PRN FS < 60 Fentanyl Citrate (Fentanyl*) 25 mcg IV SLOW PU Q4H PRN PAIN - SEVERE Heparin Sodium (Porcine) (Heparin Flush Picc/Ml/Cvc(*)) 1 - 3 ml FLUSH 0600, 1800 [facility]; Protocol Aztreonam 1 gm/ Sodium (Chloride) 50 mls @ 200 mls/hr IVPB Q8H [facility] Vancomycin HCl 1,250 mg/ (Sodium Chloride) 250 mls @ 166.667 mls/hr IVPB Q24H [facility] Sodium Chloride (Ns 0.9% 1000 Ml) 1,000 mls @ 100 mls/hr IV PER RATE [facility] Insulin Human Lispro (Humalog*) 0 units SUBCUT ACHS [facility]; Protocol Sertraline HCl (Zoloft*) 25 mg PO DAILY [facility] Sodium Bicarbonate (Sodium Bicarbonate (Antacid)*) 650 mg PO TID [facility] Tramadol HCl (Ultram*) 50 mg PO Q12H PRN PAIN - MODERATE Vital Signs - 8 hr 10/24/18 10/24/18 10/24/18 07:20 09:50 11:16 Temperature 97.6 F 97.6 F Pulse Rate 79 82 Respiratory 20 22 22 Rate Blood Pressure 94/44 101/44 (mmHg) O2 Sat by Pulse 100 100 Oximetry 10/24/18 13:30 Temperature 97.5 F Pulse Rate 78 Respiratory 20 Rate Blood Pressure 86/39 (mmHg) O2 Sat by Pulse 100 Oximetry Oxygen Devices in Use Now: Nasal Cannula - 2L Appearance: Elderly female laying in bed in NAD Eyes: No Scleral Icterus Ears/Nose/Mouth/Throat: Mucous Membranes Moist Neck: NL Appearance and Movements; NL JVP, Trachea Midline Respiratory: Symmetrical Chest Expansion and Respiratory Effort, Clear to Auscultation Cardiovascular: NL Sounds; No Murmurs; No JVD, RRR Abdominal: NL Sounds; No Tenderness; No Distention Neurological: Alert and Oriented x 3 Lines/Tubes/Other Access: Clean, Dry and Intact Peripheral IV Nutrition: Taking PO's Result Diagrams: 10/24/18 09:08 10/24/18 09:08 Assess/Plan/Problems-Billing Assessment: Ms. Celeste is a 78 yo F with PMH of bladder CA, s/p cestectomy with nephrostomy tube and ileal conduit that presented from [facility] with complaints of gross hematuria and weakness, found to be septic. - Patient Problems (1) Hematuria Code(s): R31.9 - HEMATURIA, UNSPECIFIED Comment: - With history of bladder cancer and ileal conduit/nephrostomy - Gross hematuria and clots noted in urostomy and nephrostomy bags - H&H dropped today, Hgb 5.5 (Hgb on 10/21 was reported to be 3.9 though this was lab error as she did not receive blood and repeat H&H in 1 hour was >7) - Dr. Clifton following - Nephrostogram shows extravasation; Dr. Clifton has consulted with Dr. Blakely to see if the bleeding is erosion of the nephrostomy tube causing bleeding at both sites and see if changing tube will help; pending further recs - Spoke with Dr. Blakely regarding continued bleeding and anemia and he recommends [address] scan which was ordered per his instructions - Per marine propulsion technician, cannot give contrast if GFR <30 so will recheck stat BMP now and rehydrate as CT will not be useful without contrast - Transfuse 2 units PRBC today (2) Bacteremia Code(s): R78.81 - BACTEREMIA Comment: - 03/25 BC bottles growing Psuedomonas which was also in urine - Appreciate ID consult - Continue aztreonam (3) Spontaneous pneumothorax Code(s): J93.83 - OTHER PNEUMOTHORAX Comment: - Acutely SOB in the afternoon of 10/23; CXR revealing large left sided pneumo without shift - Appreciate Surgery consult; chest tube placed by Dr. Oates - Chest tube remains in place (4) UTI (urinary tract infection) Comment: - Recurrent UTIs - Urine culture from 10/19 growing >100k colonies Pseudomonas and Enterococcus - Appreciate ID consult - Continue aztreonam, vanco (5) Septic shock Code(s): A41.9 - SEPSIS, UNSPECIFIED ORGANISM; R65.21 - SEVERE SEPSIS WITH SEPTIC SHOCK Comment: - Resolved - Required Levophed - Urinary source (6) DM II (diabetes mellitus, type II), controlled Code(s): E11.9 - TYPE 2 DIABETES MELLITUS WITHOUT COMPLICATIONS Comment: - Continue Lispro SS (7) CKD (chronic kidney disease) Code(s): N18.9 - CHRONIC KIDNEY DISEASE, UNSPECIFIED Comment: - Stage 3 - Baseline creatinine hard to decipher, possibly around 1.1 (8) Depression Code(s): F32.9 - MAJOR DEPRESSIVE DISORDER, SINGLE EPISODE, UNSPECIFIED Comment: - Continue sertraline (9) DVT prophylaxis Code(s): Z29.9 - ENCOUNTER FOR PROPHYLACTIC MEASURES, UNSPECIFIED Comment: - SCDs only in the setting of hematuria (10) DNR (do not resuscitate) Comment: Status and Disposition: Inpatient. Condition is guarded. Anticipate d/c back to [facility] when medically stable. Attending: Carine Sanz
[2018-10-24] MEDS: Vancomycin(*) 1,250 MG in NS 0.9% 250 ML* 250 ML IVPB SCH (15:25)
[2018-10-24] MEDS: diPHENhydraMINE PO* 25 MG PO PRN (15:41)
[2018-10-24] MEDS: NS 0.9% 1000 ML** 1,000 ML IV SCH ×2 (15:47→22:52)
[2018-10-24 16:36] LABS: BUN/Creatinine Ratio 24.3 (8-20); Calcium 8.2 mg/dL (8.6-10.3); EGFR African American 35.5 (>60); EGFR Non-African American 29.3 (>60); Potassium 3.9 mmol/L (3.5-5.0)
--- NOTE | 2018-10-24 17:21 | CONS ---
CONSULTATION REPORT: DATE OF CONSULT: 10/24/18 PRIMARY CARE PROVIDER: Dr. Jose Fermin at [facility]. PROVIDER REQUESTING CONSULTATION: Radha Thomson NP CONSULTING SERVICE: Infectious Disease. PROVIDER: Melissa Guthrie NP ATTENDING PROVIDER: Dr. Titi Mcclure * (dictated by Melissa Guthrie NP). REASON FOR CONSULTATION: Pseudomonas bacteremia in the setting of a urinary tract infection. IMPRESSION: 1. Gram-negative bacteremia with Pseudomonas present in 1 out of 4 bottles. The patient prior to admission had a urine culture showing Pseudomonas and Enterococcus faecalis, I suspect this is the source of her bacteremia. Leukocytosis is improving. She has been afebrile since her hospitalization. She is currently on aztreonam and vancomycin. 2. Enterococcus and Pseudomonas aeruginosa urinary tract infection in the setting of ileal conduit and left-sided nephrostomy tube. The patient is currently on vancomycin and aztreonam. She had a renal ultrasound on admission showing left- sided percutaneous nephrostomy tube, mild left hydronephrosis, no visible left renal calculi. She also had nephrostogram showing left nephrostomy tube with expected results, contrast easily opacified the tube and filled the left collecting system and right ileal conduit. No extravasated contrast was observed. There is gross hematuria with clots present in both the nephrostomy and ileal conduit. 3. Diabetes mellitus type 2. 4. Acute on Chronic kidney disease stage 3. Baseline difficult to note based of labs, but appears to be around 1.1. 5. Obesity. 6. Bladder cancer, status post cystectomy with ileal conduit and left nephrostomy. 7. Medication allergies to KEFLEX, CEFEPIME, CIPROFLOXACIN and ZOSYN. RECOMMENDATIONS/PLAN: Recommend discontinuing vancomycin and continuing aztreonam. I will attempt to get Microbiology to check susceptibilities to aztreonam to make sure that her Pseudomonas is not resistant to this. Additionally, recommend getting an abdomen and pelvis CT to evaluate for the cause of her hematuria. We will continue to follow along. Further recommendations will be based of her clinical course. HISTORY OF PRESENT ILLNESS: Ms. Celeste is a 78-year-old female with a past medical history significant for bladder cancer, status post cystectomy with ileal conduit on 07/26/18 followed by nephrostomy tube placement on 07/30/18 due to left-sided hydronephrosis at [facility]. The patient was hospitalized in early August for urinary tract infection and wound infection. At that time, she was treated with Zosyn. She again presented to the hospital the end of August with fevers in the setting of a left-sided nephrostomy tube. Urine cultures at that time from the nephrostomy tube were growing Klebsiella oxytoca and pneumoniae, it is felt that this explained her fevers. Her anterior abdominal wounds were healing with no sign of cellulitis. She at that time was noted to have a diffuse erythematous rash suspected to be secondary to the Zosyn she was receiving. The patient again was discharged from the hospital back to [facility] for rehabilitation. It is also to note that the patient had a nephrostomy tube exchange on 09/19/[address] Blakely and she was discharged on doxycycline. Her family states that she was doing well and ended her antibiotics a few weeks ago. She underwent replacement of percutaneous nephroureteral catheter with Dr. Blakely on 09/29/18. According to her family, she was doing well and getting ready to leave rehab soon. Approximately 1 week ago, according to the patient's , she developed gross hematuria in both her ileal conduit and nephrostomy tube. The patient was sent to the emergency room on 10/19/18, underwent evaluation for hematuria. At that time, she was stable. ER provider spoke with urologist at [facility]. It was felt that the hematuria was likely not a reason to be admitted, to discharge back to [facility]. The patient continued to have significant hematuria and noted to be weak. She was sent back to the emergency room for repeat evaluation. It is to note that a urine culture obtained while in the emergency room on 10/19/18 was found to be growing Pseudomonas aeruginosa and Enterococcus faecalis. It is unclear the source of this urine as whether or not it was obtained via the nephrostomy tube or the ileal conduit. While in the emergency room, she had blood cultures drawn. She has been afebrile with the exception of a low-grade fever on 10/21/18 at 8 a.m. of 100. She has had persistent leukocytosis, but this is improving during her hospitalization. She is noted to have an acute kidney injury. She continues to have gross hematuria both from her left-sided nephrostomy and her ileal conduit. She denies fevers, chills, cough, back pain, muscle pain, joint pain. She denies any rash. She does report left-sided flank discomfort. Denies any recent travel. PAST MEDICAL HISTORY: 1. Bladder cancer. 2. Hypertension. 3. Hyperlipidemia. 4. Chronic kidney disease stage 3. 5. Coronary artery disease. 6. Diabetes mellitus type 2. 7. Obesity. PAST SURGICAL HISTORY: 1. Status post cystectomy with ileal conduit placement. 2. Status post left nephrostomy, last replaced on 09/29/18. 3. Status post bilateral cataract extractions. 4. Status post cholecystectomy. 5. Status post hysterectomy. 6. Status post tonsillectomy. MEDICATIONS: Home medications: 1. Simvastatin 20 mg by mouth daily. 2. Tramadol 50 mg by mouth every 4 hours as needed for pain. 3. Acetaminophen 1000 mg by mouth 3 times daily. 4. Sertraline 25 mg by mouth daily. 5. Potassium chloride 20 mEq by mouth daily. 6. Glucosamine 1500 mg by mouth daily. 7. Aspirin 81 mg by mouth daily. 8. Torsemide 20 mg by mouth daily. Hospital medications: 1. Acetaminophen 650 mg by mouth every 4 hours as needed for fever or pain. 2. Albuterol nebulizer 2.5 mg inhalation every 4 hours as needed for shortness of breath. 3. Atorvastatin 10 mg by mouth daily. 4. Aztreonam 1 g IV every 8 hours. 5. Dextrose 25 mL IV push for glucose less than 60. 6. Fentanyl citrate 25 mcg IV push every 4 hours as needed for pain. 7. Heparin sodium 1 to 3 mL IV flush twice daily. 8. Lispro insulin sliding scale subcutaneous a.c. and h.s. 9. Sertraline 25 mg by mouth daily. 10. Sodium bicarb 650 mg by mouth 3 times daily. 11. Sodium chloride 100 mL an hour. 12. Tramadol 50 mg an hour. 13. Vancomycin 1250 mg IV q.24 hours. ALLERGIES: CEPHALOSPORINS caused rash, CIPRO caused swelling, ZOSYN caused rash and itching. FAMILY HISTORY: Father passed from an IN. No family history of diabetes. Mother with a history of breast and colon cancer. Sister with a history of cancer. No family history of recurrent resistant infection. SOCIAL HISTORY: She denies tobacco use. She is a former smoker, quitting in 2007. She denies recreational drugs. She has recently been living at [facility]. She is . REVIEW OF SYSTEMS: I performed a 10-point review of systems. All the pertinent positives and negatives are mentioned in the history of present illness. The remaining review of systems are negative. PHYSICAL EXAM: Vital Signs: Temperature 97.6, heart rate 79, respiratory rate 20, O2 sat 100% on room air, blood pressure 94/44. General Appearance: She is awake, in no acute distress. Neurological: Alert and oriented x3. HEENT: No subconjunctival hemorrhage. Mucous membranes are moist. No thrush. Neck: Supple. No masses. Cardiovascular: Heart rate regular. No murmurs, rubs, or gallops heard. Respiratory: Lungs are clear to auscultation bilateral. Abdomen: Bowel sounds present. Abdomen is soft, nontender, nondistended. She has a urostomy tube in the right side of the abdomen with gross hematuria. There is a healed anterior midline abdominal incision. She has a left flank nephrostomy tube with no surrounding erythema or drainage noted, this is draining gross hematuria. Musculoskeletal: No tenderness with palpation of the spine or neck or joints. She does have mild tenderness with palpation of the left flank near the nephrostomy tube. Skin: No rash or other abnormalities. DIAGNOSTIC STUDIES/LAB DATA: Sodium 134, potassium 4.1, chloride 112, CO2 of 16 , BUN 41, creatinine 1.76, glucose 129. White blood cell count 12.1, hemoglobin 5.5, hematocrit 17, and platelet count 261. Please see impression and recommendations outlined above. Recommendations have been discussed with Radha Thomson NP. Thank you for asking us to see Ms. Celeste in consultation. The case has been reviewed with my attending, Dr. Titi Mcclure, who agrees with the plan of care. Reviewed by PEDRITO SORIANO 10/25/18 0914 [id number]/[facility] #: [id number] JUAN
[2018-10-24 21:07] LABS: ABS Basophils 0.1 10^3/ul (0-0.2); ABS Eosinophils 1.7 10^3/ul (0-0.6); ABS Lymphocytes 0.9 10^3/ul (1.0-4.8); ABS Monocytes 0.9 10^3/ul (0-0.8); Eosinophil % 12.6 %; Hematocrit 25 % (35-47); Hemoglobin 8.1 g/dL (12.0-16.0); Lymphocyte % 6.7 %; Mean Corpuscular HGB Conc 32 g/dL (31-36); Mean Corpuscular Hemoglobin 26 pg (27-31); Mean Corpuscular Volume 80 fL (80-97); Platelet Count 272 10^3/uL (150-450); Red Blood Count 3.13 10^6 /uL (3.70-4.87); Red Cell Distribution Width 19 % (10-15); White Blood Count 13.6 10^3/uL (3.5-10.8)
[2018-10-24 23:45] LABS: BUN/Creatinine Ratio 23.1 (8-20); Calcium 8.2 mg/dL (8.6-10.3); EGFR African American 34.6 (>60); EGFR Non-African American 28.6 (>60)
[2018-10-25] MEDS: Aztreonam (*) 1 GM in NS 0.9% 50 ML* 50 ML IVPB SCH ×3 (00:38→17:00)
[2018-10-25 01:26] LABS: Hematocrit 23 % (35-47); Hemoglobin 7.7 g/dL (12.0-16.0); Mean Corpuscular HGB Conc 33 g/dL (31-36); Mean Corpuscular Hemoglobin 26 pg (27-31); Mean Corpuscular Volume 80 fL (80-97); Mean Platelet Volume 6.8 fL (7.4-10.4); Platelet Count 274 10^3/uL (150-450); Red Blood Count 2.94 10^6 /uL (3.70-4.87); Red Cell Distribution Width 19 % (10-15); White Blood Count 12.6 10^3/uL (3.5-10.8)
[2018-10-25] MEDS: NS 0.9% 1000 ML** 1,000 ML IV SCH (05:54)
[2018-10-25 07:11] LABS: ABS Eosinophils 1.4 10^3/ul (0-0.6); ABS Lymphocytes 0.9 10^3/ul (1.0-4.8); ABS Monocytes 0.7 10^3/ul (0-0.8); ABS Neutrophils 8.9 10^3/ul (1.5-7.7); Eosinophil % 12.1 %; Hematocrit 22 % (35-47); Hemoglobin 7.3 g/dL (12.0-16.0); Lymphocyte % 7.8 %; Mean Corpuscular HGB Conc 34 g/dL (31-36); Mean Corpuscular Hemoglobin 26 pg (27-31); Mean Corpuscular Volume 79 fL (80-97); Mean Platelet Volume 7.2 fL (7.4-10.4); Platelet Count 274 10^3/uL (150-450); Red Blood Count 2.75 10^6 /uL (3.70-4.87); Red Cell Distribution Width 19 % (10-15)
[2018-10-25 07:21] LABS: BUN/Creatinine Ratio 23.5 (8-20); EGFR African American 35.3 (>60); EGFR Non-African American 29.1 (>60); Potassium 3.8 mmol/L (3.5-5.0)
[2018-10-25] MEDS: Insulin LISPRO* 1 UNITS UNIT SUBCUT SCH ×4 (08:24→20:52)
[2018-10-25] MEDS: Sertraline* 25 MG TAB PO SCH (08:32)
[2018-10-25] MEDS: Atorvastatin* 10 MG TAB PO SCH (08:32)
[2018-10-25] MEDS: Sodium Bicarbonate (ANTACID)* 650 MG TAB PO SCH ×2 (08:32→13:43)
[2018-10-25] MEDS ORDERED: NS 0.9% 1000 ML** 1,000 ML IV SCH (08:57)
--- NOTE | 2018-10-25 12:22 | PN ---
Progress Note - Progress Note Date of Service: 10/25/18 Note: S: This is a 78 y/o female s/p Left chest tube placement by Dr. Oates on 23OCT2018 due to spontaneous pneumothorax. Patient as well as her state that she is doing better in regards to breathing. No shortness of breath, cough , elevated respiratory rate. Patient states pain on inspiration is less than that of yesterday where the chest tube is placed. Denies fever, chills, chest pain, shortness of breath, vomiting, nausea. Active medications are as follows: Acetaminophen (Tylenol Tab*) 650 mg PO Q4H PRN PRN Reason: PAIN - MILD Last Admin: 10/24/18 10:55 Dose: 650 mg Albuterol (Ventolin 2.5 Mg/3 Ml Neb.Hoda*) 2.5 mg INH Q4H PRN PRN Reason: SOB/WHEEZING Last Admin: 10/23/18 09:48 Dose: 2.5 mg Atorvastatin Calcium (Lipitor*) 10 mg PO DAILY [facility] Last Admin: 10/25/18 08:32 Dose: 10 mg Dextrose (Dextrose 50% Vial 50 Ml*) 25 ml IV PUSH .FOR FS < 60 - SS PRN PRN Reason: FS < 60 Diphenhydramine HCl (Benadryl Po*) 25 mg PO Q6H PRN PRN Reason: ITCHING Last Admin: 10/24/18 15:41 Dose: 25 mg Fentanyl Citrate (Fentanyl*) 25 mcg IV SLOW PU Q4H PRN PRN Reason: PAIN - SEVERE Heparin Sodium (Porcine) (Heparin Flush Picc/Ml/Cvc(*)) 1 - 3 ml FLUSH 0600, 1800 [facility]; Protocol Last Admin: 10/25/18 05:56 Dose: Not Given Aztreonam 1 gm/ Sodium (Chloride) 50 mls @ 200 mls/hr IVPB Q8H [facility] Last Admin: 10/25/18 08:32 Dose: 200 mls/hr Sodium Chloride (Ns 0.9% 1000 Ml) 1,000 mls @ 50 mls/hr IV PER RATE [facility] Insulin Human Lispro (Humalog*) 0 units SUBCUT ACHS [facility]; Protocol Last Admin: 10/25/18 08:24 Dose: Not Given Sertraline HCl (Zoloft*) 25 mg PO DAILY [facility] Last Admin: 10/25/18 08:32 Dose: 25 mg Sodium Bicarbonate (Sodium Bicarbonate (Antacid)*) 650 mg PO TID [facility] Last Admin: 10/25/18 08:32 Dose: 650 mg Tramadol HCl (Ultram*) 50 mg PO Q12H PRN PRN Reason: PAIN - MODERATE Last Admin: 10/24/18 04:54 Dose: 50 mg O: Vital Signs Temp 97.8 F 10/25/18 11:47 Pulse 79 10/25/18 11:47 Resp 16 10/25/18 11:47 BP 98/43 10/25/18 11:47 Pulse Ox 99 10/25/18 11:47 Intake & Output 10/24/18 10/25/18 10/25/18 18:59 06:59 18:59 Intake Total 650 2520 420 Output Total 900 1363 550 Balance -250 1157 -130 Intake: IV Fluids 1967 normal saline 1967 Oral 300 220 420 Packed Cells 350 333 Output: Chest Tube #1 425 38 Nephrostomy #1 145 650 550 Ureteral #1 150 Urostomy 330 525 Other: # Bowel Movements 1 Estimated Stool Amount Small General: patient is comfortable in bed in no acute distress. Cardio: regular rate and rhythm. Respiratory: patient cannot sit up due to pain. Anterior upper lung taylor clear to auscultation bilaterally. No rapid or shallow respirations. Patient currently on room air. Chest tube: in place. No surrounding leakage. No tenderness to palpation. PLUR- EVAC functioning properly with 475 cc of clear, slightly akira fluid. No air leak was observed. A: POD #2 s/p left chest tube placement, improving. P: chest tube remains. monitor for air leak and color as well as amount of fluid in PLUR-EVAC monitor patient for shortness of breath or worsening of respiratory symptoms
[2018-10-25] MEDS: traMADol TAB* 50 MG PO PRN (12:56)
[2018-10-25] MEDS ORDERED: Vancomycin Trough Check NOTE FOLLOW UP ONE (14:30)
--- NOTE | 2018-10-25 15:25 | CONS ---
NEPHROLOGY CONSULTATION REPORT: DATE OF CONSULT: HISTORY OF PRESENT ILLNESS: Ms. Celeste is a 78-year-old female with a history of bladder cancer DICTATION ENDS ABRUPTLY [id number]/[facility] #: [id number] [facility] CENTERMike
--- NOTE | 2018-10-25 16:02 | PN ---
Subjective Date of Service: 10/25/18 Interval History: Ms. Celeste is feeling fine this morning. She was a bit disoriented when she first woke. She does report a cough, but no sputum. Denies CP, SOB, N/V. No dizziness. Nursing reports small amount of clear/yellow sputum. Family History: Unchanged from Admission Social History: Unchanged from Admission Past Medical History: Unchanged from Admission Objective Active Medications: Acetaminophen (Tylenol Tab*) 650 mg PO Q4H PRN PAIN - MILD Albuterol (Ventolin 2.5 Mg/3 Ml Neb.Hoda*) 2.5 mg INH Q4H PRN SOB/WHEEZING Atorvastatin Calcium (Lipitor*) 10 mg PO DAILY [facility] Citric Acid/Sodium Citrate (Bicitra*) 15 ml PO TID [facility] Dextrose (Dextrose 50% Vial 50 Ml*) 25 ml IV PUSH .FOR FS < 60 - SS PRN FS < 60 Diphenhydramine HCl (Benadryl Po*) 25 mg PO Q6H PRN ITCHING Fentanyl Citrate (Fentanyl*) 25 mcg IV SLOW PU Q4H PRN PAIN - SEVERE Heparin Sodium (Porcine) (Heparin Flush Picc/Ml/Cvc(*)) 1 - 3 ml FLUSH 0600, 1800 [facility]; Protocol Aztreonam 1 gm/ Sodium (Chloride) 50 mls @ 200 mls/hr IVPB Q8H [facility] Sodium Chloride (Ns 0.9% 1000 Ml) 1,000 mls @ 50 mls/hr IV PER RATE [facility] Insulin Human Lispro (Humalog*) 0 units SUBCUT ACHS [facility]; Protocol Sertraline HCl (Zoloft*) 25 mg PO DAILY [facility] Tramadol HCl (Ultram*) 50 mg PO Q12H PRN PAIN - MODERATE Vital Signs - 8 hr 10/25/18 10/25/18 10/25/18 08:47 11:47 12:56 Temperature 97.8 F Pulse Rate 79 Respiratory 16 16 16 Rate Blood Pressure 98/43 (mmHg) O2 Sat by Pulse 99 Oximetry 10/25/18 15:28 Temperature 98.9 F Pulse Rate 85 Respiratory 18 Rate Blood Pressure 103/51 (mmHg) O2 Sat by Pulse 99 Oximetry Oxygen Devices in Use Now: None Appearance: Elderly female laying in bed in NAD Eyes: No Scleral Icterus Ears/Nose/Mouth/Throat: Mucous Membranes Moist Neck: NL Appearance and Movements; NL JVP, Trachea Midline Respiratory: Symmetrical Chest Expansion and Respiratory Effort, Clear to Auscultation Cardiovascular: NL Sounds; No Murmurs; No JVD, RRR Abdominal: NL Sounds; No Tenderness; No Distention Extremities: - - Mild nonpitting BUE Neurological: Alert and Oriented x 3 Lines/Tubes/Other Access: Clean, Dry and Intact Peripheral IV Nutrition: Taking PO's Result Diagrams: 10/25/18 06:18 10/25/18 06:18 Assess/Plan/Problems-Billing Assessment: Ms. Celeste is a 78 yo F with PMH of bladder CA, s/p cestectomy with nephrostomy tube and ileal conduit that presented from [facility] with complaints of gross hematuria and weakness, found to be septic. - Patient Problems (1) Hematuria Code(s): R31.9 - HEMATURIA, UNSPECIFIED Comment: - With history of bladder cancer and ileal conduit/nephrostomy - Gross hematuria and clots noted in urostomy and nephrostomy bags - H&H stable today; received 2 units PRBC 10/24 (Hgb on 10/21 was reported to be 3.9 though this was lab error as she did not receive blood and repeat H&H in 1 hour was >7) - Dr. Clifton following - Nephrostogram shows extravasation; Dr. Clifton has consulted with Dr. Blakely to see if the bleeding is erosion of the nephrostomy tube causing bleeding at both sites and see if changing tube will help; pending further recs - Spoke with Dr. Blakely regarding continued bleeding and anemia and he recommends CT with contrast which is not possible d/t low GFR - Appreciate Nephrology consult; Aleksey will talk with Zora about options for further imaging - Change to bicitra per Aleksey (2) Bacteremia Code(s): R78.81 - BACTEREMIA Comment: - 03/25 BC bottles growing Psuedomonas which was also in urine - Appreciate ID consult - Continue aztreonam (3) Spontaneous pneumothorax Code(s): J93.83 - OTHER PNEUMOTHORAX Comment: - Acutely SOB in the afternoon of 10/23; CXR revealing large left sided pneumo without shift - Appreciate Surgery consult; chest tube placed by Dr. Oates - Chest tube remains in place (4) UTI (urinary tract infection) Comment: - Recurrent UTIs - Urine culture from 10/19 growing >100k colonies Pseudomonas and Enterococcus - Appreciate ID consult - Continue aztreonam (5) Septic shock Code(s): A41.9 - SEPSIS, UNSPECIFIED ORGANISM; R65.21 - SEVERE SEPSIS WITH SEPTIC SHOCK Comment: - Resolved - Required Levophed - Urinary source (6) DM II (diabetes mellitus, type II), controlled Code(s): E11.9 - TYPE 2 DIABETES MELLITUS WITHOUT COMPLICATIONS Comment: - Continue Lispro SS (7) CKD (chronic kidney disease) Code(s): N18.9 - CHRONIC KIDNEY DISEASE, UNSPECIFIED Comment: - Stage 3 - Baseline creatinine hard to decipher, possibly around 1.1 (8) Depression Code(s): F32.9 - MAJOR DEPRESSIVE DISORDER, SINGLE EPISODE, UNSPECIFIED Comment: - Continue sertraline (9) DVT prophylaxis Code(s): Z29.9 - ENCOUNTER FOR PROPHYLACTIC MEASURES, UNSPECIFIED Comment: - SCDs only in the setting of hematuria (10) DNR (do not resuscitate) Comment: Status and Disposition: Inpatient. Condition is guarded. Anticipate d/c back to [facility] when medically stable. Attending: Carine Sanz
--- NOTE | 2018-10-25 16:24 | CONS ---
NEPHROLOGY CONSULTATION: DATE OF CONSULT: 10/25/18 HISTORY OF PRESENT ILLNESS: Ms. Celeste is a 78-year-old female with a history of bladder cancer and an ileal conduit followed by percutaneous nephrostomy. She began to have some gross bleeding, which was evaluated in the hospital and it was elected to go ahead and send her home. She then had a significant deterioration in her general medical condition and re-presented to the emergency room. She was found to have septic shock secondary to urinary tract infection. At the present time, she is feeling significantly better, although her gross hematuria has continued. She has had a contrasted CT scan of the abdomen and pelvis at the time of her admission, and it was after this that she was noticed to have significant deterioration in her renal function precipitating this consultation. She denies chest pain, shortness of breath, nausea, or vomiting. She has had a little bit of diarrhea. Her course has been complicated by a left spontaneous pneumothorax, which is being treated with a chest tube. PAST MEDICAL HISTORY: Significant for hypertension, hyperlipidemia. She has known stage 3 chronic kidney disease. She has a history of coronary artery disease. She has type 2 diabetes mellitus, which has been diet controlled. PAST SURGICAL HISTORY: She is status post a cystectomy with ileal conduit. She has had a left nephrostomy tube placement. She has bilateral cataract extractions. She has had a cholecystectomy, hysterectomy, and tonsillectomy. She has had ocular surgery, but the type is unknown. MEDICATIONS: At the time of admission included: 1. Tramadol 50 mg every 12 hours p.r.n. for pain. 2. Tylenol 1000 mg t.i.d. 3. Simvastatin 20 mg daily. 4. Zoloft 25 mg daily. 5. Potassium chloride 20 mEq daily. 6. Glucosamine 1500 mg daily. 7. Aspirin 81 mg daily. 8. Torsemide 20 mg daily. While she was treated with vancomycin briefly, her current medications include: 1. Aztreonam for her antibiotics. 2. She has also received some fentanyl. 3. She has had a significant amount of sodium chloride for fluid resuscitation. 4. She has had some tramadol. ALLERGIES: She is allergic to CEFEPIME, CEPHALEXIN, CIPROFLOXACIN, and ZOSYN. SOCIAL HISTORY: She does not use alcoholic beverages. She quit smoking a number of years ago. REVIEW OF SYSTEMS: Significant that she has very decreased hearing acuity. PHYSICAL EXAM: She is an elderly, weak appearing white female. Her blood pressure is 98/43 with a pulse of 80, respirations are 16. HEENT: She is normocephalic without evidence of trauma. Her pupils are reactive to light. She is anicteric. Her mucous membranes are moist. The chest reveals a chest tube on the left lateral chest. The heart revealed a regular rhythm without murmurs. I could not hear any rales or rhonchi. The abdomen is distended, nontender. She does have her ileal conduit and her nephrostomy drainage. There is a number of clots in the nephrostomy drainage bag. She has 1+ edema. There were some ecchymoses to her right forearm. LABORATORY DATA: White count of 12.0, hemoglobin 7.3, hematocrit 22, platelet count of 274,000. pH of 7.30 on 10/23/18, pCO2 24, pO2 78. Sodium 138, potassium of 3.8, total CO2 15, chloride 115, BUN of 40, creatinine of 1.70. Her creatinine has been as high as 1.92. Her creatinine on 09/29/18 was 0.86; on 10/19/18, was 1.2; and on 04/09, was 1.92. Calcium of 8, magnesium 1.8. Iron saturation of 11%, ferritin of 238. Urinalysis on presentation revealed 2+ protein, 2+ blood, positive nitrites, 2+ leukocyte esterase, wbc's were 3+, rbc's were 3+, and there were some hyaline casts. In her urine, she has grown enterococcus and Pseudomonas aeruginosa, and she has had one positive blood culture for Pseudomonas aeruginosa. IMPRESSION: 1. Acute renal injury. This is likely due to the combined effects of sepsis and extra contrast agent for her CT scan. 2. Non-anion gap metabolic acidosis. PLAN: While ordinarily we would expect a non-anion gap metabolic acidosis with an ileal conduit, her acid-base status was actually fairly good in the recent past, although she has had a non-anion gap metabolic acidosis at varying times over the past few months. It is certainly possible that rapid saline fluid resuscitation has made a contribution there. I would recommend that we buffer that acidosis either with Bicitra 30 cc t.i.d. or with sodium bicarbonate tablet 650 mg two t.i.d. She is somewhat iron deficient. While I would have no objection to oral iron, at this level of renal function, she may not absorb the oral iron. Of course, there is the question of the safety of intravenous iron in the face of infection; however, that infection is presently under fairly good control. She is anemic and it would not be a very bad idea to start her on some erythropoietin to try to help out with that without having to transfuse her. I will be discussing the case with Radha Thomson NP. [id number]/[facility] #: [id number] JUAN
--- NOTE | 2018-10-25 16:37 | CONSULT ---
Subjective Date of Service: 10/25/18 Interval History: Ms. Celeste is a 78 yo male with PMH significant for bladder CA S/P cystectomy, diverting urostomy, and left nephrostomy; CAD; DM2; HTN; and CKD who presented to the ED for hematuria and weakness. She presented to the hospital with blanchable erythema to her buttocks. Patient seen and examined at bedside. Family History: Unchanged from Admission Social History: Unchanged from Admission Past Medical History: Unchanged from Admission Review of Systems - Measurements Intake and Output: Intake and Output Last 24 Hours 10/23/18 10/24/18 10/25/18 10/26/18 06:59 06:59 06:59 06:59 Intake Total 2883 1980 3170 780 Output Total 1025 1725 2263 1350 Balance 1858 255 907 -570 Intake: IV Fluids 1483 45 1967 normal saline 1483 45 1967 IVPB 55 215 ABX - AZTREONAM 55 105 normal saline 110 Medicated IV 55 Azactam 55 Oral 1290 1720 520 780 Packed Cells 683 Output: Chest Tube #1 400 463 Nephrostomy #1 400 550 795 800 Nephrostomy #2 100 525 Ureteral #1 150 Urostomy 525 775 855 25 Other: # Bowel Movements 1 1 1 Estimated Stool Amount Medium Small Small - Review of Systems Constitutional Symptoms: Negative: Fever, Other - Chills Endocrinology: Positive: Obesity, Diabetes Mellitus Objective Active Medications: Acetaminophen (Tylenol Tab*) 650 mg PO Q4H PRN Reason: PAIN - MILD Albuterol (Ventolin 2.5 Mg/3 Ml Neb.Hoda*) 2.5 mg INH Q4H PRN Reason: SOB/ WHEEZING Atorvastatin Calcium (Lipitor*) 10 mg PO DAILY MAYLIN Citric Acid/Sodium Citrate (Bicitra*) 15 ml PO TID MAYLIN Dextrose (Dextrose 50% Vial 50 Ml*) 25 ml IV PUSH .FOR FS < 60 - SS PRN Reason : FS < 60 Diphenhydramine HCl (Benadryl Po*) 25 mg PO Q6H PRN Reason: ITCHING Fentanyl Citrate (Fentanyl*) 25 mcg IV SLOW PU Q4H PRN Reason: PAIN - SEVERE Heparin Sodium (Porcine) (Heparin Flush Picc/Ml/Cvc(*)) 1 - 3 ml FLUSH 0600, 1800 MAYLIN; Protocol Aztreonam 1 gm/ Sodium (Chloride) 50 mls @ 200 mls/hr IVPB Q8H [facility] Sodium Chloride (Ns 0.9% 1000 Ml) 1,000 mls @ 50 mls/hr IV PER RATE [facility] Insulin Human Lispro (Humalog*) 0 units SUBCUT ACHS MAYLIN; Protocol Sertraline HCl (Zoloft*) 25 mg PO DAILY [facility] Tramadol HCl (Ultram*) 50 mg PO Q12H PRN Reason: PAIN - MODERATE Vital Signs 10/25/18 15:28 Temperature 98.9 F Pulse Rate 85 Respiratory 18 Rate Blood Pressure 103/51 (mmHg) O2 Sat by Pulse 99 Oximetry Oxygen Devices in Use Now: None Appearance: NAD, laying in bed Ears/Nose/Mouth/Throat: Mucous Membranes Moist Respiratory: Symmetrical Chest Expansion and Respiratory Effort Skin: - - See skin note below Neurological: Alert and Oriented x 3 Lines/Tubes/Other Access: Clean, Dry and Intact Other Access - Nephrostomy tube with hematuria Nutrition: Taking PO's Result Diagrams: 10/26/18 06:15 10/26/18 06:15 Additional Lab and Data: Above labs were pulled into the note, when the note was edited prior to signing the note on a later date. See below for labs from the day of consultation. Laboratory Tests 10/23/18 10/25/18 10/25/18 08:03 01:20 06:18 WBC 12.6 H Hgb 7.7 L Hct 23 L Plt Count 274 Sodium 138 Potassium 3.8 Chloride 115 H Carbon Dioxide 15 L BUN 40 H Creatinine 1.70 H Glucose 95 Total Protein 5.5 L Albumin 2.5 L Skin Deviation Note - Skin Deviation Findings Left buttock - There is a superficial open area to the buttock, area measures 2.2 cm X 1 cm X 0.1 cm. The wound bed is pink granulation tissue. The surrounding skin with mild blanchable erythema. There is no drainage noted. Assessment/Plan: Ms. Celeste is a 78 yo male with PMH significant for bladder ca S/P cystectomy, diverting urostomy, and left nephrostomy; CAD; DM2; HTN; and CKD who presented to the ED for hematuria and weakness. She presented to the hospital with blanchable erythema to her buttocks. 1. Shearing injury to the left buttock. Recommend frequent turning and repositioning. Apply barrier cream as needed to the area. Use a lifting device to move patient in bed. Consider checking a pre-albumin level to evaluate nutritional status (was 11 in August 2018). 2. DM2. No HgA1C in the EMR. Consider checking one. Maintain good glycemic control to allow for wound healing. 3. Diet. Consistent Carbohydrate diet. 4. Code Status. DNR. 5. Disposition. Inpatient, disposition per primary medicine team. TIME SPENT: Time for this wound consultation was 25 minutes and 15 minutes was spent with the patient discussing past medical history; performing incontinence care; assessing, measuring, and photographing the wound. Wound Problem/Plan Is Patient a Wound Clinic Patient: No Attending: Laurie Javier
[2018-10-25] MEDS: diPHENhydraMINE PO* 25 MG PO PRN (19:48)
[2018-10-25] MEDS: Sodium Citrate/Citric Acid* 15 ML UDC PO SCH (20:52)
[2018-10-26] MEDS: Aztreonam (*) 1 GM in NS 0.9% 50 ML* 50 ML IVPB SCH ×2 (00:42→07:52)
[2018-10-26 06:53] LABS: ABS Basophils 0.1 10^3/ul (0-0.2); ABS Eosinophils 1.6 10^3/ul (0-0.6); ABS Monocytes 0.8 10^3/ul (0-0.8); ABS Neutrophils 10.1 10^3/ul (1.5-7.7); Eosinophil % 11.5 %; Hematocrit 20 % (35-47); Hemoglobin 6.7 g/dL (12.0-16.0); Lymphocyte % 7.6 %; Mean Corpuscular HGB Conc 33 g/dL (31-36); Mean Corpuscular Hemoglobin 26 pg (27-31); Mean Corpuscular Volume 79 fL (80-97); Mean Platelet Volume 6.9 fL (7.4-10.4); Platelet Count 297 10^3/uL (150-450); Red Blood Count 2.55 10^6 /uL (3.70-4.87); Red Cell Distribution Width 20 % (10-15); White Blood Count 13.6 10^3/uL (3.5-10.8)
[2018-10-26 07:07] LABS: BUN/Creatinine Ratio 23.3 (8-20); EGFR Non-African American 27.3 (>60); Potassium 3.9 mmol/L (3.5-5.0)
[2018-10-26] MEDS: Sertraline* 25 MG TAB PO SCH (07:52)
[2018-10-26] MEDS: Atorvastatin* 10 MG TAB PO SCH (07:52)
[2018-10-26] MEDS: Sodium Citrate/Citric Acid* 15 ML UDC PO SCH (07:52)
[2018-10-26] MEDS: Insulin LISPRO* 1 UNITS UNIT SUBCUT SCH ×2 (09:01→13:13)
--- NOTE | 2018-10-26 11:17 | PN ---
Progress Note - Progress Note Date of Service: 10/26/18 Note: Surgery Progress: S: Denies SOB or chest pain. O: Vital Signs - 8 hr 10/26/18 10/26/18 03:24 07:36 Temperature 97.5 F 99.5 F Pulse Rate 87 82 Respiratory 18 18 Rate Blood Pressure 103/42 107/41 (mmHg) O2 Sat by Pulse 97 98 Oximetry Intake and Output Last 24 Hours 10/24/18 10/25/18 10/26/18 10/27/18 06:59 06:59 06:59 06:59 Intake Total 1979 317 2672 350 Output Total 172 2263 2460 Balance 255 907 212 350 Intake: IV Fluids 45 1966 1004 normal saline 45 1966 1004 IVPB 215 108 ABX - AZTREONAM 105 108 normal saline 110 Oral 3536 898 8291 350 Packed Cells 683 Output: Chest Tube #1 400 463 175 Nephrostomy #3 394 418 7087 Nephrostomy #2 775 Ureteral #1 150 Urostomy 775 855 500 Other: Estimated Void Medium # Bowel Movements 1 1 1 Estimated Stool Amount Small Small Small # Voids 1 Gen: appears comfortable; NAD; somewhat drowsy Heart: reg Lungs: clear to ausc Chest tube w/ moderate amt light, clear drainage; no air leak A: s/p chest tube for spontaneous L ptx, improved P: discussed w/ Dr. Oates; placed to water seal; will check xray this pm
[2018-10-26] MEDS ORDERED: LORazepam TAB(*) 0.5 MG PO PRN (12:56)
[2018-10-26] MEDS ORDERED: Morphine ORAL CONCENTRATE* 5 MG/0.25 ML ORAL.SYRIN SL PRN (12:57)
--- NOTE | 2018-10-26 15:06 | PN ---
Subjective Date of Service: 10/26/18 Interval History: Patient is feeling well today. Denies any pain, denies F/C, CP, SOB, Abdominal pain, diarrhea, or other pain. Discussed with patient her declining hemoglobin and she states she would not want a nephrostomy tube replacement even if it would stop her bleeding. Patient also sequentially refused Transfusion, Epo, IV Iron. Her current treatments and the benefits and risks of her current interventions were discussed and she sequentially decided to discontinue insulin therapy, antibiotics, and then opted to discontinue all life prolonging measures. Patient and family are amenable to going back to [facility] for Comfort Care. Family History: Unchanged from Admission Social History: Unchanged from Admission Past Medical History: Unchanged from Admission Objective Active Medications: Acetaminophen (Tylenol Tab*) 650 mg PO Q4H PRN PRN Reason: PAIN - MILD Last Admin: 10/24/18 10:55 Dose: 650 mg Albuterol (Ventolin 2.5 Mg/3 Ml Neb.Hoda*) 2.5 mg INH Q4H PRN PRN Reason: SOB/WHEEZING Last Admin: 10/23/18 09:48 Dose: 2.5 mg Diphenhydramine HCl (Benadryl Po*) 25 mg PO Q6H PRN PRN Reason: ITCHING Last Admin: 10/25/18 19:48 Dose: 25 mg Heparin Sodium (Porcine) (Heparin Flush Picc/Ml/Cvc(*)) 1 - 3 ml FLUSH 0600, 1800 MAYLIN; Protocol Last Admin: 10/26/18 07:19 Dose: Not Given Lorazepam (Ativan Tab(*)) 0.5 mg PO Q4H PRN PRN Reason: ANXIETY Morphine Sulfate (Morphine Oral Concentrate*) 5 mg SL Q2H PRN PRN Reason: PAIN - MODERATE Sertraline HCl (Zoloft*) 25 mg PO DAILY MAYLIN Last Admin: 10/26/18 07:52 Dose: 25 mg Tramadol HCl (Ultram*) 50 mg PO Q12H PRN PRN Reason: PAIN - MODERATE Last Admin: 10/25/18 12:56 Dose: 50 mg Vital Signs - 8 hr 10/26/18 10/26/18 07:36 11:26 Temperature 99.5 F 97.7 F Pulse Rate 82 77 Respiratory 18 16 Rate Blood Pressure 107/41 103/47 (mmHg) O2 Sat by Pulse 98 99 Oximetry Oxygen Devices in Use Now: None Appearance: Patient is a 78yo female who appears stated age and is sitting in the bed in NAD. Eyes: No Scleral Icterus, PERRLA Ears/Nose/Mouth/Throat: NL Teeth, Lips, Gums, Clear Oropharnyx, Mucous Membranes Moist, - - Pale mucus membranes. Neck: NL Appearance and Movements; NL JVP, Trachea Midline Respiratory: Symmetrical Chest Expansion and Respiratory Effort, - - Rhonchi in B/L Lower Lobes. No other adventitious lung sounds. Cardiovascular: NL Sounds; No Murmurs; No JVD, RRR, - - 1+ B/L LE edema. Abdominal: NL Sounds; No Tenderness; No Distention, No Hepatosplenomegaly, - - Nephrostomy and urostomy both draining bloody urine. Lymphatic: No Cervical Adenopathy Extremities: No Clubbing, Cyanosis Skin: No Rash or Ulcers, No Nodules or Sclerosis Neurological: Alert and Oriented x 3, - - CN II-XII intact. Result Diagrams: 10/26/18 06:15 10/26/18 06:15 Microbiology and Other Data: Microbiology 10/20/18 21:41 Aerobic Blood Culture - Preliminary Blood Venous No Growth Day 4 Anaerobic Blood Culture - Preliminary No Growth Day 4 10/20/18 21:35 Aerobic Blood Culture - Final Blood Venous Pseudomonas Aeruginosa Anaerobic Blood Culture - Preliminary No Growth Day 4 Assess/Plan/Problems-Billing Assessment: Ms. Celeste is a 78 yo F with PMH of bladder CA, s/p cestectomy with nephrostomy tube and ileal conduit that presented from [facility] with complaints of gross hematuria and weakness, found to be septic. Patient needed blood transfusions and opted against more chemotherapy and now opted for comfort care. - Patient Problems (1) Bacteremia Current Visit: Yes Status: Acute Code(s): R78.81 - BACTEREMIA SNOMED Code( s): 5533583 Comment: - 03/25 BC bottles growing Psuedomonas which was also in urine - Appreciate ID consult - Discontinue Antibiotics for Comfort care. (2) Hematuria Current Visit: Yes Status: Acute Code(s): R31.9 - HEMATURIA, UNSPECIFIED SNOMED Code(s): 34117591 Comment: - With history of bladder cancer and ileal conduit/nephrostomy - Gross hematuria and clots noted in urostomy and nephrostomy bags - H/H declining and patient and family opted against additional medical intervention including Transfusion, IV Iron, Epo, or IR procedure - Patient and Family understand that her bleeding if left untreated will eventually end her life and opted for comfort care. (3) Septic shock Current Visit: Yes Status: Acute Code(s): A41.9 - SEPSIS, UNSPECIFIED ORGANISM; R65.21 - SEVERE SEPSIS WITH SEPTIC SHOCK SNOMED Code(s): 30934414 Comment: - Resolved - Required Levophed - Urinary source (4) Spontaneous pneumothorax Current Visit: Yes Status: Acute Code(s): J93.83 - OTHER PNEUMOTHORAX SNOMED Code(s): 32867146 Comment: - Acutely SOB in the afternoon of 10/23; CXR revealing large left sided pneumo without shift - Appreciate Surgery consult; chest tube placed by Dr. Oates - Chest tube remains in place, hopefully will soon be removed, pending CXR this afternoon. (5) CKD (chronic kidney disease) Current Visit: No Status: Acute Code(s): N18.9 - CHRONIC KIDNEY DISEASE, UNSPECIFIED SNOMED Code(s): 475779493 Comment: - Worsening acidosis - Stop Bicitra per family. - Comfort Care. (6) DM II (diabetes mellitus, type II), controlled Current Visit: No Status: Acute Code(s): E11.9 - TYPE 2 DIABETES MELLITUS WITHOUT COMPLICATIONS SNOMED Code(s): 35262282 Comment: - Stop insulin and FSBG for comfort care. (7) History of urostomy Current Visit: No Status: Acute Code(s): Z98.890 - OTHER SPECIFIED POSTPROCEDURAL STATES SNOMED Code(s): 560636956 Comment: - Secondary to Bladder Cancer - No further treatment - Comfort Care. (8) DNR (do not resuscitate) Current Visit: No Status: Acute Comment: (9) DVT prophylaxis Current Visit: No Status: Acute Code(s): Z29.9 - ENCOUNTER FOR PROPHYLACTIC MEASURES, UNSPECIFIED SNOMED Code(s): 428673714 Comment: - SCDs only in the setting of hematuria (10) Nephrostomy complication Current Visit: No Status: Acute Code(s): N99.528 - OTHER COMP OF INCONTINENT EXTERNAL STOMA OF URINARY TRACT SNOMED Code(s): 92279772 Comment: - May be eroding into kidney and causing hematuria - Not interested in further intervention. (11) UTI (urinary tract infection) Current Visit: No Status: Acute Comment: - Recurrent Pseudomonas UTI. Status and Disposition: Inpatient. Condition is guarded. Anticipate d/c back to [facility] tomorrow
--- NOTE | 2018-10-26 18:39 | PN ---
Progress Note - Progress Note Date of Service: 10/26/18 SOAP: Subjective: The patient was seen today with Tain Perry PA-C for removal of her chest tube. She has been on water seal since yesterday. She admits some increased shortness of breath since this morning. She also admits moderate pain around her chest tube and nephrostomy sites that increase with movement. She denies nausea and vomiting and is tolerating food. [] Objective: Vital Signs - 8 hr 10/26/18 10/26/18 10/26/18 11:26 15:39 17:41 Temperature 97.7 F 97.7 F Pulse Rate 77 88 Respiratory 16 20 16 Rate Blood Pressure 103/47 102/46 (mmHg) O2 Sat by Pulse 99 97 Oximetry Intake and Output Last 24 Hours 10/24/18 10/25/18 10/26/18 10/27/18 06:59 06:59 06:59 06:59 Intake Total 1979 3170 2672 1663 Output Total 1725 2263 2460 800 Balance 255 907 212 863 Intake: IV Fluids 45 1966 1004 913 normal saline 45 1966 1004 913 IVPB 215 108 ABX - AZTREONAM 105 108 normal saline 110 Oral 8459 163 4862 750 Packed Cells 683 Output: Chest Tube #1 400 463 175 Urine 0 Nephrostomy #8 647 965 3084 550 Nephrostomy #2 775 Ureteral #1 150 Urostomy 775 855 500 250 Other: Estimated Void Medium # Bowel Movements 1 1 1 Estimated Stool Amount Small Small Small # Voids 1 Physical Exam: General: patient is mildly confused. She appears to be in mild discomfort and is not able to move easily in bed. Lung: Clear to auscultation anteriorly. Normal breath sounds present. Frequent wet cough present. Chest tube site: no redness or drainage from the site Pleuravac: No air leak noted in the air leak chamber. Light-clear fluid in tubing. Nephrostomy site: no redness or drainage from the site CXR (10/26/18 @ 1400): no evidence of pneumothorax or pleural effusion Assessment: s/p spontaneous L. pneumothorax and chest tube placement, healing well with no evidence of further pneumothorax Plan: Her chest tube was removed today without complication and was tolerated well by the patient. An occlussive dressing was placed over the site. Both the patient and her family were instructed to let us know should the site become red, tender , start draining large amounts of fluid or should increased SOB or chest pain occur.
[2018-10-26 23:33] VITALS: BP 95/51
[2018-10-27] MEDS: Sertraline* 25 MG TAB PO SCH (09:28)
--- NOTE | 2018-10-27 09:58 | DS ---
CC: Dr. Jose Fermin; Dr. Carine Sanz* DISCHARGE SUMMARY: DATE OF ADMISSION: 10/20/18 DATE OF DISCHARGE: 10/27/18 PRIMARY CARE PROVIDER: Dr. Jose Fermin. MY ATTENDING WHILE IN THE HOSPITAL: Dr. Carine Sanz* (dictated by SANDIE Vasquez). PRIMARY DISCHARGE DIAGNOSES: 1. Hematuria. 2. Anemia. 3. Acidosis. 4. Bladder cancer. 5. Urinary tract infection. 6. Bacteremia. 7. Septic shock, resolved. SECONDARY DISCHARGE DIAGNOSES: 1. Chronic kidney disease. 2. Coronary artery disease. 3. Type 2 diabetes mellitus. 4. Hypertension. 5. Hyperlipidemia. 6. Obesity. 7. Nephrostomy tube and ileal conduit. STUDIES DONE WHILE IN THE HOSPITAL: Renal ultrasound from 10/20/18 read as there was left-sided percutaneous nephrostomy tube visible in the left renal pelvis and there is mild left hydronephrosis but no visible renal calculi. Nephrostogram shows left nephroureteral tube check with expected results, contrast easily opacified the tube and filled the left collecting system and the right ileal conduit. No extravasated contrast was noted. Chest x-ray from 10/23/18 read as large left pneumothorax without significant mediastinal shift. Repeat chest x-ray read as status post left chest tube placement. No large residual pneumothorax is present. Chest x-ray from 10/26/18 read as chest tubes in place. No pneumothorax seen. MEDICATIONS AT DISCHARGE: 1. Tylenol 650 mg p.o. q.4 hours as needed. 2. Albuterol 2.5 mg p.o. q.4 hours as needed. 3. Benadryl 25 mg p.o. q.6 hours as needed. 4. Lorazepam 0.5 mg p.o. q.4 hours as needed. 5. Morphine sulfate 5 mg sublingually q.2 hours as needed. 6. Sertraline 25 mg p.o. daily. 7. Tramadol 50 mg p.o. q.12 hours as needed. New medications at discharge: 1. Morphine. 2. Ativan. 3. Benadryl. 4. Albuterol. 5. Tylenol. Medications discontinued at discharge: 1. Simvastatin. 2. Aspirin 81 mg p.o. daily. 3. Potassium chloride 20 mEq p.o. daily. 4. Torsemide 20 mg p.o. daily. 5. Glucosamine 1500 mg p.o. daily. HOSPITAL COURSE: This is a brief summary of the patient's presentation. For more details, please see history and physical from Dr. Tory Maguire on . In brief, the patient is a 78-year-old female with past medical history significant for several recent hospitalizations following a cystectomy with ileal conduit on 07/26/18 and subsequent nephrostomy tube placement. The patient had been admitted to this institution for several times recently, firstly from 08/19/18 to 08/27/18 and then from 09/14/18 to 09/22/18. The patient was initially admitted for urinary tract infection and fluid overload and was discharged to subacute rehab. The patient was then readmitted for nephrostomy tube infection and replacement. The patient was residing at [facility] for rehab and following up with her [facility] urologist when she developed large amount of gross hematuria in both her nephrostomy tube and her ileal conduit. The patient had been started on chemotherapy, it is unclear what type. The patient previously had pseudomonal and klebsiella infections of her urine and her urine and blood again grew pseudomonas. The patient initially needed vasopressors agents but was able to weaned off these quickly and transferred out of the ICU. The patient on had a spontaneous pneumothorax of unclear cause. The patient's hematuria continued. The patient had 2 units of blood given with a lowest recorded hemoglobin of 5.5. Her hemoglobin then again trended down with continued gross hematuria. The patient was seen in consultation by Dr. Shira Clements of Palliative Care and the family elected against any further invasive interventions. The patient had continued bleeding from her nephrostomy tube and ileal conduit with her hemoglobin being recorded on 08/26/18. The patient at that time refused blood transfusion, erythropoietin infusion, and IV iron infusion. It was then discussed with the patient whether or not she wanted to have any life-prolonging treatments to be done and she declined all of these including IV antibiotics buffering for her urine, blood glucose monitoring and fingersticks. The patient declined nephrostomy tube placement even if it was indicated to control her bleeding. The patient and her family were amenable for return to [facility] [place] on 10/27/18 for comfort care. PHYSICAL EXAMINATION ON THE DAY OF DISCHARGE: General: The patient is a 78- year- old female who is very pale and appears her stated age, sitting in the bed , in no acute distress. Vital Signs: At the time of evaluation, temperature 97.3, pulse rate 77, respiratory rate 16, oxygen saturation 98% on room air, blood pressure 95/51. HEENT: Head, normocephalic, atraumatic. Sclerae anicteric. No conjunctival injection. Nasal mucosa is moist. Oral mucosa is moist. No pharyngeal erythema, discharge or exudate. Neck: Supple, nontender. No lymphadenopathy. No carotid bruits auscultated. No JVD. Cardiac: Regular rate and rhythm. No clicks, murmurs, gallops or rubs. Pulses 2+ in the bilateral dorsalis pedis, posterior tibialis, and radial areas. 2+ bilateral lower extremity edema. Respiratory: Rhonchi heard throughout. Good air exchange bilaterally. Abdomen: Soft, nontender, nondistended. Bowel sounds present and normoactive in all 4 quadrants. No hepatosplenomegaly. No abdominal bruits auscultated. No hepatojugular reflux. Genitourinary: No suprapubic tenderness. Ileal conduit in place draining bloody urine with large amount of clots. Nephrostomy in place draining pink urine with several small clots. Neuro: The patient is drowsy. No other focal deficits. Psychiatric: Pleasant and cooperative. DISCHARGE PLAN: The patient will be discharged back to [facility] [place]. The patient will have morphine and Ativan, Benadryl, Tramadol, Tylenol, and will be continued on her sertraline for comfort care. The patient wants no further life -sustaining measures. At this time, the patient's chest tube from her spontaneous pneumothorax has been removed. The patient wants no further antibiotics and this has been discussed with her and a MOLST has been filled out to reflect these wishes. The patient will be signed on to hospice upon her return to [facility] [place]. The patient is on an unrestricted comfort care diet. We discussed with the patient and her if at any point they want resumption of life-sustaining care that is well within their rights. The patient should return to the hospital for uncontrollable symptoms. The patient' s life span is unclear, given her severe acidosis and the discontinuation of her buffering as well as her altered mental status, is likely quite limited. This is also the case for her anemia, which we will likely continue to get worse without definitive treatment for her bleeding. TIME SPENT: Approximately 60 minutes was spent on the discharge of this patient , 30 of which was spent [id number] with the patient and her family obtaining history and physical and discussing treatment plan. SANDIE VASQUEZ [id number]/[facility] #: [id number] JUAN
== END 2018-10-27 12:05 | DRG 871 ==
LOC: ED 20:59 → ICU 22:44 → SSU 10-21 15:41
PROVIDERS: ADMIT Hospitalist; ATTEND Internal Medicine
PROC: BT121ZZ Fluoroscopy of Left Kidney using Low Osmolar Contrast (ICD-10-PCS; 2018-10-21)
PROC: 0W9B30Z Drainage of Left Pleural Cavity with Drainage Device, Percutaneous Approach (ICD-10-PCS; 2018-10-23)
PROC: 30233N1 Transfusion of Nonautologous Red Blood Cells into Peripheral Vein, Percutaneous Approach (ICD-10-PCS; principal; 2018-10-24)
DX: A41.52 Sepsis due to Pseudomonas (principal); R65.21 Severe sepsis with septic shock; N39.0 Urinary tract infection, site not specified; N17.9 Acute kidney failure, unspecified; E87.2 Acidosis; J93.83 Other pneumothorax; I25.10 Atherosclerotic heart disease of native coronary artery without angina pectoris; B95.2 Enterococcus as the cause of diseases classified elsewhere; Z66 Do not resuscitate; F32.9 Major depressive disorder, single episode, unspecified; I12.9 Hypertensive chronic kidney disease with stage 1 through stage 4 chronic kidney disease, or unspecified chronic kidney disease; E11.22 Type 2 diabetes mellitus with diabetic chronic kidney disease; B96.5 Pseudomonas (aeruginosa) (mallei) (pseudomallei) as the cause of diseases classified elsewhere; R40.2364 Coma scale, best motor response, obeys commands, 24 hours or more after hospital admission; R40.2144 Coma scale, eyes open, spontaneous, 24 hours or more after hospital admission; R40.2254 Coma scale, best verbal response, oriented, 24 hours or more after hospital admission; H91.90 Unspecified hearing loss, unspecified ear; M17.0 Bilateral primary osteoarthritis of knee; D63.1 Anemia in chronic kidney disease; L89.329 Pressure ulcer of left buttock, unspecified stage; R31.0 Gross hematuria; M81.0 Age-related osteoporosis without current pathological fracture; N18.3 Chronic kidney disease, stage 3 (moderate); E78.5 Hyperlipidemia, unspecified; E66.9 Obesity, unspecified; Z95.5 Presence of coronary angioplasty implant and graft; Z90.49 Acquired absence of other specified parts of digestive tract; Z90.6 Acquired absence of other parts of urinary tract; Z93.2 Ileostomy status; Z93.6 Other artificial openings of urinary tract status; Z98.42 Cataract extraction status, left eye; Z98.41 Cataract extraction status, right eye; Z85.51 Personal history of malignant neoplasm of bladder; Z82.49 Family history of ischemic heart disease and other diseases of the circulatory system; Z83.3 Family history of diabetes mellitus; Z81.8 Family history of other mental and behavioral disorders; Z80.9 Family history of malignant neoplasm, unspecified; Z87.891 Personal history of nicotine dependence; Z88.1 Allergy status to other antibiotic agents; Z88.8 Allergy status to other drugs, medicaments and biological substances; Z68.31 Body mass index [BMI] 31.0-31.9, adult; Z90.710 Acquired absence of both cervix and uterus; Z80.3 Family history of malignant neoplasm of breast; Z80.0 Family history of malignant neoplasm of digestive organs; Z53.20 Procedure and treatment not carried out because of patient's decision for unspecified reasons
CPT/HCPCS: 36415; 36600; 50431; 71045; 74178; 76377; 76775; 80048; 80053; 80202; 81003; 81015; 82803; 83605; 84484; 85014; 85018; 85025; 85027; 85610; 86140; 86850; 86900; 86901; 86922; 87040; 87077; 87086; 87186; 87205; 93005; 94640; 96360; 96361; 99284; 99285; A9270-GY; J3010; J3370; P9040; Q9967